=== PATIENT | male | born 1950 | race Caucasian/White ===

== ENCOUNTER 2016-05-04 10:03 | Outpatient (CLI) | payer MEDICARE | END 2016-05-04 10:04 | disposition home or self-care (01) | DX: Z51.81 Encounter for therapeutic drug level monitoring (principal) ==

== ENCOUNTER 2016-05-17 07:23 | Outpatient (CLI) | payer MEDICARE | END 2016-05-17 07:24 | disposition home or self-care (01) | DX: D64.9 Anemia, unspecified (principal) ==

== ENCOUNTER 2016-05-17 13:45 | Outpatient (CLI) | payer MEDICARE | END 2016-05-17 13:46 | disposition home or self-care (01) | DX: B19.20 Unspecified viral hepatitis C without hepatic coma (principal) ==

== ENCOUNTER 2016-06-04 10:11 | Outpatient (CLI) | payer MEDICARE | END 2016-06-04 10:12 | disposition home or self-care (01) | DX: B19.20 Unspecified viral hepatitis C without hepatic coma (principal); D64.9 Anemia, unspecified ==

== ENCOUNTER 2016-09-21 13:08 | Outpatient (CLI) | payer MEDICARE ==
--- NOTE | 2016-09-21 19:42 | Ultrasound Report ---
COMPLETE ABDOMINAL ULTRASOUND: 09/21/2016 CLINICAL INDICATION: Cirrhosis. COMPARISON: 06/21/2010 TECHNIQUE: Real-time scanning was performed with patient financial representative static images obtained. FINDINGS: The liver measures 15.7 cm. Hepatic echogenicity is heterogeneous, with nodular contour, compatible with cirrhosis. No focal lesion or intrahepatic biliary dilatation is appreciated. The c ommon bile duct is prominent, measuring 9 mm. Cholelithiasis is now present. No gallbladder wall th ickening or pericholecystic fluid is seen. The visualized pancreas is unremarkable, but segments are obscured by bowel gas. The kidneys are unremarkable, with the right measuring 10.5 cm and the left measuring 13.5 cm. The spleen measures 12 cm, and a splenule is noted adjacent. The abdominal aorta is normal in caliber. The inferior vena cava is unremarkable. No free fluid is present. IMPRESSION: CIRRHOTIC LIVER, WITHOUT FOCAL MASS. CHOLELITHIASIS. MILD PROMINENCE OF THE COMMON GONZALEZ E DUCT. JOB #: [id number] EXT JOB #:[id number]
== END 2016-09-21 13:09 | disposition home or self-care (01) ==
LOC: DI 13:08
PROVIDERS: ATTEND Nurse Practitioner
DX: K74.60 Unspecified cirrhosis of liver (principal); K80.20 Calculus of gallbladder without cholecystitis without obstruction
CPT/HCPCS: 76700

== ENCOUNTER 2016-11-02 09:43 | Outpatient (CLI) | payer MEDICARE ==
[2016-11-02 17:29] LABS: BASOPHILS % (AUTO) 0.5 %; EOSINOPHILS # (AUTO) 0.2 10^3/uL (0.0-0.7); EOSINOPHILS % (AUTO) 2.6 %; HCT - HEMATOCRIT 39.9 % (42.0-52.0); HGB - HEMOGLOBIN 13.4 g/dL (14.0-18.0); LYMPHOCYTES # (AUTO) 1.9 10^3/uL (1.5-3.5); LYMPHOCYTES % (AUTO) 31.5 %; MEAN CORPUSCULAR HEMOGLOBIN 32.2 pg (27.0-31.0); MEAN CORPUSCULAR HGB CONC 33.6 g/dL (32.0-36.0); MEAN CORPUSCULAR VOLUME 95.7 fL (80.0-94.0); MEAN PLATELET VOLUME 8.8 fL (7.4-11.4); MONOCYTES # (AUTO) 0.7 10^3/uL (0.0-1.0); MONOCYTES % (AUTO) 11.5 %; NEUTROPHILS # (AUTO) 3.2 10^3/uL (1.5-6.6); NEUTROPHILS % (AUTO) 53.9 %; NUCLEATED RED BLOOD CELLS AUTO 0.1 /100WBC; RED BLOOD COUNT 4.18 10^6/uL (4.70-6.10); RED CELL DISTRIBUTION WIDTH 13.5 % (12.0-15.0); UNCORRECTED WHITE BLOOD COUNT 5.9 x10^3/uL; WHITE BLOOD COUNT 5.9 x10^3/uL (4.8-10.8)
[2016-11-02 17:35] LABS: INR 1.1 (0.8-1.2); PT - PROTHROMBIN TIME 12.3 secs (9.9-12.6)
[2016-11-02 17:47] LABS: ALBUMIN/GLOBULIN RATIO 0.9 (1.0-2.2); BILIRUBIN,TOTAL 1.3 mg/dL (0.2-1.0); CALCIUM 9.1 mg/dL (8.5-10.3); CREATININE 0.9 mg/dL (0.6-1.2); POTASSIUM 4.4 mmol/L (3.5-5.0); TOTAL PROTEIN 6.9 g/dL (6.7-8.2)
== END 2016-11-02 09:44 | disposition home or self-care (01) ==
LOC: LAB.F 09:43
PROVIDERS: ATTEND Nurse Practitioner
DX: B18.2 Chronic viral hepatitis C (principal)
CPT/HCPCS: 36415; 80053; 85025; 85610

== ENCOUNTER 2017-03-01 14:49 | Outpatient (CLI) | payer MEDICARE ==
--- NOTE | 2017-03-01 19:44 | Ultrasound Report ---
EXAM: ABDOMEN ULTRASOUND EXAM DATE: 03/01/2017 04:46 PM. CLINICAL HISTORY: Cirrhosis of liver without ascites. COMPARISON: 09/21/2016. TECHNIQUE: Real-time scanning was performed with static images obtained. FINDINGS: Liver: Normal in size. Coarse heterogeneous echotexture with lobular contour. 16.4 cm. Main portal ve in flow: Hepatopetal. Gallbladder: Nonmobile gallstone. No wall thickening. Nontender. Biliary System: Common bile duct measures 5 mm. No intrahepatic or extrahepatic ductal dilatation. Pancreas: Visualized portion is unremarkable. Kidneys: Right: 10.3 cm longitudinally. Left: 11.6 cm longitudinally. Normal. No contour-deforming mass, stones, or hydronephrosis. Spleen: 11.3 x 6.2 x 4.4 cm. Normal in size and echotexture. 1.4 x 1.4 x 1.6 cm accessory spleen note d. Aorta and Inferior Vena Cava: Unremarkable. Other: No free fluid. IMPRESSION: 1. Cirrhotic liver. 2. Nonmobile gallstone. 3. No free fluid or splenomegaly. [facility] Referring Provider Line: [phone] SITE ID: [id number]
== END 2017-03-01 14:50 | disposition home or self-care (01) ==
LOC: DI 14:49
PROVIDERS: ATTEND Nurse Practitioner
DX: K74.60 Unspecified cirrhosis of liver (principal); K80.80 Other cholelithiasis without obstruction
CPT/HCPCS: 76700

== ENCOUNTER 2017-05-27 11:20 | Outpatient (CLI) | payer MEDICARE ==
--- NOTE | 2017-05-27 13:27 | XRAY Report ---
THREE VIEW RIGHT ELBOW: 05/27/2017 CLINICAL INDICATION: Pain. FINDINGS: AP, lateral, oblique views of the right elbow demonstrate no evidence of fracture or dislocation. No effusion is present. No foreign body is seen in the soft tissues. IMPRESSION: NORMAL RIGHT ELBOW. TD: 05/27/2017 13:25
== END 2017-05-27 11:21 | disposition home or self-care (01) ==
LOC: DI.S 11:20
PROVIDERS: ATTEND Physician Assistant Medical
DX: M25.521 Pain in right elbow (principal)

== ENCOUNTER 2017-08-29 16:05 | Emergency (ER) | payer MEDICARE ==
--- NOTE | 2017-08-29 16:30 | ED Physician Documentation ---
PD HPI GI BLEED - Stated complaint Stated Complaint: RECTAL BLEEDING - Chief complaint Chief Complaint: Abd Pain - History obtained from History obtained from: Patient - History of Present Illness Timing - onset: Today Timing - duration: Days (1) Timing - details: Abrupt onset Associated symptoms: Maroon stool. No: Vomiting, Coffee ground emesis, Abdominal pain, Fever, Near syncope / syncope Contributing factors: Other (history of cirrhosis. No report of varices.). No: Sick contact, Bad food, Travel, Recent antibiotics, Diabetes Similar symptoms before: Has not had sx before Recently seen: Not recently seen (has not had prior/recent EGD. Is scheduled for EGD September 10 in [place].) Review of Systems Constitutional: denies: Fever, Chills Nose: denies: Rhinorrhea / runny nose, Congestion Throat: denies: Sore throat Cardiac: denies: Chest pain / pressure, Palpitations Respiratory: denies: Dyspnea, Cough GI: reports: Diarrhea (has had loose stools regularly the past couple weeks as he is tapering his chronic pain med use. Today noted maroon colored stools and concerned about bleeding.). denies: Abdominal Pain, Nausea, Vomiting : denies: Dysuria, Frequency, Hematuria (but says his urine is dark yellow.) Skin: denies: Abrasion (s), Laceration (s) Musculoskeletal: reports: Back pain (chronic). denies: Neck pain PD PAST MEDICAL HISTORY - Past Medical History Cardiovascular: Hypertension Respiratory: None Endocrine/Autoimmune: Type 2 diabetes GI: Hepatitis, Cirrhosis (due to Hepatitis C and also ongoing chronic alcohol use.), Other - Past Surgical History Past Surgical History: Yes - Present Medications Home Medications: Ambulatory Orders Medication Instructions Recorded Confirmed Alprazolam [Xanax] 5 mg PO TID 08/30/12 01/05/14 Morphine Ir [Morphine] 60 mg PO TID 08/30/12 01/05/14 Diphenoxylate/Atropine [Lomotil] 1 each PO BID #15 tablet 08/29/17 Metoprolol Tartrate 25 mg PO 08/29/17 - Allergies Allergies/Adverse Reactions: Allergies Allergy/AdvReac Type Severity Reaction Status Date / Time No Known Drug Allergies Allergy Verified 08/29/17 16:23 - Living Situation Living Situation: reports: Alone Living Arrangement: reports: At home - Social History Does the pt smoke?: Yes Smoking Status: Current every day smoker Does the pt drink ETOH?: Yes Does the pt have substance abuse?: Yes - Family History Family history: reports: Non contributory - Immunizations Immunizations are current?: Yes PD ED PE NORMAL - Vitals Vital signs reviewed: Yes - General General: Alert and oriented X 3, No acute distress, Well developed/nourished - HEENT HEENT: PERRL (nonicteric), Pharynx benign - Neck Neck: Supple, no meningeal sign, No adenopathy - Cardiac Cardiac: RRR, No murmur - Respiratory Respiratory: Clear bilaterally - Abdomen Abdomen: Normal bowel sounds, Soft, Non tender, Non distended, No organomegaly - Male Male : Deferred - Rectal Rectal: Other (no hemorrhoids. Has brick colored soft stool in vault, which tests guiac negative. ) - Back Back: No CVA TTP - Derm Derm: Normal color, Warm and dry, No rash - Extremities Extremities: No deformity, No tenderness to palpate, Normal ROM s pain - Neuro Neuro: Alert and oriented X 3, No motor deficit, Normal speech Eye Opening: Spontaneous Motor: Obeys Commands Verbal: Oriented GCS Score: 15 Results - Vitals Vitals: Vital Signs - 24 hr 08/29/17 08/29/17 16:15 18:02 Temperature 36.8 C 36.7 C Heart Rate 68 63 Respiratory 18 18 Rate Blood Pressure 204/135 H 191/102 H O2 Saturation 98 98 Oxygen O2 Source Room air - Labs Labs: Laboratory Tests 08/29/17 08/29/17 08/29/17 16:26 17:07 17:07 WBC 6.3 RBC 4.32 L Hgb 14.5 Hct 42.4 MCV 98.0 H MCH 33.5 H MCHC 34.2 RDW 14.4 Plt Count 138 MPV 8.3 PT 12.4 INR 1.1 APTT 29.1 Sodium 136 Potassium 4.0 Chloride 99 L Carbon Dioxide 29 Anion Gap 8.0 BUN 7 Creatinine 0.8 Estimated GFR (MDRD) 96 Glucose 132 H Calcium 9.1 Total Bilirubin 1.1 H AST 37 ALT 22 Alkaline Phosphatase 85 Total Protein 7.8 Albumin 3.8 Globulin 4.0 Albumin/Globulin Ratio 1.0 Lipase 47 PD MEDICAL DECISION MAKING - ED course Complexity details: reviewed results (suddenly became much easier when rectal exam showed rust colored stool in vault, but did not look melena and tested guiac negative. He has been drinking black ayala Rodney Hard Lemonade a lot, per patient, when asked about food colorings. ), considered differential, d/w patient - Sepsis Event Vital Signs: Vital Signs - 24 hr 08/29/17 08/29/17 16:15 18:02 Temperature 36.8 C 36.7 C Heart Rate 68 63 Respiratory 18 18 Rate Blood Pressure 204/135 H 191/102 H O2 Saturation 98 98 Oxygen O2 Source Room air Departure - Departure Disposition: Home, Self Care Clinical Impression: Dark red stool Condition: Stable Record reviewed to determine appropriate education?: Yes Follow-Up: Jesusita Cuenca PA-C [Primary Care Provider] - Prescriptions: Diphenoxylate/Atropine [Lomotil] 1 each PO BID #15 tablet Comments: Ears dual did have a red color to it but it tested negative for blood. May be a coloring from the hard lemonade black ayala. Drink lots of fluids. You could use Imodium or Lomotil if needed for diarrhea. Continue usual medications. Discharge Date/Time: 08/29/17 18:14
[2017-08-29 16:39] LABS: HGB - HEMOGLOBIN 14.5 g/dL (14.0-18.0); MEAN CORPUSCULAR HEMOGLOBIN 33.5 pg (27.0-31.0); MEAN CORPUSCULAR HGB CONC 34.2 g/dL (32.0-36.0); MEAN PLATELET VOLUME 8.3 fL (7.4-11.4); RED BLOOD COUNT 4.32 10^6/uL (4.70-6.10); RED CELL DISTRIBUTION WIDTH 14.4 % (12.0-15.0); WHITE BLOOD COUNT 6.3 x10^3/uL (4.8-10.8)
[2017-08-29 17:19] LABS: INR 1.1 (0.8-1.2); PT - PROTHROMBIN TIME 12.4 secs (9.9-12.6)
[2017-08-29] MEDS ORDERED: DIPHENOX/ATROPINE 2.5/0.025 MG TABLET PO STA (17:24)
[2017-08-29] MEDS ORDERED: SODIUM CHLORIDE 0.9% 1,000 ML IV ONE (17:24)
[2017-08-29 17:25] LABS: ALBUMIN 3.8 g/dL (3.2-5.5); BILIRUBIN,TOTAL 1.1 mg/dL (0.2-1.0); CALCIUM 9.1 mg/dL (8.5-10.3); CREATININE 0.8 mg/dL (0.6-1.2); TOTAL PROTEIN 7.8 g/dL (6.7-8.2)
[2017-08-29 18:02] VITALS: BP 191/102
== END 2017-08-29 18:14 | disposition home or self-care (01) ==
LOC: ED 16:05
DX: R19.5 Other fecal abnormalities (principal); I10 Essential (primary) hypertension; E11.9 Type 2 diabetes mellitus without complications; K75.9 Inflammatory liver disease, unspecified; K70.30 Alcoholic cirrhosis of liver without ascites; F17.200 Nicotine dependence, unspecified, uncomplicated; Z79.891 Long term (current) use of opiate analgesic
CPT/HCPCS: 36415; 80053; 83690; 85027; 85610; 85730; 99283; A9270; 86850; 86900; 86901

== ENCOUNTER 2017-12-07 06:52 | Outpatient (CLI) | payer MEDICARE | END 2017-12-07 06:53 | disposition short-term general hospital (02) | LOC: EMS 06:52 | PROVIDERS: ATTEND Surgery | DX: R07.9 Chest pain, unspecified (principal) | CPT/HCPCS: A0170; A0425; A0427 ==

== ENCOUNTER 2018-03-02 10:09 | Emergency (ER) | payer MEDICARE ==
[2018-03-02 10:18] VITALS: BP 128/76
--- NOTE | 2018-03-02 11:00 | ED Physician Documentation ---
History of Present Illness - Stated complaint Stated Complaint: AB PX/FRANCISCO - Chief complaint Chief Complaint: General - History obtained from History obtained from: Patient - History of Present Illness Timing: Today - Additonal information Additional information: 67-year-old male who is on pain management has been prescribed morphine sulfate 60 mg tablets he was prescribed capsules instead of tablets and this was a $200 co-pay. He took his last pill this morning and his prescriber will be out of the office until the first week of March. Review of Systems Constitutional: denies: Fever Eyes: denies: Decreased vision Ears: denies: Ear pain Nose: denies: Congestion Throat: denies: Sore throat Respiratory: reports: Cough GI: denies: Vomiting Musculoskeletal: reports: Back pain PD PAST MEDICAL HISTORY - Past Medical History Cardiovascular: Hypertension Respiratory: None Endocrine/Autoimmune: Type 2 diabetes GI: Hepatitis, Cirrhosis (due to Hepatitis C and also ongoing chronic alcohol use.), Other - Past Surgical History Past Surgical History: Yes - Present Medications Home Medications: Ambulatory Orders Medication Instructions Recorded Confirmed Alprazolam [Xanax] 5 mg PO TID 08/30/12 01/05/14 Morphine Ir [Morphine] 60 mg PO TID 08/30/12 01/05/14 Diphenoxylate/Atropine [Lomotil] 1 each PO BID #15 tablet 08/29/17 RX: Metoprolol Tartrate 25 mg PO 08/29/17 Morphine Sulfate [Morphine Sulfate 60 mg PO DAILY #14 tablet.er 03/02/18 ER] - Allergies Allergies/Adverse Reactions: Allergies Allergy/AdvReac Type Severity Reaction Status Date / Time zolpidem [From Ambien] AdvReac Hallucinati Verified 03/02/18 10:18 ons - Social History Does the pt smoke?: Yes Smoking Status: Current every day smoker Does the pt drink ETOH?: Yes Does the pt have substance abuse?: Yes - Immunizations Immunizations are current?: Yes PD ED PE NORMAL - Vitals Vital signs reviewed: Yes (normal) - General General: Alert and oriented X 3, Well developed/nourished, Other (The patient does appear to be in pain ) - HEENT HEENT: Atraumatic, PERRL, EOMI - Abdomen Abdomen: Normal bowel sounds - Derm Derm: Normal color, Warm and dry, No rash - Extremities Extremities: No deformity, No edema - Neuro Neuro: No motor deficit, No sensory deficit Eye Opening: Spontaneous Motor: Obeys Commands Verbal: Oriented GCS Score: 15 - Psych Psych: Normal mood, Normal affect Results - Vitals Vitals: Vital Signs - 24 hr 03/02/18 10:14 Temperature 36.6 C Heart Rate 50 L Respiratory 18 Rate Blood Pressure 128/76 O2 Saturation 99 Oxygen O2 Source Room air PD MEDICAL DECISION MAKING - ED course Complexity details: considered differential, d/w patient ED course: 67-year-old male with chronic back pain his cut his use of morphine down to 160 mg extended release tablet per day. He has been prescribed capsules which have a 200 all co-pay and he will not be able to get back into his prescriber until after the new year. He is given a limited supply. He does have the unfilled script with him and this is not confiscated. Departure - Departure Disposition: 01 Home, Self Care Clinical Impression: Medication regimen deficit Condition: Stable Instructions: ED Chronic Pain Management Follow-Up: Jesusita Cuenca PA-C [Primary Care Provider] - Prescriptions: Morphine Sulfate [Morphine Sulfate ER] 60 mg PO DAILY #14 tablet.er Discharge Date/Time: 03/02/18 11:06
== END 2018-03-02 11:06 | disposition home or self-care (01) ==
LOC: ED 10:09
DX: Z76.0 Encounter for issue of repeat prescription (principal); G89.29 Other chronic pain; I10 Essential (primary) hypertension; E11.9 Type 2 diabetes mellitus without complications; B19.20 Unspecified viral hepatitis C without hepatic coma; F17.200 Nicotine dependence, unspecified, uncomplicated
CPT/HCPCS: 99283

== ENCOUNTER 2018-05-23 08:00 | Outpatient (CLI) | payer MEDICARE ==
[2018-05-23 18:09] LABS: MUDS CUTOFF CONCENTRATIONS CUTOFF CONC BELOW:
[2018-05-23 19:02] LABS: AMPHETAMINE SCREEN,URINE NEGATIVE (NEGATIVE); BENZODIAZEPINES SCREEN, URINE NEGATIVE (NEGATIVE); COCAINE SCREEN URINE NEGATIVE (NEGATIVE); METHADONE SCREEN, URINE NEGATIVE (NEGATIVE); METHAMPHETAMINES SCREEN, URINE NEGATIVE (NEGATIVE); OPIATE SCREEN, URINE POSITIVE (NEGATIVE); OXYCODONE SCREEN, URINE NEGATIVE (NEGATIVE); PROPOXYPHENE SCREEN, URINE NEGATIVE (NEGATIVE); TRICYCLIC ANTIDEPRESSANT,URINE NEGATIVE (NEGATIVE)
== END 2018-05-23 23:59 | disposition home or self-care (01) ==
LOC: LAB.R 08:00
PROVIDERS: ATTEND Physician Assistant Medical
DX: G89.29 Other chronic pain (principal); N39.0 Urinary tract infection, site not specified
CPT/HCPCS: 80306; 87086; 87181

== ENCOUNTER 2018-07-25 09:56 | Outpatient (CLI) | payer MEDICARE | END 2018-07-25 09:57 | disposition critical access hospital (66) | LOC: EMS 09:56 | PROVIDERS: ATTEND Surgery | DX: R10.9 Unspecified abdominal pain (principal); R11.0 Nausea; R19.7 Diarrhea, unspecified ==

== ENCOUNTER 2018-07-25 10:20 | Emergency (ER) | payer MEDICARE ==
[2018-07-25] MEDS ORDERED: IOVERSOL 320 100 ML VIAL IVP ONE ×3 (10:21→14:18)
[2018-07-25 10:48] LABS: BASOPHILS % (AUTO) 0.4 %; EOSINOPHILS % (AUTO) 0.5 %; MEAN CORPUSCULAR HEMOGLOBIN 35.6 pg (27.0-31.0); MEAN CORPUSCULAR HGB CONC 34.4 g/dL (32.0-36.0); MEAN CORPUSCULAR VOLUME 103.5 fL (80.0-94.0); MEAN PLATELET VOLUME 7.1 fL (7.4-11.4); MONOCYTES # (AUTO) 0.4 10^3/uL (0.0-1.0); MONOCYTES % (AUTO) 7.5 %; NEUTROPHILS % (AUTO) 72.6 %; PLT - PLATELET COUNT 154 10^3/uL (130-450); RED BLOOD COUNT 3.64 10^6/uL (4.70-6.10); RED CELL DISTRIBUTION WIDTH 14.4 % (12.0-15.0); WHITE BLOOD COUNT 5.5 x10^3/uL (4.8-10.8)
[2018-07-25 11:00] LABS: ALBUMIN 3.4 g/dL (3.2-5.5); BILIRUBIN,TOTAL 2.2 mg/dL (0.2-1.0); CALCIUM 8.7 mg/dL (8.5-10.3); CREATININE 0.7 mg/dL (0.6-1.2); TOTAL PROTEIN 6.9 g/dL (6.7-8.2)
--- NOTE | 2018-07-25 11:01 | ED Physician Documentation ---
History of Present Illness - Stated complaint Stated Complaint: N/V/D, ABD PAIN, - Chief complaint Chief Complaint: Abd Pain - History obtained from History obtained from: Patient, EMS - History of Present Illness Timing: How many weeks ago (3) Pain level max: 6 Pain level now: 5 Improved by: nothing Worsened by: eating - Additonal information Additional information: 68-year-old male with a history of liver cirrhosis. He states that he has not felt well for the past 3 weeks. Being treated for an E. coli urinary tract infection. Was on Bactrim for 2 weeks and is now on tetracycline. He has had some nausea but no vomiting. Some slight diarrhea. Has general abdominal pain. No fevers. No chills. Review of Systems Constitutional: denies: Fever, Chills Nose: denies: Rhinorrhea / runny nose, Congestion Cardiac: denies: Chest pain / pressure Respiratory: denies: Dyspnea, Cough, Wheezing GI: denies: Hematemesis, Bloody / black stool : denies: Dysuria, Frequency, Hesitancy Skin: denies: Rash PD PAST MEDICAL HISTORY - Past Medical History Past Medical History: Yes Cardiovascular: Hypertension Respiratory: None Endocrine/Autoimmune: Type 2 diabetes GI: Hepatitis, Cirrhosis (due to Hepatitis C and also ongoing chronic alcohol use.), Other - Past Surgical History Past Surgical History: Yes - Present Medications Home Medications: Ambulatory Orders Medication Instructions Recorded Confirmed Morphine Ir [Morphine] 60 mg PO TID 08/30/12 07/25/18 Metoprolol Tartrate 25 mg PO DAILY 08/29/17 07/25/18 Morphine Sulfate [Morphine Sulfate 60 mg PO DAILY #14 tablet.er 03/02/18 07/25/18 ER] Esomeprazole Magnesium [Nexium] 20 mg PO DAILY #30 capsule. 07/25/18 Ondansetron Odt [Zofran] 4 mg TL Q6H PRN #10 tablet 07/25/18 Tetracycline HCl 500 mg PO BID 07/25/18 07/25/18 amLODIPine [Norvasc] 5 mg PO DAILY 07/25/18 07/25/18 - Allergies Allergies/Adverse Reactions: Allergies Allergy/AdvReac Type Severity Reaction Status Date / Time zolpidem [From Ambien] AdvReac Hallucinati Verified 03/02/18 10:18 ons - Social History Does the pt smoke?: Yes Smoking Status: Current every day smoker Does the pt drink ETOH?: Yes Does the pt have substance abuse?: Yes - Immunizations Immunizations are current?: Yes PD ED PE NORMAL - Vitals Vital signs reviewed: Yes - General General: Alert and oriented X 3, No acute distress - HEENT HEENT: PERRL, Other (dry lips) - Neck Neck: Supple, no meningeal sign - Cardiac Cardiac: RRR, Strong equal pulses - Respiratory Respiratory: No respiratory distress, Clear bilaterally - Abdomen Abdomen: Soft, Other (mild distention and mild TTP without peritoneal signs diffusely) - Back Back: No CVA TTP - Derm Derm: Warm and dry, No rash - Extremities Extremities: No calf tenderness / cord - Neuro Neuro: Alert and oriented X 3 - Psych Psych: Normal mood, Normal affect Results - Vitals Vitals: Vital Signs - 24 hr 07/25/18 07/25/18 10:37 15:30 Temperature 36.9 C Heart Rate 66 78 Respiratory 18 18 Rate Blood Pressure 134/94 H 146/100 H O2 Saturation 100 99 Oxygen O2 Source Room air - Labs Labs: Microbiology 07/25/18 14:33 Campylobacter Antigen Assay - Final Stool Laboratory Tests 07/25/18 07/25/18 07/25/18 10:45 10:46 10:46 WBC 5.5 RBC 3.64 L Hgb 13.0 L Hct 37.6 L MCV 103.5 H MCH 35.6 H MCHC 34.4 RDW 14.4 Plt Count 154 MPV 7.1 L Neut # (Auto) 4.0 Lymph # (Auto) 1.0 L [place] # (Auto) 0.4 Eos # (Auto) 0.0 Baso # (Auto) 0.0 Absolute Nucleated RBC 0.00 Nucleated RBC % 0.0 PT 14.8 H INR 1.3 H Sodium 136 Potassium 3.6 Chloride 101 Carbon Dioxide 24 Anion Gap 11.0 BUN 10 Creatinine 0.7 Estimated GFR (MDRD) 112 Glucose 126 H Calcium 8.7 Total Bilirubin 2.2 H AST 50 H ALT 29 Alkaline Phosphatase 69 Ammonia Total Protein 6.9 Albumin 3.4 Globulin 3.5 Albumin/Globulin Ratio 1.0 Lipase 27 Urine Color Urine Clarity Urine pH Ur Specific [place] Urine Protein Urine Glucose (UA) Urine Ketones Urine Occult Blood Urine Nitrite Urine Bilirubin Urine Urobilinogen Ur Leukocyte Esterase Ur Microscopic Review Urine Culture Comments 05/17/19 05/17/19 11:00 12:07 WBC RBC Hgb Hct MCV MCH MCHC RDW Plt Count MPV Neut # (Auto) Lymph # (Auto) [place] # (Auto) Eos # (Auto) Baso # (Auto) Absolute Nucleated RBC Nucleated RBC % PT INR Sodium Potassium Chloride Carbon Dioxide Anion Gap BUN Creatinine Estimated GFR (MDRD) Glucose Calcium Total Bilirubin AST ALT Alkaline Phosphatase Ammonia < 10.0 Total Protein Albumin Globulin Albumin/Globulin Ratio Lipase Urine Color YELLOW Urine Clarity CLEAR Urine pH 8.5 H Ur Specific [place] 1.010 Urine Protein NEGATIVE Urine Glucose (UA) NEGATIVE Urine Ketones 15 H Urine Occult Blood TRACE-INTA Urine Nitrite NEGATIVE Urine Bilirubin NEGATIVE Urine Urobilinogen 1 (NORMAL) Ur Leukocyte Esterase NEGATIVE Ur Microscopic Review NOT INDICATED Urine Culture Comments NOT INDICATED - Rads (name of study) CT abd/pelviis Radiology: Prelim report reviewed, EMP read contemporaneously, See rad report ( Subtle peripancreatic fat stranding with adjacent secondary dilatation of duodenal sweep suspicious for pancreatitis. Clinical and laboratory correlation is recommended. 2. Micro-lobulated and macro-lobulated contour of the liver suggests underlying cirrhosis with superimposed steatosis. 3. Recanalization of the umbilical vein with portosystemic collateral venous drainage anterior abdominal veins suggests underlying portal hypertension. No splenomegaly. 4. Possible mild focal thickening of the urothelium left distal ureter extending into adjacent bladder. Clinical history of UTI is acknowledged and this may be a manifestation of that diagnosis. 5. Cholelithiasis with mild nonspecific gallbladder wall thickening. Wall thickening is nonspecific in the setting of suspected portal hypertension. ) PD MEDICAL DECISION MAKING - ED course Complexity details: reviewed old records, reviewed results, re-evaluated patient, considered differential, d/w patient ED course: 68-year-old male with a history of cirrhosis of the liver and to being treated for UTI presents with generally feeling unwell. Also nausea this morning. Nausea resolved. Tolerating p.o. without difficulty. Feels better after IV fluids. A UTI here. We will have him finish his antibiotics at home. Abdomen is soft, nontender nondistended on serial exam. No bowel obstruction on CT. Multiple chronic findings. No evidence of cholecystitis. Patient counseled regarding signs and symptoms for which I believe and urgent re-evaluation would be necessary. Patient with good understanding of and agreement to plan and is comfortable going home at this time This document was made in part using voice recognition software. While efforts are made to proofread this document, sound alike and grammatical errors may occur. Departure - Departure Disposition: 01 Home, Self Care Clinical Impression: Abdominal pain Qualifiers: Abdominal location: unspecified location Qualified Code(s): R10.9 - Unspecified abdominal pain Pancreatitis Qualifiers: Chronicity: acute Pancreatitis type: unspecified pancreatitis type Acute pancreatitis complication: unspecified Qualified Code(s): K85.90 - Acute pancreatitis without necrosis or infection, unspecified Condition: Good Instructions: ED Pancreatitis Follow-Up: your,doctor in 1 week [Other] Prescriptions: Esomeprazole Magnesium [Nexium] 20 mg PO DAILY #30 capsule. Ondansetron Odt [Zofran] 4 mg TL Q6H PRN #10 tablet PRN Reason: Nausea / Vomiting Comments: Continue your other medications at home. Return if you worsen. Follow-up with your doctor for further care. Discharge Date/Time: 07/25/18 15:53
[2018-07-25 11:09] LABS: INR 1.3 (0.8-1.2); PT - PROTHROMBIN TIME 14.8 secs (9.9-12.6)
[2018-07-25] MEDS ORDERED: ONDANSETRON 4 MG/2 ML VIAL IVP STA (12:16)
[2018-07-25 12:23] LABS: BILIRUBIN,URINE NEGATIVE (NEGATIVE); GLUCOSE, URINE (UA) NEGATIVE (NEGATIVE); KETONES,URINE (UA) 15 mg/dL (NEGATIVE); LEUKOCYTE ESTERASE, URINE NEGATIVE (NEGATIVE); NITRITE,URINE NEGATIVE (NEGATIVE); OCCULT BLOOD,URINE TRACE-INTA (NEGATIVE); PH,URINE 8.5 PH (5.0-7.5); PROTEIN,URINE NEGATIVE (NEGATIVE); UROBILINOGEN,URINE 1 (NORMAL) E.U./dL (NORMAL)
[2018-07-25 12:24] LABS: CLARITY,URINE CLEAR (CLEAR)
[2018-07-25] MEDS ORDERED: FAMOTIDINE 20 MG TABLET PO STA (13:08)
[2018-07-25] MEDS ORDERED: MAG HYDROX/AL HYDROX/SIMETH 30 ML UDC PO STA (13:08)
[2018-07-25] MEDS ORDERED: PHENobarb/HYOSCY/ATROPINE/SCOP 5 ML UDC PO STA (13:08)
[2018-07-25] MEDS ORDERED: SUCRALFATE 1 GM/10 ML UDC PO STA (13:08)
[2018-07-25] MEDS ORDERED: SODIUM CHLORIDE 0.9% 1,000 ML IV ONE ×2 (13:09)
--- NOTE | 2018-07-25 14:59 | CT Report ---
Reason: abd pain, vomiting Procedure Date: 07/25/2018 Accession Number: [id number] / [id number] Procedure: CT - Abdomen/Pelvis W CPT Code: FULL RESULT: EXAM: CT ABDOMEN AND PELVIS EXAM DATE: 07/25/2018 02:20 PM. CLINICAL HISTORY: Abdominal pain, vomiting. COMPARISONS: ABDOMEN/PELVIS W/WO 03/09/2014 10:38 AM. TECHNIQUE: Routine helical CT imaging was performed through the abdomen and pelvis. IV contrast: OPTI 320 90 ML. Enteric contrast: No. Reconstructions: Coronal and sagittal. In accordance with CT protocol optimization, one or more of the following dose reduction techniques were utilized for this exam: automated exposure control, adjustment of mA and/or KV based on patient size, or use of iterative reconstructive technique. FINDINGS: Lung Bases: Unremarkable. Liver: Heterogeneous/decreased density throughout, consistent with steatosis. Both micro-lobulated and macro-lobulated contour. Patent hepatic and portal veins. Recanalization of the umbilical vein with flow into subcutaneous draining veins over the anterior abdomen. Gallbladder/Bile Ducts: Two dependent radiodense gallstones within the gallbladder lumen. Mild wall thickening, nonspecific in the presence of presumed portal hypertension. Spleen: Normal in size. Pancreas: Pancreatic duct is visible approximately 2-3 mm in size. There is subtle inflammatory stranding/indistinctness of the peripancreatic fat and there is adjacent dilatation of the duodenal sweep indicating possible pancreatitis. Scattered nonenlarged adjacent peripancreatic lymph nodes. Adrenal Glands: Normal. Kidneys: Normal. No masses or hydronephrosis. Peritoneal Cavity/Bowel: No free fluid, free air or adenopathy. No masses . The appendix is well visualized and normal. Other than mild dilatation of the duodenal sweep, small and large bowel are grossly unremarkable. Pelvic Organs: Stable diverticulum of the right UVJ. Possible mild thickening of the left urinary bladder extending into the urothelium of the distal left ureter. Vasculature: No aneurysms or other significant abnormality. Bones: No significant abnormality. Other: None. IMPRESSION: 1. Subtle peripancreatic fat stranding with adjacent secondary dilatation of duodenal sweep suspicious for pancreatitis. Clinical and laboratory correlation is recommended. 2. Micro-lobulated and macro-lobulated contour of the liver suggests underlying cirrhosis with superimposed steatosis. 3. Recanalization of the umbilical vein with portosystemic collateral venous drainage anterior abdominal veins suggests underlying portal hypertension. No splenomegaly. 4. Possible mild focal thickening of the urothelium left distal ureter extending into adjacent bladder. Clinical history of UTI is acknowledged and this may be a manifestation of that diagnosis. 5. Cholelithiasis with mild nonspecific gallbladder wall thickening. Wall thickening is nonspecific in the setting of suspected portal hypertension. [facility]
[2018-07-25 15:39] VITALS: BP 146/100
== END 2018-07-25 15:53 | disposition home or self-care (01) ==
LOC: EDUNIT# → ED 10:20
DX: K85.90 Acute pancreatitis without necrosis or infection, unspecified (principal); K74.69 Other cirrhosis of liver; B19.20 Unspecified viral hepatitis C without hepatic coma; N39.0 Urinary tract infection, site not specified; B96.20 Unspecified Escherichia coli [E. coli] as the cause of diseases classified elsewhere; K80.20 Calculus of gallbladder without cholecystitis without obstruction; I10 Essential (primary) hypertension; E11.9 Type 2 diabetes mellitus without complications; F17.200 Nicotine dependence, unspecified, uncomplicated
CPT/HCPCS: 36415; 74177; 80053; 81003; 82140; 83690; 85025; 85610; 87045; 87046; 87493; 96361; 96374; 99283; A9270; Q9967; 81001; 87086

== ENCOUNTER 2018-09-28 12:59 | Emergency (ER) | payer MEDICARE ==
--- NOTE | 2018-09-28 13:05 | ED Physician Documentation ---
History of Present Illness - Stated complaint Stated Complaint: ABD PX - History obtained from History obtained from: Patient - Additonal information Additional information: Patient is a 68-year-old male with history of liver cirrhosis and recurrent UTI presenting with concerns for persistent UTI particularly dysuria, hematuria, frequency. Patient has been battling UTI for several weeks and received Bactrim and then tetracycline. Patient also complains of diarrhea, nausea, dry heaving, but denies particular abdominal pain except with retching. Patient is unsure if he is experienced fever. Patient takes morphine and other cardiac medications at baseline. Patient continues to use tobacco and alcohol regularly. Patient has primary care follow-up scheduled within the next several days. No other improving or worsening factors noted. Review of Systems Constitutional: reports: Fever GI: reports: Abdominal Pain, Nausea, Diarrhea : reports: Dysuria, Frequency, Hematuria PD PAST MEDICAL HISTORY - Past Medical History Cardiovascular: Hypertension Respiratory: None Endocrine/Autoimmune: Type 2 diabetes GI: Hepatitis, Cirrhosis (due to Hepatitis C and also ongoing chronic alcohol use.), Other - Past Surgical History Past Surgical History: Yes - Present Medications Home Medications: Ambulatory Orders Medication Instructions Recorded Confirmed Morphine Ir [Morphine] 60 mg PO TID 08/30/12 07/25/18 Metoprolol Tartrate 25 mg PO DAILY 08/29/17 07/25/18 Morphine Sulfate [Morphine Sulfate 60 mg PO DAILY #14 tablet.er 03/02/18 07/25/18 ER] Esomeprazole Magnesium [Nexium] 20 mg PO DAILY #30 capsule. 07/25/18 Ondansetron Odt [Zofran] 4 mg TL Q6H PRN #10 tablet 07/25/18 Tetracycline HCl 500 mg PO BID 07/25/18 07/25/18 amLODIPine [Norvasc] 5 mg PO DAILY 07/25/18 07/25/18 Nitrofurantoin Monohyd/M-Cryst 100 mg PO BID 7 Days capsule 09/28/18 [Macrobid 100 mg Capsule] Ondansetron Odt [Zofran] 4 mg TL Q6H PRN #10 tablet 09/28/18 - Allergies Allergies/Adverse Reactions: Allergies Allergy/AdvReac Type Severity Reaction Status Date / Time zolpidem [From Ambien] AdvReac Hallucinati Verified 09/28/18 13:07 ons - Social History Does the pt smoke?: Yes Smoking Status: Current every day smoker Does the pt drink ETOH?: Yes Does the pt have substance abuse?: Yes - Immunizations Immunizations are current?: Yes PD ED PE NORMAL - Vitals Vital signs reviewed: Yes - General General: Alert and oriented X 3, No acute distress, Well developed/nourished, Other (Poor hygiene) - HEENT HEENT: Atraumatic, Moist mucous membranes, Other (Poor dentition) - Neck Neck: Supple, no meningeal sign - Cardiac Cardiac: RRR, No murmur - Respiratory Respiratory: No respiratory distress, Clear bilaterally - Abdomen Abdomen: Normal bowel sounds, Soft, Non tender, Non distended - Derm Derm: Normal color (No jaundice), Warm and dry, No rash, Other - Extremities Extremities: No deformity, No tenderness to palpate - Neuro Neuro: Alert and oriented X 3, No motor deficit, No sensory deficit - Psych Psych: Normal mood, Normal affect Results - Vitals Vitals: Vital Signs - 24 hr 09/28/18 09/28/18 13:02 15:05 Temperature 36.8 C 37.1 C Heart Rate 74 87 Respiratory 11 L 16 Rate Blood Pressure 124/74 144/76 H O2 Saturation 99 99 Oxygen O2 Source Room air - Labs Labs: Laboratory Tests 09/28/18 09/28/18 09/28/18 13:20 13:20 13:20 WBC 5.7 RBC 2.92 L Hgb 10.6 L Hct 30.2 L MCV 103.4 H MCH 36.3 H MCHC 35.1 RDW 14.6 Plt Count 71 L MPV 10.3 Neut # (Auto) 4.4 Lymph # (Auto) 0.9 L [place] # (Auto) 0.4 Eos # (Auto) 0.0 Baso # (Auto) 0.0 Absolute Nucleated RBC 0.00 Nucleated RBC % 0.0 Sodium 138 Potassium 4.2 Chloride 100 L Carbon Dioxide 26 Anion Gap 12.0 BUN 8 Creatinine 0.8 Estimated GFR (MDRD) 96 Glucose 115 H Lactic Acid 1.2 Calcium 8.7 Total Bilirubin 2.1 H AST 41 ALT 21 Alkaline Phosphatase 71 Total Protein 6.8 Albumin 3.3 Globulin 3.5 Albumin/Globulin Ratio 0.9 L Lipase 29 Urine Color Urine Clarity Urine pH Ur Specific [place] Urine Protein Urine Glucose (UA) Urine Ketones Urine Occult Blood Urine Nitrite Urine Bilirubin Urine Urobilinogen Ur Leukocyte Esterase Urine RBC Urine WBC Ur Squamous Epith Cells Urine Bacteria Ur Microscopic Review Urine Culture Comments Urine Opiates Screen Ur Oxycodone Screen Urine Methadone Screen Ur Propoxyphene Screen Ur Barbiturates Screen Ur Tricyclics Screen Ur Phencyclidine Scrn Ur Amphetamine Screen U Methamphetamines Scrn U Benzodiazepines Scrn Urine Cocaine Screen U Cannabinoids Screen Ethyl Alcohol < 5.0 09/28/18 13:38 WBC RBC Hgb Hct MCV MCH MCHC RDW Plt Count MPV Neut # (Auto) Lymph # (Auto) [place] # (Auto) Eos # (Auto) Baso # (Auto) Absolute Nucleated RBC Nucleated RBC % Sodium Potassium Chloride Carbon Dioxide Anion Gap BUN Creatinine Estimated GFR (MDRD) Glucose Lactic Acid Calcium Total Bilirubin AST ALT Alkaline Phosphatase Total Protein Albumin Globulin Albumin/Globulin Ratio Lipase Urine Color DARK YELLOW Urine Clarity CLOUDY Urine pH 7.0 Ur Specific [place] 1.015 Urine Protein TRACE Urine Glucose (UA) NEGATIVE Urine Ketones TRACE Urine Occult Blood TRACE-INTA Urine Nitrite NEGATIVE Urine Bilirubin NEGATIVE Urine Urobilinogen 4 H Ur Leukocyte Esterase MODERATE H Urine RBC 0-5 Urine WBC >25 H Ur Squamous Epith Cells FEW Squamous Urine Bacteria Many H Ur Microscopic Review INDICATED Urine Culture Comments INDICATED Urine Opiates Screen POSITIVE H Ur Oxycodone Screen NEGATIVE Urine Methadone Screen NEGATIVE Ur Propoxyphene Screen NEGATIVE Ur Barbiturates Screen NEGATIVE Ur Tricyclics Screen NEGATIVE Ur Phencyclidine Scrn NEGATIVE Ur Amphetamine Screen NEGATIVE U Methamphetamines Scrn NEGATIVE U Benzodiazepines Scrn NEGATIVE Urine Cocaine Screen NEGATIVE U Cannabinoids Screen NEGATIVE Ethyl Alcohol PD MEDICAL DECISION MAKING - ED course Complexity details: reviewed old records, reviewed results, re-evaluated patient, considered differential, d/w patient ED course: Patient presenting with concern for recurrence of UTI. Patient has been treated with multiple antibiotics recently. Based on his complaints, certainly do have concern for UTI. Have lower suspicion for other renal disease including pyelonephritis or nephrolithiasis. Patient does have known underlying liver cirrhosis but do not find evidence of significant ascites, asterixis, jaundice or other acute findings. Patient does continue to use alcohol and tobacco. Based on lack of significant abdominal pain have low suspicion for other intra- abdominal pathology including appendicitis, gallbladder disease, pancreatitis, diverticulitis, bowel obstruction, AAA, but considered. Patient started on IV medications and fluids. Screening lab work returned relatively unremarkable except for changes indicative of underlying disease processes and comorbidities. Urinalysis concerning for infection. CT a/p did not find evidence of acute processes, but noted chronic changes. Reviewed last urine micro results which indicated E. coli and plan sensitivity. Discussed these results with patient inc luding recommendations of oral antibiotics, offered to prescribe Zofran for home, supportive cares, cessation of alcohol and tobacco, return precautions and appropriate follow-up. Departure - Departure Disposition: Home, Self Care Clinical Impression: Urinary tract infection Qualifiers: Urinary tract infection type: site unspecified Hematuria presence: without hematuria Qualified Code(s): N39.0 - Urinary tract infection, site not specified Condition: Good Instructions: ED UTI Cystitis Male Follow-Up: Jesusita Cuenca PA-C [Primary Care Provider] - Within 3 Days Prescriptions: Nitrofurantoin Monohyd/M-Cryst [Macrobid 100 mg Capsule] 100 mg PO BID 7 Days capsule Ondansetron Odt [Zofran] 4 mg TL Q6H PRN #10 tablet PRN Reason: Nausea / Vomiting Comments: Please continue home medications as previously instructed may use Zofran as prescribed for nausea and vomiting control. Please take antibiotics for urinary tract infection. Recommend taking antibiotics with small amount of food to avoid upset stomach.Follow-up with primary care physician in next 2 to 3 days and return to ED sooner if experience worsening symptoms or have other concerns.
[2018-09-28] MEDS ORDERED: ONDANSETRON 4 MG/2 ML VIAL IVP STA ×2 (13:10→14:29)
[2018-09-28] MEDS ORDERED: SODIUM CHLORIDE 0.9% 1,000 ML IV ONE (13:10)
[2018-09-28 13:31] LABS: BASOPHILS % (AUTO) 0.2 %; EOSINOPHILS % (AUTO) 0.5 %; HGB - HEMOGLOBIN 10.6 g/dL (14.0-18.0); LYMPHOCYTES # (AUTO) 0.9 10^3/uL (1.5-3.5); LYMPHOCYTES % (AUTO) 15.7 %; MEAN CORPUSCULAR HEMOGLOBIN 36.3 pg (27.0-31.0); MEAN CORPUSCULAR HGB CONC 35.1 g/dL (32.0-36.0); MEAN CORPUSCULAR VOLUME 103.4 fL (80.0-94.0); MEAN PLATELET VOLUME 10.3 fL (7.4-11.4); MONOCYTES # (AUTO) 0.4 10^3/uL (0.0-1.0); MONOCYTES % (AUTO) 6.8 %; NEUTROPHILS # (AUTO) 4.4 10^3/uL (1.5-6.6); NEUTROPHILS % (AUTO) 76.1 %; PLT - PLATELET COUNT 71 10^3/uL (130-450); RED BLOOD COUNT 2.92 10^6/uL (4.70-6.10); RED CELL DISTRIBUTION WIDTH 14.6 % (12.0-15.0); WHITE BLOOD COUNT 5.7 x10^3/uL (4.8-10.8)
[2018-09-28 13:48] LABS: MUDS CUTOFF CONCENTRATIONS CUTOFF CONC BELOW:
[2018-09-28 13:48] LABS: ALKALINE PHOSPHATASE 71 IU/L (42-121); ALT ALANINE AMINOTRANSFERASE 21 IU/L (10-60); AST ASPARTATE AMINOTRANSFERASE 41 IU/L (10-42); BILIRUBIN,TOTAL 2.1 mg/dL (0.2-1.0); BUN - BLOOD UREA NITROGEN 8 mg/dL (6-20); CALCIUM 8.7 mg/dL (8.5-10.3); CARBON DIOXIDE - CO2 26 mmol/L (21-32); CHLORIDE 100 mmol/L (101-111); CREATININE 0.8 mg/dL (0.6-1.2); GFR - MDRD 96 (>89); GLUCOSE 115 mg/dL (70-100); SODIUM 138 mmol/L (135-145)
[2018-09-28 13:49] LABS: ALBUMIN 3.3 g/dL (3.2-5.5); ALBUMIN/GLOBULIN RATIO 0.9 (1.0-2.2); LIPASE 29 U/L (22-51); TOTAL PROTEIN 6.8 g/dL (6.7-8.2)
[2018-09-28 13:58] LABS: GLUCOSE, URINE (UA) NEGATIVE (NEGATIVE); KETONES,URINE (UA) TRACE mg/dL (NEGATIVE); LEUKOCYTE ESTERASE, URINE MODERATE (NEGATIVE); NITRITE,URINE NEGATIVE (NEGATIVE); OCCULT BLOOD,URINE TRACE-INTA (NEGATIVE); PROTEIN,URINE TRACE mg/dL (NEGATIVE); UROBILINOGEN,URINE 4 E.U./dL (NORMAL)
[2018-09-28 14:01] LABS: AMPHETAMINE SCREEN,URINE NEGATIVE (NEGATIVE); BENZODIAZEPINES SCREEN, URINE NEGATIVE (NEGATIVE); COCAINE SCREEN URINE NEGATIVE (NEGATIVE); METHADONE SCREEN, URINE NEGATIVE (NEGATIVE); METHAMPHETAMINES SCREEN, URINE NEGATIVE (NEGATIVE); OPIATE SCREEN, URINE POSITIVE (NEGATIVE); OXYCODONE SCREEN, URINE NEGATIVE (NEGATIVE); PROPOXYPHENE SCREEN, URINE NEGATIVE (NEGATIVE); TRICYCLIC ANTIDEPRESSANT,URINE NEGATIVE (NEGATIVE)
[2018-09-28 14:03] LABS: CLARITY,URINE CLOUDY (CLEAR)
[2018-09-28 14:05] LABS: BILIRUBIN,URINE NEGATIVE (NEGATIVE); ICTOTEST,URINE NEGATIVE
[2018-09-28 14:09] LABS: RBC,URINE 0-5 /HPF (0-5); SQUAMOUS EPITHELIAL CELL,UR FEW Squamous (<= Few)
[2018-09-28 14:10] LABS: BACTERIA,URINE Many /HPF (None Seen)
[2018-09-28] MEDS ORDERED: IOVERSOL 320 100 ML VIAL IVP ONE ×2 (14:28→14:59)
--- NOTE | 2018-09-28 15:28 | CT Report ---
Reason: vomiting, urinary changes, diarrhea, Procedure Date: 09/28/2018 Accession Number: [id number] / [id number] Procedure: CT - Abdomen/Pelvis W CPT Code: FULL RESULT: EXAM: CT ABDOMEN AND PELVIS EXAM DATE: 09/28/2018 02:58 PM. CLINICAL HISTORY: Vomiting, urinary changes, diarrhea. COMPARISONS: ABDOMEN/PELVIS W/ 07/25/2018 2:15 PM. TECHNIQUE: Routine helical CT imaging was performed through the abdomen and pelvis. IV contrast: OPTI 320 90ML. Enteric contrast: No. Reconstructions: Coronal and sagittal. In accordance with CT protocol optimization, one or more of the following dose reduction techniques were utilized for this exam: automated exposure control, adjustment of mA and/or KV based on patient size, or use of iterative reconstructive technique. FINDINGS: Lung Bases: Unremarkable. Liver: The liver parenchyma is low in density. The capsule of the liver has a moderate to markedly lobulated contour. No discrete liver mass. There are anterior abdominal varices with recanalized paraumbilical vein. Gallbladder/Bile Ducts: The gallbladder is contracted. There is a small gallstone. Spleen: Normal. Pancreas: Normal. Adrenal Glands: Normal. Kidneys: Normal. No masses or hydronephrosis. Peritoneal Cavity/Bowel: Normal. No free fluid, free air or adenopathy. No masses or acute inflammatory process. No ascites. Pelvic Organs: Urinary bladder is empty. There is a bladder diverticulum near the right ureterovesicular junction. Vasculature: There is moderate calcification of the abdominal aorta without aneurysm. Bones: No significant abnormality. Other: None. IMPRESSION: 1. Chronic liver disease and liver fibrosis with anterior abdominal varices. 2. No urolithiasis or hydronephrosis. 3. Gallstone in a contracted gallbladder. 4. No localizing acute inflammatory process of bowel or omentum. 5. No ascites. RADIA
[2018-09-28 16:02] VITALS: BP 155/88
== END 2018-09-28 16:22 | disposition home or self-care (01) ==
LOC: EDUNIT# → ED 12:59
DX: N39.0 Urinary tract infection, site not specified (principal); K74.60 Unspecified cirrhosis of liver; B19.20 Unspecified viral hepatitis C without hepatic coma; K74.0 Hepatic fibrosis; I86.8 Varicose veins of other specified sites; K80.20 Calculus of gallbladder without cholecystitis without obstruction; I10 Essential (primary) hypertension; E11.9 Type 2 diabetes mellitus without complications; F17.200 Nicotine dependence, unspecified, uncomplicated
CPT/HCPCS: 36415; 74177; 80053; 81001; 83605; 83690; 85025; 87040; 87086; 87181; 96361; 96374; 96376; 99284; Q9967; 80306; 80320; 81003

== ENCOUNTER 2018-11-03 09:50 | Outpatient (CLI) | payer MEDICARE | END 2018-11-03 23:59 | disposition home or self-care (01) | LOC: LAB.R 09:50 | PROVIDERS: ATTEND Physician Assistant Medical | DX: N39.0 Urinary tract infection, site not specified (principal) | CPT/HCPCS: 87086; 87181 ==

== ENCOUNTER 2018-12-03 11:31 | Outpatient (CLI) | payer MEDICARE ==
[2018-12-03 17:27] LABS: GLUCOSE, URINE (UA) NEGATIVE (NEGATIVE); KETONES,URINE (UA) TRACE mg/dL (NEGATIVE); LEUKOCYTE ESTERASE, URINE NEGATIVE (NEGATIVE); NITRITE,URINE NEGATIVE (NEGATIVE); OCCULT BLOOD,URINE TRACE-INTA (NEGATIVE); PH,URINE 7.5 PH (5.0-7.5); PROTEIN,URINE NEGATIVE (NEGATIVE); UROBILINOGEN,URINE 1 (NORMAL) E.U./dL (NORMAL)
[2018-12-03 17:32] LABS: BILIRUBIN,URINE NEGATIVE (NEGATIVE); CLARITY,URINE CLEAR (CLEAR); ICTOTEST,URINE NEGATIVE
[2018-12-03 17:43] LABS: ALBUMIN 3.8 g/dL (3.2-5.5); BILIRUBIN,TOTAL 2.2 mg/dL (0.2-1.0); CALCIUM 9.3 mg/dL (8.5-10.3); CREATININE 0.9 mg/dL (0.6-1.2); TOTAL PROTEIN 7.5 g/dL (6.7-8.2)
== END 2018-12-03 11:32 | disposition home or self-care (01) ==
LOC: LAB.S 11:31
PROVIDERS: ATTEND Physician Assistant Medical
DX: R11.2 Nausea with vomiting, unspecified (principal); N39.0 Urinary tract infection, site not specified
CPT/HCPCS: 36415; 80053; 81001; 81003; 82150; 83690; 87086

== ENCOUNTER 2018-12-24 10:24 | Outpatient (CLI) | payer MEDICARE ==
[2018-12-24] MEDS ORDERED: GADOBUTROL 15 MMOL/15 ML VIAL ONE (12:28)
[2018-12-24] MEDS ORDERED: GADOBUTROL 15 MMOL/15 ML VIAL IVP ONE (13:30)
--- NOTE | 2018-12-25 05:08 | Ultrasound Report ---
Reason: MEMBRANOUS URETHRAL STICTURE, HISTORY UTI Procedure Date: 12/24/2018 Accession Number: [id number] / [id number] Procedure: US - Retroperitoneal CPT Code: FULL RESULT: EXAM: RENAL ULTRASOUND EXAM DATE: 12/24/2018 11:15 AM. CLINICAL HISTORY: MEMBRANOUS URETHRAL STICTURE, HISTORY UTI. COMPARISON: PELVIS W/WO 12/24/2018 12:22 PM. TECHNIQUE: Real-time scanning was performed with static images obtained. FINDINGS: Right Kidney: 11.4 x 5.8 x 5.6 cm. Normal echotexture with no stones, contour-deforming masses, or hydronephrosis. Left Kidney: 11.9 x 5.4 x 5.1 cm. Normal echotexture with no stones, contour-deforming masses, or hydronephrosis. Bladder: Bilateral jets seen. The prevoid bladder volume was 100 cc. The postvoid bladder volume was 35 cc. Bladder wall thickening with some trabeculation. Large right posterior bladder wall diverticulum, measures 2.9 cm. Other: None. IMPRESSION: 1. No solid renal mass or hydronephrosis. 2. Thick-walled bladder with trabeculation and bladder diverticulum. Findings may be related to chronic outlet obstruction. RADIA
--- NOTE | 2018-12-25 14:16 | MRI Report ---
Reason: MEMBRANOUS URETHRAL STICTURE, HISTORY UTI Procedure Date: 12/24/2018 Accession Number: [id number] / [id number] Procedure: MRI - Pelvis W/WO CPT Code: FULL RESULT: EXAM: MR PELVIS WITH AND WITHOUT CONTRAST EXAM DATE: 12/24/2018 12:22 PM. CLINICAL HISTORY: MEMBRANOUS URETHRAL STRICTURE, HISTORY UTI. COMPARISON: RETROPERITONEAL 12/24/2018 10:39 AM ABDOMEN/PELVIS W/ 09/28/2018 2:51 PM. TECHNIQUE: Multiplanar breath-hold T1, T2, and DWI sequences obtained through the pelvis on an MR scanner. Images obtained before and after administration of 9 cc Gadavist intravenous contrast. FINDINGS: Bowel: The visualized portions of the small bowel, colon, and rectum appear normal. Bladder: Normal in size. There is a 2.4 x 3.1 x 3.3 cm diverticulum arising from the posterior lateral bladder on the right, not intimately associated with the ureterovesical junction, as before. Mild diffuse bladder wall thickening and trabeculation. No mass or filling defect is identified. No perivesical edema. Prostate gland: Unremarkable. Seminal vesicles: Unremarkable. Urethra: Unremarkable. No dilation of the prostatic urethra. Peritoneal cavity: No free fluid. Retroperitoneum: No lymphadenopathy. Body wall: Unremarkable. Bony Structures: No suspicious bony lesions. IMPRESSION: 1. Normal-sized bladder with a 2.4 x 3.1 x 3.3 cm right posterior lateral diverticulum, as before. Mild diffuse bladder wall thickening/trabeculation. 2. The urethra is nondilated and unremarkable. Prostate gland is normal in size. RADIA
== END 2018-12-24 10:25 | disposition home or self-care (01) ==
LOC: DI 10:24
PROVIDERS: ATTEND Urology
DX: N32.3 Diverticulum of bladder (principal); N32.89 Other specified disorders of bladder; Z87.440 Personal history of urinary (tract) infections; Z86.14 Personal history of Methicillin resistant Staphylococcus aureus infection; Z87.898 Personal history of other specified conditions
CPT/HCPCS: 72197; 76770; A9585

== ENCOUNTER 2019-06-01 10:59 | Outpatient (CLI) | payer MEDICARE ==
[2019-06-01 16:59] LABS: BASOPHILS % (AUTO) 0.2 %; EOSINOPHILS % (AUTO) 0.4 %; HGB - HEMOGLOBIN 13.3 g/dL (14.0-18.0); LYMPHOCYTES # (AUTO) 1.4 10^3/uL (1.5-3.5); LYMPHOCYTES % (AUTO) 13.6 %; MEAN CORPUSCULAR HEMOGLOBIN 34.2 pg (27.0-31.0); MEAN CORPUSCULAR HGB CONC 33.4 g/dL (32.0-36.0); MEAN CORPUSCULAR VOLUME 102.3 fL (80.0-94.0); MEAN PLATELET VOLUME 10.1 fL (7.4-11.4); MONOCYTES # (AUTO) 0.8 10^3/uL (0.0-1.0); MONOCYTES % (AUTO) 8.3 %; NEUTROPHILS # (AUTO) 7.7 10^3/uL (1.5-6.6); NEUTROPHILS % (AUTO) 76.8 %; PLT - PLATELET COUNT 187 10^3/uL (130-450); RED BLOOD COUNT 3.89 10^6/uL (4.70-6.10); RED CELL DISTRIBUTION WIDTH 13.1 % (12.0-15.0)
[2019-06-01 18:27] LABS: ALBUMIN 3.9 g/dL (3.2-5.5); ALBUMIN/GLOBULIN RATIO 1.1 (1.0-2.2); BILIRUBIN,TOTAL 2.1 mg/dL (0.2-1.0); CALCIUM 8.6 mg/dL (8.5-10.3); CREATININE 0.7 mg/dL (0.6-1.2); TOTAL PROTEIN 7.3 g/dL (6.7-8.2)
== END 2019-06-01 11:00 | disposition home or self-care (01) ==
LOC: LAB.S 10:59
PROVIDERS: ATTEND Registered Nurse
DX: R11.2 Nausea with vomiting, unspecified (principal)
CPT/HCPCS: 36415; 80053; 85025

== ENCOUNTER 2019-06-27 16:42 | Outpatient (CLI) | payer MEDICARE | END 2019-06-27 16:43 | disposition short-term general hospital (02) | LOC: EMS 16:42 | PROVIDERS: ATTEND Surgery | DX: R60.0 Localized edema (principal); R07.89 Other chest pain; F41.9 Anxiety disorder, unspecified | CPT/HCPCS: A0425; A0429 ==

== ENCOUNTER 2019-07-04 18:18 | Outpatient (CLI) | payer MEDICARE | END 2019-07-04 18:19 | disposition critical access hospital (66) | LOC: EMS 18:18 | PROVIDERS: ATTEND Surgery | DX: R68.83 Chills (without fever) (principal); R11.0 Nausea; R19.7 Diarrhea, unspecified | CPT/HCPCS: A0425; A0429 ==

== ENCOUNTER 2019-07-04 18:48 | Emergency (ER) | payer MEDICARE ==
--- NOTE | 2019-07-04 18:59 | ED Physician Documentation ---
History of Present Illness - Stated complaint Stated Complaint: CHILLS, N/D - Chief complaint Chief Complaint: General - History obtained from History obtained from: Patient (69-year-old gentleman with history of cirrhosis presents with chills that started today. He was treated for an ear infection with an unknown antibiotic about 3 weeks ago. He has had persistent sinus drainage and pressure. He feels like he has postnasal drip which is causing a cough although the cough is not severe. He has some abdominal pain. Mild pedal edema. Chills and diarrhea starting today. No measured fevers.) Review of Systems Constitutional: reports: Chills. denies: Fever Nose: reports: Rhinorrhea / runny nose Throat: reports: Sore throat Cardiac: denies: Chest pain / pressure, Palpitations Respiratory: denies: Dyspnea, Cough GI: reports: Abdominal Pain. denies: Nausea, Vomiting PD PAST MEDICAL HISTORY - Past Medical History Cardiovascular: Hypertension Respiratory: None Endocrine/Autoimmune: Type 2 diabetes GI: Hepatitis, Cirrhosis (due to Hepatitis C and also ongoing chronic alcohol use.), Other : Chronic bladder infection - Past Surgical History Past Surgical History: Yes - Present Medications Home Medications: Ambulatory Orders Medication Instructions Recorded Confirmed Morphine Ir [Morphine] 60 mg PO TID 08/30/12 07/25/18 Metoprolol Tartrate 25 mg PO DAILY 08/29/17 07/25/18 Morphine Sulfate [Morphine Sulfate 60 mg PO DAILY #14 tablet.er 03/02/18 07/25/18 ER] Esomeprazole Magnesium [Nexium] 20 mg PO DAILY #30 capsule. 07/25/18 Ondansetron Odt [Zofran] 4 mg TL Q6H PRN #10 tablet 07/25/18 Tetracycline HCl 500 mg PO BID 07/25/18 07/25/18 amLODIPine [Norvasc] 5 mg PO DAILY 07/25/18 07/25/18 Nitrofurantoin Monohyd/M-Cryst 100 mg PO BID 7 Days capsule 09/28/18 [Macrobid 100 mg Capsule] Ondansetron Odt [Zofran] 4 mg TL Q6H PRN #10 tablet 09/28/18 Levofloxacin [Levaquin] 500 mg PO DAILY #10 tablet 07/04/19 - Allergies Allergies/Adverse Reactions: Allergies Allergy/AdvReac Type Severity Reaction Status Date / Time zolpidem [From Ambien] AdvReac Hallucinati Verified 09/28/18 13:07 ons - Social History Does the pt smoke?: Yes Smoking Status: Current every day smoker Does the pt drink ETOH?: Yes Does the pt have substance abuse?: Yes - Immunizations Immunizations are current?: Yes PD ED PE NORMAL - Vitals Vital signs reviewed: Yes - General General: Alert and oriented X 3, Other (Somewhat disheveled 69-year-old gentleman laying in bed in no distress, smells heavily of tobacco smoke) - HEENT HEENT: Pharynx benign, Other (TMs are normal) - Neck Neck: Supple, no meningeal sign, No bony TTP - Cardiac Cardiac: RRR, No murmur - Respiratory Respiratory: No respiratory distress, Other (Rhonchorous and wheezy throughout) - Abdomen Abdomen: Other (Mildly distended with mild right-sided abdominal tenderness but no surgical signs) - Derm Derm: Normal color, Warm and dry - Extremities Extremities: No calf tenderness / cord, Other (Trace pitting pedal edema) - Neuro Neuro: Alert and oriented X 3, Normal speech Results - Vitals Vitals: Vital Signs - 24 hr 07/04/19 07/04/19 07/04/19 18:56 18:58 20:58 Temperature 36.9 C 36.9 C Heart Rate 61 61 73 Respiratory 22 22 12 Rate Blood Pressure 145/92 H 145/92 H 121/77 O2 Saturation 100 100 97 07/04/19 21:49 Temperature Heart Rate 66 Respiratory 16 Rate Blood Pressure 124/77 O2 Saturation 96 Oxygen O2 Source Room air - Labs Labs: Laboratory Tests 07/04/19 07/04/19 07/04/19 19:00 19:00 19:00 WBC 5.9 RBC 3.46 L Hgb 11.9 L Hct 35.2 L MCV 101.7 H MCH 34.4 H MCHC 33.8 RDW 13.2 Plt Count 149 MPV 9.6 Neut # (Auto) 4.1 Lymph # (Auto) 1.2 L [place] # (Auto) 0.5 Eos # (Auto) 0.1 Baso # (Auto) 0.0 Absolute Nucleated RBC 0.00 Nucleated RBC % 0.0 Sodium 133 L Potassium 3.9 Chloride 99 L Carbon Dioxide 25 Anion Gap 9.0 BUN 9 Creatinine 0.8 Estimated GFR (MDRD) 96 Glucose 115 H Lactic Acid 1.8 Calcium 8.5 Total Bilirubin 1.1 H AST 37 ALT 22 Alkaline Phosphatase 72 Total Protein 7.1 Albumin 3.7 Globulin 3.4 Albumin/Globulin Ratio 1.1 Lipase 40 Urine Color Urine Clarity Urine pH Ur Specific [place] Urine Protein Urine Glucose (UA) Urine Ketones Urine Occult Blood Urine Nitrite Urine Bilirubin Urine Urobilinogen Ur Leukocyte Esterase Urine RBC Urine WBC Urine WBC Clumps Ur Squamous Epith Cells Urine Bacteria Ur Microscopic Review Urine Culture Comments Ethyl Alcohol 40.3 07/04/19 20:25 WBC RBC Hgb Hct MCV MCH MCHC RDW Plt Count MPV Neut # (Auto) Lymph # (Auto) [place] # (Auto) Eos # (Auto) Baso # (Auto) Absolute Nucleated RBC Nucleated RBC % Sodium Potassium Chloride Carbon Dioxide Anion Gap BUN Creatinine Estimated GFR (MDRD) Glucose Lactic Acid Calcium Total Bilirubin AST ALT Alkaline Phosphatase Total Protein Albumin Globulin Albumin/Globulin Ratio Lipase Urine Color YELLOW Urine Clarity CLEAR Urine pH 7.5 Ur Specific [place] <=1.005 Urine Protein NEGATIVE Urine Glucose (UA) NEGATIVE Urine Ketones NEGATIVE Urine Occult Blood SMALL H Urine Nitrite POSITIVE H Urine Bilirubin NEGATIVE Urine Urobilinogen 1 (NORMAL) Ur Leukocyte Esterase TRACE H Urine RBC 11-25 H Urine WBC >25 H Urine WBC Clumps PRESENT Ur Squamous Epith Cells FEW Squamous Urine Bacteria Many H Ur Microscopic Review INDICATED Urine Culture Comments INDICATED Ethyl Alcohol - Rads (name of study) CT A/P Radiology: EMP read contemporaneously (Cystitis by CT, cirrhotic liver, cholelithiasis, atherosclerosis) PD MEDICAL DECISION MAKING - ED course ED course: 69 yo M with chills, w/u shows UTI. Chronic recurrent issue per him. Saw urology, [place], nl cysto per him, no BPH. Departure - Departure Disposition: Home, Self Care Clinical Impression: UTI (urinary tract infection) Qualifiers: Urinary tract infection type: site unspecified Hematuria presence: without hematuria Qualified Code(s): N39.0 - Urinary tract infection, site not specified Cirrhosis Qualifiers: Hepatic cirrhosis type: alcoholic cirrhosis Ascites presence: without ascites Qualified Code(s): K70.30 - Alcoholic cirrhosis of liver without ascites Condition: Good Record reviewed to determine appropriate education?: Yes Instructions: ED UTI Cystitis Male Prescriptions: Levofloxacin [Levaquin] 500 mg PO DAILY #10 tablet Comments: It was found that your chills and illness today are due to urinary tract infection. We are giving you antibiotics. We will culture your urine, sometimes this necessitates a change in antibiotic coverage in which case we will call you in approximately 48 hours. Return for new or worsening symptoms. Follow-up with your doctor within the week. Discharge Date/Time: 07/04/19 22:12
[2019-07-04] MEDS ORDERED: MORPHINE ER 15 MG TABLET PO STA (19:00)
[2019-07-04] MEDS ORDERED: IOVERSOL 320 100 ML VIAL IVP ONE ×2 (19:14→20:10)
[2019-07-04 19:17] LABS: BASOPHILS % (AUTO) 0.3 %; EOSINOPHILS # (AUTO) 0.1 10^3/uL (0.0-0.7); EOSINOPHILS % (AUTO) 1.4 %; HGB - HEMOGLOBIN 11.9 g/dL (14.0-18.0); LYMPHOCYTES # (AUTO) 1.2 10^3/uL (1.5-3.5); LYMPHOCYTES % (AUTO) 19.8 %; MEAN CORPUSCULAR HEMOGLOBIN 34.4 pg (27.0-31.0); MEAN CORPUSCULAR HGB CONC 33.8 g/dL (32.0-36.0); MEAN CORPUSCULAR VOLUME 101.7 fL (80.0-94.0); MEAN PLATELET VOLUME 9.6 fL (7.4-11.4); MONOCYTES # (AUTO) 0.5 10^3/uL (0.0-1.0); MONOCYTES % (AUTO) 8.6 %; NEUTROPHILS # (AUTO) 4.1 10^3/uL (1.5-6.6); NEUTROPHILS % (AUTO) 69.4 %; PLT - PLATELET COUNT 149 10^3/uL (130-450); RED BLOOD COUNT 3.46 10^6/uL (4.70-6.10); RED CELL DISTRIBUTION WIDTH 13.2 % (12.0-15.0); WHITE BLOOD COUNT 5.9 x10^3/uL (4.8-10.8)
[2019-07-04 19:34] LABS: ALBUMIN 3.7 g/dL (3.2-5.5); ALBUMIN/GLOBULIN RATIO 1.1 (1.0-2.2); BILIRUBIN,TOTAL 1.1 mg/dL (0.2-1.0); CALCIUM 8.5 mg/dL (8.5-10.3); CREATININE 0.8 mg/dL (0.6-1.2); TOTAL PROTEIN 7.1 g/dL (6.7-8.2)
--- NOTE | 2019-07-04 20:04 | XRAY Report ---
Reason: cough chills Procedure Date: 07/04/2019 Accession Number: [id number] / [id number] Procedure: XR - Chest 2 View X-Ray CPT Code: 87921 Final Report FULL RESULT: EXAM: CHEST RADIOGRAPHY EXAM DATE: 07/04/2019 07:31 PM. CLINICAL HISTORY: Cough, chills. COMPARISON: RIBS 3 VIEW BILAT 05/09/2015 12:28 PM. TECHNIQUE: 2 views. FINDINGS: Lungs/Pleura: No focal opacities evident. No pleural effusion. No pneumothorax. Normal volumes. Mediastinum: Heart and mediastinal contours are unremarkable. Other: None. IMPRESSION: Normal 2-view chest radiography. RADIA
--- NOTE | 2019-07-04 20:14 | CT Report ---
Reason: IV only, abd pain, RLQ Procedure Date: 07/04/2019 Accession Number: [id number] / [id number] Procedure: CT - Abdomen/Pelvis W CPT Code: Final Report FULL RESULT: EXAM: CT ABDOMEN AND PELVIS EXAM DATE: 07/04/2019 07:57 PM. CLINICAL HISTORY: Right lower quadrant abdominal pain COMPARISONS: ABDOMEN/PELVIS W/ 09/28/2018 2:51 PM. TECHNIQUE: Routine helical CT imaging was performed through the abdomen and pelvis. IV contrast: Yes . Enteric contrast: No . Reconstructions: Coronal and sagittal. In accordance with CT protocol optimization, one or more of the following dose reduction techniques were utilized for this exam: automated exposure control, adjustment of mA and/or KV based on patient size, or use of iterative reconstructive technique. FINDINGS: Lung Bases: Unremarkable. Liver: Fatty and cirrhotic. No suspicious masses on this single phase study. Gallbladder/Bile Ducts: Small calcified gallstones, otherwise unremarkable. Spleen: Unremarkable. Pancreas: Unremarkable. Adrenal Glands: Unremarkable. Kidneys: Unremarkable. No suspicious masses or hydronephrosis. Peritoneal Cavity/Bowel: No bowel obstruction or inflammatory process seen. No free air or significant free fluid. No masses or adenopathy. The appendix is normal. No excessive stool burden. Pelvic Organs: Urinary bladder may be inflamed. Chronic small posterior lateral right bladder diverticulum again noted. Prostate unremarkable. Vasculature: Moderate atherosclerotic disease of the aorta and branches. No aneurysm seen. Bones: No significant abnormality. Other: None. IMPRESSION: 1. Questionable cystitis and correlation with urinalysis suggested. 2. Fatty cirrhotic liver. 3. Cholelithiasis. 4. Moderate atherosclerotic disease of the aorta and branches. RADIA
[2019-07-04 20:32] LABS: BILIRUBIN,URINE NEGATIVE (NEGATIVE); GLUCOSE, URINE (UA) NEGATIVE (NEGATIVE); KETONES,URINE (UA) NEGATIVE (NEGATIVE); LEUKOCYTE ESTERASE, URINE TRACE (NEGATIVE); NITRITE,URINE POSITIVE (NEGATIVE); OCCULT BLOOD,URINE SMALL (NEGATIVE); PH,URINE 7.5 PH (5.0-7.5); PROTEIN,URINE NEGATIVE (NEGATIVE); UROBILINOGEN,URINE 1 (NORMAL) E.U./dL (NORMAL)
[2019-07-04 20:43] LABS: CLARITY,URINE CLEAR (CLEAR)
[2019-07-04 20:44] LABS: WBC CLUMPS,URINE PRESENT
[2019-07-04 20:45] LABS: BACTERIA,URINE Many /HPF (None Seen); SQUAMOUS EPITHELIAL CELL,UR FEW Squamous (<= Few)
[2019-07-04] MEDS ORDERED: levoFLOXacin 500 MG/100 ML 500 MG/100 ML BAG IV STA (20:51)
[2019-07-04 21:50] VITALS: BP 124/77
== END 2019-07-04 22:12 | disposition home or self-care (01) ==
LOC: EDUNIT# → ED 18:48
DX: N39.0 Urinary tract infection, site not specified (principal); K70.30 Alcoholic cirrhosis of liver without ascites; I10 Essential (primary) hypertension; E11.9 Type 2 diabetes mellitus without complications; F17.200 Nicotine dependence, unspecified, uncomplicated
CPT/HCPCS: 36415; 71046; 74177; 80053; 81001; 83605; 83690; 85025; 87086; 87181; 96365; 99284; A9270; Q9967; 80320; 81003

== ENCOUNTER 2019-08-16 12:55 | Outpatient (CLI) | payer MEDICARE ==
--- NOTE | 2019-08-16 14:36 | Ultrasound Report ---
Reason: CLAUDICATION BILATERAL Procedure Date: 08/16/2019 Accession Number: [id number] / [id number] Procedure: US - Ankle Brachial Index CPT Code: Final Report FULL RESULT: PROCEDURE: Ankle Brachial Index INDICATIONS: CLAUDICATION BILATERAL TECHNIQUE: Ankle-brachial indices were obtained bilaterally and recorded. COMPARISONS: None. FINDINGS: Right ankle brachial index (BENJI): 1.1 Left ankle brachial index (BENJI): 1.1 IMPRESSION: Right BENJI: 1.1. Left BENJI: 1.1. Further evaluation with CTA lower extremities could be considered for claudication. Reviewed by: Teddy Guallpa MD on 08/16/2019 2:35 PM PDT Approved by: Teddy Guallpa MD on 08/16/2019 2:35 PM PDT Station ID: [id number]
== END 2019-08-16 12:56 | disposition home or self-care (01) ==
LOC: DI 12:55
PROVIDERS: ATTEND Family Medicine
DX: I73.9 Peripheral vascular disease, unspecified (principal)
CPT/HCPCS: 93922

== ENCOUNTER 2019-09-16 13:05 | Outpatient (CLI) | payer MEDICARE ==
[2019-09-16 14:00] LABS: CHOL/HDL RATIO 2.6 (<5.0); CHOLESTEROL 90 mg/dL; HDL CHOLESTEROL 35 mg/dL; LDL CHOLESTEROL,CALCULATED 46 mg/dL; LDL/HDL RATIO 1.3 (<3.6); VLDL CHOLESTEROL 9 mg/dL
== END 2019-09-16 13:06 | disposition home or self-care (01) ==
LOC: DI 13:05
PROVIDERS: ATTEND Physician Assistant
DX: I49.3 Ventricular premature depolarization (principal); R60.0 Localized edema; I11.9 Hypertensive heart disease without heart failure; Z86.79 Personal history of other diseases of the circulatory system
CPT/HCPCS: 36415; 80061; 83721; 83880; 93306

== ENCOUNTER 2019-10-14 12:30 | Outpatient (CLI) | payer MEDICARE | END 2019-10-14 23:59 | disposition home or self-care (01) | LOC: LAB.R 12:30 | PROVIDERS: ATTEND Family Medicine | DX: N39.0 Urinary tract infection, site not specified (principal) | CPT/HCPCS: 87077; 87086; 87181 ==

== ENCOUNTER 2019-11-12 07:00 | Outpatient (CLI) | payer MEDICARE | END 2019-11-12 23:59 | disposition home or self-care (01) | LOC: LAB.R 07:00 | PROVIDERS: ATTEND Physician Assistant | DX: N39.0 Urinary tract infection, site not specified (principal) | CPT/HCPCS: 87086 ==

== ENCOUNTER 2019-11-16 14:10 | Emergency (ER) | payer MEDICARE ==
[2019-11-16 15:11] LABS: BASOPHILS % (AUTO) 0.4 %; EOSINOPHILS # (AUTO) 0.1 10^3/uL (0.0-0.7); EOSINOPHILS % (AUTO) 1.3 %; HGB - HEMOGLOBIN 10.4 g/dL (14.0-18.0); LYMPHOCYTES # (AUTO) 1.4 10^3/uL (1.5-3.5); LYMPHOCYTES % (AUTO) 15.1 %; MEAN CORPUSCULAR HEMOGLOBIN 37.7 pg (27.0-31.0); MEAN CORPUSCULAR HGB CONC 34.9 g/dL (32.0-36.0); MEAN PLATELET VOLUME 8.9 fL (7.4-11.4); MONOCYTES # (AUTO) 0.7 10^3/uL (0.0-1.0); MONOCYTES % (AUTO) 7.7 %; NEUTROPHILS # (AUTO) 7.1 10^3/uL (1.5-6.6); PLT - PLATELET COUNT 125 10^3/uL (130-450); RED BLOOD COUNT 2.76 10^6/uL (4.70-6.10); RED CELL DISTRIBUTION WIDTH 13.5 % (12.0-15.0); WHITE BLOOD COUNT 9.4 x10^3/uL (4.8-10.8)
[2019-11-16 15:17] LABS: INR 1.3 (0.8-1.2); PT - PROTHROMBIN TIME 14.8 secs (9.9-12.6)
[2019-11-16 15:22] LABS: ALBUMIN 3.3 g/dL (3.2-5.5); BILIRUBIN,TOTAL 1.6 mg/dL (0.2-1.0); CALCIUM 8.7 mg/dL (8.5-10.3); CREATININE 0.9 mg/dL (0.6-1.2); TOTAL PROTEIN 6.5 g/dL (6.7-8.2)
[2019-11-16 15:26] LABS: PARTIAL THROMBOPLASTIN TIME 29.3 secs (24.9-33.3)
[2019-11-16 16:08] LABS: GLUCOSE, URINE (UA) NEGATIVE (NEGATIVE); KETONES,URINE (UA) TRACE mg/dL (NEGATIVE); LEUKOCYTE ESTERASE, URINE TRACE (NEGATIVE); NITRITE,URINE POSITIVE (NEGATIVE); OCCULT BLOOD,URINE NEGATIVE (NEGATIVE); PH,URINE 5.5 PH (5.0-7.5); PROTEIN,URINE NEGATIVE (NEGATIVE); UROBILINOGEN,URINE 4 E.U./dL (NORMAL)
[2019-11-16] MEDS ORDERED: SODIUM CHLORIDE 0.9% 1,000 ML IV STA (16:11)
--- NOTE | 2019-11-16 16:13 | ED Physician Documentation ---
History of Present Illness - Stated complaint Stated Complaint: LOSS OF APPETITE - Chief complaint Chief Complaint: Abd Pain - History obtained from History obtained from: Patient - History of Present Illness Timing: How many days ago (5) Pain level max: 4 Pain level now: 3 - Additonal information Additional information: 69-year-old male was placed on ciprofloxacin for UTI 5 days ago. Since that time has had increasing diarrhea and nausea. Decreased appetite. Nothing makes it better or worse. No blood in the stool. No vomiting. Has a history of alcoholic cirrhosis. He drinks 4-5 beers daily. States he ate chicken yesterday. Complains of nausea. No vomiting. No blood in the stool. No history of varices. Does use marijuana and cigarettes. Review of Systems Constitutional: denies: Fever, Chills PD PAST MEDICAL HISTORY - Past Medical History Past Medical History: Yes Cardiovascular: Hypertension Respiratory: COPD Neuro: Headaches Endocrine/Autoimmune: Type 2 diabetes GI: Hepatitis, Cirrhosis, Other : Chronic bladder infection HEENT: None Psych: None Musculoskeletal: None - Past Surgical History Past Surgical History: Yes - Present Medications Home Medications: Ambulatory Orders Medication Instructions Recorded Confirmed Morphine Ir [Morphine] 60 mg PO TID 08/30/12 07/25/18 Metoprolol Tartrate 25 mg PO DAILY 08/29/17 07/25/18 Morphine Sulfate [Morphine Sulfate 60 mg PO DAILY #14 tablet.er 03/02/18 07/25/18 ER] Esomeprazole Magnesium [Nexium] 20 mg PO DAILY #30 capsule. 07/25/18 Ondansetron Odt [Zofran] 4 mg TL Q6H PRN #10 tablet 07/25/18 Tetracycline HCl 500 mg PO BID 07/25/18 07/25/18 amLODIPine [Norvasc] 5 mg PO DAILY 07/25/18 07/25/18 Nitrofurantoin Monohyd/M-Cryst 100 mg PO BID 7 Days capsule 09/28/18 [Macrobid 100 mg Capsule] Ondansetron Odt [Zofran] 4 mg TL Q6H PRN #10 tablet 09/28/18 Levofloxacin [Levaquin] 500 mg PO DAILY #10 tablet 07/04/19 Cefdinir 300 mg PO BID #14 capsule 11/16/19 Ondansetron Odt [Zofran] 4 mg TL Q6H PRN #10 tablet 11/16/19 - Allergies Allergies/Adverse Reactions: Allergies Allergy/AdvReac Type Severity Reaction Status Date / Time zolpidem [From Ambien] AdvReac Hallucinati Verified 09/28/18 13:07 ons - Social History Does the pt smoke?: Yes Smoking Status: Current every day smoker Does the pt drink ETOH?: Yes ETOH Use: Beer Does the pt have substance abuse?: Yes Substance Use and Type: Marijuana - Immunizations Immunizations are current?: Yes PD ED PE NORMAL - Vitals Vital signs reviewed: Yes - General General: Alert and oriented X 3, No acute distress, Well developed/nourished - HEENT HEENT: PERRL, Other (Dry lips) - Neck Neck: Supple, no meningeal sign - Cardiac Cardiac: RRR, Strong equal pulses - Respiratory Respiratory: No respiratory distress, Clear bilaterally - Abdomen Abdomen: Soft, Non tender, Non distended - Back Back: No CVA TTP - Derm Derm: Warm and dry - Extremities Extremities: No calf tenderness / cord - Neuro Neuro: Alert and oriented X 3 - Psych Psych: Normal mood, Normal affect Results - Vitals Vitals: Vital Signs - 24 hr 11/16/19 11/16/19 11/16/19 14:19 16:12 17:38 Temperature 36.9 C 37.1 C Heart Rate 84 77 96 Respiratory 20 18 16 Rate Blood Pressure 151/85 H 157/71 H 169/83 H O2 Saturation 96 98 99 11/16/19 18:15 Temperature 36.9 C Heart Rate 78 Respiratory 18 Rate Blood Pressure 166/109 H O2 Saturation 99 Oxygen O2 Source Room air - Labs Labs: Laboratory Tests 11/16/19 11/16/19 11/16/19 15:00 15:00 15:00 WBC 9.4 RBC 2.76 L Hgb 10.4 L Hct 29.8 L MCV 108.0 H MCH 37.7 H MCHC 34.9 RDW 13.5 Plt Count 125 L MPV 8.9 Neut # (Auto) 7.1 H Lymph # (Auto) 1.4 L [place] # (Auto) 0.7 Eos # (Auto) 0.1 Baso # (Auto) 0.0 Absolute Nucleated RBC 0.00 Nucleated RBC % 0.0 PT 14.8 H INR 1.3 H APTT 29.3 Sodium 133 L Potassium 3.9 Chloride 96 L Carbon Dioxide 32 Anion Gap 5.0 L BUN 7 Creatinine 0.9 Estimated GFR (MDRD) 84 L Glucose 111 H Calcium 8.7 Total Bilirubin 1.6 H AST 52 H ALT 27 Alkaline Phosphatase 99 Total Protein 6.5 L Albumin 3.3 Globulin 3.2 Albumin/Globulin Ratio 1.0 Lipase 30 Urine Color Urine Clarity Urine pH Ur Specific [place] Urine Protein Urine Glucose (UA) Urine Ketones Urine Occult Blood Urine Nitrite Urine Bilirubin Urine Urobilinogen Ur Leukocyte Esterase Urine RBC Urine WBC Urine WBC Clumps Ur Squamous Epith Cells Amorphous Sediment Urine Bacteria Urine Mucus Ur Microscopic Review Urine Culture Comments 11/16/19 15:55 WBC RBC Hgb Hct MCV MCH MCHC RDW Plt Count MPV Neut # (Auto) Lymph # (Auto) [place] # (Auto) Eos # (Auto) Baso # (Auto) Absolute Nucleated RBC Nucleated RBC % PT INR APTT Sodium Potassium Chloride Carbon Dioxide Anion Gap BUN Creatinine Estimated GFR (MDRD) Glucose Calcium Total Bilirubin AST ALT Alkaline Phosphatase Total Protein Albumin Globulin Albumin/Globulin Ratio Lipase Urine Color DARK YELLOW Urine Clarity HAZY Urine pH 5.5 Ur Specific [place] 1.025 Urine Protein NEGATIVE Urine Glucose (UA) NEGATIVE Urine Ketones TRACE Urine Occult Blood NEGATIVE Urine Nitrite POSITIVE H Urine Bilirubin SMALL H Urine Urobilinogen 4 H Ur Leukocyte Esterase TRACE H Urine RBC 6-10 H Urine WBC 11-25 H Urine WBC Clumps PRESENT Ur Squamous Epith Cells RARE Squamous Amorphous Sediment Few Urine Bacteria Rare Urine Mucus Few Strands Ur Microscopic Review INDICATED Urine Culture Comments INDICATED PD MEDICAL DECISION MAKING - ED course Complexity details: reviewed results, re-evaluated patient, considered differential, d/w patient ED course: Patient is well-appearing, nontoxic. No diarrhea in the emergency department. Feels better after IV fluids and Zofran. Tolerating p.o. without difficulty. Possible reaction to the ciprofloxacin? We will change his antibiotic and see how he progresses. Patient is afebrile. No indication for CT scan at this point. Attempted to collect a stool sample for other etiologies such as C. difficile, but no diarrhea for several hours. Patient is eating and drinking here. We will prescribe nausea medication for home as well. Patient counseled regarding signs and symptoms for which I believe and urgent re-evaluation would be necessary. Patient with good understanding of and agreement to plan and is comfortable going home at this time This document was made in part using voice recognition software. While efforts are made to proofread this document, sound alike and grammatical errors may occur. Departure - Departure Disposition: 01 Home, Self Care Clinical Impression: Dehydration Condition: Good Instructions: ED Dehydration Follow-Up: JOSE GALLEGOS PA-C [Primary Care Provider] - Within 1 week Prescriptions: Cefdinir 300 mg PO BID #14 capsule Ondansetron Odt [Zofran] 4 mg TL Q6H PRN #10 tablet PRN Reason: Nausea / Vomiting Comments: We will try changing you from ciprofloxacin to cefdinir. A new urine culture will be performed. Drink plenty of fluids. Return if you worsen. Discharge Date/Time: 11/16/19 18:30
[2019-11-16 16:22] LABS: CLARITY,URINE HAZY (CLEAR)
[2019-11-16 16:24] LABS: AMORPHOUS SEDIMENT,UR Few /LPF; BACTERIA,URINE Rare /HPF (None Seen); MUCUS,URINE Few Strands; SQUAMOUS EPITHELIAL CELL,UR RARE Squamous (<= Few); WBC CLUMPS,URINE PRESENT
[2019-11-16 17:15] LABS: BILIRUBIN,URINE SMALL (NEGATIVE); ICTOTEST,URINE POSITIVE
[2019-11-16] MEDS ORDERED: cefTRIAXone 1 GM VIAL IVP STA (17:41)
[2019-11-16 18:15] VITALS: BP 166/109
== END 2019-11-16 18:30 | disposition home or self-care (01) ==
LOC: ED 14:10
DX: E86.0 Dehydration (principal); N39.0 Urinary tract infection, site not specified; T36.8X5A Adverse effect of other systemic antibiotics, initial encounter; I10 Essential (primary) hypertension; J44.9 Chronic obstructive pulmonary disease, unspecified; E11.9 Type 2 diabetes mellitus without complications; F17.200 Nicotine dependence, unspecified, uncomplicated
CPT/HCPCS: 36415; 80053; 81001; 81003; 83690; 85025; 85610; 85730; 87077; 87086; 96361; 96374; 99283

== ENCOUNTER 2019-11-19 08:00 | Outpatient (CLI) | payer MEDICARE ==
--- NOTE | 2019-11-19 16:15 | XRAY Report ---
PROCEDURE: Thoracic Spine 2 View INDICATIONS: THORACIC BACK PAIN TECHNIQUE: 3 views of the thoracic spine were acquired. COMPARISON: CT of abdomen and pelvis dated 07/04/2019. FINDINGS: Bones: Age-indeterminate anterior wedge compression deformity at T11 level is seen new since 0 study. No suspicious bony lesions. Mild degenerative endplate changes are noted in mid to lower tho racic spine. 12 pairs of ribs are noted, and appear intact where visualized. Soft tissues: No paravertebral stripe thickening. IMPRESSION: 1. Age-indeterminate anterior wedge compression deformity at T11 level views since 07/04/2019 study wi thout 240% loss of T11 vertebral body height anteriorly. Reviewed by: Sam Mathias MD on 11/19/2019 4:14 PM PDT Approved by: Sam Mathias MD on 11/19/2019 4:14 PM PDT Station ID: [id number]
--- NOTE | 2019-11-19 16:16 | XRAY Report ---
PROCEDURE: Lumbar Spine 2 View INDICATIONS: LOW BACK PAIN TECHNIQUE: 2 views of the lumbar spine were acquired. COMPARISON: None. FINDINGS: Bones: 5 [id number] vertebrae are present. There is normal bony alignment. No lumbar spine ve rtebral body compression fractures. Mild degenerative endplate changes in lower lumbar spine at L4-5 and L5-S1 levels are seen. No suspicious bony lesions. Soft tissues: Overlying bowel gas pattern is normal. No suspicious soft tissue calcifications. IMPRESSION: No compression fracture or spondylolisthesis is seen in lumbar spine. Anterior wedge com pression deformity at T11 level is seen better evaluated on dedicated thoracic spine study. Reviewed by: Sam Mathias MD on 11/19/2019 4:15 PM PDT Approved by: Sam Mathias MD on 11/19/2019 4:15 PM PDT Station ID: [id number]
== END 2019-11-19 23:59 | disposition home or self-care (01) ==
LOC: DI.S 08:00
PROVIDERS: ATTEND Family Medicine
DX: M48.54XA Collapsed vertebra, not elsewhere classified, thoracic region, initial encounter for fracture (principal); M54.5 Low back pain
CPT/HCPCS: 72070; 72100

== ENCOUNTER 2019-12-04 15:50 | Outpatient (CLI) | payer MEDICARE ==
--- NOTE | 2019-12-04 16:59 | XRAY Report ---
PROCEDURE: Thoracic Spine 3 View INDICATIONS: WEDGE COMPRESSION FRACTURE OF T11-T12 VERTEBRA TECHNIQUE: 3 views of the thoracic spine were acquired. COMPARISON: None. FINDINGS: Bones: Loss of height involving the T11 vertebral body compression fracture is stable compared to 11/09. No suspicious bony lesions. 12 pairs of ribs are noted, and appear intact where visualized. Mild multilevel degenerative disc disease. Soft tissues: No paravertebral stripe thickening. IMPRESSION: T11 compression fracture stable compared to 11/19/2019. Reviewed by: Linda Ramirez MD, PhD on 12/04/2019 4:58 PM PDT Approved by: Linda Ramirez MD, PhD on 12/04/2019 4:58 PM PDT Station ID: [id number]
== END 2019-12-04 15:51 | disposition home or self-care (01) ==
LOC: DI.S 15:50
PROVIDERS: ATTEND Physician Assistant
DX: M48.54XD Collapsed vertebra, not elsewhere classified, thoracic region, subsequent encounter for fracture with routine healing (principal)
CPT/HCPCS: 72072

== ENCOUNTER 2019-12-27 08:42 | Outpatient (CLI) | payer MEDICARE | END 2019-12-27 08:43 | disposition critical access hospital (66) | LOC: EMS 08:42 | PROVIDERS: ATTEND Surgery | DX: R42 Dizziness and giddiness (principal); R68.2 Dry mouth, unspecified | CPT/HCPCS: A0425; A0429 ==

== ENCOUNTER 2019-12-27 09:25 | Inpatient (IN) | payer MEDICARE ==
--- NOTE | 2019-12-27 10:28 | ED Physician Documentation ---
PD HPI HEENT - Stated complaint Stated Complaint: DIZZINESS - Chief complaint Chief Complaint: General - History obtained from History obtained from: Patient - History of Present Illness Timing - onset: How many weeks ago (1 week) Timing - duration: Weeks (1) Timing - details: Gradual onset (He states he was having some abdominal pain as well as increase in his back pain (Abdominal pain new) over the past week. He took extra of his morphine and so had run out a few days ago. He had been drinking regularly as well up until a few days ago due to vomiting.), Other (He was having feeling of general lightheadedness and weakness with poor p.o. intake over the last several days to week. He felt near syncopal this morning. He is also feeling shaky) Worsens: Position (lightheaded with standing) Associated symptoms: No: Fever, Congestion, Headache Similar symptoms before: Diagnosis (No prior pancreatitis. He states he does have liver disease. He has had chronic back pain and pain medication. States PMD has been tapering his narcotic dose over the last 4 to 5 months.) Recently seen: Clinic (Sees his primary care regularly for chronic pain medication. He states it has been tapering dose and is down to 10 mg extended release morphine daily.) Review of Systems Constitutional: reports: Myalgias, Fatigue. denies: Fever Nose: denies: Rhinorrhea / runny nose, Congestion Throat: denies: Sore throat Cardiac: denies: Chest pain / pressure Respiratory: denies: Dyspnea, Cough GI: reports: Abdominal Pain (upper abd for a week), Nausea, Vomiting, Diarrhea (for several days) Neurologic: reports: Generalized weakness, Near syncope, Altered mental status (feeling somewhat confused). denies: Syncope, Headache Psychiatric: denies: Depressed, Suicidal PD PAST MEDICAL HISTORY - Past Medical History Cardiovascular: Hypertension Respiratory: COPD Neuro: Headaches Endocrine/Autoimmune: Type 2 diabetes GI: Hepatitis, Cirrhosis, Other : Chronic bladder infection HEENT: None Psych: None Musculoskeletal: None - Past Surgical History Past Surgical History: Yes - Present Medications Home Medications: Ambulatory Orders Medication Instructions Recorded Confirmed Metoprolol Tartrate 25 mg PO DAILY 08/29/17 07/25/18 Esomeprazole Magnesium [Nexium] 20 mg PO DAILY #30 capsule. 07/25/18 amLODIPine [Norvasc] 5 mg PO DAILY 07/25/18 07/25/18 Hydrocodone/Acetaminophen 1 each PO BID 12/27/19 [Hydrocodon-Acetaminophn 10-325] Morphine Sulfate [Morphine Sulfate 10 mg PO DAILY 12/27/19 ER] - Allergies Allergies/Adverse Reactions: Allergies Allergy/AdvReac Type Severity Reaction Status Date / Time zolpidem [From Ambien] AdvReac Hallucinati Verified 12/27/19 09:41 ons - Living Situation Living Situation: reports: Alone Living Arrangement: reports: At home - Social History Does the pt smoke?: Yes Smoking Status: Current every day smoker Does the pt drink ETOH?: Yes ETOH Use: Other (regular alcohol use jail) Does the pt have substance abuse?: No - Family History Family history: reports: Non contributory - Immunizations Immunizations are current?: Yes PD ED PE NORMAL - Vitals Vital signs reviewed: Yes - General General: Well developed/nourished, Other. No: Alert and oriented X 3 (to person and place, but not sure of month/date. Slow to respond to some questions. Appears very shaky. Pale. Tenting of skin. ) - HEENT HEENT: Atraumatic, Ears normal, Pharynx benign. No: Moist mucous membranes - Neck Neck: Supple, no meningeal sign, No adenopathy - Cardiac Cardiac: No murmur. No: RRR (regular but tachycardic) - Respiratory Respiratory: Clear bilaterally - Abdomen Abdomen: Non distended, Other (Enlarged liver to palpation. Tender in the mid upper abdomen to palpation and percussion. There is local guarding. Lower abdomen is nontender. Bowel sounds are diminished. No distention.). No: Normal bowel sounds (decreased) - Male Male : Deferred - Rectal Rectal: Deferred - Derm Derm: Warm and dry. No: Normal color (pale) - Extremities Extremities: No tenderness to palpate, Normal ROM s pain, No edema, No calf tenderness / cord - Neuro Neuro: No motor deficit (Symmetric movement but generally shaky and slightly incoordinate with movements on both arms.), Normal speech Results - Vitals Vitals: Vital Signs - 24 hr 12/27/19 12/27/19 12/27/19 09:23 09:36 11:38 Temperature 36.9 C Heart Rate 116 H 110 H 110 H Respiratory 17 20 18 Rate Blood Pressure 131/93 H 131/93 H 130/92 H O2 Saturation 94 99 98 Oxygen O2 Source Room air - Labs Labs: Laboratory Tests 12/27/19 12/27/19 11:20 11:20 WBC 23.6 H RBC 3.14 L Hgb 11.9 L Hct 34.5 L MCV 109.9 H MCH 37.9 H MCHC 34.5 RDW 13.2 Plt Count 198 MPV 9.7 Neut # (Auto) 19.8 H Lymph # (Auto) 0.8 L [place] # (Auto) 2.4 H Eos # (Auto) 0.1 Baso # (Auto) 0.1 Absolute Nucleated RBC 0.00 Nucleated RBC % 0.0 Manual Slide Review Indicated RBC Morph Micro Appear 1+ ANISOCYTOSIS Sodium 137 Potassium 3.9 Chloride 101 Carbon Dioxide 19 L Anion Gap 17.0 H BUN 15 Creatinine 2.6 H Estimated GFR (MDRD) 25 L Glucose 107 H Calcium 9.1 Magnesium 2.1 Total Bilirubin 2.9 H AST 116 H ALT 46 Alkaline Phosphatase 79 Total Protein 7.3 Albumin 3.7 Globulin 3.6 Albumin/Globulin Ratio 1.0 Lipase 850 H Ethyl Alcohol < 5.0 PD MEDICAL DECISION MAKING - ED course Complexity details: reviewed results, re-evaluated patient (The patient is improved with less shakiness after some IV fluids and medications. He is feeling less nauseous as well. However he does have acute pancreatitis and also withdrawal and will need further ongoing care in the hospital. The patient is agreeable to this. Will discuss with hospitalist. ), considered differential (He does appear to be in alcohol withdrawal and presumed narcotic withdrawal given his history. Does have an upper abdominal pain vomiting and diarrhea likely fro m withdrawal but also consider gastritis or pancreatitis.), d/w patient Departure - Departure Disposition: [facility] DC/Xfer Clinical Impression: Nausea vomiting and diarrhea, Upper abdominal pain, Narcotic withdrawal Pancreatitis, acute Qualifiers: Pancreatitis type: alcohol induced Acute pancreatitis complication: unspecified Qualified Code(s): K85.20 - Alcohol induced acute pancreatitis without necrosis or infection Alcohol withdrawal Qualifiers: Complication of substance-induced condition: with unspecified complication Qualified Code(s): F10.239 - Alcohol dependence with withdrawal, unspecified Condition: Stable Record reviewed to determine appropriate education?: Yes Discharge Date/Time: 12/27/19 13:27
[2019-12-27] MEDS ORDERED: ONDANSETRON 4 MG/2 ML VIAL IVP STA (10:50)
[2019-12-27] MEDS ORDERED: KETOROLAC 15 MG/ML VIAL IVP STA (10:50)
[2019-12-27] MEDS ORDERED: HYDROmorphone 1 MG/ML CARPUJECT IVP STA (10:50)
[2019-12-27] MEDS ORDERED: SODIUM CHLORIDE 0.9% 1,000 ML IV STA (10:50)
[2019-12-27] MEDS ORDERED: LACTATED RINGERS 1,000 ML IV STA (10:51)
[2019-12-27] MEDS ORDERED: LORazepam 2 MG/ML VIAL IVP STA (10:51)
[2019-12-27 11:39] VITALS: BP 130/92
[2019-12-27 11:39] LABS: BASOPHILS # (AUTO) 0.1 10^3/uL (0.0-0.1); BASOPHILS % (AUTO) 0.3 %; EOSINOPHILS # (AUTO) 0.1 10^3/uL (0.0-0.7); EOSINOPHILS % (AUTO) 0.3 %; HGB - HEMOGLOBIN 11.9 g/dL (14.0-18.0); LYMPHOCYTES # (AUTO) 0.8 10^3/uL (1.5-3.5); LYMPHOCYTES % (AUTO) 3.3 %; MEAN CORPUSCULAR HEMOGLOBIN 37.9 pg (27.0-31.0); MEAN CORPUSCULAR HGB CONC 34.5 g/dL (32.0-36.0); MEAN CORPUSCULAR VOLUME 109.9 fL (80.0-94.0); MEAN PLATELET VOLUME 9.7 fL (7.4-11.4); MONOCYTES # (AUTO) 2.4 10^3/uL (0.0-1.0); MONOCYTES % (AUTO) 10.1 %; NEUTROPHILS # (AUTO) 19.8 10^3/uL (1.5-6.6); NEUTROPHILS % (AUTO) 83.9 %; PLT - PLATELET COUNT 198 10^3/uL (130-450); RED BLOOD COUNT 3.14 10^6/uL (4.70-6.10); RED CELL DISTRIBUTION WIDTH 13.2 % (12.0-15.0); WHITE BLOOD COUNT 23.6 x10^3/uL (4.8-10.8)
[2019-12-27 11:55] LABS: RBC MORPHOLOGY (MULTIPLE) 1+ ANISOCYTOSIS (NORMAL)
[2019-12-27 12:11] LABS: ALBUMIN 3.7 g/dL (3.2-5.5); ALKALINE PHOSPHATASE 79 IU/L (42-121); ALT ALANINE AMINOTRANSFERASE 46 IU/L (10-60); AST ASPARTATE AMINOTRANSFERASE 116 IU/L (10-42); BUN - BLOOD UREA NITROGEN 15 mg/dL (6-20); CALCIUM 9.1 mg/dL (8.5-10.3); CARBON DIOXIDE - CO2 19 mmol/L (21-32); CHLORIDE 101 mmol/L (101-111); CREATININE 2.6 mg/dL (0.6-1.2); GLUCOSE 107 mg/dL (70-100); MAGNESIUM 2.1 mg/dL (1.7-2.8); SODIUM 137 mmol/L (135-145); TOTAL PROTEIN 7.3 g/dL (6.7-8.2)
[2019-12-27 12:12] LABS: LIPASE 850 U/L (22-51)
[2019-12-27 12:16] LABS: BILIRUBIN,TOTAL 2.9 mg/dL (0.2-1.0)
[2019-12-27] MEDS ORDERED: ONDANSETRON 4 MG/2 ML VIAL IVP PRN ×2 (12:55→14:09)
[2019-12-27] MEDS ORDERED: SODIUM CHLORIDE FLUSH 0.9% 10 ML SYRINGE IVP PRN ×2 (12:55→14:09)
[2019-12-27] MEDS ORDERED: HYDROmorphone 0.5 MG/0.5 ML SYRINGE IVP PRN ×3 (12:55→14:09)
[2019-12-27] MEDS ORDERED: LACTATED RINGERS 1,000 ML IV SCH (13:00)
--- NOTE | 2019-12-27 13:12 | HISTORY & PHYSICAL EXAMINATION ---
Chief Complaint - Chief Complaint Chief Complaint: dizzines, N/V, abd pain, diarrhea History of Present Illness - Admitted From Admitted From:: Home/ER - History Obtained From Records Reviewed: [facility] History obtained from: Dr. Theodore - History of Present Illness HPI Comment/Other: Unfortunate 69-year-old white male who has chronic back and neck pain is on chronic opiate therapy. He is on a pain management contract with his primary care provider. He has been gradually tapering himself off medication for several months now. He had been as high as up was 80 mg of short acting opiate several times a day. He is on a pain contract. He is also an alcohol abuser. And is probably been increasing his alcohol use, he states, because of pain. In his transitioning phase, he has been put on long-acting opiates. He ran out of his morphine for his neck and back pain about a week ago. He has been going through opiate withdrawal with nausea, vomiting, unsteadiness, tremors. He has generalized abdominal pain. He is incontinent of diarrhea. He has no fever, chills. No blood in his urine. He denies chest pain, shortness of breath. And he came to the emergency room. He is temperature is 36.9. He is tachycardic at 110-116. Blood pressure is in the 130s over 90s. Respirations are 17. 94% on room air. Because he was felt to be going through withdrawal, he was given Ativan, Zofran, Toradol, and a liter of lactated Ringer's. Evaluation with labs show him to have a creatinine of 2.6. His baseline creatinine is 0.7-0.9. BUN is actually normal at 15. Total bili is 2.9, AST 116, ALT 46. Lipase 850. White cell count is 23.6 thousand with hemoglobin 11.9. At the time of this presentation to me for admission, the patient still has not had a CT of the abdomen or chest x-ray. I am asking Dr. Theodore to please do CT the abdomen and chest x-ray to make sure were not missing an infectious association with his pancreatitis in view of the fact that he is white cell count is 23.6 thousand. He may have demargination but nevertheless want to make sure. Dr. Theodore is asking that the patient be admitted to the inpatient status for management of pancreatitis and opiate withdrawal. After admission, the patient was being examined by the intake nurse. He is indignant. Cannot figure out why he was transferred from the emergency room to a [facility] bed. Said that he had not been notified that he was being admitted. All he wanted to do was stand up and walk around and no one was letting him do that. He is refusing admission. He has signed AMA paperwork to that effect. However, this patient is standing up in the room, swaying. While he is alert, speaking in clear sentences, no respiratory distress he is unable to stand straight. He is swaying back and forth. Having difficulty trying to get dressed on his own. Nursing staff are standing nearby in case he falls. I have explained to him that he is being admitted for pancreatitis and opiate withdrawal. He said he is not sick enough to stay here and refuses to stay. I have warned him that sometimes opiate withdrawal and pancreatitis can lead to worsening electrolyte disorders, dehydration, pneumonia, even . He states he is still leaving. History - Past Medical History Cardiovascular: reports: Hypertension Respiratory: reports: COPD Neuro: reports: Headaches Endocrine/Autoimmune: reports: Type 2 diabetes GI: reports: Hepatitis, Cirrhosis, Other : reports: Chronic bladder infection HEENT: reports: None Psych: reports: None Musculoskeletal: reports: None MRSA Hx?: Yes Meds/Allgy - Home Medications Home Medications: Ambulatory Orders Medication Instructions Recorded Confirmed Metoprolol Tartrate 25 mg PO DAILY 08/29/17 07/25/18 Esomeprazole Magnesium [Nexium] 20 mg PO DAILY #30 capsule. 07/25/18 amLODIPine [Norvasc] 5 mg PO DAILY 07/25/18 07/25/18 Hydrocodone/Acetaminophen 1 each PO BID 12/27/19 [Hydrocodon-Acetaminophn 10-325] Morphine Sulfate [Morphine Sulfate 10 mg PO DAILY 12/27/19 ER] - Allergies Allergies/Adverse Reactions: Allergies Allergy/AdvReac Type Severity Reaction Status Date / Time zolpidem [From Ambien] AdvReac Hallucinati Verified 12/27/19 09:41 ons Exam - Vital Signs Reviewed Vital Signs: Yes Vital Signs: Vital Signs x48h Temp Pulse Resp BP Pulse Ox 12/27/19 11:38 110 H 18 130/92 H 98 12/27/19 09:36 36.9 C 110 H 20 131/93 H 99 12/27/19 09:23 116 H 17 131/93 H 94 Conclusion/Plan - Problem List (1) Pancreatitis Qualifiers: Pancreatitis type: alcohol induced - Lab Results Lab results reviewed: Yes Fish Bones: 12/27/19 11:20 12/27/19 11:20 - Diagnostic Imaging Results Diagnostic Imaging Results: positive: Final report reviewed - EKG Results EKG Interpreted Independently: No Core Measures - Anticipated LOS I expect patient to be DC'd or transferred within 96 hours.: Yes - DVT/VTE - Prophylaxis VTE/DVT Device ordered at admit?: Yes
[2019-12-27] MEDS ORDERED: MAGNESIUM SULFATE 2 GRAM 2 GM/50 ML BAG IV ONE ×2 (13:13→14:00)
--- NOTE | 2019-12-27 13:36 | XRAY Report ---
PROCEDURE: Chest 1 View X-Ray INDICATIONS: chest pain TECHNIQUE: One view of the chest was acquired. COMPARISON: 07/04/2019 FINDINGS: Surgical changes and devices: None. Lungs and pleura: No pleural effusions or pneumothorax. Lungs are clear. Mediastinum: Mediastinal contours appear normal. Heart size is normal. Bones and chest wall: No suspicious bony lesions. Overlying soft tissues appear unremarkable. IMPRESSION: No evidence acute pulmonary process. Reviewed by: Sukhjinder West MD on 12/27/2019 1:35 PM PDT Approved by: Sukhjinder West MD on 12/27/2019 1:35 PM PDT Station ID: [id number]
--- NOTE | 2019-12-27 13:43 | CT Report ---
PROCEDURE: Abdomen/Pelvis WO INDICATIONS: upper abd pain; elevated lipase TECHNIQUE: Noncontrast 5 mm thick sections acquired from the diaphragms to the symphysis. 5 mm coronal and sagi ttal reformats were then performed. For radiation dose reduction, the following was used: automated exposure control, adjustment of mA and/or kV according to patient size. COMPARISON: CT abdomen and pelvis with contrast dated 07/04/2019. FINDINGS: Image quality: Excellent. ABDOMEN: Lung bases: Lung bases are clear. Heart size is normal. Advanced coronary artery calcifications. Solid organs: Marked hepatic steatosis, diffuse cirrhotic change. Gallbladder contains tiny stones, a nd/or gravel. No gallbladder wall thickening. There is mild indistinctness at the level of the pancre atic head and uncinate process, which may potentially represent mild changes of acute pancreatitis. T here is no free air. There is no evidence of pancreatic necrosis. No peripancreatic fluid. No adrenal nodules. Kidneys are normal in size, without hydronephrosis or nephrolithiasis. Peritoneum and bowel: Unenhanced bowel loops demonstrate normal wall thickness and caliber. No free fluid or air. Nodes and vessels: No retroperitoneal or mesenteric adenopathy by size criteria. Aorta and inferior vena cava are normal in caliber. Prominent aortic atherosclerotic calcifications. Miscellaneous: No ventral hernias. PELVIS: Genitourinary: Bladder wall thickness is normal. Incidental note is made of presence of a right yo dder [place] diverticulum. Miscellaneous: No inguinal hernias or adenopathy. Bones: No suspicious bony lesions. There is a moderate acute or subacute superior endplate T11 compr ession fracture. This was not present on the previous study. There is no significant bony retropulsio n or canal stenosis. IMPRESSION: 1. Question subtle changes of acute pancreatitis in the region of the pancreatic head and uncinate pr ocess. 2. Marked hepatic steatosis, diffuse cirrhotic change. 3. Advanced coronary artery atherosclerotic calcifications. 4. Acute or subacute moderate T11 compression fracture. Reviewed by: Sukhjinder West MD on 12/27/2019 1:42 PM PDT Approved by: Sukhjinder West MD on 12/27/2019 1:42 PM PDT Station ID: [id number]
[2019-12-27] MEDS ORDERED: POTASSIUM CHLOR 10 MEQ/100 ML 10 MEQ/100 ML BAG IV SCH ×2 (14:00→15:00)
[2019-12-27] MEDS ORDERED: SODIUM CHLORIDE FLUSH 0.9% 10 ML SYRINGE IVP SCH ×2 (17:00)
[2019-12-28] MEDS ORDERED: MULTIVITAMIN 10 ML, THIAMINE INJ 100 MG, FOLIC ACID INJ 1 MG in D5.45NS W/20 MEQ KCL 1,... IV SCH ×8 (09:00)
== END 2019-12-27 14:15 | disposition home or self-care (01) | DRG 439 ==
LOC: EDUNIT# → ED 09:25 → MS2 12:55 → ED 13:27
PROVIDERS: ADMIT Specialist; ATTEND Specialist
DX: K85.20 Alcohol induced acute pancreatitis without necrosis or infection (principal); F10.239 Alcohol dependence with withdrawal, unspecified; F11.23 Opioid dependence with withdrawal; F10.10 Alcohol abuse, uncomplicated; R15.9 Full incontinence of feces; E11.9 Type 2 diabetes mellitus without complications; K74.60 Unspecified cirrhosis of liver; F17.200 Nicotine dependence, unspecified, uncomplicated; R00.0 Tachycardia, unspecified; Z53.29 Procedure and treatment not carried out because of patient's decision for other reasons; R26.89 Other abnormalities of gait and mobility; I10 Essential (primary) hypertension; J44.9 Chronic obstructive pulmonary disease, unspecified
CPT/HCPCS: 36415; 71045; 74176; 80053; 83690; 83735; 85025; 96361; 96374; 96375; 99284; 99285; J1170; J2060; J7120; 80320

== ENCOUNTER 2019-12-27 14:23 | Inpatient (IN) | payer MEDICARE ==
[2019-12-27] MEDS ORDERED: PHENobarbital 65 MG/ML VIAL IM STA (14:40)
[2019-12-27] MEDS ORDERED: HALOPERIDOL 5 MG/ML VIAL IVP ONE (14:40)
--- NOTE | 2019-12-27 14:41 | ED Physician Documentation ---
PD HPI ALTERED MENTAL STATUS - Stated complaint Stated Complaint: MHE - History obtained from History obtained from: Patient - History of Present Illness Timing - onset: Other (The patient was just seen in the ER and had reportedly gotten to the floor for admission and did not want to stay. Discussion with the hospitalist and the patient signed out AMA. However he made it just outside the hospital and stumbled into the bushes and is acting confused similar to when I saw) Timing - details: Gradual onset Recently seen: Emergency Dept, Admitted PD PAST MEDICAL HISTORY - Past Medical History Cardiovascular: Hypertension Respiratory: COPD Neuro: Headaches Endocrine/Autoimmune: Type 2 diabetes GI: Hepatitis, Cirrhosis, Other : Chronic bladder infection HEENT: None Psych: None Musculoskeletal: None - Past Surgical History Past Surgical History: Yes - Present Medications Home Medications: Ambulatory Orders Medication Instructions Recorded Confirmed Metoprolol Tartrate 25 mg PO DAILY 08/29/17 07/25/18 Esomeprazole Magnesium [Nexium] 20 mg PO DAILY #30 capsule. 07/25/18 amLODIPine [Norvasc] 5 mg PO DAILY 07/25/18 07/25/18 Hydrocodone/Acetaminophen 1 each PO BID 12/27/19 [Hydrocodon-Acetaminophn 10-325] Morphine Sulfate [Morphine Sulfate 10 mg PO DAILY 12/27/19 ER] - Allergies Allergies/Adverse Reactions: Allergies Allergy/AdvReac Type Severity Reaction Status Date / Time zolpidem [From Ambien] AdvReac Hallucinati Verified 12/27/19 09:41 ons - Social History Does the pt smoke?: Yes Smoking Status: Current every day smoker Does the pt drink ETOH?: Yes Does the pt have substance abuse?: Yes - Immunizations Immunizations are current?: Yes PD ED PE NORMAL - General General: No: Alert and oriented X 3 (oriented to person but not clear on time/ place. Shaky and unable to stand on his own. Appears the withdrawal symptoms have increased again. ) - HEENT HEENT: Atraumatic - Neck Neck: Supple, no meningeal sign, No adenopathy - Cardiac Cardiac: No murmur. No: RRR (mild tachycardia) - Respiratory Respiratory: Clear bilaterally - Abdomen Abdomen: Soft, Other (tender in upper abd with some local guarding. ) - Derm Derm: Normal color, Warm and dry - Extremities Extremities: Normal ROM s pain Results - Vitals Vitals: Oxygen O2 Source Room air PD MEDICAL DECISION MAKING - ED course Complexity details: considered differential (I am talking with the patient about him being sick from withdrawal and pancreatitis and still having weakness and confusion. We discussed that he should be in the hospital for further treatment and he is agreeable at this point with me. We will resume the IV and give him some medication.), d/w patient (The patient states he does not really remember why he wanted to leave the hospital other than "they were not letting me be me". I told him I felt he was best treated in the hospital and he is agreeable at t his point. I do not feel he is actually quite capable of refusing at this time.) ED course: I think the patient had been doing some better with medication for withdrawal that likely wore off now after being signing out from the hospital and is acting more wobbly shaky with some delirium. We will re-dose medication for withdrawal. Departure - Departure Disposition: 66 [facility] DC/Xfer Clinical Impression: Alcohol withdrawal, Opiate withdrawal, Confusion, Dehydration Pancreatitis Qualifiers: Pancreatitis type: alcohol induced Condition: Stable Record reviewed to determine appropriate education?: Yes
[2019-12-27] MEDS ORDERED: PROCHLORPERAZINE 10 MG/2 ML VIAL IVP PRN (14:43)
[2019-12-27] MEDS ORDERED: ONDANSETRON 4 MG/2 ML VIAL IVP PRN (14:43)
--- NOTE | 2019-12-27 14:50 | HISTORY & PHYSICAL EXAMINATION ---
Chief Complaint - Chief Complaint Chief Complaint: N/V, abd pain, diarrhea, dizzy History of Present Illness - Admitted From Admitted From:: ER - History Obtained From Records Reviewed: [facility] History obtained from: Dr. Theodore Exam Limitations: patient is delirious - History of Present Illness HPI Comment/Other: Unfortunate 69-year-old white male who has chronic back and neck pain is on chronic opiate therapy. He is on a pain management contract with his primary care provider. He has been gradually tapering himself off medication for several months now. He had been as high as up was 80 mg of short acting opiate several times a day. He is on a pain contract. He is also an alcohol abuser. And is probably been increasing his alcohol use, he states, because of pain. In his transitioning phase, he has been put on long-acting opiates. He ran out of his morphine for his neck and back pain about a week ago. He has been going through opiate withdrawal with nausea, vomiting, unsteadiness, tremors. He has generalized abdominal pain. He is incontinent of diarrhea. He has no fever, chills. No blood in his urine. He denies chest pain, shortness of breath. And he came to the emergency room. He is temperature is 36.9. He is tachycardic at 110-116. Blood pressure is in the 130s over 90s. Respirations are 17. 94% on room air. Because he was felt to be going through withdrawal, he was given Ativan, Zofran, Toradol, and a liter of lactated Ringer's. Evaluation with labs show him to have a creatinine of 2.6. His baseline creatinine is 0.7-0.9. BUN is actually normal at 15. Total bili is 2.9, AST 116, ALT 46. Lipase 850. White cell count is 23.6 thousand with hemoglobin 11.9. At the time of this presentation to me for admission, the patient still has not had a CT of the abdomen or chest x-ray. I am asking Dr. Theodore to please do CT the abdomen and chest x-ray to make sure were not missing an infectious association with his pancreatitis in view of the fact that he is white cell count is 23.6 thousand. He may have demargination but nevertheless want to make sure. Dr. Theodore is asking that the patient be admitted to the inpatient status for management of pancreatitis and opiate withdrawal. After admission, the patient was being examined by the intake nurse. He is indignant. Cannot figure out why he was transferred from the emergency room to a [facility] bed. Said that he had not been notified that he was being admitted. All he wanted to do was stand up and walk around and no one was letting him do that. He is refusing admission. He has signed AMA paperwork to that effect. However, this patient is standing up in the room, swaying. While he is alert, speaking in clear sentences, no respiratory distress he is unable to stand straight. He is swaying back and forth. Having difficulty trying to get dressed on his own. Nursing staff are standing nearby in case he falls. I have explained to him that he is being admitted for pancreatitis and opiate withdrawal. He said he is not sick enough to stay here and refuses to stay. I have warned him that sometimes opiate withdrawal and pancreatitis can lead to worsening electrolyte disorders, dehydration, pneumonia, even . He states he is still leaving. He left. Got as far as the parking lot bushes when he collapsed on the bushes. Was brought back into the emergency room. This time he is sleepy. Not nearly as lively and agitated as he was in the room. He is willing to be admitted for his pancreatitis and opiate withdrawal now. History - Past Medical History Cardiovascular: reports: Hypertension Respiratory: reports: COPD Neuro: reports: Headaches Endocrine/Autoimmune: reports: Type 2 diabetes GI: reports: Hepatitis, Cirrhosis, Other : reports: Chronic bladder infection HEENT: reports: None Psych: reports: None Musculoskeletal: reports: None MRSA Hx?: Yes - Family & Social History Family History Comment/Other: Unable to obtain any family history. I did call his emergency contact number, his sister, but no call back yet Living arrangement: Unknown Living Situation: Unknown Social History Notes: Unknown social history. I do not know if he is homeless, has his own apartment, and I have called his emergency contact number which is a sister to give us a call Meds/Allgy - Home Medications Home Medications: Ambulatory Orders Medication Instructions Recorded Confirmed Metoprolol Tartrate 25 mg PO DAILY 08/29/17 07/25/18 Esomeprazole Magnesium [Nexium] 20 mg PO DAILY #30 capsule. 07/25/18 amLODIPine [Norvasc] 5 mg PO DAILY 07/25/18 07/25/18 Hydrocodone/Acetaminophen 1 each PO BID 12/27/19 [Hydrocodon-Acetaminophn 10-325] Morphine Sulfate [Morphine Sulfate 10 mg PO DAILY 12/27/19 ER] - Allergies Allergies/Adverse Reactions: Allergies Allergy/AdvReac Type Severity Reaction Status Date / Time zolpidem [From Ambien] AdvReac Hallucinati Verified 12/27/19 09:41 ons Review of Systems - Other Findings Other Findings: Review of systems unable to be obtained. Prior Level of Functionality: Unknown at this time. Exam - Vital Signs Reviewed Vital Signs: Yes - Physical Exam General Appearance: positive: Other (When I first met him, before he signed out AMA, standing, agitated, swinging on his feet angry to be here. With the second go around he is obtunded, struggling against the nurses, mumbling, with a sharp deterioration in mental status.He is a disheveled, 5 foot 9 inch, 98 kg male that is stocky in a) Eyes Bilateral: positive: PERRL, EOMI ENT: positive: Dry mucous membranes, Other (Poor teeth.) Neck: positive: No JVD. negative: Lymphadenopathy (R), Lymphadenopathy (L) (Shotty adenopathy along the neck), Stiff neck Respiratory: positive: No respiratory distress, Other (Barrel chest). negative: Wheezes, Rales, Rhonchi Cardiovascular: positive: Regular rate & rhythm, Systolic murmur. negative: Gallop/S4, Friction rub Abdomen: positive: No organomegaly, Nml bowel sounds, Other (Large obese abdominal pannus, his abdominal wall is covered in varicosities, hypoactive bowel sounds.). negative: Guarding, Rebound Skin: positive: Other (He has raised almost blistering rash in the upper anterior thighs before you get to the intertriginous folds. He also has this rash on the left lateral hip. Irregular. Not weeping yet. He keeps on scratching on the left 1.) Extremities: positive: Full ROM, No pedal edema Neurologic/Psychiatric: positive: CN's nml (2-12) (Voice is low and growth, but he has no cranial nerve deficits. 1 not tested.), Disoriented to person, Disoriented to place, Disoriented to time. negative: Motor nml (While he is moving all extremities, pulling against restraints that I had to order, he is ataxic. Occasionally tremulous.) Conclusion/Plan - Problem List (1) Pancreatitis, acute Conclusion/Plan: Differential diagnosis for the cause of pancreatitis would be alcohol abuse, gallstone, or idiopathic. At this time the patient gives history of alcohol abuse but he is last beer was a day ago and it was only 1 beer. He does have gallstones on CT but no impacted gallstones. Bilirubin is 2.9. AST 116. Lipase 850. With Elmore's criteria in mind he is greater than 55 years of age, white cell count is greater than 16,000. So his score is only 2 points. He has minimal mortality predicted. Blood glucose is not greater than 200 nor is his LDH greater than 350 and AST is not above 250. In the next 48 hours we will recalculate. CT does not show any necrotizing pancreatitis or organizing phlegmon. Plan: Inpatient admission Fluid resuscitation Pain management. Recheck labs daily. No antibiotics at this time. Qualifiers: Pancreatitis type: alcohol induced Acute pancreatitis complication: unspecified Qualified Code(s): K85.20 - Alcohol induced acute pancreatitis without necrosis or infection (2) Toxic metabolic encephalopathy Conclusion/Plan: This gentleman has had such a sharp change from my first encounter with him when he was agitated, angry, and left AMA. To now where he is obtunded, hypoxic and with severe metabolic acidosis. This is a gentleman who is a substance abuser. So when he left here to go out into the parking lot and was found down, I do not know if he did something else. Right now the differential diagnosis includes: Sepsis versus [place] versus substance intoxication Plan: Urinalysis for infection Urinalysis for tox screen Check troponin (3) Opiate withdrawal Conclusion/Plan: He is on long-acting MS Contin twice a day with intermittent Vicodin when we review the pharmacy claim records. He ran out a few days ago withdrawal symptoms would be mydriasis, yawning, diaphoresis, increased bowel sounds, piloerection. Mental status normal. Other signs include dysphoria, restlessness, rhinorrhea, nausea, vomiting, abdominal cramping, diarrhea. His mental status is certainly not normal. He is very restless. Almost delirious. Possibility of other substance on board may be occurring as well. In reviewing the literature, specifically up today, methadone 20 mg orally or 10 mg IM is sufficient enough to relieve withdrawal symptoms without producing opi oid intoxication. They recommend against routine administration of full daily methadone maintenance dose if someone is missed a single dose. This patient seems to have missed several doses. Our pharmacy does not have a IM methadone order they have buprenorphine. (4) Alcohol abuse Conclusion/Plan: The patient states that he only had 1 beer yesterday. But he does have a history of alcohol abuse. Cirrhosis seen on CT of the abdomen. Ethyl alcohol level in the emergency room encounter that was the first encounter shows his ethyl alcohol level to be less than 5. Plan: I hesitate to implement alcohol withdrawal protocol. This is a gentleman who came in initially agitated, now waxing and waning alertness. Plan: Banana bag in the morning (5) Hypokalemia Conclusion/Plan: Supplement IV. Recheck in the morning. (6) VIDHYA (acute kidney injury) Conclusion/Plan: Baseline creatinine is usually less than 1.0. Right now he is 2.6. CT of the abdomen does not show obstruction. Plan: Hydration. Recheck BMP in the morning. Avoid nephrotoxins (7) Metabolic acidosis Conclusion/Plan: Same as for toxic metabolic encephalopathy. Earlier today he had a high anion gap. Carbon dioxide was 19. So indirectly he already had acidosis on his 11:20 AM labs. I then did a blood gas at 1520 5 PM and his pH is 7.15, PCO2 48, PO2 41, bicarb 16, O2 saturation 66%, and base excess -12.3. Plan: Oxygen 3 L of lactated Ringer's Look for cause of metabolic acidosis such as infection Look for substance abuse Look for [place] (8) Hypoxia Conclusion/Plan: When he was first seen in the emergency room he was 94% on room air. Then he required an oxygen mask later this afternoon. I looked at his visits in the emergency room in the past, he has been 99 to 100% on room air. So this acute hypoxic event is new for him. Chest x-ray is without acute cardiopulmonary process. CT of the abdomen done for the pancreatitis has no free air. Changes of pancreatitis. He is Homans negative on leg exam so I do not think that he has had a PE. D-dimer will be high in view of his inflammatory status with metabolic acidosis. Plan: Lovenox subcu VQ scan in the morning since his GFR is so high today. - Lab Results Lab results reviewed: Yes Other Lab Results: He was admitted earlier today. Left AMA and returned. I am reviewing the labs from the previous account for today. - Diagnostic Imaging Results Diagnostic Imaging Results: positive: Final report reviewed Diagnostic Imaging Results Comments: Chest x-ray raise previous account shows no evidence of acute pulmonary process. Abdomen pelvis CT with previous count today shows marked hepatic steatosis. Diffuse cirrhotic changes. Gallbladder with tiny stones. Mild indistinctness at the level of the pancreatic head and uncinate process which may potentially represent mild changes of acute pancreatitis. No free air. No necrosis. No peripancreatic fluid. Bowel, nodes, vessels are unremarkable. He has a right bladder Hutch diverticulum . Advanced coronary artery atherosclerotic calcifications. Acute or subacute moderate T11 compression fracture. Core Measures - Anticipated LOS I expect patient to be DC'd or transferred within 96 hours.: Yes - DVT/VTE - Prophylaxis VTE/DVT Device ordered at admit?: Yes
[2019-12-27 15:37] LABS: ABG BASE EXCESS -12.3 mmol/L (-2.0-3.0); ABG HCO3 16.2 mmol/L (22.0-26.0); ABG PCO2 48 mmHg (34-45); ABG TCO2 17.7 MMOL/L (21.0-29.0)
[2019-12-27 15:38] LABS: ALLEN TEST POSITIVE
[2019-12-27 15:46] LABS: ABG OXYGEN SATURATION 66 % (94-98); ABG PH 7.15 (7.35-7.45); ABG PO2 41 mmHg (80-100)
[2019-12-27] MEDS ORDERED: LACTATED RINGERS IV STA (15:51)
[2019-12-27] MEDS ORDERED: LACTATED RINGERS 1,000 ML IV ONE ×2 (15:55→17:24)
[2019-12-27] MEDS: SODIUM CHLORIDE FLUSH 0.9% 10 ML SYRINGE IVP SCH (16:14)
[2019-12-27 16:34] LABS: BILIRUBIN,URINE NEGATIVE (NEGATIVE); GLUCOSE, URINE (UA) NEGATIVE (NEGATIVE); KETONES,URINE (UA) NEGATIVE (NEGATIVE); LEUKOCYTE ESTERASE, URINE TRACE (NEGATIVE); NITRITE,URINE POSITIVE (NEGATIVE); OCCULT BLOOD,URINE MODERATE (NEGATIVE); PROTEIN,URINE TRACE mg/dL (NEGATIVE); UROBILINOGEN,URINE 0.2 (NORMAL) E.U./dL (NORMAL)
[2019-12-27 16:37] LABS: CLARITY,URINE HAZY (CLEAR)
[2019-12-27 16:46] LABS: AMORPHOUS SEDIMENT,UR Moderate /LPF; BACTERIA,URINE Moderate /HPF (None Seen); SQUAMOUS EPITHELIAL CELL,UR MANY Squamous (<= Few)
[2019-12-27 17:35] LABS: MUDS CUTOFF CONCENTRATIONS CUTOFF CONC BELOW:
[2019-12-27 17:48] LABS: AMPHETAMINE SCREEN,URINE POSITIVE (NEGATIVE); BENZODIAZEPINES SCREEN, URINE NEGATIVE (NEGATIVE); COCAINE SCREEN URINE NEGATIVE (NEGATIVE); METHADONE SCREEN, URINE NEGATIVE (NEGATIVE); METHAMPHETAMINES SCREEN, URINE POSITIVE (NEGATIVE); OPIATE SCREEN, URINE POSITIVE (NEGATIVE); OXYCODONE SCREEN, URINE NEGATIVE (NEGATIVE); PROPOXYPHENE SCREEN, URINE NEGATIVE (NEGATIVE); TRICYCLIC ANTIDEPRESSANT,URINE NEGATIVE (NEGATIVE)
[2019-12-27] MEDS: HYDROCORTISONE 1% CREAM 28 GM TUBE TOP SCH (18:08)
[2019-12-27] MEDS ORDERED: MIN OIL/DIMETHICON/COCONUT OIL 92 GM TUBE TOP PRN (18:18)
[2019-12-27] MEDS: cefTRIAXone 1 GM in SODIUM CHLORIDE 0.9% MINIBAG 100 ML IV SCH (18:43)
[2019-12-27] MEDS ORDERED: ATORVASTATIN 40 MG TABLET PO STA (19:01)
[2019-12-27] MEDS ORDERED: ASPIRIN 325 MG TABLET PO STA (19:01)
[2019-12-27] MEDS: SODIUM CHLORIDE FLUSH 0.9% 10 ML SYRINGE IVP PRN ×2 (19:17→23:01)
[2019-12-27 19:58] LABS: MAGNESIUM 2.1 mg/dL (1.7-2.8); PHOSPHORUS 7.5 mg/dL (2.5-4.6)
[2019-12-27] MEDS: LACTATED RINGERS 1,000 ML IV SCH (20:12)
[2019-12-27] MEDS ORDERED: ENOXAPARIN 100 MG/ML SYRINGE SUBQ SCH (21:00)
[2019-12-27 21:03] LABS: CREATININE 2.8 mg/dL (0.6-1.2)
[2019-12-27] MEDS ORDERED: LORazepam 2 MG/ML VIAL IVP PRN (22:57)
[2019-12-28] MEDS ORDERED: THIAMINE 100 MG/1 ML 2 ML MDV ONE (01:24)
[2019-12-28] MEDS ORDERED: MAGNESIUM SULFATE 1 GM/2 ML VIAL ONE (01:24)
[2019-12-28] MEDS: MULTIVITAMIN 10 ML, FOLIC ACID INJ 1 MG, THIAMINE INJ 100 MG, MAGNESIUM SULFATE 2 GM in... IV SCH ×10 (01:38→11:54)
[2019-12-28] MEDS: SODIUM CHLORIDE FLUSH 0.9% 10 ML SYRINGE IVP SCH ×3 (01:40→21:17)
[2019-12-28] MEDS: LORazepam 2 MG/ML VIAL IVP PRN ×5 (04:05→21:55)
[2019-12-28 05:09] LABS: BASOPHILS % (AUTO) 0.3 %; EOSINOPHILS % (AUTO) 0.7 %; HGB - HEMOGLOBIN 9.2 g/dL (14.0-18.0); LYMPHOCYTES % (AUTO) 4.6 %; MEAN CORPUSCULAR HEMOGLOBIN 36.2 pg (27.0-31.0); MEAN CORPUSCULAR HGB CONC 32.5 g/dL (32.0-36.0); MEAN CORPUSCULAR VOLUME 111.4 fL (80.0-94.0); MEAN PLATELET VOLUME 9.8 fL (7.4-11.4); NEUTROPHILS % (AUTO) 86.2 %; PLT - PLATELET COUNT 133 10^3/uL (130-450); RED BLOOD COUNT 2.54 10^6/uL (4.70-6.10); RED CELL DISTRIBUTION WIDTH 13.1 % (12.0-15.0); WHITE BLOOD COUNT 20.7 x10^3/uL (4.8-10.8)
[2019-12-28 05:18] LABS: ABNORMAL LYMPHS % (MANUAL) 0 %; BAND NEUTROPHILS % (MANUAL) 0 %
[2019-12-28 05:24] LABS: ALBUMIN 2.9 g/dL (3.2-5.5); ALBUMIN/GLOBULIN RATIO 1.2 (1.0-2.2); BILIRUBIN,TOTAL 1.6 mg/dL (0.2-1.0); CALCIUM 7.9 mg/dL (8.5-10.3); CREATININE 3.4 mg/dL (0.6-1.2); MAGNESIUM 2.2 mg/dL (1.7-2.8); PHOSPHORUS 6.5 mg/dL (2.5-4.6); TOTAL PROTEIN 5.4 g/dL (6.7-8.2)
[2019-12-28 05:32] LABS: LYMPHOCYTES # (MANUAL) 1.4 10^3/uL (1.5-3.5); LYMPHOCYTES % (MANUAL) 7 %; MONOCYTES # (MANUAL) 1.2 10^3/uL (0.0-1.0)
[2019-12-28 05:33] LABS: DIFFERENTIAL COMMENT MANUAL DIFFERENTIAL; PLATELET ESTIMATE, MANUAL NORMAL (130-450,000) (NORMAL); PLATELET MORPHOLOGY NORMAL APPEARANCE (NORMAL); RBC MORPHOLOGY (MULTIPLE) 1+ MACROCYTOSIS (NORMAL)
[2019-12-28] MEDS: HYDROCORTISONE 1% CREAM 28 GM TUBE TOP SCH ×2 (08:24→21:18)
[2019-12-28] MEDS: cefTRIAXone 1 GM in SODIUM CHLORIDE 0.9% MINIBAG 100 ML IV SCH (08:25)
[2019-12-28] MEDS ORDERED: ENOXAPARIN 100 MG/ML SYRINGE SUBQ SCH ×2 (09:00→21:00)
[2019-12-28] MEDS ORDERED: cefTRIAXone 1 GM in SODIUM CHLORIDE 0.9% MINIBAG 100 ML IV SCH (09:00)
--- NOTE | 2019-12-28 11:12 | PROVIDER PROGRESS NOTE ---
Subjective - Prog Note Date Prog Note Date: 12/28/19 Prog Note Time: 11:09 - Subjective Subjective: When he was readmitted after leaving AMA yesterday, toxic metabolic encephalopathy was his main presentation this time. As his work-up ensued on readmission, his encephalopathy waxes and wanes. He has needed four-point restraints. Haldol. We have found to be urine tox screen positive for meth amphetamines. He may be having an NSTEMI. He may have an element of rhabdomyolysis with elevated CPK. He is also in renal failure. Metabolic acidosis appears stable.Blood pressure has been normal, or hypotensive to 66 systolic. Urine output has been minimal. He put out 220 cc yesterday. Since midnight last night he is put out 35 cc. I have called his sister, Rach Lyman, and left a message for her to call us. She is the person to notify in the next of kin. I did call her last night and this morning at [phone]. Current Medications - Current Medications Current Medications: Active Medications Enoxaparin Sodium (Lovenox) 100 mg SUBQ QPM [facility] Hydrocortisone (Hydrocortisone) 1 applic TOP BID [facility] Last Admin: 12/28/19 08:24 Dose: 1 applic Documented by: Hydromorphone HCl (Dilaudid Inj Carp) 1 mg IVP Q2H PRN PRN Reason: Pain 8 to 10 Ceftriaxone Sodium 1 gm/ (Sodium Chloride) 100 mls @ 200 mls/hr IV DAILY [facility] Last Infusion: 12/28/19 10:31 Dose: Infused Documented by: Lactated Ringer's (Lr) 1,000 mls @ 150 mls/hr IV .Q6H40M [facility] Last Infusion: 12/28/19 01:40 Dose: Infused Documented by: Multivitamins 10 ml/ Folic Acid 1 mg/ Thiamine HCl 100 mg / Magnesium Sulfate 2 gm/Sodium Chloride 1,015.2 mls @ 100 mls/hr IV DAILY [facility] Last Admin: 12/28/19 01:38 Dose: 100 mls/hr Documented by: Lorazepam (Ativan Inj (Vial)) 1 mg IVP Q4H PRN PRN Reason: Agitation Last Admin: 12/28/19 08:25 Dose: 1 mg Documented by: Mineral Oil (Cavilon) 1 applic TOP PRN PRN PRN Reason: Skin Care Ondansetron HCl (Zofran Inj) 4 mg IVP Q6HR PRN PRN Reason: Nausea / Vomiting Last Admin: 12/28/19 08:25 Dose: 4 mg Documented by: Polyethylene Glycol (Miralax) 17 gm PO DAILY [facility] Prochlorperazine Edisylate (Compazine Inj) 10 mg IVP Q6HR PRN PRN Reason: Nausea / Vomiting Sodium Chloride (Normal Saline Flush 0.9%) 10 ml IVP PRN PRN PRN Reason: NEEDED PER PROVIDER ORDERS Last Admin: 12/27/19 23:01 Dose: 10 ml Documented by: Sodium Chloride (Normal Saline Flush 0.9%) 10 ml IVP 0100,0900,1700 [facility] Last Admin: 12/28/19 08:33 Dose: 10 ml Documented by: Metoprolol Tartrate 25 mg PO DAILY 08/29/17 amLODIPine [Norvasc] 5 mg PO DAILY 07/25/18 Hydrocodone/Acetaminophen [Hydrocodon-Acetaminophn 10-325] 1 each PO BID 12/27/19 Morphine Sulfate [Morphine Sulfate ER] 10 mg PO DAILY 12/27/19 Objective - Vital Signs/Intake & Output Reviewed Vital Signs: Yes Vital Signs: Vital Signs x48h Temp Pulse Resp BP BP Pulse Ox 12/28/19 09:00 36.7 C 116 H 20 100/56 L 99 12/28/19 03:53 37.6 C H 109 H 17 116/66 95 Intake & Output: Intake & Output 12/25/19 12/26/19 12/27/19 12/28/19 23:59 23:59 23:59 23:59 Intake Total 2892.5 967.5 Output Total 220 35 Balance 2672.5 932.5 - Objective General Appearance: positive: Moderate distress (Disheveled short statured rotund gentleman who looks older than stated age with encephalopathy and confusion), Other (While he is verbal at times, he then deteriorates to gibberish. When he is lucid he forms full sentences and asked to be let go from his restraints. We do let him go from restraints to give him a break. But when he starts getting confused and pulling at lines, we then put him back in restraints.) Eyes Bilateral: positive: PERRL ENT: positive: Dry mucous membranes, Other (Poor dentition) Neck: positive: No JVD, Lymphadenopathy (R), Lymphadenopathy (L) (Shotty nodes both sides of neck). negative: Stiff neck Respiratory: positive: Wheezes, Other (Occasional wheezes. He struggles against the restraints and will make himself short of breath. Then fall back in the bed and exhaustion. When he is sleeping, not agitated, he does occasionally have to use his belly muscles to breathe.). negative: Rales, Rhonchi Cardiovascular: positive: Regular rate & rhythm, Systolic murmur. negative: Gallop/S4, Friction rub Abdomen: positive: Nml bowel sounds, Other (Large abdominal pannus. The wall of the pannus has large varicose veins. Scrotal edema.). negative: Guarding, Rebound Skin: positive: Warm, Dry Extremities: positive: Full ROM, No pedal edema Neurologic/Psychiatric: positive: CN's nml (2-12), Motor nml (Yesterday he was swinging on his feet and appeared ataxic and off balance. Since being readmitted, he has been in bed and difficult to assess for gait ataxia.), Disoriented to person, Disoriented to place, Disoriented to time, Slurred/abnml speech (Speech alternates between gibberish, and full sentences where he asked for being released from his restraints and wants to go home) - Lab Results Fish Bones: 12/28/19 04:50 12/28/19 04:50 Other Labs: Lab Results x24hrs 12/28/19 12/28/19 12/28/19 Range/Units 04:50 04:50 04:50 WBC (4.8-10.8) x10^3/uL RBC (4.70-6.10) 10^6/uL Hgb (14.0-18.0) g/dL Hct (42.0-52.0) % MCV (80.0-94.0) fL MCH (27.0-31.0) pg MCHC (32.0-36.0) g/dL RDW (12.0-15.0) % Plt Count (130-450) 10^3/uL MPV (7.4-11.4) fL Neut # (Auto) Lymph # (Auto) [place] # (Auto) Eos # (Auto) Baso # (Auto) Absolute Nucleated RBC Total Counted Band Neuts % (Manual) (0 - 10) % Abnorm Lymph % (Manual) % Nucleated RBC % Neutrophils # (Manual) (1.5-6.6) 10^3/uL Lymphocytes # (Manual) (1.5-3.5) 10^3/uL Monocytes # (Manual) (0.0-1.0) 10^3/uL Eosinophils # (Manual) (0-0.7) 10^3/uL Basophils # (Manual) (0-0.1) 10^3/uL Differential Comment WBC Morphology (NORMAL) Platelet Estimate (NORMAL) Platelet Morphology (NORMAL) RBC Morph Micro Appear (NORMAL) Bld Gas Analysis Time Sample Site ABG pH (7.35-7.45) ABG pCO2 (34-45) mmHg ABG pO2 (80-100) mmHg ABG HCO3 (22.0-26.0) mmol/L ABG Total CO2 (21.0-29.0) MMOL/L ABG O2 Saturation (94-98) % ABG Base Excess (-2.0-3.0) mmol/L Andrew Test Room Air Sodium (135-145) mmol/L Potassium (3.5-5.0) mmol/L Chloride (101-111) mmol/L Carbon Dioxide (21-32) mmol/L Anion Gap (6-13) BUN (6-20) mg/dL Creatinine (0.6-1.2) mg/dL Estimated GFR (MDRD) (>89) Glucose (70-100) mg/dL Calcium (8.5-10.3) mg/dL Phosphorus (2.5-4.6) mg/dL Magnesium (1.7-2.8) mg/dL Total Bilirubin (0.2-1.0) mg/dL AST (10-42) IU/L ALT (10-60) IU/L Alkaline Phosphatase (42-121) IU/L Total Creatine Kinase 6150 H* (22-269) IU/L Troponin I High Sens 426.1 H* (2.3-19.7) ng/L Total Protein (6.7-8.2) g/dL Albumin (3.2-5.5) g/dL Globulin (2.1-4.2) g/dL Albumin/Globulin Ratio (1.0-2.2) Folate 5.28 L (5.90 - >24.8) ng/mL Urine Color Urine Clarity (CLEAR) Urine pH (5.0-7.5) PH Ur Specific [place] (1.002-1.030) Urine Protein (NEGATIVE) mg/dL Urine Glucose (UA) (NEGATIVE) mg/dL Urine Ketones (NEGATIVE) mg/dL Urine Occult Blood (NEGATIVE) Urine Nitrite (NEGATIVE) Urine Bilirubin (NEGATIVE) Urine Urobilinogen (NORMAL) E.U./dL Ur Leukocyte Esterase (NEGATIVE) Urine RBC (0-5) /HPF Urine WBC (0-3) /HPF Ur Squamous Epith Cells (<= Few) Amorphous Sediment /LPF Urine Bacteria (None Seen) /HPF Urine Culture Comments Urine Opiates Screen (NEGATIVE) Ur Oxycodone Screen (NEGATIVE) Urine Methadone Screen (NEGATIVE) Ur Propoxyphene Screen (NEGATIVE) Ur Barbiturates Screen (NEGATIVE) Ur Tricyclics Screen (NEGATIVE) Ur Phencyclidine Scrn (NEGATIVE) Ur Amphetamine Screen (NEGATIVE) U Methamphetamines Scrn (NEGATIVE) U Benzodiazepines Scrn (NEGATIVE) Urine Cocaine Screen (NEGATIVE) U Cannabinoids Screen (NEGATIVE) 12/28/19 12/28/19 12/28/19 Range/Units 04:50 04:50 02:00 WBC 20.7 H (4.8-10.8) x10^3/uL RBC 2.54 L (4.70-6.10) 10^6/uL Hgb 9.2 L (14.0-18.0) g/dL Hct 28.3 L (42.0-52.0) % MCV 111.4 H (80.0-94.0) fL MCH 36.2 H (27.0-31.0) pg MCHC 32.5 (32.0-36.0) g/dL RDW 13.1 (12.0-15.0) % Plt Count 133 (130-450) 10^3/uL MPV 9.8 (7.4-11.4) fL Neut # (Auto) Not Reportable Lymph # (Auto) Not Reportable [place] # (Auto) Not Reportable Eos # (Auto) Not Reportable Baso # (Auto) Not Reportable Absolute Nucleated RBC Not Reportable Total Counted 100 Band Neuts % (Manual) 0 (0 - 10) % Abnorm Lymph % (Manual) 0 % Nucleated RBC % Not Reportable Neutrophils # (Manual) 18.0 H (1.5-6.6) 10^3/uL Lymphocytes # (Manual) 1.4 L (1.5-3.5) 10^3/uL Monocytes # (Manual) 1.2 H (0.0-1.0) 10^3/uL Eosinophils # (Manual) 0.0 (0-0.7) 10^3/uL Basophils # (Manual) 0.0 (0-0.1) 10^3/uL Differential Comment MANUAL DIFFERENTIAL WBC Morphology NORMAL APPEARANCE (NORMAL) Platelet Estimate NORMAL (130-450,000) (NORMAL) Platelet Morphology NORMAL APPEARANCE (NORMAL) RBC Morph Micro Appear 1+ MACROCYTOSIS (NORMAL) Bld Gas Analysis Time Sample Site ABG pH (7.35-7.45) ABG pCO2 (34-45) mmHg ABG pO2 (80-100) mmHg ABG HCO3 (22.0-26.0) mmol/L ABG Total CO2 (21.0-29.0) MMOL/L ABG O2 Saturation (94-98) % ABG Base Excess (-2.0-3.0) mmol/L Andrew Test Room Air Sodium 139 (135-145) mmol/L Potassium 4.0 (3.5-5.0) mmol/L Chloride 107 (101-111) mmol/L Carbon Dioxide 20 L (21-32) mmol/L Anion Gap 12.0 (6-13) BUN 22 H (6-20) mg/dL Creatinine 3.4 H (0.6-1.2) mg/dL Estimated GFR (MDRD) 18 L (>89) Glucose 76 (70-100) mg/dL Calcium 7.9 L (8.5-10.3) mg/dL Phosphorus 6.5 H (2.5-4.6) mg/dL Magnesium 2.2 (1.7-2.8) mg/dL Total Bilirubin 1.6 H (0.2-1.0) mg/dL AST 314 H (10-42) IU/L ALT 92 H (10-60) IU/L Alkaline Phosphatase 62 (42-121) IU/L Total Creatine Kinase (22-269) IU/L Troponin I High Sens 466.1 H* (2.3-19.7) ng/L Total Protein 5.4 L (6.7-8.2) g/dL Albumin 2.9 L (3.2-5.5) g/dL Globulin 2.5 (2.1-4.2) g/dL Albumin/Globulin Ratio 1.2 (1.0-2.2) Folate (5.90 - >24.8) ng/mL Urine Color Urine Clarity (CLEAR) Urine pH (5.0-7.5) PH Ur Specific [place] (1.002-1.030) Urine Protein (NEGATIVE) mg/dL Urine Glucose (UA) (NEGATIVE) mg/dL Urine Ketones (NEGATIVE) mg/dL Urine Occult Blood (NEGATIVE) Urine Nitrite (NEGATIVE) Urine Bilirubin (NEGATIVE) Urine Urobilinogen (NORMAL) E.U./dL Ur Leukocyte Esterase (NEGATIVE) Urine RBC (0-5) /HPF Urine WBC (0-3) /HPF Ur Squamous Epith Cells (<= Few) Amorphous Sediment /LPF Urine Bacteria (None Seen) /HPF Urine Culture Comments Urine Opiates Screen (NEGATIVE) Ur Oxycodone Screen (NEGATIVE) Urine Methadone Screen (NEGATIVE) Ur Propoxyphene Screen (NEGATIVE) Ur Barbiturates Screen (NEGATIVE) Ur Tricyclics Screen (NEGATIVE) Ur Phencyclidine Scrn (NEGATIVE) Ur Amphetamine Screen (NEGATIVE) U Methamphetamines Scrn (NEGATIVE) U Benzodiazepines Scrn (NEGATIVE) Urine Cocaine Screen (NEGATIVE) U Cannabinoids Screen (NEGATIVE) 12/27/19 12/27/19 12/27/19 Range/Units 19:40 19:38 19:38 WBC (4.8-10.8) x10^3/uL RBC (4.70-6.10) 10^6/uL Hgb (14.0-18.0) g/dL Hct (42.0-52.0) % MCV (80.0-94.0) fL MCH (27.0-31.0) pg MCHC (32.0-36.0) g/dL RDW (12.0-15.0) % Plt Count (130-450) 10^3/uL MPV (7.4-11.4) fL Neut # (Auto) Lymph # (Auto) [place] # (Auto) Eos # (Auto) Baso # (Auto) Absolute Nucleated RBC Total Counted Band Neuts % (Manual) (0 - 10) % Abnorm Lymph % (Manual) % Nucleated RBC % Neutrophils # (Manual) (1.5-6.6) 10^3/uL Lymphocytes # (Manual) (1.5-3.5) 10^3/uL Monocytes # (Manual) (0.0-1.0) 10^3/uL Eosinophils # (Manual) (0-0.7) 10^3/uL Basophils # (Manual) (0-0.1) 10^3/uL Differential Comment WBC Morphology (NORMAL) Platelet Estimate (NORMAL) Platelet Morphology (NORMAL) RBC Morph Micro Appear (NORMAL) Bld Gas Analysis Time Sample Site ABG pH (7.35-7.45) ABG pCO2 (34-45) mmHg ABG pO2 (80-100) mmHg ABG HCO3 (22.0-26.0) mmol/L ABG Total CO2 (21.0-29.0) MMOL/L ABG O2 Saturation (94-98) % ABG Base Excess (-2.0-3.0) mmol/L Andrew Test Room Air Sodium 135 (135-145) mmol/L Potassium 3.9 (3.5-5.0) mmol/L Chloride 104 (101-111) mmol/L Carbon Dioxide 19 L (21-32) mmol/L Anion Gap 12.0 (6-13) BUN 17 (6-20) mg/dL Creatinine 2.8 H (0.6-1.2) mg/dL Estimated GFR (MDRD) 23 L (>89) Glucose 76 (70-100) mg/dL Calcium 8.0 L (8.5-10.3) mg/dL Phosphorus 7.5 H (2.5-4.6) mg/dL Magnesium 2.1 (1.7-2.8) mg/dL Total Bilirubin (0.2-1.0) mg/dL AST (10-42) IU/L ALT (10-60) IU/L Alkaline Phosphatase (42-121) IU/L Total Creatine Kinase (22-269) IU/L Troponin I High Sens 316.9 H* (2.3-19.7) ng/L Total Protein (6.7-8.2) g/dL Albumin (3.2-5.5) g/dL Globulin (2.1-4.2) g/dL Albumin/Globulin Ratio (1.0-2.2) Folate (5.90 - >24.8) ng/mL Urine Color Urine Clarity (CLEAR) Urine pH (5.0-7.5) PH Ur Specific [place] (1.002-1.030) Urine Protein (NEGATIVE) mg/dL Urine Glucose (UA) (NEGATIVE) mg/dL Urine Ketones (NEGATIVE) mg/dL Urine Occult Blood (NEGATIVE) Urine Nitrite (NEGATIVE) Urine Bilirubin (NEGATIVE) Urine Urobilinogen (NORMAL) E.U./dL Ur Leukocyte Esterase (NEGATIVE) Urine RBC (0-5) /HPF Urine WBC (0-3) /HPF Ur Squamous Epith Cells (<= Few) Amorphous Sediment /LPF Urine Bacteria (None Seen) /HPF Urine Culture Comments Urine Opiates Screen (NEGATIVE) Ur Oxycodone Screen (NEGATIVE) Urine Methadone Screen (NEGATIVE) Ur Propoxyphene Screen (NEGATIVE) Ur Barbiturates Screen (NEGATIVE) Ur Tricyclics Screen (NEGATIVE) Ur Phencyclidine Scrn (NEGATIVE) Ur Amphetamine Screen (NEGATIVE) U Methamphetamines Scrn (NEGATIVE) U Benzodiazepines Scrn (NEGATIVE) Urine Cocaine Screen (NEGATIVE) U Cannabinoids Screen (NEGATIVE) 12/27/19 12/27/19 12/27/19 Range/Units 17:33 16:30 16:15 WBC (4.8-10.8) x10^3/uL RBC (4.70-6.10) 10^6/uL Hgb (14.0-18.0) g/dL Hct (42.0-52.0) % MCV (80.0-94.0) fL MCH (27.0-31.0) pg MCHC (32.0-36.0) g/dL RDW (12.0-15.0) % Plt Count (130-450) 10^3/uL MPV (7.4-11.4) fL Neut # (Auto) Lymph # (Auto) [place] # (Auto) Eos # (Auto) Baso # (Auto) Absolute Nucleated RBC Total Counted Band Neuts % (Manual) (0 - 10) % Abnorm Lymph % (Manual) % Nucleated RBC % Neutrophils # (Manual) (1.5-6.6) 10^3/uL Lymphocytes # (Manual) (1.5-3.5) 10^3/uL Monocytes # (Manual) (0.0-1.0) 10^3/uL Eosinophils # (Manual) (0-0.7) 10^3/uL Basophils # (Manual) (0-0.1) 10^3/uL Differential Comment WBC Morphology (NORMAL) Platelet Estimate (NORMAL) Platelet Morphology (NORMAL) RBC Morph Micro Appear (NORMAL) Bld Gas Analysis Time Sample Site ABG pH (7.35-7.45) ABG pCO2 (34-45) mmHg ABG pO2 (80-100) mmHg ABG HCO3 (22.0-26.0) mmol/L ABG Total CO2 (21.0-29.0) MMOL/L ABG O2 Saturation (94-98) % ABG Base Excess (-2.0-3.0) mmol/L Andrew Test Room Air Sodium (135-145) mmol/L Potassium (3.5-5.0) mmol/L Chloride (101-111) mmol/L Carbon Dioxide (21-32) mmol/L Anion Gap (6-13) BUN (6-20) mg/dL Creatinine (0.6-1.2) mg/dL Estimated GFR (MDRD) (>89) Glucose (70-100) mg/dL Calcium (8.5-10.3) mg/dL Phosphorus (2.5-4.6) mg/dL Magnesium (1.7-2.8) mg/dL Total Bilirubin (0.2-1.0) mg/dL AST (10-42) IU/L ALT (10-60) IU/L Alkaline Phosphatase (42-121) IU/L Total Creatine Kinase (22-269) IU/L Troponin I High Sens 214.1 H* (2.3-19.7) ng/L Total Protein (6.7-8.2) g/dL Albumin (3.2-5.5) g/dL Globulin (2.1-4.2) g/dL Albumin/Globulin Ratio (1.0-2.2) Folate (5.90 - >24.8) ng/mL Urine Color YELLOW Urine Clarity HAZY (CLEAR) Urine pH 6.0 (5.0-7.5) PH Ur Specific [place] 1.025 (1.002-1.030) Urine Protein TRACE (NEGATIVE) mg/dL Urine Glucose (UA) NEGATIVE (NEGATIVE) mg/dL Urine Ketones NEGATIVE (NEGATIVE) mg/dL Urine Occult Blood MODERATE H (NEGATIVE) Urine Nitrite POSITIVE H (NEGATIVE) Urine Bilirubin NEGATIVE (NEGATIVE) Urine Urobilinogen 0.2 (NORMAL) (NORMAL) E.U./dL Ur Leukocyte Esterase TRACE H (NEGATIVE) Urine RBC 11-25 H (0-5) /HPF Urine WBC 6-10 H (0-3) /HPF Ur Squamous Epith Cells MANY Squamous H (<= Few) Amorphous Sediment Moderate /LPF Urine Bacteria Moderate H (None Seen) /HPF Urine Culture Comments NOT INDICATED Urine Opiates Screen POSITIVE H (NEGATIVE) Ur Oxycodone Screen NEGATIVE (NEGATIVE) Urine Methadone Screen NEGATIVE (NEGATIVE) Ur Propoxyphene Screen NEGATIVE (NEGATIVE) Ur Barbiturates Screen NEGATIVE (NEGATIVE) Ur Tricyclics Screen NEGATIVE (NEGATIVE) Ur Phencyclidine Scrn NEGATIVE (NEGATIVE) Ur Amphetamine Screen POSITIVE H (NEGATIVE) U Methamphetamines Scrn POSITIVE H (NEGATIVE) U Benzodiazepines Scrn NEGATIVE (NEGATIVE) Urine Cocaine Screen NEGATIVE (NEGATIVE) U Cannabinoids Screen NEGATIVE (NEGATIVE) 1018/20 Range/Units 15:25 WBC (4.8-10.8) x10^3/uL RBC (4.70-6.10) 10^6/uL Hgb (14.0-18.0) g/dL Hct (42.0-52.0) % MCV (80.0-94.0) fL MCH (27.0-31.0) pg MCHC (32.0-36.0) g/dL RDW (12.0-15.0) % Plt Count (130-450) 10^3/uL MPV (7.4-11.4) fL Neut # (Auto) Lymph # (Auto) [place] # (Auto) Eos # (Auto) Baso # (Auto) Absolute Nucleated RBC Total Counted Band Neuts % (Manual) (0 - 10) % Abnorm Lymph % (Manual) % Nucleated RBC % Neutrophils # (Manual) (1.5-6.6) 10^3/uL Lymphocytes # (Manual) (1.5-3.5) 10^3/uL Monocytes # (Manual) (0.0-1.0) 10^3/uL Eosinophils # (Manual) (0-0.7) 10^3/uL Basophils # (Manual) (0-0.1) 10^3/uL Differential Comment WBC Morphology (NORMAL) Platelet Estimate (NORMAL) Platelet Morphology (NORMAL) RBC Morph Micro Appear (NORMAL) Bld Gas Analysis Time 1525 Sample Site RIGHT RADIAL ABG pH 7.15 L* (7.35-7.45) ABG pCO2 48 H (34-45) mmHg ABG pO2 41 L* (80-100) mmHg ABG HCO3 16.2 L (22.0-26.0) mmol/L ABG Total CO2 17.7 L (21.0-29.0) MMOL/L ABG O2 Saturation 66 L* (94-98) % ABG Base Excess -12.3 L (-2.0-3.0) mmol/L Andrew Test POSITIVE Room Air YES Sodium (135-145) mmol/L Potassium (3.5-5.0) mmol/L Chloride (101-111) mmol/L Carbon Dioxide (21-32) mmol/L Anion Gap (6-13) BUN (6-20) mg/dL Creatinine (0.6-1.2) mg/dL Estimated GFR (MDRD) (>89) Glucose (70-100) mg/dL Calcium (8.5-10.3) mg/dL Phosphorus (2.5-4.6) mg/dL Magnesium (1.7-2.8) mg/dL Total Bilirubin (0.2-1.0) mg/dL AST (10-42) IU/L ALT (10-60) IU/L Alkaline Phosphatase (42-121) IU/L Total Creatine Kinase (22-269) IU/L Troponin I High Sens (2.3-19.7) ng/L Total Protein (6.7-8.2) g/dL Albumin (3.2-5.5) g/dL Globulin (2.1-4.2) g/dL Albumin/Globulin Ratio (1.0-2.2) Folate (5.90 - >24.8) ng/mL Urine Color Urine Clarity (CLEAR) Urine pH (5.0-7.5) PH Ur Specific [place] (1.002-1.030) Urine Protein (NEGATIVE) mg/dL Urine Glucose (UA) (NEGATIVE) mg/dL Urine Ketones (NEGATIVE) mg/dL Urine Occult Blood (NEGATIVE) Urine Nitrite (NEGATIVE) Urine Bilirubin (NEGATIVE) Urine Urobilinogen (NORMAL) E.U./dL Ur Leukocyte Esterase (NEGATIVE) Urine RBC (0-5) /HPF Urine WBC (0-3) /HPF Ur Squamous Epith Cells (<= Few) Amorphous Sediment /LPF Urine Bacteria (None Seen) /HPF Urine Culture Comments Urine Opiates Screen (NEGATIVE) Ur Oxycodone Screen (NEGATIVE) Urine Methadone Screen (NEGATIVE) Ur Propoxyphene Screen (NEGATIVE) Ur Barbiturates Screen (NEGATIVE) Ur Tricyclics Screen (NEGATIVE) Ur Phencyclidine Scrn (NEGATIVE) Ur Amphetamine Screen (NEGATIVE) U Methamphetamines Scrn (NEGATIVE) U Benzodiazepines Scrn (NEGATIVE) Urine Cocaine Screen (NEGATIVE) U Cannabinoids Screen (NEGATIVE) ABX Reporting Has patient been on IV antibiotics over the past 48 hours?: Yes Assessment/Plan - Problem List (1) Toxic metabolic encephalopathy Impression: Yesterday he is complained in the emergency room was opiate withdrawal and running out of opiates. He was admitted because he was found to have pancreatitis as a cause of abdominal pain. He then left AMA. This was 15 minut es after arriving to [facility]. Since that time, upon his return, toxic metabolic encephalopathy is his main presentation. Multiple causes. Pancreatitis Opiate withdrawal Met amphetamine toxicity Possible NSTEMI Acidosis from pancreatitis/med amphetamines/cirrhosis/renal failure Plan: Treat each of these individual causes to see if we can return to baseline (2) VIDHYA (acute kidney injury) Impression: On admission his creatinine was 2.6. This is a gentleman his creatinine is usually 0.7-0.9. On his return the second time creatinine went to 2.8. This morning it is 2.4. No hyperkalemia. Carbon dioxide is 19-20. Anion gap is normal. Phosphorus is high at 6.5. Magnesium 2.2. Oliguric. Initial blood gas December 26 showed a pH of 7.15 with a base excess of -12.3. At this time the cause of his acidosis is multifactorial. He is not retaining CO2 but his CPK is elevated most likely due to the methamphetamine. Plan: Check retroperitoneal ultrasound to see if there is an element of obstruction. Morejon has been placed. I have spoken to Dr. Herrera who is on-call for [facility] nephrology. At this point in time, renal failure would be about the only thing I would transfer him for. That is if he needed dialysis. We went over his numbers, his BUN, his acidosis, his potassium. Patient is not in congestive heart failure. I am going to need to check the echo as well to make sure his ejection fraction is not contributing to the renal failure. This will then allow me to continue to hydrate him as aggressively as possible. Nephrolo gy is in agreement that he does not need to be transferred yet. However, once I have started hydrating him again, if his BUN and creatinine do not respond, we can give him a call at [phone] (3) Metabolic acidosis Impression: Due to a combination of renal failure, cirrhosis, methamphetamine abuse, hypoperfusion. Much like his toxic metabolic encephalopathy, we are treating all the different etiologies. (4) Pancreatitis, acute Impression: At this time we are assuming the patient has alcoholic pancreatitis. While he does have gallstones on CT of the abdomen, they are not obstructive. He does not have right upper quadrant pain on exam. I have attempted to be some of the history together but there is no one in his life that is coming forward to speak for him. I have called his sister again and hopefully she will be able to give us some information on him. Plan: Wait for echo and then resume aggressive IV fluid resuscitation if the echo his ejection fraction lets us do so (in the face of someone who is in renal failure) Evan's criteria to be recalculated tomorrow. On admission he was only 2 points[address] Continue pain management. CT of the abdomen does not show infection. Qualifiers: Pancreatitis type: alcohol induced Acute pancreatitis complication: unspecified Qualified Code(s): K85.20 - Alcohol induced acute pancreatitis without necrosis or infection (5) Opiate withdrawal Impression: This was the reason the patient presented to our emergency room yesterday. Then he was subsequently diagnosed with everything else. He is on long-acting oral morphine, as well as short acting medicines for breakthrough pain. It is prescribed to one of her local primary care providers, MICHAEL Mathews. Unclear why the patient used it all up and ran out. The story he gave in the emergency room was that of increasing nausea, vomiting, abdominal pain. But then that was worsened when he went through opiate withdrawal. I did try and use IM methadone because he is not taking p.o. But that is not available through our pharmacy. I then ordered oral methadone, but again he is not taking much by mouth. He is not currently getting Dilaudid 1 mg every 2 hours as needed. (6) Alcohol abuse Impression: Suspected but not confirmed. I have called and left a message for his primary care provider, MICHAEL Mathews at [phone] to give me a call. He is in with patients right now and he will call me when he is done. (7) Hypokalemia Impression: Resolved with supplementation from admission. Currently stable. We will continue to check daily especially in view of fluid shifts, renal failure, and his pancreatitis. (8) NSTEMI (non-ST elevated myocardial infarction) Impression: We think he is either having rhabdomyolysis with elevated CK, or an NSTEMI. Or may be both. He is using methamphetamines. The stress on his heart may been too much. We started him on Lovenox yesterday, beta-nader, aspirin. We will give him rectally if we need to. EKG does not show any acute ST elevation. We are trending his troponins. Continue Lovenox for 48 to 72 hours. Again, I have wanted to notify his sister the severity of his condition. But no response yet. We will also discuss with his primary care provider. He will need work-up in the outpatient setting with a stress test and possible angiogram if the stress test is positive. As for the elevated CPK that is over 6000, I would like to hydrate her more. B ut again will await echo. We will see if his ventricular ejection fraction can tolerate aggressive IV fluid resuscitation in the view of the rhabdo, and pancreatitis. (9) Elevated white blood cell count Impression: Yesterday we were looking for pancreatitis induced infection of the pancreas. Urinary tract infection. Pneumonia. Acute colitis from diverticulitis or bowel ischemia. Nothing was found. The only thing we saw was an abnormal urinary constituents but he had substantial amount of squamous cells. There is no squamous cells and amorphous sediment that the culture was not done. We empirically treated with Rocephin yesterday and today. There is been no improvement on his encephalopathy. Plan: Stop Rocephin. Suspect this may be demargination. Qualifiers: Leukocytosis type: bandemia Qualified Code(s): D72.825 - Bandemia (10) Hypoxia Impression: He has had multiple, multiple visits to the emergency room. All of those visits were reviewed with regards to oxygen need and he was 98 to 100% on room air. When he presented with the first visit to the emergency room yesterday he was still on room air and saturating nicely. It was only on his second return that he had severe hypoxia needing a nonrebreather and a facemask. He has been fighting that facemask ever since. Chest x-ray is negative for infiltrate. He is having an NSTEMI so is there a possibility of acute systolic congestive heart failure? We also thought of a pulmonary embolus. Because of the GFR/creatinine, we ordered a VQ scan this morning. However nuclear medicine says that the patient has to be cooperative for the ventilation part. This patient is not able to be prompted. He is already on Lovenox, renally adjusted, for NSTEMI. Plan: Cancel ventilation/perfusion scan Continue Lovenox Check echocardiogram for congestive heart failure and LV function (11) Macrocytic anemia Impression: Nutrition services has seen this patient in the past. They say that he is supposed to be on folate supplementation for suspicion of alcohol abuse. Plan: Monitor to assess need for transfusion. In the face of an [place], we will transfuse if he drops below 8. Start folate supplementation.
--- NOTE | 2019-12-28 11:34 | PHARMACY PROGRESS NOTE ---
- Best Possible Medication History Admit Date and Time: 12/27/19 1443 Processed by: Pharmacy Medication History completed: Yes Patient Interview: Pt unable to participate Secondary Source(s): Physician records, Pharmacy records, Insurance records As the person ultimately responsible for medication therapy, providers are able to order a medication from an existing home medication list in [facility] via the "Reconcile Routine" prior to Confirmation of that medication by user support analyst supervisor. Such practice is discouraged except when the physician, in their clinical judgment, deems that a medical need exists for a medication without regard to previous use.
[2019-12-28] MEDS: polyethylene glycoL 3350 17 GM PACKET PO SCH (11:49)
[2019-12-28] MEDS: LACTATED RINGERS 1,000 ML IV SCH (11:50)
--- NOTE | 2019-12-28 12:11 | Ultrasound Report ---
PROCEDURE: Retroperitoneal INDICATIONS: new renal failure TECHNIQUE: Real-time scanning was performed of the retroperitoneal organs, with image documentation. COMPARISON: None. FINDINGS: Kidneys: Kidneys are normal in size. Right kidney measures 12 cm long; left kidney measures 13 cm l raimundo. Right renal cortical thickness is 1.0 cm; left renal cortical thickness is 1.0 cm. No solid ma sses, hydronephrosis, or nephrolithiasis. Bladder: Bladder is collapsed with a Morejon catheter. Ureteral jets are not visualized. IMPRESSION: 1. No obstruction. 2. Limited evaluation of the bladder secondary to collapsed with Morejon catheter. Reviewed by: Tania Felder MD on 12/28/2019 12:09 PM PDT Approved by: Tania Felder MD on 12/28/2019 12:09 PM PDT Station ID: [id number]
[2019-12-28] MEDS: FOLIC ACID 1 MG TABLET PO SCH (13:00)
[2019-12-28 13:57] LABS: ALBUMIN/GLOBULIN RATIO 1.1 (1.0-2.2)
[2019-12-28 13:58] LABS: ALBUMIN 2.8 g/dL (3.2-5.5); BILIRUBIN,TOTAL 1.2 mg/dL (0.2-1.0); CALCIUM 7.5 mg/dL (8.5-10.3); CREATININE 3.5 mg/dL (0.6-1.2); TOTAL PROTEIN 5.3 g/dL (6.7-8.2)
[2019-12-28] MEDS ORDERED: ACETAMINOPHEN 325 MG TABLET PO PRN (17:04)
[2019-12-28] MEDS: levoFLOXacin 750 MG/150 ML 750 MG/150 ML BAG IV SCH (18:24)
[2019-12-28 18:50] LABS: GLUCOSE, URINE (UA) NEGATIVE (NEGATIVE); KETONES,URINE (UA) TRACE mg/dL (NEGATIVE); LEUKOCYTE ESTERASE, URINE SMALL (NEGATIVE); NITRITE,URINE NEGATIVE (NEGATIVE); OCCULT BLOOD,URINE LARGE (NEGATIVE); PROTEIN,URINE 30 mg/dL (NEGATIVE); UROBILINOGEN,URINE 0.2 (NORMAL) E.U./dL (NORMAL)
[2019-12-28 18:53] LABS: BILIRUBIN,URINE NEGATIVE (NEGATIVE); CLARITY,URINE HAZY (CLEAR); ICTOTEST,URINE NEGATIVE
[2019-12-28 19:04] LABS: AMORPHOUS SEDIMENT,UR Marked /LPF; BACTERIA,URINE Moderate /HPF (None Seen); CASTS, URINE 11-25 Fine Granular /LPF; SQUAMOUS EPITHELIAL CELL,UR FEW Squamous (<= Few)
[2019-12-28] MEDS ORDERED: ACETAMINOPHEN 650 MG SUPP PR PRN (21:15)
[2019-12-29] MEDS: LACTATED RINGERS 1,000 ML IV SCH ×5 (00:21→11:17)
[2019-12-29] MEDS: SODIUM CHLORIDE FLUSH 0.9% 10 ML SYRINGE IVP SCH ×3 (00:33→16:09)
[2019-12-29] MEDS: SODIUM CHLORIDE FLUSH 0.9% 10 ML SYRINGE IVP PRN ×2 (02:36→08:21)
[2019-12-29] MEDS: LORazepam 2 MG/ML VIAL IVP PRN ×2 (02:36→06:32)
[2019-12-29 05:20] LABS: BASOPHILS % (AUTO) 0.3 %; HGB - HEMOGLOBIN 9.2 g/dL (14.0-18.0); LYMPHOCYTES % (AUTO) 5.1 %; MEAN CORPUSCULAR HEMOGLOBIN 37.1 pg (27.0-31.0); MEAN CORPUSCULAR HGB CONC 32.6 g/dL (32.0-36.0); MEAN CORPUSCULAR VOLUME 113.7 fL (80.0-94.0); MEAN PLATELET VOLUME 9.8 fL (7.4-11.4); MONOCYTES % (AUTO) 8.9 %; NEUTROPHILS % (AUTO) 83.7 %; PLT - PLATELET COUNT 130 10^3/uL (130-450); RED BLOOD COUNT 2.48 10^6/uL (4.70-6.10); RED CELL DISTRIBUTION WIDTH 13.2 % (12.0-15.0); WHITE BLOOD COUNT 18.1 x10^3/uL (4.8-10.8)
[2019-12-29 05:24] LABS: ABNORMAL LYMPHS % (MANUAL) 0 %; BAND NEUTROPHILS % (MANUAL) 0 %
[2019-12-29 05:39] LABS: ALBUMIN 2.8 g/dL (3.2-5.5); BILIRUBIN,TOTAL 1.8 mg/dL (0.2-1.0); CALCIUM 7.5 mg/dL (8.5-10.3); CREATININE 3.4 mg/dL (0.6-1.2); MAGNESIUM 2.9 mg/dL (1.7-2.8); PHOSPHORUS 5.8 mg/dL (2.5-4.6); TOTAL PROTEIN 5.6 g/dL (6.7-8.2)
[2019-12-29 05:43] LABS: EOSINOPHILS # (MANUAL) 0.2 10^3/uL (0-0.7); LYMPHOCYTES # (MANUAL) 0.9 10^3/uL (1.5-3.5); LYMPHOCYTES % (MANUAL) 5 %; MONOCYTES # (MANUAL) 0.5 10^3/uL (0.0-1.0); PLATELET ESTIMATE, MANUAL NORMAL (130-450,000) (NORMAL); PLATELET MORPHOLOGY NORMAL APPEARANCE (NORMAL); RBC MORPHOLOGY (MULTIPLE) 2+ MACROCYTOSIS (NORMAL)
[2019-12-29 05:44] LABS: DIFFERENTIAL COMMENT MANUAL DIFFERENTIAL
[2019-12-29] MEDS: cefTRIAXone 1 GM in SODIUM CHLORIDE 0.9% MINIBAG 100 ML IV SCH (08:11)
[2019-12-29] MEDS: FOLIC ACID 1 MG TABLET PO SCH (08:12)
[2019-12-29] MEDS: polyethylene glycoL 3350 17 GM PACKET PO SCH (08:13)
[2019-12-29] MEDS: HYDROmorphone 1 MG/ML CARPUJECT IVP PRN (08:15)
[2019-12-29] MEDS ORDERED: MULTIVITAMIN IV SCH (09:00)
[2019-12-29] MEDS ORDERED: FOLIC ACID IV SCH (09:00)
[2019-12-29] MEDS ORDERED: THIAMINE IV SCH (09:00)
[2019-12-29] MEDS ORDERED: [UNRECOGNIZED DRUG - OTHER] IV SCH (09:00)
[2019-12-29] MEDS: HYDROCORTISONE 1% CREAM 28 GM TUBE TOP SCH ×2 (09:28→21:11)
[2019-12-29] MEDS ORDERED: SENNA 8.6 MG TABLET PO SCH (11:00)
[2019-12-29] MEDS ORDERED: DOCUSATE SODIUM 250 MG CAPSULE PO SCH (11:00)
[2019-12-29 12:56] LABS: HEPATITIS A IGM NON-REACTIVE (NON-REACTIVE); HEPATITIS B SURFACE ANTIGEN NON-REACTIVE (NON-REACTIVE); HEPATITIS C ANTIBODY REACTIVE (NON-REACTIVE)
--- NOTE | 2019-12-29 13:41 | PROVIDER PROGRESS NOTE ---
Assessment/Plan - Problem List (1) Cardiac arrest Assessment/Plan: Approximately 8 minutes after I examined him (as below), screening tech reported that he was bradycardic into the 30s. The nurse and I then walked into the room and we found him to have no respirations and no palpable pulse, and a CODE BLUE was called. His initial rhythm was asystole versus fine V. fib. A shock was recommended by the automatic defibrillator and was given. CPR was started and was effective. Epinephrine 1 amp was given and another shock was performed. He then had return of spontaneous rhythm to a tachycardic , wide-complex rhythm, with a blood pressure of 153/79. He was Ambu bag and then intubated by the anesthesiologist. During this time there was copious amounts of bright red blood in the oropharynx that was aspirated. An NG tube was then placed. He has been transferred to the ICU. Vent settings with ABG monitoring ordered. We will change all p.o. meds to IV meds. Will start gentle ICU IV sedation while on the vent. Repeat EKG was done that showed: MAT, RBBB, both new since admission EKG done 12/27/19. Labs were all redrawn (2) Hematemesis Assessment/Plan: The patient has had a history of alcohol abuse therefore may have variceal bleeding versus gastritis versus duodenal ulcer. We will monitor his H&H. Change all p.o. meds to IV meds. Will start empiric Protonix IV twice daily for ulcer treatment Hold Lovenox and aspirin. DVT prophylaxis will be SCDs therefore (3) Hypotension Assessment/Plan: This could be multifactorial: extension of the SC and cardiogenic shock, hemorrhagic shock given the GI bleed or septic shock. We obtain serial troponins, will order lactic acid level and follow H/H q8-12 h. Will reorder blood cultures x2. Will broaden antibiotics. Will give saline bolus and continue iv hydration. We will start Levophed to maintain MAP of 60 mmHg. His clinicalc status is now Critical. (4) NSTEMI (non-ST elevated myocardial infarction) Assessment/Plan: Troponins were in the 300s. Echo done earlier this admission showed normal LVEF of 70% with no regional wall motion abnormalities described. After today's cardiac arrest, tgroponin is starting to rise again into 400s. EKG after the cardiac arrest shows a new right bundle branch block and because of tachycardia, the baseline is too erratic to assess for any ischemic changes. He is getting a beta-ander. Because of the GI bleed we will not use any aspirin now. We will change all his p.o. meds to IV while intubated. Will order a repeat Echo, 2D only, to evaluate LV and RV function. (5) VIDHYA (acute kidney injury) Assessment/Plan: This is probably multifactorial: From increased back pressure related to the SC, from sepsis, from rhabdomyolysis.. Avoid nephrotoxins. Follow BMP daily (6) Alcohol abuse Assessment/Plan: There was no serum alcohol level done at admission but there is a history of alcohol abuse. His elevated bilirubin was noted. He was getting IV Ativan as needed "agitation" but not a true CIWA protocol. We will order benzodiazepines for his ICU sedation while on the ventilator therefore. (7) Rhabdomyolysis Assessment/Plan: Total CK was 6000 on admission, has decreased to 2900. Follow CK daily. (8) Fever Assessment/Plan: Yesterday he had a fever, and white blood count was elevated at 20.7 yesterday. He was started on empiric IV antibiotics using Ceftriaxone and Levaquin. White blood count has decreased to 18 today. (9) Toxic metabolic encephalopathy Assessment/Plan: His mental status was fair but confused this morning, then he became sedated after IV Ativan given this morning. Now in the ICU, he is still obtunded, is not requiring any IV sedatives in the ICU on the ventilator. He does not have doll's eyes maneuver, and has some withdrawal to pain however. If no awakening, will do head CT. Continue to monitor in the ICU. (10) Elevated LFTs Assessment/Plan: Cirrhosis Stage IV, diagnosed since 2005. Hepatitis C RNA has been detected but no quantitative value assigned to it in 2017. Alcohol abuse is also suspected in this gentleman. IV drug abuse has been suspected. There could also be shock liver, since the afternoon LFTs are higher than a 500 lab draw (11) Hypoxia Assessment/Plan: Covid swab was sent and result is negative Work-up for a PE was planned yesterday: he could not get iv dye due to VIDHYA, and he was too confused and agitated to follow directions for a VQ scan. The CXR done after the CODE BLUE, shows bilateral fluffy opacities. This may be aspiration pneumonia since he was witnessed to aspirate a bloody oropharyngeal contents, could be volume overload from CHF or could be atypical pneumonia. Will broaden antibiotics. Not start heparin IV drip due to hematemesis. - Current Meds Current Meds: Current Medications Generic Name Dose Route Start Last Admin Trade Name Freq PRN Reason Stop Dose Admin Acetaminophen 650 mg 12/28/19 21:15 12/28/19 21:33 Tylenol MN 650 mg Q6HR PRN Administration Pain or Fever > 38C (100.4F) Docusate Sodium 250 - 500 mg 12/29/19 11:00 12/29/19 13:00 Colace 250mg Capsule PO Not Given DAILY OWEN Enoxaparin Sodium 100 mg 12/28/19 21:00 12/28/19 21:18 Lovenox SUBQ 100 mg QPM OWEN Administration Folic Acid 1 mg 12/28/19 12:00 12/29/19 08:12 PO 1 mg DAILY OWEN Administration Hydrocortisone 1 applic 12/27/19 21:00 12/29/19 09:28 Hydrocortisone TOP 1 applic BID OWEN Administration Hydromorphone HCl 1 mg 12/27/19 14:59 12/29/19 08:15 Dilaudid Inj Carp IVP 1 mg Q2H PRN Administration Pain 8 to 10 Ceftriaxone Sodium 1 gm/ 100 mls @ 200 mls/hr 12/27/19 17:51 12/29/19 09:06 Sodium Chloride IV Infused DAILY OWEN Infusion Lactated Ringer's 1,000 mls @ 150 mls/hr 12/27/19 20:00 12/29/19 11:18 Lr IV Infused .Q6H40M OWEN Infusion Levofloxacin 750 mg in 150 mls @ 100 mls/hr 12/28/19 18:00 12/28/19 20:25 Levaquin 750 Mg/150 Ml IV Infused Q48H OWEN Infusion Multivitamins 10 ml/ Folic 1,011.2 mls @ 100 mls/hr 12/29/19 09:00 12/29/19 09:16 Acid 1 mg/ Thiamine HCl 100 mg IV 100 mls/hr / Sodium Chloride DAILY OWEN Administration Ondansetron HCl 4 mg 12/27/19 14:43 12/28/19 08:25 Zofran Inj IVP 4 mg Q6HR PRN Administration Nausea / Vomiting Polyethylene Glycol 17 gm 12/28/19 11:00 12/29/19 08:13 Miralax PO 17 gm DAILY OWEN Administration Senna 8.6 - 17.2 mg 12/29/19 11:00 12/29/19 13:00 Senokot PO Not Given DAILY OWEN Sodium Chloride 10 ml 12/27/19 14:43 12/29/19 08:21 Normal Saline Flush 0.9% IVP 10 ml PRN PRN Administration NEEDED PER PROVIDER ORDERS Sodium Chloride 10 ml 12/27/19 17:00 12/29/19 08:13 Normal Saline Flush 0.9% IVP 10 ml 0100,0900,1700 OWEN Administration - Lab Result Fish Bone Diagrams: 12/29/19 13:45 12/29/19 13:45 - EKG Results EKG Interpreted Independently: Yes EKG Comparison: Changed from prior EKG EKG Findings: Multifocal atrial tachycardia, RBBB, baseline wander. Since EKG from 12/27/2019, MAT and RBBB are new. - Additional Planning My Orders: My Active Orders 12/29/19 BNP - B-NATRIURETIC PEPTIDE [IAI] Stat CBC - COMP BLD CT W/AUTO DIFF [HEME] Stat CMP [COMPREHENSIVE METABOLIC PANEL] [CHEM] Stat PT WITH INR [COAG] Stat VENOUS BLOOD GAS [BG] Stat 12/29/19 11:00 Docusate Sodium 250Mg Capsule [Colace 250Mg Capsule] 250 - 500 mg PO DAILY Senna [Senokot] 8.6 - 17.2 mg PO DAILY 12/29/19 13:10 DIET [NPO] [DIET] 12/29/19 13:29 Transfer [Admit \\ Transfer \\ Status] [RC] .ONCE 12/29/19 13:32 LACTIC ACID, VENOUS [CHEM] Stat TROPONIN I HIGH SENSITIVITY [IAI] Stat 12/29/19 13:33 Ng [Insert NG Tube] [RC] ONCE Chest for Line Placement [XR] Stat 12/29/19 13:34 EKG - Electrocardiogram [RC] .ONCE Initial Ventilator Settings [RC] .ONCE Initiate Ventilator Protocol [RC] .PROTOCOL Ventilator Bundle Oral Care [RC] Q2H Ventilator Bundle [RC] Q8H Ventilator Care - ICU [RC] Q4HR 12/29/19 13:35 Ventilator Bundle Oral Care [RC] Q2H Ventilator Bundle [RC] Q8H Ventilator Care - ICU [RC] Q4HR Subjective - Subjective Nursing Reports: Confused, Cough (Morning RN reports that he coughs every time he tries to take liquid.) Objective Vital Signs: Vital Signs - 24 hr 12/28/19 12/28/19 12/28/19 15:58 18:38 20:55 Temperature 38.4 C H 38.6 C H 38.3 C H Heart Rate [ 110 H 119 H Brachial] Respiratory 16 16 Rate Blood Pressure 95/65 [Left Brachial artery] Blood Pressure [Right Ankle] Blood Pressure 118/70 [Right Brachial artery] O2 Saturation 96 95 12/28/19 12/28/19 12/29/19 21:33 23:00 00:19 Temperature 38.3 C H 38.4 C H 37.8 C H Heart Rate [ 110 H Brachial] Respiratory 18 Rate Blood Pressure 120/69 [Left Brachial artery] Blood Pressure [Right Ankle] Blood Pressure [Right Brachial artery] O2 Saturation 95 12/29/19 12/29/19 12/29/19 02:41 05:38 09:00 Temperature 37.0 C 37.4 C 37.3 C Heart Rate [ 100 107 H Brachial] Respiratory 14 20 Rate Blood Pressure [Left Brachial artery] Blood Pressure 145/63 H [Right Ankle] Blood Pressure [Right Brachial artery] O2 Saturation 93 98 12/29/19 12:05 Temperature 37.1 C Heart Rate [ 109 H Brachial] Respiratory 12 Rate Blood Pressure [Left Brachial artery] Blood Pressure [Right Ankle] Blood Pressure 134/76 H [Right Brachial artery] O2 Saturation 97 Oxygen O2 Source Oxymask I&O (Last 24 Hrs): Intake and Output Totals x24h 12/27/19 12/28/19 12/29/19 23:59 23:59 23:59 Intake Total 2892.5 3996.033 1901.867 Output Total 220 395 250 Balance 2672.5 3601.033 1651.867 General: Other (Somnolent, appears comfortable.) HEENT: Other (Icteric.) Neck: No JVD Neuro: Other (Somnolent.) Cardiovascular: Regular rate Respiratory: No respiratory distress, Wheezes (Diffuse expiratory wheezes in all lung parisi) Abdomen: Normal bowel sounds, Other (Distended, cannot rule out hepatomegaly or ascites) Genitourinary: Other (Has Morejon catheter.) Extremities: No clubbing, No edema, Other (He is in four-point restraints.) - Results Results: Laboratory Results WBC 18.1 x10^3/uL (4.8-10.8) H 12/29/19 05:10 RBC 2.48 10^6/uL (4.70-6.10) L 12/29/19 05:10 Hgb 9.2 g/dL (14.0-18.0) L 12/29/19 05:10 Hct 28.2 % (42.0-52.0) L 12/29/19 05:10 MCV 113.7 fL (80.0-94.0) H 12/29/19 05:10 MCH 37.1 pg (27.0-31.0) H 12/29/19 05:10 MCHC 32.6 g/dL (32.0-36.0) 12/29/19 05:10 RDW 13.2 % (12.0-15.0) 12/29/19 05:10 Plt Count 130 10^3/uL (130-450) 12/29/19 05:10 MPV 9.8 fL (7.4-11.4) 12/29/19 05:10 Neut # (Auto) Not Reportable 12/29/19 05:10 Lymph # (Auto) Not Reportable 12/29/19 05:10 Mills # (Auto) Not Reportable 12/29/19 05:10 Eos # (Auto) Not Reportable 12/29/19 05:10 Baso # (Auto) Not Reportable 12/29/19 05:10 Absolute Nucleated RBC Not Reportable 12/29/19 05:10 Total Counted 100 12/29/19 05:10 Band Neuts % (Manual) 0 % (0-10) 12/29/19 05:10 Abnorm Lymph % (Manual) 0 % 12/29/19 05:10 Nucleated RBC % Not Reportable 12/29/19 05:10 Neutrophils # (Manual) 16.5 10^3/uL (1.5-6.6) H 12/29/19 05:10 Lymphocytes # (Manual) 0.9 10^3/uL (1.5-3.5) L 12/29/19 05:10 Monocytes # (Manual) 0.5 10^3/uL (0.0-1.0) 12/29/19 05:10 Eosinophils # (Manual) 0.2 10^3/uL (0-0.7) 12/29/19 05:10 Basophils # (Manual) 0.0 10^3/uL (0-0.1) 12/29/19 05:10 Differential Comment MANUAL DIFFERENTIAL 12/29/19 05:10 WBC Morphology NORMAL APPEARANCE (NORMAL) 12/29/19 05:10 Platelet Estimate NORMAL (130-450,000) (NORMAL) 12/29/19 05:10 Platelet Morphology NORMAL APPEARANCE (NORMAL) 12/29/19 05:10 RBC Morph Micro Appear 2+ MACROCYTOSIS (NORMAL) 12/29/19 05:10 Bld Gas Analysis Time 1525 12/27/19 15:25 Sample Site RIGHT RADIAL 12/27/19 15:25 ABG pH 7.15 (7.35-7.45) L* 12/27/19 15:25 ABG pCO2 48 mmHg (34-45) H 12/27/19 15:25 ABG pO2 41 mmHg (80-100) L* 12/27/19 15:25 ABG HCO3 16.2 mmol/L (22.0-26.0) L 12/27/19 15:25 ABG Total CO2 17.7 MMOL/L (21.0-29.0) L 12/27/19 15:25 ABG O2 Saturation 66 % (94-98) L* 12/27/19 15:25 ABG Base Excess -12.3 mmol/L (-2.0-3.0) L 12/27/19 15:25 Andrew Test POSITIVE 12/27/19 15:25 Room Air YES 12/27/19 15:25 Sodium 139 mmol/L (135-145) 12/29/19 05:10 Potassium 4.3 mmol/L (3.5-5.0) 12/29/19 05:10 Chloride 108 mmol/L (101-111) 12/29/19 05:10 Carbon Dioxide 21 mmol/L (21-32) 12/29/19 05:10 Anion Gap 10.0 (6-13) 12/29/19 05:10 BUN 34 mg/dL (6-20) H 12/29/19 05:10 Creatinine 3.4 mg/dL (0.6-1.2) H 12/29/19 05:10 Estimated GFR (MDRD) 18 (>89) L 12/29/19 05:10 Glucose 97 mg/dL (70-100) 12/29/19 05:10 Calcium 7.5 mg/dL (8.5-10.3) L 12/29/19 05:10 Phosphorus 5.8 mg/dL (2.5-4.6) H 12/29/19 05:10 Magnesium 2.9 mg/dL (1.7-2.8) H 12/29/19 05:10 Total Bilirubin 1.8 mg/dL (0.2-1.0) H 12/29/19 05:10 AST 285 IU/L (10-42) H 12/29/19 05:10 ALT 120 IU/L (10-60) H 12/29/19 05:10 Alkaline Phosphatase 65 IU/L (42-121) 12/29/19 05:10 Total Creatine Kinase 2956 IU/L (22-269) H* 12/29/19 05:10 Troponin I High Sens 331.4 ng/L (2.3-19.7) H* 12/29/19 05:10 Total Protein 5.6 g/dL (6.7-8.2) L 12/29/19 05:10 Albumin 2.8 g/dL (3.2-5.5) L 12/29/19 05:10 Globulin 2.8 g/dL (2.1-4.2) 12/29/19 05:10 Albumin/Globulin Ratio 1.0 (1.0-2.2) 12/29/19 05:10 Folate 5.28 ng/mL (5.90 - >24.8) L 12/28/19 04:50 Urine Color STRAW 12/28/19 18:25 Urine Clarity HAZY (CLEAR) 12/28/19 18:25 Urine pH 5.0 PH (5.0-7.5) 12/28/19 18:25 Ur Specific [place] >=1.030 (1.002-1.030) H 12/28/19 18:25 Urine Protein 30 mg/dL (NEGATIVE) H 12/28/19 18:25 Urine Glucose (UA) NEGATIVE mg/dL (NEGATIVE) 12/28/19 18:25 Urine Ketones TRACE mg/dL (NEGATIVE) 12/28/19 18:25 Urine Occult Blood LARGE (NEGATIVE) H 12/28/19 18:25 Urine Nitrite NEGATIVE (NEGATIVE) 12/28/19 18:25 Urine Bilirubin NEGATIVE (NEGATIVE) 12/28/19 18:25 Urine Urobilinogen 0.2 (NORMAL) E.U./dL (NORMAL) 12/28/19 18:25 Ur Leukocyte Esterase SMALL (NEGATIVE) H 12/28/19 18:25 Urine RBC 11-25 /HPF (0-5) H 12/28/19 18:25 Urine WBC 11-25 /HPF (0-3) H 12/28/19 18:25 Ur Squamous Epith Cells FEW Squamous (<= Few) 12/28/19 18:25 Amorphous Sediment Marked /LPF 12/28/19 18:25 Urine Bacteria Moderate /HPF (None Seen) H 12/28/19 18:25 Urine Casts 11-25 Fine Granular /LPF 12/28/19 18:25 Ur Microscopic Review INDICATED 12/28/19 18:25 Urine Culture Comments INDICATED 12/28/19 18:25 Urine Opiates Screen POSITIVE (NEGATIVE) H 12/27/19 17:33 Ur Oxycodone Screen NEGATIVE (NEGATIVE) 12/27/19 17:33 Urine Methadone Screen NEGATIVE (NEGATIVE) 12/27/19 17:33 Ur Propoxyphene Screen NEGATIVE (NEGATIVE) 12/27/19 17:33 Ur Barbiturates Screen NEGATIVE (NEGATIVE) 12/27/19 17:33 Ur Tricyclics Screen NEGATIVE (NEGATIVE) 12/27/19 17:33 Ur Phencyclidine Scrn NEGATIVE (NEGATIVE) 12/27/19 17:33 Ur Amphetamine Screen POSITIVE (NEGATIVE) H 12/27/19 17:33 U Methamphetamines Scrn POSITIVE (NEGATIVE) H 12/27/19 17:33 U Benzodiazepines Scrn NEGATIVE (NEGATIVE) 12/27/19 17:33 Urine Cocaine Screen NEGATIVE (NEGATIVE) 12/27/19 17:33 U Cannabinoids Screen NEGATIVE (NEGATIVE) 12/27/19 17:33 Hepatitis A IgM Ab NON-REACTIVE (NON-REACTIVE) 12/28/19 12:55 Hep Bs Antigen NON-REACTIVE (NON-REACTIVE) 12/28/19 12:55 Hep B Core IgM Ab NON-REACTIVE (NON-REACTIVE) 12/28/19 12:55 Hepatitis C Antibody REACTIVE (NON-REACTIVE) A 12/28/19 12:55 Hep C Ab Signal/Cutoff 27.00 (<1.00) H 12/28/19 12:55
[2019-12-29] MEDS ORDERED: MIDAZOLAM 2 MG/2 ML VIAL IVP ONE (13:46)
[2019-12-29 13:52] LABS: BASOPHILS % (AUTO) 0.4 %; EOSINOPHILS % (AUTO) 1.3 %; HGB - HEMOGLOBIN 11.6 g/dL (14.0-18.0); LYMPHOCYTES % (AUTO) 9.2 %; MEAN CORPUSCULAR HEMOGLOBIN 37.3 pg (27.0-31.0); MEAN CORPUSCULAR HGB CONC 32.1 g/dL (32.0-36.0); MEAN CORPUSCULAR VOLUME 116.1 fL (80.0-94.0); MEAN PLATELET VOLUME 9.4 fL (7.4-11.4); MONOCYTES % (AUTO) 5.8 %; NEUTROPHILS % (AUTO) 78.6 %; PLT - PLATELET COUNT 151 10^3/uL (130-450); RED BLOOD COUNT 3.11 10^6/uL (4.70-6.10); RED CELL DISTRIBUTION WIDTH 13.4 % (12.0-15.0); WHITE BLOOD COUNT 21.6 x10^3/uL (4.8-10.8)
[2019-12-29 13:55] LABS: VBG BASE EXCESS -18.2 mmol/L (-2 - +2); VBG PCO2 65.6 mmHg (41-51); VBG PH 6.953 (7.31-7.41); VBG PO2 50.5 mmHg (25-47); VBG TOTAL CO2 16.2 mmol/L (24-29)
[2019-12-29 13:59] LABS: ABNORMAL LYMPHS % (MANUAL) 0 %
[2019-12-29] MEDS ORDERED: SODIUM CHLORIDE 0.9% 1,000 ML IV ONE ×2 (14:00→15:14)
[2019-12-29 14:03] LABS: INR 1.5 (0.8-1.2); PT - PROTHROMBIN TIME 16.6 secs (9.9-12.6)
[2019-12-29 14:22] LABS: ALBUMIN 2.9 g/dL (3.2-5.5); ALBUMIN/GLOBULIN RATIO 0.8 (1.0-2.2); BILIRUBIN,TOTAL 1.2 mg/dL (0.2-1.0); CALCIUM 7.4 mg/dL (8.5-10.3); CREATININE 3.5 mg/dL (0.6-1.2); TOTAL PROTEIN 6.4 g/dL (6.7-8.2)
[2019-12-29 14:33] LABS: BAND NEUTROPHILS % (MANUAL) 2 %; EOSINOPHILS # (MANUAL) 0.6 10^3/uL (0-0.7); LYMPHOCYTES # (MANUAL) 1.9 10^3/uL (1.5-3.5); LYMPHOCYTES % (MANUAL) 9 %; METAMYELOCYTES % (MANUAL) 1 %; MONOCYTES # (MANUAL) 1.1 10^3/uL (0.0-1.0)
--- NOTE | 2019-12-29 14:34 | XRAY Report ---
PROCEDURE: Chest for Line Placement INDICATIONS: Intubated and ng tube TECHNIQUE: One view of the chest was acquired. COMPARISON: 12/27/2019 FINDINGS: Surgical changes and devices: Interval placement of endotracheal tube with the tip projecting approxi mately 3.3 cm above the clifford. Nasogastric tube extends below the level of the diaphragm with distal tip extending off the [id number]. Defibrillator pads project over the right mid chest and left lo wer chest. Lungs and pleura: Interval development of diffuse patchy opacities of the bilateral hemithoraces slig htly more pronounced on the left. No pneumothorax. No definite pleural effusion. Mediastinum: Mediastinal contours appear stable. Heart size is normal. Bones and chest wall: No suspicious bony lesions. Overlying soft tissues appear unremarkable. IMPRESSION: Support equipment as described above. Interval development of diffuse, ill-defined opacities of the bilateral hemithoraces which may be rel ated to pulmonary edema, pulmonary hemorrhage, or acute infectious/inflammatory process. Reviewed by: Shmuel Kerns MD on 12/29/2019 2:33 PM PDT Approved by: Shmuel Kerns MD on 12/29/2019 2:33 PM PDT Station ID: [id number]
[2019-12-29 14:35] LABS: DIFFERENTIAL COMMENT MANUAL DIFFERENTIAL; PLATELET ESTIMATE, MANUAL NORMAL (130-450,000) (NORMAL); PLATELET MORPHOLOGY NORMAL APPEARANCE (NORMAL)
[2019-12-29 14:56] LABS: ABG PCO2 42 mmHg (34-45); ABG PO2 97 mmHg (80-100)
[2019-12-29 14:57] LABS: ABG BASE EXCESS -11.9 mmol/L (-2.0-3.0); ABG HCO3 15.7 mmol/L (22.0-26.0); ABG OXYGEN SATURATION 97 % (94-98); ALLEN TEST POSITIVE
[2019-12-29 15:02] LABS: ABG PH 7.19 (7.35-7.45)
--- NOTE | 2019-12-29 15:28 | ANESTHESIA PROCEDURE NOTE ---
Diagnosis: post cardiac arrest Procedure: emergent left radial arterial line placement Consent for Procedure(s) Verified and Reviewed: No Height and Weight: Height 5 ft 9 in Weight (kg) 98.1 kg Body Mass Index 31.9 Vital Signs: Temp Pulse Resp BP Pulse Ox 37.1 C 108 H 18 81/54 L 96 12/29/19 13:41 12/29/19 14:10 12/29/19 14:00 12/29/19 14:20 12/29/19 14:00 Allergies zolpidem [From Ambien] Adverse Reaction (Verified 12/27/19 09:41) Hallucinations Requesting Provider: hospitalist Location: ICU ASA classification: 5-Moribund Is this case an emergency?: Yes Anes. Monitoring and Equipment: Non-invasive BP, Pulse oximetery, Sterile prep and drape Anes. Procedure Start Time: 15:15 Anes. Procedure Stop Time: 15:25 Procedure Notes: Left arterial line placed via sterile technique. Attempt x1. Easy placement.
[2019-12-29] MEDS: metroNIDAZOLE 500 MG/100 ML 500 MG/100 ML BAG IV SCH ×2 (16:08→23:11)
[2019-12-29] MEDS ORDERED: EPINEPHrine ABBOJECT 1 MG/10 ML SYRINGE IVP ONE (16:10)
[2019-12-29 16:20] LABS: ABG BASE EXCESS -9.3 mmol/L (-2.0-3.0); ABG HCO3 16.2 mmol/L (22.0-26.0); ABG OXYGEN SATURATION 96 % (94-98); ABG PCO2 34 mmHg (34-45); ABG PO2 90 mmHg (80-100); ABG TCO2 17.2 MMOL/L (21.0-29.0)
[2019-12-29] MEDS: SODIUM BICARBONATE 150 MEQ in DEXTROSE 5% 1,000 ML IV SCH (16:48)
[2019-12-29] MEDS: METOPROLOL 5 MG/5 ML VIAL IVP SCH (18:06)
[2019-12-29] MEDS ORDERED: ethyl alcohoL 62% SWAB AMPULE NAS ONE (18:26)
[2019-12-29] MEDS: FOLIC ACID IV SCH (18:46)
[2019-12-29] MEDS: THIAMINE IV SCH (18:46)
[2019-12-29] MEDS: [UNRECOGNIZED DRUG - OTHER] IV SCH (18:46)
[2019-12-29] MEDS: MULTIVITAMIN IV SCH (18:46)
[2019-12-29] MEDS: MIDAZOLAM DRIP 50 MG/100 ML BAG IV SCH (20:34)
[2019-12-29 20:41] LABS: ABG PCO2 38 mmHg (34-45); ABG PO2 95 mmHg (80-100)
[2019-12-29 20:42] LABS: ABG BASE EXCESS -7.6 mmol/L (-2.0-3.0); ABG HCO3 18.1 mmol/L (22.0-26.0); ABG OXYGEN SATURATION 97 % (94-98); ABG TCO2 19.3 MMOL/L (21.0-29.0)
[2019-12-29] MEDS: ethyl alcohoL 62% SWAB AMPULE NAS SCH (21:11)
[2019-12-29 22:13] LABS: HGB - HEMOGLOBIN 8.8 g/dL (14.0-18.0)
[2019-12-29 23:25] LABS: ABG BASE EXCESS -6.4 mmol/L (-2.0-3.0); ABG HCO3 17.6 mmol/L (22.0-26.0); ABG OXYGEN SATURATION 95 % (94-98); ABG PCO2 30 mmHg (34-45); ABG PH 7.39 (7.35-7.45); ABG PO2 77 mmHg (80-100); ABG TCO2 18.5 MMOL/L (21.0-29.0)
[2019-12-30] MEDS: SODIUM CHLORIDE FLUSH 0.9% 10 ML SYRINGE IVP SCH ×4 (00:50→18:12)
[2019-12-30] MEDS: MIDAZOLAM DRIP 50 MG/100 ML BAG IV SCH ×2 (02:16→14:07)
[2019-12-30] MEDS: SODIUM BICARBONATE 150 MEQ in DEXTROSE 5% 1,000 ML IV SCH (04:25)
[2019-12-30] MEDS: SODIUM CHLORIDE FLUSH 0.9% 10 ML SYRINGE IVP PRN (04:26)
[2019-12-30] MEDS: SODIUM CHLORIDE 0.9% 500 ML IV PRN (04:39)
[2019-12-30 04:59] LABS: BASOPHILS % (AUTO) 0.1 %; EOSINOPHILS # (AUTO) 0.1 10^3/uL (0.0-0.7); EOSINOPHILS % (AUTO) 0.4 %; HGB - HEMOGLOBIN 7.9 g/dL (14.0-18.0); LYMPHOCYTES # (AUTO) 0.8 10^3/uL (1.5-3.5); LYMPHOCYTES % (AUTO) 7.2 %; MEAN CORPUSCULAR HEMOGLOBIN 35.6 pg (27.0-31.0); MEAN CORPUSCULAR HGB CONC 32.9 g/dL (32.0-36.0); MEAN CORPUSCULAR VOLUME 108.1 fL (80.0-94.0); MEAN PLATELET VOLUME 10.1 fL (7.4-11.4); MONOCYTES # (AUTO) 1.1 10^3/uL (0.0-1.0); MONOCYTES % (AUTO) 9.2 %; NEUTROPHILS # (AUTO) 9.5 10^3/uL (1.5-6.6); NEUTROPHILS % (AUTO) 81.9 %; PLT - PLATELET COUNT 105 10^3/uL (130-450); RED BLOOD COUNT 2.22 10^6/uL (4.70-6.10); WHITE BLOOD COUNT 11.6 x10^3/uL (4.8-10.8)
[2019-12-30 05:16] LABS: ALBUMIN 2.1 g/dL (3.2-5.5); ALBUMIN/GLOBULIN RATIO 0.9 (1.0-2.2); BILIRUBIN,TOTAL 1.2 mg/dL (0.2-1.0); CALCIUM 6.8 mg/dL (8.5-10.3); CREATININE 2.7 mg/dL (0.6-1.2); MAGNESIUM 2.5 mg/dL (1.7-2.8); PHOSPHORUS 2.7 mg/dL (2.5-4.6); TOTAL PROTEIN 4.5 g/dL (6.7-8.2)
[2019-12-30 05:42] LABS: ABG PCO2 30 mmHg (34-45); ABG PH 7.48 (7.35-7.45)
[2019-12-30 05:43] LABS: ABG OXYGEN SATURATION 100 % (94-98); ALLEN TEST NEGATIVE
[2019-12-30 05:44] LABS: ABG FRACTION OF INSPIRED O2 0.55
[2019-12-30 05:45] LABS: ABG PO2 155 mmHg (80-100)
[2019-12-30] MEDS: METOPROLOL 5 MG/5 ML VIAL IVP SCH ×2 (05:49→18:05)
[2019-12-30] MEDS: metroNIDAZOLE 500 MG/100 ML 500 MG/100 ML BAG IV SCH ×3 (06:18→22:40)
[2019-12-30] MEDS: SODIUM CHLORIDE 0.9% 1,000 ML IV SCH ×2 (08:21→22:46)
[2019-12-30] MEDS: THIAMINE IV SCH (08:53)
[2019-12-30] MEDS: [UNRECOGNIZED DRUG - OTHER] IV SCH (08:53)
[2019-12-30] MEDS: FOLIC ACID IV SCH (08:53)
[2019-12-30] MEDS: MULTIVITAMIN IV SCH (08:53)
[2019-12-30] MEDS: cefTRIAXone 1 GM in SODIUM CHLORIDE 0.9% MINIBAG 100 ML IV SCH (09:41)
[2019-12-30] MEDS: HYDROCORTISONE 1% CREAM 28 GM TUBE TOP SCH ×2 (09:42→20:43)
[2019-12-30] MEDS: ethyl alcohoL 62% SWAB AMPULE NAS SCH ×2 (09:42→20:43)
[2019-12-30] MEDS: PANTOPRAZOLE 40 MG VIAL IVP SCH ×2 (09:43→20:43)
[2019-12-30] MEDS ORDERED: MULTIVITAMIN 10 ML, THIAMINE INJ 100 MG, FOLIC ACID INJ 1 MG in SODIUM CHLORIDE 0.9% 1,... IV SCH (10:00)
[2019-12-30 11:42] LABS: ABG HCO3 20.3 mmol/L (22.0-26.0); ABG PCO2 33 mmHg (34-45); ABG PH 7.41 (7.35-7.45)
[2019-12-30 11:43] LABS: ABG BASE EXCESS -3.6 mmol/L (-2.0-3.0); ABG TCO2 21.3 MMOL/L (21.0-29.0)
[2019-12-30 12:46] LABS: ANA SCREEN NEGATIVE (NEGATIVE)
[2019-12-30] MEDS ORDERED: LEVALBUTEROL 1.25 MG/3 ML NEB INH PRN (13:41)
[2019-12-30] MEDS: IPRATROPIUM/ALBUTEROL 3 ML NEB INH SCH ×2 (14:00→22:35)
--- NOTE | 2019-12-30 15:30 | PROVIDER PROGRESS NOTE ---
Assessment/Plan - Problem List (1) Cardiac arrest Assessment/Plan: He suffered a nonwitnessed cardiac arrest yesterday, was successfully resuscitated and is still on the ventilator with minimal neurologic recovery. Continue with telemetry. His troponins increased slightly but are "flat" therefore not consistent with another acute NC. He did have visible hematemesis which made it aspirated hypoxia induced cardiac arrest. He also had findings of septic shock yesterday with very elevated lactic acid level and hypotension requiring Levophed, which may have caused the cardiac arrest (2) Coma Assessment/Plan: Patient has minimal but present withdrawal to sternal rub, present corneal reflex, minimally reactive pupils, positive Babinski, and negative deep tendon r eflexes. He is at 24 hours post cardiac arrest today. We will continue to observe neurologic status, at the 72-hour jaswant a prognosis could be made. I was able to speak to his sister today who was updated on everything. She wants everything done to give him the best chances of recovery and awakening post cardiac arrest. (3) Aspiration pneumonia of both lower lobes Assessment/Plan: Bilateral infiltrates were present when chest x-ray was done after cardiac a rrest. He is on broad-spectrum antibiotics: Vanco, Levaquin, metronidazole. Blood cultures and urine cultures have been sent, they are negative to date. Continue with ICU oral management and empiric antibiotics (4) Hematemesis Assessment/Plan: He still has NG tube been to low suction. The hemoglobin did drop considerably from 11 yesterday down to 7.9 this morning. Blood transfusion ordered, the sister has verbally consented to this. Follow CBC daily. He is on empiric Protonix 40 mg IV twice daily for ulcer management. General surgery for EGD would be consulted if he has improvement in neurologic status. (5) NSTEMI (non-ST elevated myocardial infarction) Assessment/Plan: Aspirin has been stopped because of the hematemesis. Will resume beta-nader treatment now that blood pressure has stabilized. LVEF was rechecked and is preserved, therefore no RICHARD inhibitor or ARB or spironolactone or Lasix are needed. (6) VIDHYA (acute kidney injury) Assessment/Plan: [place] to be from rhabdomyolysis and was improving, then creat worsened briefly after yesterday's cardiac arrest and hypoperfusion. The creatinine is improving overall since admission. Avoid nephrotoxins Follow BMP daily (7) Rhabdomyolysis Assessment/Plan: CK has improved from 6000 down to 3000, 2000 and today is 960. This is paralleling improvement in his VIDHYA. Continue with IV hydration. (8) Alcohol abuse Assessment/Plan: The sister confirmed this. There was no alcohol serum level checked at admission. He did appear to be going through some type of withdrawal earlier this hospitalization. (9) Opioid abuse Assessment/Plan: The sister gave a history of his having narcotic abuse. Apparently, PCPs were not prescribing opioids and he himself thought he was going through withdrawal. He may have been going through withdrawal earlier this admission. (10) Elevated LFTs Assessment/Plan: Sister was able to give me history of him having hepatitis C and that he continues to be an alcohol abuser. Follow CMP daily (11) Hypoxia Assessment/Plan: He is saturating adequately on the ventilator, FiO2 settings are able to be decreased. He now has bilateral infiltrates following the cardiac arrest when he was wit nessed to have aspiration of bloody gastric material. He is on broad-spectrum antibiotics for aspiration pneumonia, pneumonitis. Extubation off the ventilator will depend on his neurologic recovery. (12) Hypotension Qualifiers: Hypotension type: hemodialysis-associated hypotension Qualified Code(s): I95.3 - Hypotension of hemodialysis Assessment/Plan: Resolved. This was felt to be septic shock and from GI blood loss. A recurrent NC has been ruled out with "flat" troponins. An echo 2D only was repeated today that showed continued preserved LV function and RV function. Levophed was required yesterday and has been weaned off. Blood pressure has stabilized today with maintenance IV fluids continuing. (13) Metabolic acidosis Assessment/Plan: Resolved. He required 1 bag of3 amps of Sodium bicarb in D5W, started yesterday and adjusting his vent settings for ventilation, which produced improvement in his serum CO2 and resolve the metabolic acidosis. The metabolic acidosis paralleled his very elevated lactic acid level yesterday, which was felt to be from septic shock. - Current Meds Current Meds: Current Medications Generic Name Dose Route Start Last Admin Trade Name Freq PRN Reason Stop Dose Admin Albuterol/Ipratropium 3 ml 12/30/19 14:00 12/30/19 14:00 Duoneb INH 3 ml RTBID OWEN Administration Alcohol 1 amp 12/29/19 21:00 12/30/19 09:42 Nozin MERNA 1 amp BID OWEN Administration Hydrocortisone 1 applic 12/27/19 21:00 12/30/19 09:42 Hydrocortisone TOP 1 applic BID OWEN Administration Hydromorphone HCl 1 mg 12/27/19 14:59 12/29/19 08:15 Dilaudid Inj Carp IVP 1 mg Q2H PRN Administration Pain 8 to 10 Ceftriaxone Sodium 1 gm/ 100 mls @ 200 mls/hr 12/27/19 17:51 12/30/19 10:35 Sodium Chloride IV Infused DAILY OWEN Infusion Levofloxacin 750 mg in 150 mls @ 100 mls/hr 12/28/19 18:00 12/28/19 20:25 Levaquin 750 Mg/150 Ml IV Infused Q48H OWEN Infusion Midazolam HCl 50 mg in 100 mls @ 7.848 mls/hr 12/29/19 14:00 12/30/19 14:07 Versed Drip IV 0.03 mg/kg/hr .[id number] OWEN 5.886 mls/hr Administration Protocol 0.04 MG/KG/HR Norepinephrine Bitartrate 8 mg 250 mls @ 15 mls/hr 12/29/19 14:00 12/30/19 04:27 / Dextrose IV 0 mcg/min .[id number] OWEN 0 mls/hr Titration Protocol 8 MCG/MIN Metronidazole 500 mg in 100 mls @ 100 mls/hr 12/29/19 15:00 12/30/19 15:10 Flagyl 500 Mg/100 Ml IV Infused Q8H OWEN Infusion Multivitamins 10 ml/ Folic 1,011.2 mls @ 100 mls/hr 12/29/19 18:00 12/30/19 08:53 Acid 1 mg/ Thiamine HCl 100 mg IV 100 mls/hr / Sodium Chloride DAILY OWEN Administration Sodium Chloride 500 mls @ 0 mls/hr 12/30/19 04:25 12/30/19 04:39 Normal Saline 0.9% IV 30 mls/hr Q24H PRN Administration TKO RATE TKO Sodium Chloride 1,000 mls @ 75 mls/hr 12/30/19 08:00 12/30/19 08:21 Normal Saline 0.9% IV 75 mls/hr .[id number] OWEN Administration Metoprolol Tartrate 2.5 mg 12/29/19 18:00 12/30/19 05:49 Lopressor Inj IVP Not Given Q12H OWEN Ondansetron HCl 4 mg 12/27/19 14:43 12/28/19 08:25 Zofran Inj IVP 4 mg Q6HR PRN Administration Nausea / Vomiting Pantoprazole Sodium 40 mg 12/30/19 10:00 12/30/19 09:43 Protonix IVP 40 mg BID OWEN Administration Sodium Chloride 10 ml 12/27/19 14:43 12/30/19 04:26 Normal Saline Flush 0.9% IVP 10 ml PRN PRN Administration NEEDED PER PROVIDER ORDERS Sodium Chloride 10 ml 12/27/19 17:00 12/30/19 09:44 Normal Saline Flush 0.9% IVP 10 ml 0100,0900,1700 OWEN Administration - Lab Result Fish Bone Diagrams: 12/30/19 04:30 12/30/19 04:30 - Additional Planning My Orders: My Active Orders 12/29/19 15:00 metroNIDAZOLE 500 MG/100 ML [Flagyl 500 mg/100 ml] 500 mg in 100 ml IV Q8H 12/29/19 15:35 Arterial Line Care - ICU [RC] Q2HR 12/29/19 16:00 CULTURE, BLOOD #1 [RM] Stat CULTURE, BLOOD #2 [RM] Stat 12/29/19 18:00 Metoprolol Inj [Lopressor Inj] 2.5 mg IVP Q12H 12/29/19 21:00 ethyl alcohoL 62% swab [NoZin] 1 amp MERNA BID 12/30/19 02:53 Carboxymethylcellulose 1% Opht [Refresh 1% Ophth Drops] 1 drops EACHEYE PRN PRN 12/30/19 04:25 Sodium Chloride 0.9% [Normal Saline 0.9%] 500 ml IV Q24H 12/30/19 09:15 Initiate ICU Electrolyte Prot. [RC] QSHIFT 12/30/19 09:16 Echo Limited [ECHO] Routine 12/30/19 10:00 Pantoprazole [Protonix] 40 mg IVP BID 12/30/19 11:07 RT - Obtain Arterial Specimen [RC] .ONCE 12/30/19 13:40 Nebulizer/MDI Tx. [RC] QID 12/30/19 13:41 Levalbuterol [Xopenex] 1.25 mg INH Q4H PRN 12/30/19 13:42 Nebulizer/MDI Tx. [RC] QID 12/30/19 14:00 Ipratropium/Albuterol [Duoneb] 3 ml INH RTBID 12/31/19 05:00 CBC - COMP BLD CT W/AUTO DIFF [HEME] DAILYLAB CMP [COMPREHENSIVE METABOLIC PANEL] [CHEM] DAILYLAB 01/01/20 05:00 CBC - COMP BLD CT W/AUTO DIFF [HEME] DAILYLAB CMP [COMPREHENSIVE METABOLIC PANEL] [CHEM] DAILYLAB 01/02/20 05:00 CBC - COMP BLD CT W/AUTO DIFF [HEME] DAILYLAB CMP [COMPREHENSIVE METABOLIC PANEL] [CHEM] DAILYLAB 01/03/20 05:00 CBC - COMP BLD CT W/AUTO DIFF [HEME] DAILYLAB CMP [COMPREHENSIVE METABOLIC PANEL] [CHEM] DAILYLAB Subjective - Subjective Nursing Reports: Other (Comatose) Objective Vital Signs: Vital Signs - 24 hr 12/29/19 12/29/19 12/29/19 16:00 17:00 17:50 Temperature Heart Rate 91 Heart Rate [ 94 91 Monitoring electrodes] Respiratory 20 20 Rate Blood Pressure Blood Pressure 107/71 113/81 H [Left Brachial artery] Blood Pressure 91/56 L 104/60 [Left Radial artery] Blood Pressure [Right Brachial artery] O2 Saturation 99 100 12/29/19 12/29/19 12/29/19 18:00 18:06 18:45 Temperature Heart Rate 91 Heart Rate [ 91 Monitoring electrodes] Respiratory 20 20 Rate Blood Pressure 128/89 H Blood Pressure 128/89 H [Left Brachial artery] Blood Pressure 110/62 [Left Radial artery] Blood Pressure [Right Brachial artery] O2 Saturation 100 12/29/19 12/29/19 12/29/19 18:50 18:55 18:59 Temperature Heart Rate 92 90 Heart Rate [ 92 Monitoring electrodes] Respiratory 20 20 20 Rate Blood Pressure Blood Pressure 128/89 H [Left Brachial artery] Blood Pressure 136/72 H [Left Radial artery] Blood Pressure [Right Brachial artery] O2 Saturation 100 12/29/19 12/29/19 12/29/19 19:00 19:01 19:05 Temperature Heart Rate 91 91 89 Heart Rate [ Monitoring electrodes] Respiratory 20 20 20 Rate Blood Pressure 141/93 H Blood Pressure [Left Brachial artery] Blood Pressure [Left Radial artery] Blood Pressure [Right Brachial artery] O2 Saturation 10/20/20 10/20/20 10/20/20 19:10 19:15 19:20 Temperature Heart Rate 89 91 88 Heart Rate [ Monitoring electrodes] Respiratory 20 20 20 Rate Blood Pressure Blood Pressure [Left Brachial artery] Blood Pressure [Left Radial artery] Blood Pressure [Right Brachial artery] O2 Saturation 10/20/20 10/20/20 10/20/20 19:25 19:30 19:35 Temperature Heart Rate 88 88 88 Heart Rate [ Monitoring electrodes] Respiratory 20 20 20 Rate Blood Pressure Blood Pressure [Left Brachial artery] Blood Pressure [Left Radial artery] Blood Pressure [Right Brachial artery] O2 Saturation 10/20/20 10/20/20 10/20/20 19:40 19:45 19:50 Temperature Heart Rate 87 89 87 Heart Rate [ Monitoring electrodes] Respiratory 20 20 20 Rate Blood Pressure Blood Pressure [Left Brachial artery] Blood Pressure [Left Radial artery] Blood Pressure [Right Brachial artery] O2 Saturation 10/20/20 10/20/20 10/20/20 19:55 20:00 20:01 Temperature Heart Rate 90 86 88 Heart Rate [ 89 Monitoring electrodes] Respiratory 20 20 20 Rate Blood Pressure 157/93 H Blood Pressure 157/93 H [Left Brachial artery] Blood Pressure 134/71 H [Left Radial artery] Blood Pressure [Right Brachial artery] O2 Saturation 100 10/20/20 10/20/20 10/20/20 20:04 20:05 20:10 Temperature Heart Rate 87 87 87 Heart Rate [ Monitoring electrodes] Respiratory 20 20 Rate Blood Pressure Blood Pressure [Left Brachial artery] Blood Pressure [Left Radial artery] Blood Pressure [Right Brachial artery] O2 Saturation 10/20/20 10/20/20 10/20/20 20:15 20:20 20:25 Temperature Heart Rate 89 88 101 H Heart Rate [ Monitoring electrodes] Respiratory 20 20 18 Rate Blood Pressure Blood Pressure [Left Brachial artery] Blood Pressure [Left Radial artery] Blood Pressure [Right Brachial artery] O2 Saturation 10/20/20 10/20/20 10/20/20 20:30 20:35 20:40 Temperature Heart Rate 97 100 93 Heart Rate [ Monitoring electrodes] Respiratory 20 20 20 Rate Blood Pressure Blood Pressure [Left Brachial artery] Blood Pressure [Left Radial artery] Blood Pressure [Right Brachial artery] O2 Saturation 10/20/20 10/20/20 10/20/20 20:45 20:50 20:55 Temperature Heart Rate 91 90 90 Heart Rate [ Monitoring electrodes] Respiratory 20 20 20 Rate Blood Pressure Blood Pressure [Left Brachial artery] Blood Pressure [Left Radial artery] Blood Pressure [Right Brachial artery] O2 Saturation 10/20/20 10/20/20 10/20/20 21:00 21:01 21:05 Temperature Heart Rate 91 88 87 Heart Rate [ 89 Monitoring electrodes] Respiratory 20 20 20 Rate Blood Pressure 143/85 H Blood Pressure 143/85 H [Left Brachial artery] Blood Pressure 126/65 [Left Radial artery] Blood Pressure [Right Brachial artery] O2 Saturation 96 10/20/20 10/20/20 10/20/20 21:10 21:15 21:20 Temperature Heart Rate 92 100 96 Heart Rate [ Monitoring electrodes] Respiratory 20 16 20 Rate Blood Pressure Blood Pressure [Left Brachial artery] Blood Pressure [Left Radial artery] Blood Pressure [Right Brachial artery] O2 Saturation 20/20 10/20/20 10/20/20 21:25 21:30 21:34 Temperature Heart Rate 101 H 96 96 Heart Rate [ Monitoring electrodes] Respiratory 20 20 20 Rate Blood Pressure Blood Pressure [Left Brachial artery] Blood Pressure [Left Radial artery] Blood Pressure [Right Brachial artery] O2 Saturation 20/20 10/20/20 10/20/20 21:35 21:36 21:37 Temperature Heart Rate 97 95 95 Heart Rate [ Monitoring electrodes] Respiratory 20 20 20 Rate Blood Pressure 144/130 H 123/73 Blood Pressure [Left Brachial artery] Blood Pressure [Left Radial artery] Blood Pressure [Right Brachial artery] O2 Saturation 20/20 10/20/20 10/20/20 21:40 21:41 21:45 Temperature Heart Rate 93 92 90 Heart Rate [ Monitoring electrodes] Respiratory 20 20 20 Rate Blood Pressure 122/66 Blood Pressure [Left Brachial artery] Blood Pressure [Left Radial artery] Blood Pressure [Right Brachial artery] O2 Saturation 20/20 10/20/20 10/20/20 21:46 21:50 21:55 Temperature Heart Rate 90 93 88 Heart Rate [ Monitoring electrodes] Respiratory 20 20 20 Rate Blood Pressure 125/67 Blood Pressure [Left Brachial artery] Blood Pressure [Left Radial artery] Blood Pressure [Right Brachial artery] O2 Saturation 20/20 10/20/20 10/20/20 22:00 22:01 22:05 Temperature Heart Rate 85 85 85 Heart Rate [ 86 Monitoring electrodes] Respiratory 20 20 20 Rate Blood Pressure 143/90 H Blood Pressure [Left Brachial artery] Blood Pressure 120/64 [Left Radial artery] Blood Pressure [Right Brachial artery] O2 Saturation 95 10/20/20 10/20/20 10/20/20 22:07 22:10 22:15 Temperature Heart Rate 84 84 83 Heart Rate [ Monitoring electrodes] Respiratory 20 20 20 Rate Blood Pressure Blood Pressure [Left Brachial artery] Blood Pressure [Left Radial artery] Blood Pressure [Right Brachial artery] O2 Saturation 10/20/20 10/20/20 10/20/20 22:20 22:25 22:30 Temperature Heart Rate 82 84 84 Heart Rate [ Monitoring electrodes] Respiratory 20 20 20 Rate Blood Pressure Blood Pressure [Left Brachial artery] Blood Pressure [Left Radial artery] Blood Pressure [Right Brachial artery] O2 Saturation 10/20/20 10/20/20 10/20/20 22:35 22:40 22:45 Temperature Heart Rate 82 81 82 Heart Rate [ Monitoring electrodes] Respiratory 20 20 20 Rate Blood Pressure Blood Pressure [Left Brachial artery] Blood Pressure [Left Radial artery] Blood Pressure [Right Brachial artery] O2 Saturation 10/20/20 10/20/20 10/20/20 22:50 22:55 22:58 Temperature Heart Rate 83 88 90 Heart Rate [ Monitoring electrodes] Respiratory 20 20 Rate Blood Pressure Blood Pressure [Left Brachial artery] Blood Pressure [Left Radial artery] Blood Pressure [Right Brachial artery] O2 Saturation 10/20/20 10/20/20 10/20/20 23:00 23:01 23:05 Temperature Heart Rate 90 84 84 Heart Rate [ 82 Monitoring electrodes] Respiratory 20 20 20 Rate Blood Pressure 159/82 H Blood Pressure [Left Brachial artery] Blood Pressure 135/67 H [Left Radial artery] Blood Pressure 159/82 H [Right Brachial artery] O2 Saturation 96 10/20/20 10/20/20 10/20/20 23:08 23:09 23:10 Temperature Heart Rate 83 85 83 Heart Rate [ Monitoring electrodes] Respiratory 20 20 20 Rate Blood Pressure 166/92 H Blood Pressure [Left Brachial artery] Blood Pressure [Left Radial artery] Blood Pressure [Right Brachial artery] O2 Saturation 10/20/20 10/20/20 10/20/20 23:11 23:15 23:16 Temperature Heart Rate 82 82 81 Heart Rate [ Monitoring electrodes] Respiratory 20 20 20 Rate Blood Pressure 151/84 H 138/89 H Blood Pressure [Left Brachial artery] Blood Pressure [Left Radial artery] Blood Pressure [Right Brachial artery] O2 Saturation 10/20/20 10/20/20 10/20/20 23:20 23:21 23:25 Temperature Heart Rate 81 85 70 Heart Rate [ Monitoring electrodes] Respiratory 20 20 20 Rate Blood Pressure 129/84 H Blood Pressure [Left Brachial artery] Blood Pressure [Left Radial artery] Blood Pressure [Right Brachial artery] O2 Saturation 10/20/20 10/20/20 10/20/20 23:30 23:31 23:35 Temperature Heart Rate 85 85 83 Heart Rate [ Monitoring electrodes] Respiratory 20 20 20 Rate Blood Pressure 171/95 H Blood Pressure [Left Brachial artery] Blood Pressure [Left Radial artery] Blood Pressure [Right Brachial artery] O2 Saturation 1020/20 10/20/20 10/20/20 23:40 23:45 23:46 Temperature Heart Rate 81 79 80 Heart Rate [ Monitoring electrodes] Respiratory 20 20 20 Rate Blood Pressure 115/71 Blood Pressure [Left Brachial artery] Blood Pressure [Left Radial artery] Blood Pressure [Right Brachial artery] O2 Saturation 1020/20 10/20/20 10/20/20 23:48 23:49 23:50 Temperature Heart Rate 79 80 79 Heart Rate [ Monitoring electrodes] Respiratory 20 20 20 Rate Blood Pressure 114/71 Blood Pressure [Left Brachial artery] Blood Pressure [Left Radial artery] Blood Pressure [Right Brachial artery] O2 Saturation 10/20/20 10/20/20 10/20/20 23:51 23:55 23:56 Temperature Heart Rate 79 88 93 Heart Rate [ Monitoring electrodes] Respiratory 20 18 19 Rate Blood Pressure 116/72 131/118 H Blood Pressure [Left Brachial artery] Blood Pressure [Left Radial artery] Blood Pressure [Right Brachial artery] O2 Saturation 12/29/20 1021/20 10/20 00:00 00:01 00:05 Temperature Heart Rate 87 83 86 Heart Rate [ 85 Monitoring electrodes] Respiratory 20 20 18 Rate Blood Pressure 144/90 H Blood Pressure [Left Brachial artery] Blood Pressure 126/81 H [Left Radial artery] Blood Pressure [Right Brachial artery] O2 Saturation 97 12/29/20 10/20 1020 00:10 00:15 00:16 Temperature Heart Rate 84 82 82 Heart Rate [ Monitoring electrodes] Respiratory 20 20 20 Rate Blood Pressure 126/81 H Blood Pressure [Left Brachial artery] Blood Pressure [Left Radial artery] Blood Pressure [Right Brachial artery] O2 Saturation 12/30/19 12/30/19 12/30/19 00:20 00:25 00:30 Temperature Heart Rate 80 80 78 Heart Rate [ Monitoring electrodes] Respiratory 20 20 20 Rate Blood Pressure Blood Pressure [Left Brachial artery] Blood Pressure [Left Radial artery] Blood Pressure [Right Brachial artery] O2 Saturation 12/30/19 12/30/19 12/30/19 00:31 00:35 00:40 Temperature Heart Rate 80 78 78 Heart Rate [ Monitoring electrodes] Respiratory 20 20 20 Rate Blood Pressure 124/82 H Blood Pressure [Left Brachial artery] Blood Pressure [Left Radial artery] Blood Pressure [Right Brachial artery] O2 Saturation 12/30/19 12/30/19 12/30/19 00:45 00:50 00:55 Temperature Heart Rate 79 78 76 Heart Rate [ Monitoring electrodes] Respiratory 20 20 20 Rate Blood Pressure Blood Pressure [Left Brachial artery] Blood Pressure [Left Radial artery] Blood Pressure [Right Brachial artery] O2 Saturation 12/30/19 12/30/19 12/30/19 01:00 01:01 01:05 Temperature 37.3 C Heart Rate 79 76 78 Heart Rate [ 78 Monitoring electrodes] Respiratory 20 20 20 Rate Blood Pressure 134/86 H Blood Pressure [Left Brachial artery] Blood Pressure 112/56 L [Left Radial artery] Blood Pressure 134/86 H [Right Brachial artery] O2 Saturation 99 12/30/19 12/30/19 12/30/19 01:10 01:15 01:20 Temperature Heart Rate 77 77 77 Heart Rate [ Monitoring electrodes] Respiratory 20 20 20 Rate Blood Pressure Blood Pressure [Left Brachial artery] Blood Pressure [Left Radial artery] Blood Pressure [Right Brachial artery] O2 Saturation 12/30/19 12/30/19 12/30/19 01:30 01:45 01:50 Temperature Heart Rate 81 76 79 Heart Rate [ Monitoring electrodes] Respiratory 20 20 Rate Blood Pressure Blood Pressure [Left Brachial artery] Blood Pressure [Left Radial artery] Blood Pressure [Right Brachial artery] O2 Saturation 12/30/19 12/30/19 12/30/19 01:55 02:00 02:01 Temperature Heart Rate 77 75 78 Heart Rate [ 77 Monitoring electrodes] Respiratory 20 20 20 Rate Blood Pressure 141/89 H Blood Pressure [Left Brachial artery] Blood Pressure 141/89 H [Left Radial artery] Blood Pressure [Right Brachial artery] O2 Saturation 99 12/30/19 12/30/19 12/30/19 02:05 02:10 02:15 Temperature Heart Rate 90 91 83 Heart Rate [ Monitoring electrodes] Respiratory 18 20 20 Rate Blood Pressure Blood Pressure [Left Brachial artery] Blood Pressure [Left Radial artery] Blood Pressure [Right Brachial artery] O2 Saturation 12/30/19 12/30/19 12/30/19 02:20 02:25 02:30 Temperature Heart Rate 84 83 82 Heart Rate [ Monitoring electrodes] Respiratory 20 20 20 Rate Blood Pressure Blood Pressure [Left Brachial artery] Blood Pressure [Left Radial artery] Blood Pressure [Right Brachial artery] O2 Saturation 12/30/19 12/30/19 12/30/19 02:35 02:40 02:45 Temperature Heart Rate 81 82 80 Heart Rate [ Monitoring electrodes] Respiratory 20 20 20 Rate Blood Pressure Blood Pressure [Left Brachial artery] Blood Pressure [Left Radial artery] Blood Pressure [Right Brachial artery] O2 Saturation 12/30/19 12/30/19 12/30/19 02:50 02:55 03:00 Temperature Heart Rate 82 78 77 Heart Rate [ 77 Monitoring electrodes] Respiratory 20 20 20 Rate Blood Pressure Blood Pressure [Left Brachial artery] Blood Pressure [Left Radial artery] Blood Pressure 126/76 [Right Brachial artery] O2 Saturation 98 12/30/19 12/30/19 12/30/19 03:01 03:05 03:10 Temperature Heart Rate 78 78 77 Heart Rate [ Monitoring electrodes] Respiratory 20 20 20 Rate Blood Pressure 126/76 Blood Pressure [Left Brachial artery] Blood Pressure [Left Radial artery] Blood Pressure [Right Brachial artery] O2 Saturation 12/30/19 12/30/19 12/30/19 03:15 03:20 03:25 Temperature Heart Rate 78 78 80 Heart Rate [ Monitoring electrodes] Respiratory 20 20 20 Rate Blood Pressure Blood Pressure [Left Brachial artery] Blood Pressure [Left Radial artery] Blood Pressure [Right Brachial artery] O2 Saturation 12/30/19 12/30/19 12/30/19 03:30 03:35 03:40 Temperature Heart Rate 78 77 79 Heart Rate [ Monitoring electrodes] Respiratory 20 20 20 Rate Blood Pressure Blood Pressure [Left Brachial artery] Blood Pressure [Left Radial artery] Blood Pressure [Right Brachial artery] O2 Saturation 12/30/19 12/30/19 12/30/19 03:45 03:50 03:55 Temperature Heart Rate 81 76 76 Heart Rate [ Monitoring electrodes] Respiratory 20 20 20 Rate Blood Pressure Blood Pressure [Left Brachial artery] Blood Pressure [Left Radial artery] Blood Pressure [Right Brachial artery] O2 Saturation 12/30/19 12/30/19 12/30/19 04:00 04:01 04:05 Temperature Heart Rate 75 79 76 Heart Rate [ 77 Monitoring electrodes] Respiratory 20 20 20 Rate Blood Pressure 140/97 H Blood Pressure [Left Brachial artery] Blood Pressure [Left Radial artery] Blood Pressure 140/97 H [Right Brachial artery] O2 Saturation 96 12/30/19 12/30/19 12/30/19 04:10 04:15 04:20 Temperature Heart Rate 81 79 79 Heart Rate [ Monitoring electrodes] Respiratory 18 20 20 Rate Blood Pressure Blood Pressure [Left Brachial artery] Blood Pressure [Left Radial artery] Blood Pressure [Right Brachial artery] O2 Saturation 12/30/19 12/30/19 12/30/19 04:24 04:25 04:26 Temperature Heart Rate 79 77 80 Heart Rate [ Monitoring electrodes] Respiratory 20 20 20 Rate Blood Pressure 139/89 H 140/85 H Blood Pressure [Left Brachial artery] Blood Pressure [Left Radial artery] Blood Pressure [Right Brachial artery] O2 Saturation 12/30/19 12/30/19 12/30/19 04:27 04:30 04:31 Temperature Heart Rate 75 79 77 Heart Rate [ Monitoring electrodes] Respiratory 20 20 20 Rate Blood Pressure 131/87 H Blood Pressure [Left Brachial artery] Blood Pressure [Left Radial artery] Blood Pressure [Right Brachial artery] O2 Saturation 12/30/19 12/30/19 12/30/19 04:35 04:40 04:45 Temperature Heart Rate 77 78 73 Heart Rate [ Monitoring electrodes] Respiratory 20 20 20 Rate Blood Pressure Blood Pressure [Left Brachial artery] Blood Pressure [Left Radial artery] Blood Pressure [Right Brachial artery] O2 Saturation 12/30/19 12/30/19 12/30/19 04:46 04:50 04:55 Temperature Heart Rate 75 75 77 Heart Rate [ Monitoring electrodes] Respiratory 20 20 20 Rate Blood Pressure 145/95 H Blood Pressure [Left Brachial artery] Blood Pressure [Left Radial artery] Blood Pressure [Right Brachial artery] O2 Saturation 12/30/19 12/30/19 12/30/19 05:00 05:01 05:05 Temperature Heart Rate 76 75 75 Heart Rate [ 75 Monitoring electrodes] Respiratory 20 20 20 Rate Blood Pressure 130/83 H Blood Pressure [Left Brachial artery] Blood Pressure 101/52 L [Left Radial artery] Blood Pressure 130/83 H [Right Brachial artery] O2 Saturation 98 12/30/19 12/30/19 12/30/19 05:12 06:00 07:00 Temperature Heart Rate 76 Heart Rate [ 76 79 Monitoring electrodes] Respiratory 20 20 Rate Blood Pressure Blood Pressure [Left Brachial artery] Blood Pressure 111/56 L 113/56 L [Left Radial artery] Blood Pressure 127/80 122/79 [Right Brachial artery] O2 Saturation 97 99 12/30/19 12/30/19 12/30/19 07:37 08:00 09:00 Temperature Heart Rate 83 Heart Rate [ 96 83 Monitoring electrodes] Respiratory 24 18 Rate Blood Pressure Blood Pressure [Left Brachial artery] Blood Pressure 184/71 H 115/51 L [Left Radial artery] Blood Pressure 139/80 H 114/63 [Right Brachial artery] O2 Saturation 93 95 12/30/19 12/30/19 12/30/19 10:00 10:20 11:00 Temperature 37.4 C Heart Rate 84 Heart Rate [ 82 87 Monitoring electrodes] Respiratory 18 18 Rate Blood Pressure Blood Pressure [Left Brachial artery] Blood Pressure 111/63 117/52 L [Left Radial artery] Blood Pressure 114/52 L 128/70 [Right Brachial artery] O2 Saturation 95 95 12/30/19 12/30/19 12/30/19 12:00 13:00 14:00 Temperature 99.2 C H Heart Rate 102 H Heart Rate [ 87 88 101 H Monitoring electrodes] Respiratory 18 18 19 Rate Blood Pressure Blood Pressure [Left Brachial artery] Blood Pressure 136/58 H 109/53 L 151/62 H [Left Radial artery] Blood Pressure 126/76 128/63 156/70 H [Right Brachial artery] O2 Saturation 99 95 94 12/30/19 15:00 Temperature Heart Rate Heart Rate [ 92 Monitoring electrodes] Respiratory 18 Rate Blood Pressure Blood Pressure [Left Brachial artery] Blood Pressure 122/55 L [Left Radial artery] Blood Pressure 128/67 [Right Brachial artery] O2 Saturation 96 Oxygen O2 Source Mechanical ventilator I&O (Last 24 Hrs): Intake and Output Totals x24h 12/28/19 12/29/1920 23:59 23:59 23:59 Intake Total 3996.033 3058.213 3681.025 Output Total 395 536 641 Balance 3601.033 2522.213 3040.025 General: Other (Comatose) HEENT: Mucous membr. moist/pink, Other (He has mild icterus and has exophthalmos) Neck: No JVD Neuro: Other (Positive corneal reflex, sluggish and small (normal size) pupils, Minimal wincing in withdrawal to pain of his upper extremities. Positive Babinski. Flaccid extremities and no response of DTRs) Cardiovascular: Regular rate, No murmurs Respiratory: No respiratory distress, Breath sounds nml Abdomen: Soft, Other (Distended, negative bowel sounds, possible fluid wave of ascites) Extremities: No edema - Results Results: Laboratory Results WBC 11.6 x10^3/uL (4.8-10.8) H 12/30/19 04:30 RBC 2.22 10^6/uL (4.70-6.10) L 12/30/19 04:30 Hgb 7.9 g/dL (14.0-18.0) L 12/30/19 04:30 Hct 24.0 % (42.0-52.0) L 12/30/19 04:30 MCV 108.1 fL (80.0-94.0) H 12/30/19 04:30 MCH 35.6 pg (27.0-31.0) H 12/30/19 04:30 MCHC 32.9 g/dL (32.0-36.0) 12/30/19 04:30 RDW 13.0 % (12.0-15.0) 12/30/19 04:30 Plt Count 105 10^3/uL (130-450) L 12/30/19 04:30 MPV 10.1 fL (7.4-11.4) 12/30/19 04:30 Neut # (Auto) 9.5 10^3/uL (1.5-6.6) H 12/30/19 04:30 Lymph # (Auto) 0.8 10^3/uL (1.5-3.5) L 12/30/19 04:30 [place] # (Auto) 1.1 10^3/uL (0.0-1.0) H 12/30/19 04:30 Eos # (Auto) 0.1 10^3/uL (0.0-0.7) 12/30/19 04:30 Baso # (Auto) 0.0 10^3/uL (0.0-0.1) 12/30/19 04:30 Absolute Nucleated RBC 0.00 x10^3/uL 12/30/19 04:30 Total Counted 100 12/29/19 13:45 Band Neuts % (Manual) 2 % (0-10) 12/29/19 13:45 Abnorm Lymph % (Manual) 0 % 12/29/19 13:45 Metamyelocytes % 1 % (-0) H 12/29/19 13:45 Nucleated RBC % 0.0 /100WBC 12/30/19 04:30 Neutrophils # (Manual) 17.7 10^3/uL (1.5-6.6) H 12/29/19 13:45 Lymphocytes # (Manual) 1.9 10^3/uL (1.5-3.5) 12/29/19 13:45 Monocytes # (Manual) 1.1 10^3/uL (0.0-1.0) H 12/29/19 13:45 Eosinophils # (Manual) 0.6 10^3/uL (0-0.7) 12/29/19 13:45 Basophils # (Manual) 0.0 10^3/uL (0-0.1) 12/29/19 13:45 Differential Comment MANUAL DIFFERENTIAL 12/29/19 13:45 WBC Morphology NORMAL APPEARANCE (NORMAL) 12/29/19 13:45 Platelet Estimate NORMAL (130-450,000) (NORMAL) 12/29/19 13:45 Platelet Morphology NORMAL APPEARANCE (NORMAL) 12/29/19 13:45 RBC Morph Micro Appear 2+ MACROCYTOSIS (NORMAL) 1+ ANISOCYTOSIS (NORMAL) 12/29/19 13:45 RBC Morph Micro Appear 2+ MACROCYTOSIS (NORMAL) 1+ ANISOCYTOSIS (NORMAL) 12/29/19 13:45 PT 16.6 secs (9.9-12.6) H 12/29/19 13:45 INR 1.5 (0.8-1.2) H 12/29/19 13:45 Bld Gas Analysis Time 11:15 12/30/19 10:55 Sample Site A-LINE 12/30/19 10:55 ABG pH 7.41 (7.35-7.45) 12/30/19 10:55 ABG pCO2 33 mmHg (34-45) L 12/30/19 10:55 ABG pO2 155 mmHg (80-100) H* 12/30/19 05:20 ABG HCO3 20.3 mmol/L (22.0-26.0) L 12/30/19 10:55 ABG Total CO2 21.3 MMOL/L (21.0-29.0) 12/30/19 10:55 ABG O2 Saturation 100 % (94-98) H 12/30/19 05:20 ABG Base Excess -3.6 mmol/L (-2.0-3.0) L 12/30/19 10:55 Andrew Test NOT APPLICABLE 12/30/19 10:55 VBG pH 6.953 (7.31-7.41) L 12/29/19 13:45 VBG pCO2 65.6 mmHg (41-51) H 12/29/19 13:45 VBG pO2 50.5 mmHg (25-47) H 12/29/19 13:45 VBG HCO3 14.2 mmol/L (23-28) L 12/29/19 13:45 VBG Total CO2 16.2 mmol/L (24-29) L 12/29/19 13:45 VBG O2 Saturation 75.7 % (60-80) 12/29/19 13:45 VBG Base Excess -18.2 mmol/L (-2 - +2) L 12/29/19 13:45 Respiration Rate 18 b/min 12/30/19 10:55 Room Air YES 12/27/19 15:25 O2 Delivery Device VENTILATOR 12/30/19 10:55 Vent Mode SIMV 12/30/19 10:55 FiO2 12/30/19 10:55 Tidal Volume 500 mL 12/30/19 10:55 PEEP 5 cmH2O 12/30/19 10:55 Pressure Support Vent 10 cmH2O 12/30/19 10:55 Sodium 137 mmol/L (135-145) 12/30/19 04:30 Potassium 3.2 mmol/L (3.5-5.0) L 12/30/19 04:30 Chloride 106 mmol/L (101-111) 12/30/19 04:30 Carbon Dioxide 21 mmol/L (21-32) 12/30/19 04:30 Anion Gap 10.0 (6-13) 12/30/19 04:30 BUN 39 mg/dL (6-20) H 12/30/19 04:30 Creatinine 2.7 mg/dL (0.6-1.2) H 12/30/19 04:30 Estimated GFR (MDRD) 24 (>89) L 12/30/19 04:30 Glucose 177 mg/dL (70-100) H 12/30/19 04:30 POC Whole Bld Glucose 116 mg/dL (70 - 100) H 12/30/19 11:53 Lactic Acid 1.4 mmol/L (0.5-2.2) 12/29/19 22:06 Calcium 6.8 mg/dL (8.5-10.3) L 12/30/19 04:30 Phosphorus 2.7 mg/dL (2.5-4.6) 12/30/19 04:30 Magnesium 2.5 mg/dL (1.7-2.8) 12/30/19 04:30 Total Bilirubin 1.2 mg/dL (0.2-1.0) H 12/30/19 04:30 AST 167 IU/L (10-42) H 12/30/19 04:30 ALT 94 IU/L (10-60) H 12/30/19 04:30 Alkaline Phosphatase 64 IU/L (42-121) 12/30/19 04:30 Total Creatine Kinase 972 IU/L (22-269) H 12/30/19 04:30 Troponin I High Sens 458.4 ng/L (2.3-19.7) H* 12/30/19 04:30 B-Natriuretic Peptide 413 pg/mL (5-100) H 12/29/19 13:45 Total Protein 4.5 g/dL (6.7-8.2) L 12/30/19 04:30 Albumin 2.1 g/dL (3.2-5.5) L 12/30/19 04:30 Globulin 2.4 g/dL (2.1-4.2) 12/30/19 04:30 Albumin/Globulin Ratio 0.9 (1.0-2.2) L 12/30/19 04:30 Folate 5.28 ng/mL (5.90 - >24.8) L 12/28/19 04:50 Urine Color STRAW 12/28/19 18:25 Urine Clarity HAZY (CLEAR) 12/28/19 18:25 Urine pH 5.0 PH (5.0-7.5) 12/28/19 18:25 Ur Specific [place] >=1.030 (1.002-1.030) H 12/28/19 18:25 Urine Protein 30 mg/dL (NEGATIVE) H 12/28/19 18:25 Urine Glucose (UA) NEGATIVE mg/dL (NEGATIVE) 12/28/19 18:25 Urine Ketones TRACE mg/dL (NEGATIVE) 12/28/19 18:25 Urine Occult Blood LARGE (NEGATIVE) H 12/28/19 18:25 Urine Nitrite NEGATIVE (NEGATIVE) 12/28/19 18:25 Urine Bilirubin NEGATIVE (NEGATIVE) 12/28/19 18:25 Urine Urobilinogen 0.2 (NORMAL) E.U./dL (NORMAL) 12/28/19 18:25 Ur Leukocyte Esterase SMALL (NEGATIVE) H 12/28/19 18:25 Urine RBC 11-25 /HPF (0-5) H 12/28/19 18:25 Urine WBC 11-25 /HPF (0-3) H 12/28/19 18:25 Ur Squamous Epith Cells FEW Squamous (<= Few) 12/28/19 18:25 Amorphous Sediment Marked /LPF 12/28/19 18:25 Urine Bacteria Moderate /HPF (None Seen) H 12/28/19 18:25 Urine Casts 11-25 Fine Granular /LPF 12/28/19 18:25 Ur Microscopic Review INDICATED 12/28/19 18:25 Urine Culture Comments INDICATED 12/28/19 18:25 Nasal Screen MRSA (PCR) POSITIVE (NEGATIVE) A* 12/29/19 14:05 Urine Opiates Screen POSITIVE (NEGATIVE) H 12/27/19 17:33 Ur Oxycodone Screen NEGATIVE (NEGATIVE) 12/27/19 17:33 Urine Methadone Screen NEGATIVE (NEGATIVE) 12/27/19 17:33 Ur Propoxyphene Screen NEGATIVE (NEGATIVE) 12/27/19 17:33 Ur Barbiturates Screen NEGATIVE (NEGATIVE) 12/27/19 17:33 Ur Tricyclics Screen NEGATIVE (NEGATIVE) 12/27/19 17:33 Ur Phencyclidine Scrn NEGATIVE (NEGATIVE) 12/27/19 17:33 Ur Amphetamine Screen POSITIVE (NEGATIVE) H 12/27/19 17:33 U Methamphetamines Scrn POSITIVE (NEGATIVE) H 12/27/19 17:33 U Benzodiazepines Scrn NEGATIVE (NEGATIVE) 12/27/19 17:33 Urine Cocaine Screen NEGATIVE (NEGATIVE) 12/27/19 17:33 U Cannabinoids Screen NEGATIVE (NEGATIVE) 12/27/19 17:33 GUS Screen NEGATIVE (NEGATIVE) 12/28/19 12:55 Hepatitis A IgM Ab NON-REACTIVE (NON-REACTIVE) 12/28/19 12:55 Hep Bs Antigen NON-REACTIVE (NON-REACTIVE) 12/28/19 12:55 Hep B Core IgM Ab NON-REACTIVE (NON-REACTIVE) 12/28/19 12:55 Hepatitis C Antibody REACTIVE (NON-REACTIVE) A 12/28/19 12:55 Hep C Ab Signal/Cutoff 27.00 (<1.00) H 12/28/19 12:55 Blood Type O POSITIVE 12/30/19 07:27 Blood Type Recheck O POSITIVE 12/30/19 04:30 Antibody Screen NEGATIVE 12/30/19 07:27 Crossmatch IS Only See Detail 12/30/19 07:27
--- NOTE | 2019-12-30 15:38 | ADVANCE CARE PLANNING NOTE ---
Advance Care Planning - Planning Encounter Date: 12/30/19 Time: 15:00 Purpose: To update the immediate next of kin regarding his critical condition and to obtain any updates in family wishes regarding his CODE STATUS. Parties in Attendance: I spoke to the sister Rach by phone, outside the patient's room, and his 2 nurses Miguelina and Evonne, were near me, witnessing the phone call. Decisional Capacity of the Patient: The patient is comatose, status post cardiac arrest yesterday and has no decisional capacity. - Diagnosis for Encounter (1) Coma Summary: Patient has possible hypoxic-brain damage following sucessful resuscitation from yesterday's cardiac arrest. - Encounter Subjective/Patient's Story: Rach describes that Prince is 1 of 3 children and he "always took the worst decisions in life". Their brother Eliu has always been the peacemaker and stabilizing force for all 3 children. Eliu is currently traveling from [place] to come to the patient's bedside. This patient had hepatitis C that was successfully treated. The patient has a history of smoking, alcohol abuse and opiate abuse which she has "tried to shake, unsucessfully". He recently had injury to his lumbar spine that needs medical or surgical management. Rach is aware that the patient is homeless. He has no contact with 3 children: 2 daughters from his previous and a son from some other individual. Rach is the sibling that Prince calls for decision making. Prince was in contact with Eliu about 2 weeks ago but has not seen dentist in 2 years. Aye gave permission for his providers and nurses to speak to Eliu and any children that are contacted. I reviewed with Rach how the patient presented to the hospital and signed out AMA but fell and was brought back and admitted, which was several days ago. He was found to have kidney failure from elevated muscle enzymes, confusion from possible alcohol withdrawal and opiate withdrawal, infection which was likely pulmonary, being treated with antibiotics. His COVID test was negative at admission. He suffered a cardiac arrest yesterday, and is in a coma today. The Echo shows continued preserved LVEF. He has witnessed GI blood loss anemia. He will need a transfusion today. Rach gave me verbal consent to give him blood transfusion. This was then reiterated with discussion with his nurse Evonne by phone. Objective/Medical Story: Patient is comatose, telemetry has stable rhythms, he is off Levophed and blood pressure is stable today. He has worsening bilateral infiltrates on chest x-ray but had witnessed aspiration of bloody stomach contents during the CODE BLUE. He still has abnormal liver function tests, elevated creatinine, elevated CK consistent with rhabdomyolysis. He remains in critical condition in the Intensive Care Unit. Goals of Care: Rach stated she wants everything done to give him best chances for recovery and for awakening after cardiac arrest. I told her that at 72 hours we can make a prognosis regarding neurologic damage and that currently he is at 24 hours. If the patient should have another cardiac arrest, she does want us to try to bring him back with resuscitation, depending on that days level of neurologic recovery. We will be in contact with her frequently regarding his neurologic status, therefore. Plan: Continue with full medical management and ICU care. Continue with full CODE STATUS. Continue to assess his neurologic recovery post cardiac arrest and update the family frequently. The brother Eliu and the patient's 3 children are allowed to hear about the patient's medical conditions and his status. The brother Eliu will be arriving in can be the patient's on retail salesperson allowed into the room. Code Status: Attempt Resuscitation Time spent on advance care plannin min
[2019-12-30] MEDS: levoFLOXacin 750 MG/150 ML 750 MG/150 ML BAG IV SCH (17:26)
[2019-12-30] MEDS: HYDROmorphone 1 MG/ML CARPUJECT IVP PRN (22:30)
[2019-12-30] MEDS ORDERED: ACETAMINOPHEN 1,000 MG/100 ML 100 ML IV ONE (23:48)
[2019-12-31] MEDS: GLYCOPYRROLATE 1 MG/5 ML VIAL SUBQ PRN (00:13)
[2019-12-31] MEDS: SODIUM CHLORIDE FLUSH 0.9% 10 ML SYRINGE IVP SCH ×4 (00:13→20:23)
[2019-12-31] MEDS: MIDAZOLAM DRIP 50 MG/100 ML BAG IV SCH ×3 (01:35→16:00)
[2019-12-31] MEDS: SODIUM CHLORIDE 0.9% 500 ML IV PRN (01:36)
[2019-12-31 01:44] LABS: BASOPHILS % (AUTO) 0.2 %; EOSINOPHILS # (AUTO) 0.3 10^3/uL (0.0-0.7); EOSINOPHILS % (AUTO) 1.9 %; HGB - HEMOGLOBIN 9.2 g/dL (14.0-18.0); LYMPHOCYTES # (AUTO) 0.8 10^3/uL (1.5-3.5); LYMPHOCYTES % (AUTO) 6.2 %; MEAN CORPUSCULAR HEMOGLOBIN 35.5 pg (27.0-31.0); MEAN CORPUSCULAR HGB CONC 33.1 g/dL (32.0-36.0); MEAN CORPUSCULAR VOLUME 107.3 fL (80.0-94.0); MONOCYTES # (AUTO) 1.6 10^3/uL (0.0-1.0); MONOCYTES % (AUTO) 12.1 %; NEUTROPHILS # (AUTO) 10.1 10^3/uL (1.5-6.6); NEUTROPHILS % (AUTO) 78.1 %; PLT - PLATELET COUNT 101 10^3/uL (130-450); RED BLOOD COUNT 2.59 10^6/uL (4.70-6.10); RED CELL DISTRIBUTION WIDTH 15.1 % (12.0-15.0); WHITE BLOOD COUNT 12.9 x10^3/uL (4.8-10.8)
[2019-12-31 02:30] LABS: DIFFERENTIAL COMMENT MANUAL=AUTO DIFF; PLATELET ESTIMATE, MANUAL DECREASED (<130,000) (NORMAL)
[2019-12-31 02:44] LABS: ALBUMIN 2.1 g/dL (3.2-5.5); ALBUMIN/GLOBULIN RATIO 0.8 (1.0-2.2); BILIRUBIN,TOTAL 1.5 mg/dL (0.2-1.0); CALCIUM 7.1 mg/dL (8.5-10.3); CREATININE 2.2 mg/dL (0.6-1.2); MAGNESIUM 2.2 mg/dL (1.7-2.8); TOTAL PROTEIN 4.8 g/dL (6.7-8.2)
[2019-12-31] MEDS ORDERED: VANCOMYCIN INJ 1.5 GM in SODIUM CHLORIDE 0.9% 250 ML IV SCH (03:00)
[2019-12-31] MEDS: METOPROLOL 5 MG/5 ML VIAL IVP SCH ×2 (05:48→18:00)
[2019-12-31] MEDS: metroNIDAZOLE 500 MG/100 ML 500 MG/100 ML BAG IV SCH ×3 (06:03→22:44)
[2019-12-31] MEDS: IPRATROPIUM/ALBUTEROL 3 ML NEB INH SCH (07:27)
[2019-12-31 07:55] LABS: ABG HCO3 18.5 mmol/L (22.0-26.0); ABG PCO2 31 mmHg (34-45); ABG PH 7.39 (7.35-7.45); ABG PO2 112 mmHg (80-100); ABG TCO2 19.4 MMOL/L (21.0-29.0)
[2019-12-31 07:56] LABS: ABG BASE EXCESS -5.8 mmol/L (-2.0-3.0); ABG OXYGEN SATURATION 98 % (94-98)
[2019-12-31] MEDS: ethyl alcohoL 62% SWAB AMPULE NAS SCH ×2 (09:52→20:24)
[2019-12-31] MEDS: [UNRECOGNIZED DRUG - OTHER] IV SCH (10:00)
[2019-12-31] MEDS: FOLIC ACID IV SCH (10:00)
[2019-12-31] MEDS: HYDROmorphone 1 MG/ML CARPUJECT IVP PRN ×5 (10:00→20:59)
[2019-12-31] MEDS: MULTIVITAMIN IV SCH (10:00)
[2019-12-31] MEDS: THIAMINE IV SCH (10:00)
[2019-12-31] MEDS: PANTOPRAZOLE 40 MG VIAL IVP SCH ×2 (10:01→20:23)
[2019-12-31] MEDS: CARBOXYMETHYLCELLULOSE OPHTH DROPS EACHEYE PRN (10:17)
[2019-12-31] MEDS: cefTRIAXone 1 GM in SODIUM CHLORIDE 0.9% MINIBAG 100 ML IV SCH (11:32)
[2019-12-31] MEDS: HYDROCORTISONE 1% CREAM 28 GM TUBE TOP SCH ×2 (12:13→20:23)
[2019-12-31] MEDS ORDERED: SODIUM CHLORIDE INHALATION 3 ML NEB ONE (12:37)
[2019-12-31] MEDS: SODIUM CHLORIDE 0.9% 1,000 ML IV SCH (13:00)
--- NOTE | 2019-12-31 13:47 | PROVIDER PROGRESS NOTE ---
Assessment/Plan - Problem List (1) Cardiac arrest Assessment/Plan: He is 48 hours post cardiac arrest. The troponins went up minimally consistent with demand ischemia but not a new acute NSTEMI. The echo repeated post cardiac arrest, did not show any new wall motion abnormalities, LVEF is still preserved. (2) Coma Assessment/Plan: He has minimal improvement since yesterday: Positive corneal reflex, positive Babinski, minimal grimacing or withdrawal to pain only. I updated the brother, Eliu, regarding waiting 72 hours to watch for neurologic recovery, we would then go on to do a head CT to look for anoxic brain damage. Following that, per [place] law, the 3 children are his closest next of kin and they would have to agree on the next steps. 1 option is to extubate him if there is brain damage. If that would be their choice, the whole family would be allowed to visit since he would be expected to not survive after extubation. (This needs to be okayed by the pastry supervisor since there is currently a restriction on how many people can visit because of Covid restrictions, only one in the same person can visit per hospitalization currently) (3) Aspiration pneumonia of both lower lobes Assessment/Plan: Bilateral fluffy infiltrates were noted on chest x-ray following resuscitation and a new Covid test was sent off, results are still pending. He was witnessed to have aspiration of bloody stomach contents during the CODE BLUE. He had a fever last night, therefore antibiotics were adjusted again to cover both aspiration pneumonia and possible SBP, using Cefepime and Flagyl. Blood cultures have been sent off, no sputum samples. These are neg to date. Await culture results. (4) Hematemesis Assessment/Plan: He still has NG tube with minimal drainage to suction. Hemoglobin did drop from 11 to 8.8 after that witnessed hematemesis and he got 1 unit blood transfused yesterday. The hemoglobin is 9.2 today. He is on Protonix IV twice daily, empiric treatment for PUD treatment. Follow CBC daily. Transfuse if hemoglobin drops under 7. (5) NSTEMI (non-ST elevated myocardial infarction) Assessment/Plan: This was documented before his cardiac arrest with troponins peaking in the 300s. Echo did not show a drop in EF therefore it was subendocardial CO. He is on beta-blockers since blood pressure stable off Levophed x 24 hours. Cannot use aspirin, Lovenox because of the hematemesis (6) Anemia due to GI blood loss Assessment/Plan: Hemoglobin dropped to 7.9 yesterday, he got transfused 1 unit of blood. Hemoglobin is 9.2 today. Follow CBC daily. Will not start oral iron (per NG) if the family will not want aggressive management after 72 hours post-cardiac arrest. (7) VIDHYA (acute kidney injury) Assessment/Plan: He has continued elevated creatinine, it has been improving progressively after resuscitation. Follow BMP daily (8) Rhabdomyolysis Assessment/Plan: Total CK has improved daily since admission, he has been on IV fluids since admission. Improvement of the CK has also helped improve his creatinine. Follow CK daily. (9) Alcohol abuse Assessment/Plan: as per hx. (10) Opioid abuse Assessment/Plan: As per Hx. (11) Elevated LFTs Assessment/Plan: Improved since admission, probably with abstinence off alcohol since then. There is also a past history of hepatitis C. (12) Hypoxia Assessment/Plan: He was hypoxic at admission needed supplemental oxygen. He is on a ventilator now after cardiac arrest, the supplemental oxygen need is decreasing daily. (13) Hypokalemia Assessment/Plan: Related to insufficient parenteral intake. Replace K carefully because of VIDHYA. Follow BMP daily (14) Hypotension Qualifiers: Hypotension type: hemodialysis-associated hypotension Qualified Code(s): I95.3 - Hypotension of hemodialysis Assessment/Plan: Solved. It was multifactorial. (15) Metabolic acidosis Assessment/Plan: Resolved. It was felt to be from sepsis. - Current Meds Current Meds: Current Medications Generic Name Dose Route Start Last Admin Trade Name Freq PRN Reason Stop Dose Admin Albuterol/Ipratropium 3 ml 12/30/19 14:00 12/31/19 07:27 Duoneb INH 3 ml RTBID OWEN Administration Alcohol 1 amp 12/29/19 21:00 12/31/19 09:52 Nozin MERNA 1 amp BID OWEN Administration Carboxymethylcellulose 1 drops 12/30/19 02:53 12/31/19 10:17 Refresh 1% Ophth Drops EACHEYE 1 drops PRN PRN Administration Dry Eye Glycopyrrolate 0.2 mg 12/30/19 23:49 12/31/19 00:13 Robinul SUBQ 0.2 mg Q6H PRN Administration PER PHYSICIAN ORDER Hydrocortisone 1 applic 12/27/19 21:00 12/31/19 12:13 Hydrocortisone TOP Not Given BID OWEN Hydromorphone HCl 1 mg 12/27/19 14:59 12/31/19 12:30 Dilaudid Inj Carp IVP 1 mg Q2H PRN Administration Pain 8 to 10 Midazolam HCl 50 mg in 100 mls @ 7.848 mls/hr 12/29/19 14:00 12/31/19 13:00 Versed Drip IV 0.08 mg/kg/hr .[id number] OWEN 15.696 mls/hr Titration Protocol 0.04 MG/KG/HR Metronidazole 500 mg in 100 mls @ 100 mls/hr 12/29/19 15:00 12/31/19 07:08 Flagyl 500 Mg/100 Ml IV Infused Q8H OWEN Infusion Multivitamins 10 ml/ Folic 1,011.2 mls @ 100 mls/hr 12/29/19 18:00 12/31/19 13:00 Acid 1 mg/ Thiamine HCl 100 mg IV 100 mls/hr / Sodium Chloride DAILY OWEN Infusion Sodium Chloride 500 mls @ 0 mls/hr 12/30/19 04:25 12/31/19 12:00 Normal Saline 0.9% IV 20 mls/hr Q24H PRN Infusion TKO RATE TKO Sodium Chloride 1,000 mls @ 75 mls/hr 12/30/19 08:00 12/31/19 13:00 Normal Saline 0.9% IV Infused .[id number] OWEN Infusion Ceftriaxone Sodium 1 gm/ 100 mls @ 200 mls/hr 12/31/19 11:00 12/31/19 12:05 Sodium Chloride IV Infused DAILY OWEN Infusion Levalbuterol HCl 1.25 mg 12/30/19 13:41 12/31/19 12:39 Xopenex INH 1.25 mg Q4H PRN Administration Shortness of Air/Wheezing Metoprolol Tartrate 2.5 mg 12/29/19 18:00 12/31/19 05:48 Lopressor Inj IVP 2.5 mg Q12H OWEN Administration Ondansetron HCl 4 mg 12/27/19 14:43 12/28/19 08:25 Zofran Inj IVP 4 mg Q6HR PRN Administration Nausea / Vomiting Pantoprazole Sodium 40 mg 12/30/19 10:00 12/31/19 10:01 Protonix IVP 40 mg BID OWEN Administration Sodium Chloride 10 ml 12/27/19 14:43 12/30/19 04:26 Normal Saline Flush 0.9% IVP 10 ml PRN PRN Administration NEEDED PER PROVIDER ORDERS Sodium Chloride 10 ml 12/27/19 17:00 12/31/19 09:52 Normal Saline Flush 0.9% IVP 10 ml 0100,0900,1700 OWEN Administration - Lab Result Fish Bone Diagrams: 12/31/19 01:15 12/31/19 02:10 - Additional Planning My Orders: My Active Orders 12/30/19 13:41 Levalbuterol [Xopenex] 1.25 mg INH Q4H PRN 12/30/19 13:42 Nebulizer/MDI Tx. [RC] .BID 12/30/19 14:00 Ipratropium/Albuterol [Duoneb] 3 ml INH RTBID 12/31/19 11:00 cefTRIAXone [Rocephin] 1 gm Sodium Chloride 0.9% Minibag [Normal Saline 0.9% Minibag] 100 ml IV DAILY 12/31/19 12:44 Airway Suctioning [Suction] [RC] PRN 01/01/20 05:00 CBC - COMP BLD CT W/AUTO DIFF [HEME] DAILYLAB CMP [COMPREHENSIVE METABOLIC PANEL] [CHEM] DAILYLAB 01/02/20 05:00 CBC - COMP BLD CT W/AUTO DIFF [HEME] DAILYLAB CMP [COMPREHENSIVE METABOLIC PANEL] [CHEM] DAILYLAB 01/03/20 05:00 CBC - COMP BLD CT W/AUTO DIFF [HEME] DAILYLAB CMP [COMPREHENSIVE METABOLIC PANEL] [CHEM] DAILYLAB Subjective - Subjective Nursing Reports: Other (sedated or comatose, on vent) Objective Vital Signs: Vital Signs - 24 hr 12/30/19 12/30/19 12/30/19 14:00 15:00 15:58 Temperature 37.3 C Heart Rate 102 H 90 Heart Rate [ 101 H 92 Monitoring electrodes] Respiratory 19 18 18 Rate Blood Pressure 128/66 Blood Pressure 151/62 H 122/55 L [Left Radial artery] Blood Pressure 156/70 H 128/67 [Right Brachial artery] O2 Saturation 94 96 1012/30/19 12/30/19 16:00 16:15 17:00 Temperature 37.6 C H Heart Rate 89 Heart Rate [ 92 87 Monitoring electrodes] Respiratory 18 18 18 Rate Blood Pressure 124/56 L Blood Pressure 125/56 L 145/64 H [Left Radial artery] Blood Pressure 126/70 134/71 H [Right Brachial artery] O2 Saturation 96 97 12/30/19 12/30/19 12/30/19 17:30 18:05 18:13 Temperature 37.7 C H Heart Rate 88 82 Heart Rate [ Monitoring electrodes] Respiratory 18 Rate Blood Pressure 142/74 H 132/68 H Blood Pressure [Left Radial artery] Blood Pressure [Right Brachial artery] O2 Saturation 12/30/19 12/30/19 12/30/19 18:15 18:16 18:20 Temperature 37.7 C H Heart Rate Heart Rate [ 77 80 77 Monitoring electrodes] Respiratory 18 Rate Blood Pressure Blood Pressure 128/70 127/60 [Left Radial artery] Blood Pressure 132/68 H 125/69 [Right Brachial artery] O2 Saturation 97 12/30/19 12/30/19 12/30/19 18:25 18:30 18:40 Temperature Heart Rate Heart Rate [ 77 78 81 Monitoring electrodes] Respiratory Rate Blood Pressure Blood Pressure [Left Radial artery] Blood Pressure 126/68 123/70 123/70 [Right Brachial artery] O2 Saturation 12/30/19 12/30/19 12/30/19 19:00 20:00 20:03 Temperature Heart Rate 93 Heart Rate [ 88 90 Monitoring electrodes] Respiratory 23 21 Rate Blood Pressure Blood Pressure [Left Radial artery] Blood Pressure 149/68 H 164/83 H [Right Brachial artery] O2 Saturation 95 95 12/30/19 12/30/19 12/30/19 20:10 21:16 21:44 Temperature 38.7 C H 38.3 C H Heart Rate Heart Rate [ 96 Monitoring electrodes] Respiratory 21 Rate Blood Pressure Blood Pressure [Left Radial artery] Blood Pressure 159/91 H [Right Brachial artery] O2 Saturation 95 12/30/19 12/30/19 12/30/19 22:00 23:00 23:07 Temperature 38.3 C H Heart Rate 95 Heart Rate [ 96 97 Monitoring electrodes] Respiratory 20 20 Rate Blood Pressure Blood Pressure 164/80 H [Left Radial artery] Blood Pressure 133/77 H [Right Brachial artery] O2 Saturation 95 95 12/31/19 12/31/19 12/31/19 00:00 01:00 01:36 Temperature 38.3 C H Heart Rate 94 Heart Rate [ 99 94 Monitoring electrodes] Respiratory 19 18 Rate Blood Pressure Blood Pressure [Left Radial artery] Blood Pressure 156/86 H 135/76 H [Right Brachial artery] O2 Saturation 96 96 12/31/19 12/31/19 12/31/19 02:00 03:00 04:00 Temperature 39.1 C H 37.3 C Heart Rate Heart Rate [ 94 89 Monitoring electrodes] Respiratory 18 18 Rate Blood Pressure Blood Pressure [Left Radial artery] Blood Pressure 134/76 H 142/66 H [Right Brachial artery] O2 Saturation 96 96 12/31/19 12/31/19 12/31/19 04:23 05:00 05:48 Temperature Heart Rate 86 Heart Rate [ 83 Monitoring electrodes] Respiratory 18 Rate Blood Pressure 143/81 H Blood Pressure [Left Radial artery] Blood Pressure 143/81 H [Right Brachial artery] O2 Saturation 96 12/31/19 12/31/19 12/31/19 06:00 07:00 07:16 Temperature Heart Rate 76 Heart Rate [ 77 78 Monitoring electrodes] Respiratory 18 18 Rate Blood Pressure Blood Pressure [Left Radial artery] Blood Pressure 131/81 H 128/80 [Right Brachial artery] O2 Saturation 96 95 12/31/19 12/31/19 12/31/19 07:31 08:00 09:00 Temperature 36.8 C Heart Rate 80 Heart Rate [ 78 81 Monitoring electrodes] Respiratory 18 18 18 Rate Blood Pressure Blood Pressure 134/65 H 163/71 H [Left Radial artery] Blood Pressure 130/79 150/77 H [Right Brachial artery] O2 Saturation 96 96 12/31/19 12/31/19 12/31/19 09:14 10:00 11:00 Temperature 37.1 C Heart Rate 80 Heart Rate [ 83 72 Monitoring electrodes] Respiratory 22 18 Rate Blood Pressure Blood Pressure 171/76 H 144/66 H [Left Radial artery] Blood Pressure 160/98 H 131/75 H [Right Brachial artery] O2 Saturation 96 96 12/31/19 12/31/19 12/31/19 12:00 12:22 12:42 Temperature Heart Rate 85 73 Heart Rate [ 75 Monitoring electrodes] Respiratory 18 18 Rate Blood Pressure Blood Pressure 166/73 H [Left Radial artery] Blood Pressure 145/87 H [Right Brachial artery] O2 Saturation 98 12/31/19 13:00 Temperature Heart Rate Heart Rate [ 73 Monitoring electrodes] Respiratory 18 Rate Blood Pressure Blood Pressure 139/69 H [Left Radial artery] Blood Pressure 123/73 [Right Brachial artery] O2 Saturation 97 Oxygen O2 Source Mechanical ventilator I&O (Last 24 Hrs): Intake and Output Totals x24h 12/29/19 12/30/19 12/31/19 23:59 23:59 23:59 Intake Total 3058.213 6837.457 2248.121 Output Total 536 1241 1095 Balance 2522.213 5596.457 1153.121 General: Other (Comatose) HEENT: Mucous membr. moist/pink, Other (Intubated, ng tube in place) Neck: No JVD Neuro: Other (Comatose) Cardiovascular: Regular rate, No murmurs Respiratory: No respiratory distress (On vent) Abdomen: Other (Distended, probable fluid wave.) Genitourinary: Other ([place] in place) Extremities: No edema - Results Results: Laboratory Results WBC 12.9 x10^3/uL (4.8-10.8) H 12/31/19 01:15 RBC 2.59 10^6/uL (4.70-6.10) L 12/31/19 01:15 Hgb 9.2 g/dL (14.0-18.0) L 12/31/19 01:15 Hct 27.8 % (42.0-52.0) L 12/31/19 01:15 MCV 107.3 fL (80.0-94.0) H 12/31/19 01:15 MCH 35.5 pg (27.0-31.0) H 12/31/19 01:15 MCHC 33.1 g/dL (32.0-36.0) 12/31/19 01:15 RDW 15.1 % (12.0-15.0) H 12/31/19 01:15 Plt Count 101 10^3/uL (130-450) L 12/31/19 01:15 MPV 10.0 fL (7.4-11.4) 12/31/19 01:15 Neut # (Auto) 10.1 10^3/uL (1.5-6.6) H 12/31/19 01:15 Lymph # (Auto) 0.8 10^3/uL (1.5-3.5) L 12/31/19 01:15 [place] # (Auto) 1.6 10^3/uL (0.0-1.0) H 12/31/19 01:15 Eos # (Auto) 0.3 10^3/uL (0.0-0.7) 12/31/19 01:15 Baso # (Auto) 0.0 10^3/uL (0.0-0.1) 12/31/19 01:15 Absolute Nucleated RBC 0.02 x10^3/uL 12/31/19 01:15 Total Counted 100 12/29/19 13:45 Band Neuts % (Manual) Not Reportable 12/31/19 01:15 Abnorm Lymph % (Manual) Not Reportable 12/31/19 01:15 Metamyelocytes % 1 % (-0) H 12/29/19 13:45 Nucleated RBC % 0.2 /100WBC 12/31/19 01:15 Neutrophils # (Manual) Not Reportable 12/31/19 01:15 Lymphocytes # (Manual) Not Reportable 12/31/19 01:15 Monocytes # (Manual) Not Reportable 12/31/19 01:15 Eosinophils # (Manual) Not Reportable 12/31/19 01:15 Basophils # (Manual) Not Reportable 12/31/19 01:15 Differential Comment MANUAL=AUTO DIFF 12/31/19 01:15 WBC Morphology NORMAL APPEARANCE (NORMAL) 12/29/19 13:45 Platelet Estimate DECREASED (<130,000) (NORMAL) 12/31/19 01:15 Platelet Morphology NORMAL APPEARANCE (NORMAL) 12/29/19 13:45 RBC Morph Micro Appear 1+ MACROCYTOSIS (NORMAL) 1+ HYPOCHROMASIA (NORMAL) 12/31/19 01:15 RBC Morph Micro Appear 1+ MACROCYTOSIS (NORMAL) 1+ HYPOCHROMASIA (NORMAL) 12/31/19 01:15 PT 16.6 secs (9.9-12.6) H 12/29/19 13:45 INR 1.5 (0.8-1.2) H 12/29/19 13:45 Bld Gas Analysis Time 0609 12/31/19 06:09 Sample Site A-LINE 12/31/19 06:09 ABG pH 7.39 (7.35-7.45) 12/31/19 06:09 ABG pCO2 31 mmHg (34-45) L 12/31/19 06:09 ABG pO2 112 mmHg (80-100) H 12/31/19 06:09 ABG HCO3 18.5 mmol/L (22.0-26.0) L 12/31/19 06:09 ABG Total CO2 19.4 MMOL/L (21.0-29.0) L 12/31/19 06:09 ABG O2 Saturation 98 % (94-98) 12/31/19 06:09 ABG Base Excess -5.8 mmol/L (-2.0-3.0) L 12/31/19 06:09 Andrew Test NOT APPLICABLE 12/31/19 06:09 VBG pH 6.953 (7.31-7.41) L 12/29/19 13:45 VBG pCO2 65.6 mmHg (41-51) H 12/29/19 13:45 VBG pO2 50.5 mmHg (25-47) H 12/29/19 13:45 VBG HCO3 14.2 mmol/L (23-28) L 12/29/19 13:45 VBG Total CO2 16.2 mmol/L (24-29) L 12/29/19 13:45 VBG O2 Saturation 75.7 % (60-80) 12/29/19 13:45 VBG Base Excess -18.2 mmol/L (-2 - +2) L 12/29/19 13:45 Respiration Rate 18 b/min 12/31/19 06:09 Room Air YES 12/27/19 15:25 O2 Delivery Device VENTILATOR 12/30/19 10:55 Vent Mode SIMV 12/31/19 06:09 FiO2 45.00 12/31/19 06:09 Tidal Volume 500 mL 12/31/19 06:09 PEEP 5 cmH2O 12/31/19 06:09 Pressure Support Vent 10 cmH2O 12/31/19 06:09 Sodium 139 mmol/L (135-145) 12/31/19 02:10 Potassium 3.3 mmol/L (3.5-5.0) L 12/31/19 02:10 Chloride 109 mmol/L (101-111) 12/31/19 02:10 Carbon Dioxide 20 mmol/L (21-32) L 12/31/19 02:10 Anion Gap 10.0 (6-13) 12/31/19 02:10 BUN 41 mg/dL (6-20) H 12/31/19 02:10 Creatinine 2.2 mg/dL (0.6-1.2) H 12/31/19 02:10 Estimated GFR (MDRD) 30 (>89) L 12/31/19 02:10 Glucose 103 mg/dL (70-100) H 12/31/19 02:10 POC Whole Bld Glucose 116 mg/dL (70 - 100) H 12/30/19 11:53 Lactic Acid 1.4 mmol/L (0.5-2.2) 12/29/19 22:06 Calcium 7.1 mg/dL (8.5-10.3) L 12/31/19 02:10 Phosphorus 3.0 mg/dL (2.5-4.6) 12/31/19 02:10 Magnesium 2.2 mg/dL (1.7-2.8) 12/31/19 02:10 Total Bilirubin 1.5 mg/dL (0.2-1.0) H 12/31/19 02:10 AST 117 IU/L (10-42) H 12/31/19 02:10 ALT 79 IU/L (10-60) H 12/31/19 02:10 Alkaline Phosphatase 75 IU/L (42-121) 12/31/19 02:10 Total Creatine Kinase 556 IU/L (22-269) H 12/31/19 02:10 Troponin I High Sens 458.4 ng/L (2.3-19.7) H* 12/30/19 04:30 B-Natriuretic Peptide 413 pg/mL (5-100) H 12/29/19 13:45 Total Protein 4.8 g/dL (6.7-8.2) L 12/31/19 02:10 Albumin 2.1 g/dL (3.2-5.5) L 12/31/19 02:10 Globulin 2.7 g/dL (2.1-4.2) 12/31/19 02:10 Albumin/Globulin Ratio 0.8 (1.0-2.2) L 12/31/19 02:10 Folate 5.28 ng/mL (5.90 - >24.8) L 12/28/19 04:50 Urine Color STRAW 12/28/19 18:25 Urine Clarity HAZY (CLEAR) 12/28/19 18:25 Urine pH 5.0 PH (5.0-7.5) 12/28/19 18:25 Ur Specific Diamond >=1.030 (1.002-1.030) H 12/28/19 18:25 Urine Protein 30 mg/dL (NEGATIVE) H 12/28/19 18:25 Urine Glucose (UA) NEGATIVE mg/dL (NEGATIVE) 12/28/19 18:25 Urine Ketones TRACE mg/dL (NEGATIVE) 12/28/19 18:25 Urine Occult Blood LARGE (NEGATIVE) H 12/28/19 18:25 Urine Nitrite NEGATIVE (NEGATIVE) 12/28/19 18:25 Urine Bilirubin NEGATIVE (NEGATIVE) 12/28/19 18:25 Urine Urobilinogen 0.2 (NORMAL) E.U./dL (NORMAL) 12/28/19 18:25 Ur Leukocyte Esterase SMALL (NEGATIVE) H 12/28/19 18:25 Urine RBC 11-25 /HPF (0-5) H 12/28/19 18:25 Urine WBC 11-25 /HPF (0-3) H 12/28/19 18:25 Ur Squamous Epith Cells FEW Squamous (<= Few) 12/28/19 18:25 Amorphous Sediment Marked /LPF 12/28/19 18:25 Urine Bacteria Moderate /HPF (None Seen) H 12/28/19 18:25 Urine Casts 11-25 Fine Granular /LPF 12/28/19 18:25 Ur Microscopic Review INDICATED 12/28/19 18:25 Urine Culture Comments INDICATED 12/28/19 18:25 Nasal Screen MRSA (PCR) POSITIVE (NEGATIVE) A* 12/29/19 14:05 Urine Opiates Screen POSITIVE (NEGATIVE) H 12/27/19 17:33 Ur Oxycodone Screen NEGATIVE (NEGATIVE) 12/27/19 17:33 Urine Methadone Screen NEGATIVE (NEGATIVE) 12/27/19 17:33 Ur Propoxyphene Screen NEGATIVE (NEGATIVE) 12/27/19 17:33 Ur Barbiturates Screen NEGATIVE (NEGATIVE) 12/27/19 17:33 Ur Tricyclics Screen NEGATIVE (NEGATIVE) 12/27/19 17:33 Ur Phencyclidine Scrn NEGATIVE (NEGATIVE) 12/27/19 17:33 Ur Amphetamine Screen POSITIVE (NEGATIVE) H 12/27/19 17:33 U Methamphetamines Scrn POSITIVE (NEGATIVE) H 12/27/19 17:33 U Benzodiazepines Scrn NEGATIVE (NEGATIVE) 12/27/19 17:33 Urine Cocaine Screen NEGATIVE (NEGATIVE) 12/27/19 17:33 U Cannabinoids Screen NEGATIVE (NEGATIVE) 12/27/19 17:33 GUS Screen NEGATIVE (NEGATIVE) 12/28/19 12:55 Hepatitis A IgM Ab NON-REACTIVE (NON-REACTIVE) 12/28/19 12:55 Hep Bs Antigen NON-REACTIVE (NON-REACTIVE) 12/28/19 12:55 Hep B Core IgM Ab NON-REACTIVE (NON-REACTIVE) 12/28/19 12:55 Hepatitis C Antibody REACTIVE (NON-REACTIVE) A 12/28/19 12:55 Hep C Ab Signal/Cutoff 27.00 (<1.00) H 12/28/19 12:55 Blood Type O POSITIVE 12/30/19 07:27 Blood Type Recheck O POSITIVE 12/30/19 04:30 Antibody Screen NEGATIVE 12/30/19 07:27 Crossmatch IS Only See Detail 12/30/19 07:27
--- NOTE | 2019-12-31 17:47 | ADVANCE CARE PLANNING NOTE ---
Advance Care Planning - Planning Encounter Date: 12/31/19 Time: 14:30 Purpose: To establish the patient's CODE STATUS. Parties in Attendance: I spoke to the patient's oldest brother, Eliu, who has traveled here from [place] and is at bedside, outside of the patient's room. Decisional Capacity of the Patient: The patient is still comatose and has no decision making ability. - Diagnosis for Encounter (1) Coma Summary: Patient has not had change in neurologic status since yesterday. He is now 48 hours post cardiac arrest and successful resuscitation with ROSC. - Encounter Subjective/Patient's Story: As per yesterday's note. Today the brother, Eliu, reported that the patient mostly relied on Eliu to make any major decisions. He spoke with his Sister Brittaney however more frequently but not about major decisions. Eliu says that the patient has spoken about not being on life support if he is in a vegetative state. Objective/Medical Story: Patient had a cardiac arrest while here, he probably has anoxic brain damage. We are awaiting 72 hours to determine if there is return of neurologic function. squadron worker met with the brother Eliu earlier today, informed him that per [place] state law, the 3 children are the immediate next of kin. All 3 of them need to agree on management for their father. The plan will be to get CT of the head tomorrow, if there is anoxic brain damage, a decision to extubate him would have to come from all 3 children. Eliu will speak to all 3 children. We will be in contact with Eliu and the 3 children regarding their decision which needs to be in agreement between all 3 children. Additional Discussion: Eliu, would like the patient to be a DNR in case of any future cardiac arrest however we need to obtain agreement for this from all 3 children. Thus far we have had contact with the son, not the 2 daughters yet. The son agrees with his uncle, Eliu. Code Status: Attempt Resuscitation Time spent on advance care plannin min.
[2019-12-31] MEDS: SODIUM CHLORIDE FLUSH 0.9% 10 ML SYRINGE IVP PRN (20:59)
[2019-12-31] MEDS: CHLORHEXIDINE GLUCONATE 15 ML UDC PO SCH (22:44)
[2020-01-01] MEDS: SODIUM CHLORIDE FLUSH 0.9% 10 ML SYRINGE IVP PRN ×8 (00:41→20:45)
[2020-01-01] MEDS: MIDAZOLAM DRIP 50 MG/100 ML BAG IV SCH ×4 (00:41→17:16)
[2020-01-01] MEDS: SODIUM CHLORIDE 0.9% 1,000 ML IV SCH ×2 (00:44→06:33)
[2020-01-01] MEDS: GLYCOPYRROLATE 1 MG/5 ML VIAL SUBQ PRN ×2 (00:58→05:53)
[2020-01-01] MEDS: SODIUM CHLORIDE 0.9% 500 ML IV PRN (02:17)
[2020-01-01 05:11] LABS: ABG BASE EXCESS -6.3 mmol/L (-2.0-3.0); ABG HCO3 17.6 mmol/L (22.0-26.0); ABG OXYGEN SATURATION 94 % (94-98); ABG PCO2 29 mmHg (34-45); ABG PO2 75 mmHg (80-100); ABG TCO2 18.5 MMOL/L (21.0-29.0)
[2020-01-01 05:35] LABS: BASOPHILS # (AUTO) 0.1 10^3/uL (0.0-0.1); BASOPHILS % (AUTO) 0.4 %; EOSINOPHILS # (AUTO) 0.3 10^3/uL (0.0-0.7); EOSINOPHILS % (AUTO) 1.8 %; LYMPHOCYTES % (AUTO) 6.8 %; MEAN CORPUSCULAR HEMOGLOBIN 35.2 pg (27.0-31.0); MEAN CORPUSCULAR HGB CONC 32.4 g/dL (32.0-36.0); MEAN CORPUSCULAR VOLUME 108.6 fL (80.0-94.0); MEAN PLATELET VOLUME 10.2 fL (7.4-11.4); MONOCYTES # (AUTO) 1.6 10^3/uL (0.0-1.0); MONOCYTES % (AUTO) 11.5 %; NEUTROPHILS # (AUTO) 11.1 10^3/uL (1.5-6.6); NEUTROPHILS % (AUTO) 78.7 %; PLT - PLATELET COUNT 89 10^3/uL (130-450); RED BLOOD COUNT 2.56 10^6/uL (4.70-6.10); RED CELL DISTRIBUTION WIDTH 15.1 % (12.0-15.0); WHITE BLOOD COUNT 14.1 x10^3/uL (4.8-10.8)
[2020-01-01 05:43] LABS: ALBUMIN/GLOBULIN RATIO 0.7 (1.0-2.2); BILIRUBIN,TOTAL 1.1 mg/dL (0.2-1.0); CALCIUM 7.4 mg/dL (8.5-10.3); CREATININE 1.4 mg/dL (0.6-1.2); TOTAL PROTEIN 4.9 g/dL (6.7-8.2)
[2020-01-01] MEDS: METOPROLOL 5 MG/5 ML VIAL IVP SCH ×2 (05:53→20:36)
[2020-01-01 05:57] LABS: PLATELET ESTIMATE, MANUAL DECREASED (<130,000) (NORMAL); PLATELET MORPHOLOGY NORMAL APPEARANCE (NORMAL)
[2020-01-01 06:28] LABS: MAGNESIUM 2.1 mg/dL (1.7-2.8); PHOSPHORUS 2.6 mg/dL (2.5-4.6)
[2020-01-01] MEDS: metroNIDAZOLE 500 MG/100 ML 500 MG/100 ML BAG IV SCH ×3 (06:33→22:59)
[2020-01-01] MEDS: IPRATROPIUM/ALBUTEROL 3 ML NEB INH SCH ×3 (07:59→19:20)
[2020-01-01] MEDS: cefTRIAXone 1 GM in SODIUM CHLORIDE 0.9% MINIBAG 100 ML IV SCH (09:06)
[2020-01-01] MEDS: ethyl alcohoL 62% SWAB AMPULE NAS SCH ×2 (09:06→20:40)
[2020-01-01] MEDS: PANTOPRAZOLE 40 MG VIAL IVP SCH ×2 (09:06→20:39)
[2020-01-01] MEDS: CHLORHEXIDINE GLUCONATE 15 ML UDC PO SCH ×2 (09:06→20:40)
[2020-01-01] MEDS: [UNRECOGNIZED DRUG - OTHER] IV SCH (09:07)
[2020-01-01] MEDS: FOLIC ACID IV SCH (09:07)
[2020-01-01] MEDS: THIAMINE IV SCH (09:07)
[2020-01-01] MEDS: MULTIVITAMIN IV SCH (09:07)
[2020-01-01] MEDS: HYDROCORTISONE 1% CREAM 28 GM TUBE TOP SCH ×2 (09:07→20:41)
[2020-01-01] MEDS: SODIUM CHLORIDE FLUSH 0.9% 10 ML SYRINGE IVP SCH ×3 (09:07→20:39)
[2020-01-01] MEDS ORDERED: METOPROLOL 5 MG/5 ML VIAL IVP SCH ×2 (11:00→21:00)
[2020-01-01] MEDS: LORazepam 2 MG/ML VIAL IVP PRN (12:45)
[2020-01-01] MEDS ORDERED: MORPHINE 2 MG/ML CARPUJECT IVP ONE (13:22)
--- NOTE | 2020-01-01 14:24 | XRAY Report ---
PROCEDURE: Chest 1 View X-Ray INDICATIONS: Tachypnea TECHNIQUE: One view of the chest was acquired. COMPARISON: Chest x-ray 12/27/2019 FINDINGS: Surgical changes and devices: Endotracheal tube is present approximately 3 cm superior to the clifford. Nasogastric tube is present with distal tip projecting below the left hemidiaphragm. Lungs and pleura: Diffuse appearance of increased pulmonary vascularity and patchy opacities. Mediastinum: Mediastinal contours appear normal. Heart size is mildly prominent. Bones and chest wall: No suspicious bony lesions. Overlying soft tissues appear unremarkable. IMPRESSION: Diffuse increased vascularity with patchy opacities as above. This overall is most suggestive of rita a. Areas of superimposed developing pneumonia and/or atelectasis cannot be excluded. Reviewed by: Tania Felder MD on 01/01/2020 2:22 PM PDT Approved by: Tania Felder MD on 01/01/2020 2:22 PM PDT Station ID: [id number]
--- NOTE | 2020-01-01 14:40 | CT Report ---
PROCEDURE: HEAD WO INDICATIONS: Evaluation for anoxic brain injury TECHNIQUE: Noncontrast 4.5 mm thick angled axial sections acquired from the foramen magnum to the vertex. For r adiation dose reduction, the following was used: automated exposure control, adjustment of mA and/or kV according to patient size. COMPARISON: None. FINDINGS: Image quality: Excellent. CSF spaces: Basal cisterns are patent. No extra-axial fluid collections. Ventricles are normal in size and shape. Brain: No acute intracranial hemorrhage. Trammell-white matter differentiation is maintained, without CT evidence of acute infarct or diffuse vasogenic edema. Sinuses: Visualized sinuses and mastoids are clear. IMPRESSION: No CT evidence of anoxic brain injury. Please note that MRI is more sensitive and is recommended if t here is continued clinical concern for this entity. Reviewed by: David Yeboah MD on 01/01/2020 2:38 PM PDT Approved by: David Yeboah MD on 01/01/2020 2:38 PM PDT Station ID: [id number]
[2020-01-01] MEDS ORDERED: FUROSEMIDE 20 MG/2 ML VIAL IVP STA (16:01)
[2020-01-01] MEDS ORDERED: VANCOMYCIN INJ 2 GM, VANCOMYCIN INJ 500 MG in SODIUM CHLORIDE 0.9% 500 ML IV SCH (18:00)
--- NOTE | 2020-01-01 18:10 | PROVIDER PROGRESS NOTE ---
Assessment/Plan - Problem List (1) FUO (fever of unknown origin) Assessment/Plan: He continues to have an oscillating elevated white blood count and recurrent fevers. After cardiac arrest the assumption was the fever was from either SBP or aspiration pneumonia. Blood cultures repeated to check for bacteremia. Echo has been done twice, there are no signs of endocarditis. TODAY THE BROTHER REPORTED THAT THE PT HAS BEEN GETTING TREATMENT FOR RECURRENT INFECTIONS. This was not known at the time of admission but we had no contact with the sister, who was the only one listed in his contacts, for the first 3 days. We will try to reach his PCP to determine the history of this and what they were treating however it is over 1700 on a Saturday right now. Will broaden his antibiotics using Cefepime, Vanco and Metronidazole. (2) Pulmonary edema Assessment/Plan: His respiratory rate is increased and FiO2 demands have increased over the past 24 hours. Chest x-ray today shows new pulmonary edema. We will give 1 dose of IV Lasix. Decrease sodium in parenteral IV fluids. (3) Coma Assessment/Plan: Etiology of persistent coma not clear. This morning, the low dose of iv Versed drip was turned off and neuro exam was repeated sand showed no changes, however his resp rate and HR and BP increased. Today he had a head CT to evaluate for Anoxic brain damage and there were no changes to suggest this. Metabolic derangements may be adding to this persistent coma. Fever and an infection may be adding to this persistent coma. The 3 children have given consent to have the brother, who was at bedside, [place] from [place], make medical decisions on the spot. I told the brother about the above findings of the CT head. The brother wants to continue with vent support and aggressive medical care in the ICU. Yesterday however, the patient was made DNR going forward, if he should have another cardiac arrest. Also, his 2 daughters, who have been estranged from him since their teen years, have desired to visit him. They both live in [place]. Their visitation will be allowed, despite the standard hospital restrictions for visitors during this COVID era. (4) Cardiac arrest Assessment/Plan: No lethal arrhythmias on telemetry. He is on IV beta-nader treatment with good heart rate control between 60 and 90. (5) Aspiration pneumonia of both lower lobes Assessment/Plan: Was witnessed at the time of the CODE BLUE. He was put on antibiotics to cover aspiration pneumonia and HCAP. To biotics were adjusted today, is (6) Hematemesis Assessment/Plan: This was witnessed at the time of the CODE BLUE. He has been on Protonix 40 mg IV twice daily for presumptive PUD. He has been too unstable to undergo EGD. Will begin NG tube feeds today. (7) Anemia due to GI blood loss Assessment/Plan: Hemoglobin has been stable after 1 unit PRBCs transfused, when he was witnessed to have hematemesis and hemoglobin drop. Follow CBC daily (8) VIDHYA (acute kidney injury) Assessment/Plan: This was multifactorial and improving daily with IV fluids. Positive BMP daily (9) Rhabdomyolysis Assessment/Plan: This added to the VIDHYA. CK is decreased in a serial manner ever since admission and IV fluids begun (10) Alcohol abuse Assessment/Plan: As per Hx Is getting IV banana bag. (11) Opioid abuse Assessment/Plan: As per Hx (12) Elevated LFTs Assessment/Plan: Presumed to be due to alcohol use then had a slight increase after the code from probable shock liver. LFTs are improving daily since then (13) MRSA carrier Assessment/Plan: He is getting standard alcohol treatment - Current Meds Current Meds: Current Medications Generic Name Dose Route Start Last Admin Trade Name Freq PRN Reason Stop Dose Admin Albuterol/Ipratropium 3 ml 12/30/19 14:00 01/01/20 07:59 Duoneb INH 3 ml RTBID OWEN Administration Alcohol 1 amp 12/29/19 21:00 01/01/20 09:06 Nozin MERNA 1 amp BID OWEN Administration Carboxymethylcellulose 1 drops 12/30/19 02:53 12/31/19 10:17 Refresh 1% Ophth Drops EACHEYE 1 drops PRN PRN Administration Dry Eye Chlorhexidine Gluconate 15 ml 12/31/19 22:00 01/01/20 09:06 Peridex PO 15 ml BID OWEN Administration Glycopyrrolate 0.2 mg 12/30/19 23:49 01/01/20 05:53 Robinul SUBQ 0.2 mg Q6H PRN Administration PER PHYSICIAN ORDER Hydrocortisone 1 applic 12/27/19 21:00 01/01/20 09:07 Hydrocortisone TOP Not Given BID OWEN Metronidazole 500 mg in 100 mls @ 100 mls/hr 12/29/19 15:00 01/01/20 17:27 Flagyl 500 Mg/100 Ml IV Infused Q8H OWEN Infusion Multivitamins 10 ml/ Folic 1,011.2 mls @ 100 mls/hr 12/29/19 18:00 01/01/20 09:07 Acid 1 mg/ Thiamine HCl 100 mg IV 100 mls/hr / Sodium Chloride DAILY OWEN Administration Sodium Chloride 500 mls @ 0 mls/hr 12/30/19 04:25 01/01/20 06:51 Normal Saline 0.9% IV 20 mls/hr Q24H PRN Infusion TKO RATE TKO Midazolam HCl 50 mg in 100 mls @ 8.32 mls/hr 01/01/20 14:00 01/01/20 17:16 Versed Drip IV 0.08 mg/kg/hr .Q12H2M OWEN 16.64 mls/hr Administration Protocol 0.04 MG/KG/HR Vancomycin HCl 2 gm/ 500 mls @ 250 mls/hr 01/01/20 18:00 01/01/20 18:04 Vancomycin HCl 500 mg/ Sodium IV 01/01/20 20:00 250 mls/hr Chloride ONCE OWEN Administration Levalbuterol HCl 1.25 mg 12/30/19 13:41 12/31/19 12:39 Xopenex INH 1.25 mg Q4H PRN Administration Shortness of Air/Wheezing Lorazepam 2 mg 12/29/19 06:34 01/01/20 12:45 Ativan Inj (Vial) IVP 2 mg Q6H PRN Administration Agitation Ondansetron HCl 4 mg 12/27/19 14:43 12/28/19 08:25 Zofran Inj IVP 4 mg Q6HR PRN Administration Nausea / Vomiting Pantoprazole Sodium 40 mg 12/30/19 10:00 01/01/20 09:06 Protonix IVP 40 mg BID OWEN Administration Sodium Chloride 10 ml 12/27/19 14:43 01/01/20 10:53 Normal Saline Flush 0.9% IVP 10 ml PRN PRN Administration NEEDED PER PROVIDER ORDERS Sodium Chloride 10 ml 12/27/19 17:00 01/01/20 16:28 Normal Saline Flush 0.9% IVP 10 ml 0100,0900,1700 OWEN Administration - Lab Result Fish Bone Diagrams: 01/02/20 04:25 01/02/20 15:58 - Additional Planning My Orders: My Active Orders 01/01/20 14:00 Midazolam Drip [Versed Drip] 50 mg in 100 ml IV 0.04 mg/kg/hr 01/01/20 16:00 Morphine Inj (Carpuject) [Morphine (Carpuject)] 2 mg IVP Q3HR PRN 01/01/20 17:32 Tube Feeding [RC] QSHIFT 01/01/20 17:35 Vancomycin: Pharmacy To Dose [Vancomycin-Pharmacy To Dose] 1 each IV ONCE PRN 01/01/20 17:50 BNP - B-NATRIURETIC PEPTIDE [IAI] Stat LACTIC ACID, VENOUS [CHEM] Stat 01/01/20 18:00 Vancomycin Inj [Vancomycin] 2 gm Vancomycin Inj 500 mg Sodium Chloride 0.9% [Normal Saline 0.9%] 500 ml IV ONCE 01/01/20 21:00 Metoprolol Inj [Lopressor Inj] 2.5 mg IVP Q8H 01/01/20 22:00 Cefepime 1 gm Sodium Chloride 0.9% Minibag [Normal Saline 0.9% Minibag] 100 ml IV Q8H 01/02/20 05:00 BNP - B-NATRIURETIC PEPTIDE [IAI] DAILYLAB CBC - COMP BLD CT W/AUTO DIFF [HEME] DAILYLAB CMP [COMPREHENSIVE METABOLIC PANEL] [CHEM] DAILYLAB 01/03/20 05:00 CBC - COMP BLD CT W/AUTO DIFF [HEME] DAILYLAB CMP [COMPREHENSIVE METABOLIC PANEL] [CHEM] DAILYLAB Subjective - Subjective Patient Reports: Other (Comatose) Objective Vital Signs: Vital Signs - 24 hr 12/31/19 12/31/19 12/31/19 19:00 19:59 20:00 Temperature 37.2 C 37.2 C Heart Rate 65 Heart Rate [ 69 66 Monitoring electrodes] Respiratory 18 18 Rate Blood Pressure Blood Pressure 164/70 H 176/75 H [Left Radial artery] Blood Pressure 145/75 H 145/75 H [Right Brachial artery] O2 Saturation 69 L 96 12/31/19 12/31/19 12/31/19 21:00 22:00 23:00 Temperature 36.9 C Heart Rate Heart Rate [ 77 69 65 Monitoring electrodes] Respiratory 23 18 18 Rate Blood Pressure Blood Pressure 150/87 H 169/85 H 174/90 H [Left Radial artery] Blood Pressure 109/66 126/67 136/76 H [Right Brachial artery] O2 Saturation 92 97 98 12/31/19 01/01/20 01/01/20 23:15 00:00 00:58 Temperature 36.9 C Heart Rate 65 79 Heart Rate [ 67 Monitoring electrodes] Respiratory 18 Rate Blood Pressure Blood Pressure 189/99 H [Left Radial artery] Blood Pressure 136/80 H [Right Brachial artery] O2 Saturation 97 01/01/20 01/01/20 01/01/20 01:00 02:00 03:00 Temperature 37 C Heart Rate Heart Rate [ 78 84 79 Monitoring electrodes] Respiratory 18 18 18 Rate Blood Pressure Blood Pressure 160/67 H 157/64 H 140/60 H [Left Radial artery] Blood Pressure 145/71 H 135/69 H 126/68 [Right Brachial artery] O2 Saturation 94 94 95 01/01/20 01/01/20 01/01/20 03:09 04:00 05:00 Temperature 37 C Heart Rate 80 Heart Rate [ 85 84 Monitoring electrodes] Respiratory 24 18 Rate Blood Pressure Blood Pressure 132/60 H 142/63 H [Left Radial artery] Blood Pressure 135/73 H 147/71 H [Right Brachial artery] O2 Saturation 95 96 01/01/20 01/01/20 01/01/20 05:16 05:53 06:00 Temperature Heart Rate 88 Heart Rate [ 84 Monitoring electrodes] Respiratory 18 Rate Blood Pressure 153/67 H Blood Pressure 126/55 L [Left Radial artery] Blood Pressure 133/70 H [Right Brachial artery] O2 Saturation 95 01/01/20 01/01/20 01/01/20 07:00 07:46 08:00 Temperature 37 C Heart Rate 84 85 Heart Rate [ 84 Monitoring electrodes] Respiratory 21 34 H Rate Blood Pressure Blood Pressure 138/64 H [Left Radial artery] Blood Pressure 150/75 H [Right Brachial artery] O2 Saturation 96 01/01/20 01/01/20 01/01/20 09:00 09:55 10:00 Temperature 37.8 C H Heart Rate 91 Heart Rate [ 83 82 Monitoring electrodes] Respiratory 21 19 Rate Blood Pressure Blood Pressure 148/65 H 135/59 H [Left Radial artery] Blood Pressure [Right Brachial artery] O2 Saturation 96 96 01/01/20 01/01/20 01/01/20 10:52 11:00 11:05 Temperature Heart Rate Heart Rate [ 80 79 Monitoring electrodes] Respiratory 18 18 Rate Blood Pressure 159/72 H Blood Pressure 148/64 H 152/66 H [Left Radial artery] Blood Pressure [Right Brachial artery] O2 Saturation 97 97 01/01/20 01/01/20 01/01/20 11:10 11:20 11:35 Temperature Heart Rate Heart Rate [ 85 79 83 Monitoring electrodes] Respiratory 18 18 22 Rate Blood Pressure Blood Pressure 155/67 H 147/62 H 160/69 H [Left Radial artery] Blood Pressure [Right Brachial artery] O2 Saturation 97 97 97 01/01/20 01/01/20 01/01/20 11:51 11:56 12:00 Temperature 38.2 C H Heart Rate 87 Heart Rate [ 86 91 Monitoring electrodes] Respiratory 32 H 38 H Rate Blood Pressure Blood Pressure 160/69 H 159/83 H [Left Radial artery] Blood Pressure [Right Brachial artery] O2 Saturation 96 01/01/20 01/01/20 01/01/20 13:00 14:00 14:36 Temperature 38.1 C H Heart Rate 98 Heart Rate [ 89 99 Monitoring electrodes] Respiratory 38 H 36 H Rate Blood Pressure Blood Pressure 170/80 H 158/71 H [Left Radial artery] Blood Pressure [Right Brachial artery] O2 Saturation 96 96 01/01/20 01/01/20 01/01/20 15:00 16:00 17:00 Temperature 37.6 C H Heart Rate Heart Rate [ 80 82 86 Monitoring electrodes] Respiratory 21 18 19 Rate Blood Pressure Blood Pressure 121/60 159/76 H 157/76 H [Left Radial artery] Blood Pressure [Right Brachial artery] O2 Saturation 97 97 97 01/01/20 01/01/20 17:19 18:00 Temperature Heart Rate 87 Heart Rate [ 86 Monitoring electrodes] Respiratory 19 Rate Blood Pressure Blood Pressure 160/78 H [Left Radial artery] Blood Pressure [Right Brachial artery] O2 Saturation 98 Oxygen O2 Source Mechanical ventilator I&O (Last 24 Hrs): Intake and Output Totals x24h 12/30/19 12/31/19 01/01/20 23:59 23:59 23:59 Intake Total 6837.457 4062.876 1114.431 Output Total 8801 5679 1313 Balance 9700.457 2006.525 -340.492 General: Other (Comatose, on vent) HEENT: Mucous membr. moist/pink Neuro: Other (Minimal withdrawal to pain, no posturing, no doll's eyes, Babinski not reactive) Cardiovascular: Regular rate Respiratory: No respiratory distress, Other (On vent) Abdomen: Soft, Other (Mildly distended, diminished bowel sound) Extremities: No edema - Results Results: Laboratory Results WBC 14.1 x10^3/uL (4.8-10.8) H 01/01/20 04:30 RBC 2.56 10^6/uL (4.70-6.10) L 01/01/20 04:30 Hgb 9.0 g/dL (14.0-18.0) L 01/01/20 04:30 Hct 27.8 % (42.0-52.0) L 01/01/20 04:30 MCV 108.6 fL (80.0-94.0) H 01/01/20 04:30 MCH 35.2 pg (27.0-31.0) H 01/01/20 04:30 MCHC 32.4 g/dL (32.0-36.0) 01/01/20 04:30 RDW 15.1 % (12.0-15.0) H 01/01/20 04:30 Plt Count 89 10^3/uL (130-450) L 01/01/20 04:30 MPV 10.2 fL (7.4-11.4) 01/01/20 04:30 Neut # (Auto) 11.1 10^3/uL (1.5-6.6) H 01/01/20 04:30 Lymph # (Auto) 1.0 10^3/uL (1.5-3.5) L 01/01/20 04:30 [place] # (Auto) 1.6 10^3/uL (0.0-1.0) H 01/01/20 04:30 Eos # (Auto) 0.3 10^3/uL (0.0-0.7) 01/01/20 04:30 Baso # (Auto) 0.1 10^3/uL (0.0-0.1) 01/01/20 04:30 Absolute Nucleated RBC 0.00 x10^3/uL 01/01/20 04:30 Total Counted 100 12/29/19 13:45 Band Neuts % (Manual) Not Reportable 12/31/19 01:15 Abnorm Lymph % (Manual) Not Reportable 12/31/19 01:15 Metamyelocytes % 1 % (-0) H 12/29/19 13:45 Nucleated RBC % 0.0 /100WBC 01/01/20 04:30 Neutrophils # (Manual) Not Reportable 12/31/19 01:15 Lymphocytes # (Manual) Not Reportable 12/31/19 01:15 Monocytes # (Manual) Not Reportable 12/31/19 01:15 Eosinophils # (Manual) Not Reportable 12/31/19 01:15 Basophils # (Manual) Not Reportable 12/31/19 01:15 Differential Comment MANUAL=AUTO DIFF 12/31/19 01:15 Manual Slide Review Indicated 01/01/20 04:30 WBC Morphology NORMAL APPEARANCE (NORMAL) 12/29/19 13:45 Platelet Estimate DECREASED (<130,000) (NORMAL) 01/01/20 04:30 Platelet Morphology NORMAL APPEARANCE (NORMAL) 01/01/20 04:30 RBC Morph Micro Appear 1+ ANISOCYTOSIS (NORMAL) 1+ HYPOCHROMASIA (NORMAL) 1+ MACROCYTOSIS (NORMAL) 01/01/20 04:30 RBC Morph Micro Appear 1+ ANISOCYTOSIS (NORMAL) 1+ HYPOCHROMASIA (NORMAL) 1+ MACROCYTOSIS (NORMAL) 01/01/20 04:30 RBC Morph Micro Appear 1+ ANISOCYTOSIS (NORMAL) 1+ HYPOCHROMASIA (NORMAL) 1+ MACROCYTOSIS (NORMAL) 01/01/20 04:30 PT 16.6 secs (9.9-12.6) H 12/29/19 13:45 INR 1.5 (0.8-1.2) H 12/29/19 13:45 Bld Gas Analysis Time 0512 01/01/20 05:00 Sample Site A-LINE 12/31/19 06:09 ABG pH 7.40 (7.35-7.45) 01/01/20 05:00 ABG pCO2 29 mmHg (34-45) L 01/01/20 05:00 ABG pO2 75 mmHg (80-100) L 01/01/20 05:00 ABG HCO3 17.6 mmol/L (22.0-26.0) L 01/01/20 05:00 ABG Total CO2 18.5 MMOL/L (21.0-29.0) L 01/01/20 05:00 ABG O2 Saturation 94 % (94-98) 01/01/20 05:00 ABG Base Excess -6.3 mmol/L (-2.0-3.0) L 01/01/20 05:00 Andrew Test NOT APPLICABLE 01/01/20 05:00 VBG pH 6.953 (7.31-7.41) L 12/29/19 13:45 VBG pCO2 65.6 mmHg (41-51) H 12/29/19 13:45 VBG pO2 50.5 mmHg (25-47) H 12/29/19 13:45 VBG HCO3 14.2 mmol/L (23-28) L 12/29/19 13:45 VBG Total CO2 16.2 mmol/L (24-29) L 12/29/19 13:45 VBG O2 Saturation 75.7 % (60-80) 12/29/19 13:45 VBG Base Excess -18.2 mmol/L (-2 - +2) L 12/29/19 13:45 Respiration Rate 18 b/min 01/01/20 05:00 Room Air YES 12/27/19 15:25 O2 Delivery Device VENTILATOR 01/01/20 05:00 Vent Mode SIMV 01/01/20 05:00 FiO2 40.00 01/01/20 05:00 Tidal Volume 500 mL 01/01/20 05:00 PEEP 5 cmH2O 01/01/20 05:00 Pressure Support Vent 10 cmH2O 01/01/20 05:00 Sodium 144 mmol/L (135-145) 01/01/20 04:30 Potassium 3.5 mmol/L (3.5-5.0) 01/01/20 04:30 Chloride 115 mmol/L (101-111) H 01/01/20 04:30 Carbon Dioxide 18 mmol/L (21-32) L 01/01/20 04:30 Anion Gap 11.0 (6-13) 01/01/20 04:30 BUN 37 mg/dL (6-20) H 01/01/20 04:30 Creatinine 1.4 mg/dL (0.6-1.2) H 01/01/20 04:30 Estimated GFR (MDRD) 50 (>89) L 01/01/20 04:30 Glucose 96 mg/dL (70-100) 01/01/20 04:30 POC Whole Bld Glucose 82 mg/dL (70 - 100) 01/01/20 06:00 Lactic Acid 1.4 mmol/L (0.5-2.2) 12/29/19 22:06 Calcium 7.4 mg/dL (8.5-10.3) L 01/01/20 04:30 Phosphorus 2.6 mg/dL (2.5-4.6) 01/01/20 04:50 Magnesium 2.1 mg/dL (1.7-2.8) 01/01/20 04:50 Total Bilirubin 1.1 mg/dL (0.2-1.0) H 01/01/20 04:30 AST 63 IU/L (10-42) H 01/01/20 04:30 ALT 55 IU/L (10-60) 01/01/20 04:30 Alkaline Phosphatase 72 IU/L (42-121) 01/01/20 04:30 Total Creatine Kinase 556 IU/L (22-269) H 12/31/19 02:10 Troponin I High Sens 458.4 ng/L (2.3-19.7) H* 12/30/19 04:30 B-Natriuretic Peptide 413 pg/mL (5-100) H 12/29/19 13:45 Total Protein 4.9 g/dL (6.7-8.2) L 01/01/20 04:30 Albumin 2.0 g/dL (3.2-5.5) L 01/01/20 04:30 Globulin 2.9 g/dL (2.1-4.2) 01/01/20 04:30 Albumin/Globulin Ratio 0.7 (1.0-2.2) L 01/01/20 04:30 Folate 5.28 ng/mL (5.90 - >24.8) L 12/28/19 04:50 Urine Color STRAW 12/28/19 18:25 Urine Clarity HAZY (CLEAR) 12/28/19 18:25 Urine pH 5.0 PH (5.0-7.5) 12/28/19 18:25 Ur Specific [place] >=1.030 (1.002-1.030) H 12/28/19 18:25 Urine Protein 30 mg/dL (NEGATIVE) H 12/28/19 18:25 Urine Glucose (UA) NEGATIVE mg/dL (NEGATIVE) 12/28/19 18:25 Urine Ketones TRACE mg/dL (NEGATIVE) 12/28/19 18:25 Urine Occult Blood LARGE (NEGATIVE) H 12/28/19 18:25 Urine Nitrite NEGATIVE (NEGATIVE) 12/28/19 18:25 Urine Bilirubin NEGATIVE (NEGATIVE) 12/28/19 18:25 Urine Urobilinogen 0.2 (NORMAL) E.U./dL (NORMAL) 12/28/19 18:25 Ur Leukocyte Esterase SMALL (NEGATIVE) H 12/28/19 18:25 Urine RBC 11-25 /HPF (0-5) H 12/28/19 18:25 Urine WBC 11-25 /HPF (0-3) H 12/28/19 18:25 Ur Squamous Epith Cells FEW Squamous (<= Few) 12/28/19 18:25 Amorphous Sediment Marked /LPF 12/28/19 18:25 Urine Bacteria Moderate /HPF (None Seen) H 12/28/19 18:25 Urine Casts 11-25 Fine Granular /LPF 12/28/19 18:25 Ur Microscopic Review INDICATED 12/28/19 18:25 Urine Culture Comments INDICATED 12/28/19 18:25 Nasal Screen MRSA (PCR) POSITIVE (NEGATIVE) A* 12/29/19 14:05 Urine Opiates Screen POSITIVE (NEGATIVE) H 12/27/19 17:33 Ur Oxycodone Screen NEGATIVE (NEGATIVE) 12/27/19 17:33 Urine Methadone Screen NEGATIVE (NEGATIVE) 12/27/19 17:33 Ur Propoxyphene Screen NEGATIVE (NEGATIVE) 12/27/19 17:33 Ur Barbiturates Screen NEGATIVE (NEGATIVE) 12/27/19 17:33 Ur Tricyclics Screen NEGATIVE (NEGATIVE) 12/27/19 17:33 Ur Phencyclidine Scrn NEGATIVE (NEGATIVE) 12/27/19 17:33 Ur Amphetamine Screen POSITIVE (NEGATIVE) H 12/27/19 17:33 U Methamphetamines Scrn POSITIVE (NEGATIVE) H 12/27/19 17:33 U Benzodiazepines Scrn NEGATIVE (NEGATIVE) 12/27/19 17:33 Urine Cocaine Screen NEGATIVE (NEGATIVE) 12/27/19 17:33 U Cannabinoids Screen NEGATIVE (NEGATIVE) 12/27/19 17:33 GUS Screen NEGATIVE (NEGATIVE) 12/28/19 12:55 Coronavirus (PCR) NEGATIVE 12/29/19 21:10 Hepatitis A IgM Ab NON-REACTIVE (NON-REACTIVE) 12/28/19 12:55 Hep Bs Antigen NON-REACTIVE (NON-REACTIVE) 12/28/19 12:55 Hep B Core IgM Ab NON-REACTIVE (NON-REACTIVE) 12/28/19 12:55 Hepatitis C Antibody REACTIVE (NON-REACTIVE) A 12/28/19 12:55 Hep C Ab Signal/Cutoff 27.00 (<1.00) H 12/28/19 12:55 Blood Type O POSITIVE 12/30/19 07:27 Blood Type Recheck O POSITIVE 12/30/19 04:30 Antibody Screen NEGATIVE 12/30/19 07:27 Crossmatch IS Only See Detail 12/30/19 07:27
--- NOTE | 2020-01-01 18:16 | PHARMACY PROGRESS NOTE ---
- Therapy Status Vancomycin regimen day #: 1 Therapy status: Awaiting steady state Basis for treatment: Empirical Trough goal: 15-20 Concurrent antibiotics: CEFEPIME 1G Q8H - VIDHYA Risk Risk level for Acute Kidney Injury: Moderate Acute Kidney Injury risk factors: Wt >100kg or BMI >40 - Monitoring and Recommendation Clinical response to treatment: I&O Previous 24 hours 12/30/19 12/31/19 01/01/20 23:59 23:59 23:59 Intake Total 6837.457 4062.876 1114.431 Output Total 8837 0292 7317 Balance 5596.457 2006.876 -340.569 Lab Results 01/01/20 12/31/19 12/30/19 04:30 02:10 04:30 BUN 37 H 41 H 39 H Creatinine 1.4 H 2.2 H 2.7 H Estimated GFR (MDRD) 50 L 30 L 24 L 12/29/19 12/29/19 12/28/19 13:45 05:10 12:55 BUN 36 H 34 H 28 H Creatinine 3.5 H 3.4 H 3.5 H Estimated GFR (MDRD) 17 L 18 L 17 L 12/28/19 12/27/19 04:50 19:40 BUN 22 H 17 Creatinine 3.4 H 2.8 H Estimated GFR (MDRD) 18 L 23 L Cultures 12/31/19 02:20 Blood Blood Culture - Preliminary NO GROWTH AFTER 1 DAY 12/31/19 02:10 Blood Blood Culture - Preliminary NO GROWTH AFTER 1 DAY 12/29/19 16:00 Blood Blood Culture - Preliminary NO GROWTH AFTER 2 DAYS 12/29/19 16:00 Blood Blood Culture - Preliminary NO GROWTH AFTER 2 DAYS 12/28/19 18:25 Urine,Clean Catch Urine Culture - Final Staphylococcus Epidermidis 12/28/19 18:10 Blood - Right Hand Blood Culture - Preliminary NO GROWTH AFTER 2 DAYS 12/28/19 17:35 Blood - Left Arm Blood Culture - Preliminary NO GROWTH AFTER 2 DAYS Monitoring plan: Daily serum creatinine (12/31 VANCOMYCIN INITIATED PER MD - UNKNOWN SOURCE - NO GROWTH 2.5GM LOADING DOSE X1 MAINTENACE DOSE = 2G Q24H T1/2 = ~15H SCR: 1.4 MG/Dl, CRCL: ~59.1 ML/MIN TROUGH SCHEDULED FOR 01/02 @ 1100)
[2020-01-01] MEDS: CARBOXYMETHYLCELLULOSE OPHTH DROPS EACHEYE PRN (20:40)
[2020-01-01] MEDS: CEFEPIME 1 GM in SODIUM CHLORIDE 0.9% MINIBAG 100 ML IV SCH (21:48)
[2020-01-02] MEDS: MIDAZOLAM DRIP 50 MG/100 ML BAG IV SCH ×4 (00:41→21:00)
[2020-01-02] MEDS: LORazepam 2 MG/ML VIAL IVP PRN (01:37)
[2020-01-02] MEDS: SODIUM CHLORIDE 0.9% 500 ML IV PRN ×2 (02:59→20:14)
[2020-01-02] MEDS: METOPROLOL 5 MG/5 ML VIAL IVP SCH ×3 (05:10→20:26)
[2020-01-02] MEDS: SODIUM CHLORIDE FLUSH 0.9% 10 ML SYRINGE IVP PRN ×5 (05:11→20:26)
[2020-01-02 05:40] LABS: BASOPHILS % (AUTO) 0.4 %; MEAN CORPUSCULAR HEMOGLOBIN 35.9 pg (27.0-31.0); MEAN CORPUSCULAR HGB CONC 32.7 g/dL (32.0-36.0); MEAN CORPUSCULAR VOLUME 109.6 fL (80.0-94.0); MEAN PLATELET VOLUME 10.2 fL (7.4-11.4); MONOCYTES % (AUTO) 12.9 %; NEUTROPHILS % (AUTO) 76.6 %; PLT - PLATELET COUNT 104 10^3/uL (130-450); RED BLOOD COUNT 2.51 10^6/uL (4.70-6.10); RED CELL DISTRIBUTION WIDTH 15.3 % (12.0-15.0); WHITE BLOOD COUNT 13.8 x10^3/uL (4.8-10.8)
[2020-01-02 05:46] LABS: ABNORMAL LYMPHS % (MANUAL) 0 %; BAND NEUTROPHILS % (MANUAL) 0 %
[2020-01-02] MEDS: CEFEPIME 1 GM in SODIUM CHLORIDE 0.9% MINIBAG 100 ML IV SCH ×3 (05:48→21:35)
[2020-01-02 05:53] LABS: ABG PCO2 30 mmHg (34-45); ABG PH 7.43 (7.35-7.45)
[2020-01-02 05:54] LABS: ABG BASE EXCESS -3.9 mmol/L (-2.0-3.0); ABG HCO3 19.6 mmol/L (22.0-26.0); ABG OXYGEN SATURATION 97 % (94-98); ABG PO2 96 mmHg (80-100); ABG TCO2 20.6 MMOL/L (21.0-29.0)
[2020-01-02 05:57] LABS: MAGNESIUM 1.8 mg/dL (1.7-2.8); PHOSPHORUS 2.4 mg/dL (2.5-4.6)
[2020-01-02 06:00] LABS: ALBUMIN 1.9 g/dL (3.2-5.5); ALBUMIN/GLOBULIN RATIO 0.6 (1.0-2.2); CALCIUM 7.7 mg/dL (8.5-10.3); CREATININE 1.2 mg/dL (0.6-1.2); TOTAL PROTEIN 4.9 g/dL (6.7-8.2)
[2020-01-02 06:15] LABS: LYMPHOCYTES # (MANUAL) 0.3 10^3/uL (1.5-3.5); LYMPHOCYTES % (MANUAL) 2 %; MONOCYTES # (MANUAL) 1.2 10^3/uL (0.0-1.0); MYELOCYTES % (MANUAL) 1 %; PLATELET ESTIMATE, MANUAL DECREASED (<130,000) (NORMAL); PLATELET MORPHOLOGY NORMAL APPEARANCE (NORMAL); RBC MORPHOLOGY (MULTIPLE) NORMAL APPEARANCE (NORMAL)
[2020-01-02 06:16] LABS: DIFFERENTIAL COMMENT MANUAL DIFFERENTIAL
[2020-01-02] MEDS: POTASSIUM CHLOR 10 MEQ/100 ML 10 MEQ/100 ML BAG IV SCH ×4 (06:36→14:05)
[2020-01-02] MEDS: metroNIDAZOLE 500 MG/100 ML 500 MG/100 ML BAG IV SCH ×3 (06:41→22:28)
[2020-01-02] MEDS: IPRATROPIUM/ALBUTEROL 3 ML NEB INH SCH ×2 (07:23→19:15)
[2020-01-02] MEDS: MORPHINE 2 MG/ML CARPUJECT IVP PRN ×2 (08:15→15:15)
[2020-01-02] MEDS: [UNRECOGNIZED DRUG - OTHER] IV SCH (09:30)
[2020-01-02] MEDS: MULTIVITAMIN IV SCH (09:30)
[2020-01-02] MEDS: FOLIC ACID IV SCH (09:30)
[2020-01-02] MEDS: THIAMINE IV SCH (09:30)
[2020-01-02] MEDS: PANTOPRAZOLE 40 MG VIAL IVP SCH ×2 (09:59→20:25)
[2020-01-02] MEDS: CHLORHEXIDINE GLUCONATE 15 ML UDC PO SCH ×2 (09:59→20:25)
[2020-01-02] MEDS: ethyl alcohoL 62% SWAB AMPULE NAS SCH ×2 (09:59→20:25)
[2020-01-02] MEDS ORDERED: NEUTRA-PHOS 250 MG TABLET PO SCH (10:00)
[2020-01-02] MEDS: SODIUM CHLORIDE FLUSH 0.9% 10 ML SYRINGE IVP SCH ×3 (10:00→20:25)
[2020-01-02] MEDS: HYDROCORTISONE 1% CREAM 28 GM TUBE TOP SCH ×2 (10:00→20:59)
[2020-01-02] MEDS ORDERED: POTASSIUM PHOSPHATE 15 MMOL in SODIUM CHLORIDE 0.9% 250 ML IV ONE (11:00)
--- NOTE | 2020-01-02 11:06 | PROVIDER PROGRESS NOTE ---
Assessment/Plan - Problem List (1) Hypernatremia Assessment/Plan: Sodium is 150 today along with a high serum chloride of 123. This is likely from his saline rehydration started since admission and continued in the ICU after the cardiac arrest. Will stop the IV banana bag which is in NS, since he is getting NG feeds now. Will increase the free water intake in the NG feeds from 10 mL an hour to 20 mL an hour. We will give a low dose rate of D5 (for free water treatment) via peripheral IV x 24 hours. We will recheck serum sodium in 8 to 12 hours. Because he needs imaging with contrast, will hold off on the imaging until the serum sodium is corrected, in order to avoid hyperosmolarity from high sodium plus IV contrast. (2) FUO (fever of unknown origin) Assessment/Plan: His antibiotics were broadened yesterday. He is still having an elevated and fluctuating white blood count. He is still having fevers daily. Will redo imaging of sinuses, chest, abdomen and pelvis to evaluate for source of infection. The CT imaging will have to await correction of his hypernatremia since imaging will be done with contrast, since a serum hyperosmolar load could affect [employer] osmolarity is well. (3) Pulmonary edema Assessment/Plan: He received IV Lasix x1 yesterday when chest x-ray showed pulmonary edema. We will be getting chest imaging with a CT scan today, as above. Yesterday his saline in the fluids were decreased. Today will stop the iv banana bag which is an NS, and give free water as described above, for hypernatremia. His respiratory status is still intermittently climbing to 40, will give Lasix IV x1 again today. (4) Coma Assessment/Plan: Etiology of persistent coma not clear. Yesterday the low dose of iv Versed drip was turned off and neuro exam was repeated and showed no changes, however his resp rate and HR and BP increased. He was then returned on Versed, got Morphine iv and had a head CT to evaluate for anoxic brain damage and there were no changes to suggest this. Metabolic derangements may be adding to this persistent coma. Fever and an infection may be adding to this persistent coma. The 3 children have given consent to have the brother, who was at bedside, [place] from [place], make medical decisions on the spot. I told the brother about the above findings of the CT head. The brother yesterday said he wanted to continue with vent support and aggressive medical care in the ICU. However, the patient has been made a DNR going forward, if he should have another cardiac arrest. Also, his 2 daughters, who have been estranged from him since their teen years, have desired to visit him. They both live in [place]. Their visitation will be allowed, despite the standard hospital restrictions for visitors during this COVID era. They are arriving today. (5) Cardiac arrest Assessment/Plan: No further lethal arrhythmias seen on telemetry since then. He may have had a respiratory arrest leading to hypoxic, bradycardia then asystole/V. fib. He did not re-rule in for an CT after that cardiac arrest. LVEF has been checked twice, once at admission and once after the cardiac arrest and it remains preserved with LVEF 60%. He is getting IV beta-nader for management. He is now DNR status, in case there is a future cardiac arrest, per the family's wishes. (6) Aspiration pneumonia of both lower lobes Assessment/Plan: He was witnessed to have aspiration during the time of the CODE BLUE. The contents were bloody. Antibiotics were started then for aspiration/HCAP. CT imaging of the chest is pending later today, when serum Na corrected. (7) Hematemesis Assessment/Plan: This was witnessed at the time of the CODE BLUE. He did have a drop in hemoglobin and received 1 unit PRBCs after the CODE BLUE. He has been on IV Protonix twice daily since that time. NG feeds have started yesterday. (8) Anemia due to GI blood loss Assessment/Plan: Hemoglobin stabilized after receiving 1 unit PRBCs. Follow CBC daily (9) VIDHYA (acute kidney injury) Assessment/Plan: He continues to have prerenal azotemia, this is now exacerbated by his hypernatremia. Will treat with free water administration today as above. Will order imaging with contrast, when the above is corrected. Follow BMP daily (10) Rhabdomyolysis Assessment/Plan: Admission CK was 6000 down to 500s yesterday. This may have added to VIDHYA. Following CK til it is in normal range. (11) Alcohol abuse Assessment/Plan: As per Hx. He was getting IV banana bag ever since admission. Will change his thiamine and MVI to be given per NG, Banana bag will stop. (12) Opioid abuse Assessment/Plan: As per Hx (13) Elevated LFTs Assessment/Plan: This was presumed to be due to his alcohol intake. The LFTs increased after the code, probably from shock liver. The LFTs have essentially all normalized now. CT of the abdomen is to be done later today. (14) MRSA carrier Assessment/Plan: Getting alcohol treatment per protocol (15) Hypokalemia Assessment/Plan: Replace. Follow BMP daily. (16) Hypophosphatemia Assessment/Plan: Related to inadequate intake. We will replace with oral meds per ng. - Current Meds Current Meds: Current Medications Generic Name Dose Route Start Last Admin Trade Name Freq PRN Reason Stop Dose Admin Albuterol/Ipratropium 3 ml 12/30/19 14:00 01/02/20 07:23 Duoneb INH 3 ml RTBID OWEN Administration Alcohol 1 amp 12/29/19 21:00 01/02/20 09:59 Nozin MERNA 1 amp BID OWEN Administration Carboxymethylcellulose 1 drops 12/30/19 02:53 01/01/20 20:40 Refresh 1% Ophth Drops EACHEYE 1 drops PRN PRN Administration Dry Eye Chlorhexidine Gluconate 15 ml 12/31/19 22:00 01/02/20 09:59 Peridex PO 15 ml BID OWEN Administration Glycopyrrolate 0.2 mg 12/30/19 23:49 01/01/20 05:53 Robinul SUBQ 0.2 mg Q6H PRN Administration PER PHYSICIAN ORDER Hydrocortisone 1 applic 12/27/19 21:00 01/02/20 10:00 Hydrocortisone TOP Not Given BID OWEN Metronidazole 500 mg in 100 mls @ 100 mls/hr 12/29/19 15:00 01/02/20 07:40 Flagyl 500 Mg/100 Ml IV Infused Q8H OWEN Infusion Sodium Chloride 500 mls @ 0 mls/hr 12/30/19 04:25 01/02/20 09:00 Normal Saline 0.9% IV 20 mls/hr Q24H PRN Infusion TKO RATE TKO Midazolam HCl 50 mg in 100 mls @ 8.32 mls/hr 01/01/20 14:00 01/02/20 10:00 Versed Drip IV 0.08 mg/kg/hr .Q12H2M OWEN 16.64 mls/hr Titration Protocol 0.04 MG/KG/HR Cefepime HCl 1 gm/ Sodium 100 mls @ 200 mls/hr 01/01/20 22:00 01/02/20 06:25 Chloride IV Infused Q8H OWEN Infusion Levalbuterol HCl 1.25 mg 12/30/19 13:41 12/31/19 12:39 Xopenex INH 1.25 mg Q4H PRN Administration Shortness of Air/Wheezing Lorazepam 2 mg 12/29/19 06:34 01/02/20 01:37 Ativan Inj (Vial) IVP 2 mg Q6H PRN Administration Agitation Metoprolol Tartrate 5 mg 01/01/20 21:00 01/02/20 05:10 Lopressor Inj IVP 5 mg Q8H OWEN Administration Morphine Sulfate 2 mg 01/01/20 16:00 01/02/20 08:15 Morphine (Carpuject) IVP 2 mg Q3HR PRN Administration Dyspnea Ondansetron HCl 4 mg 12/27/19 14:43 12/28/19 08:25 Zofran Inj IVP 4 mg Q6HR PRN Administration Nausea / Vomiting Pantoprazole Sodium 40 mg 12/30/19 10:00 01/02/20 09:59 Protonix IVP 40 mg BID OWEN Administration Sodium Chloride 10 ml 12/27/19 14:43 01/02/20 10:00 Normal Saline Flush 0.9% IVP 10 ml PRN PRN Administration NEEDED PER PROVIDER ORDERS Sodium Chloride 10 ml 12/27/19 17:00 01/02/20 10:00 Normal Saline Flush 0.9% IVP 10 ml 0100,0900,1700 OWEN Administration Sodium Phosphate 500 mg 01/02/20 10:00 01/02/20 10:00 K-Phos Neutral PO 01/02/20 12:00 500 mg ONCE OWEN Administration - Lab Result Fish Bone Diagrams: 01/02/20 04:25 01/02/20 15:58 - Additional Planning My Orders: My Active Orders 01/01/20 14:00 Midazolam Drip [Versed Drip] 50 mg in 100 ml IV 0.04 mg/kg/hr 01/01/20 16:00 Morphine Inj (Carpuject) [Morphine (Carpuject)] 2 mg IVP Q3HR PRN 01/01/20 17:32 Tube Feeding [RC] QSHIFT 01/01/20 22:00 Cefepime 1 gm Sodium Chloride 0.9% Minibag [Normal Saline 0.9% Minibag] 100 ml IV Q8H 01/02/20 09:00 POTASSIUM [CHEM] DAILY 01/02/20 10:00 Neutra-Phos [K-Phos Neutral] 500 mg PO ONCE 01/02/20 11:00 Dextrose 5% [D5w] 1,000 ml IV 40 mls/hr 01/02/20 12:00 Vancomycin Inj [Vancomycin] 2 gm Sodium Chloride 0.9% [Normal Saline 0.9%] 500 ml IV Q24H 01/03/20 05:00 CBC - COMP BLD CT W/AUTO DIFF [HEME] DAILYLAB CMP [COMPREHENSIVE METABOLIC PANEL] [CHEM] DAILYLAB Subjective - Subjective Patient Reports: Other (Comatose, intubated) Objective Vital Signs: Vital Signs - 24 hr 01/01/20 01/01/20 01/01/20 11:05 11:10 11:20 Temperature Heart Rate Heart Rate [ 79 85 79 Monitoring electrodes] Respiratory 18 18 18 Rate Blood Pressure Blood Pressure 152/66 H 155/67 H 147/62 H [Left Radial artery] Blood Pressure [Right Brachial artery] O2 Saturation 97 97 97 01/01/20 01/01/20 01/01/20 11:35 11:51 11:56 Temperature Heart Rate 87 Heart Rate [ 83 86 Monitoring electrodes] Respiratory 22 32 H Rate Blood Pressure Blood Pressure 160/69 H 160/69 H [Left Radial artery] Blood Pressure [Right Brachial artery] O2 Saturation 97 01/01/20 01/01/20 01/01/20 12:00 13:00 14:00 Temperature 38.2 C H 38.1 C H Heart Rate Heart Rate [ 91 89 99 Monitoring electrodes] Respiratory 38 H 38 H 36 H Rate Blood Pressure Blood Pressure 159/83 H 170/80 H 158/71 H [Left Radial artery] Blood Pressure [Right Brachial artery] O2 Saturation 96 96 96 01/01/20 01/01/20 01/01/20 14:36 15:00 16:00 Temperature 37.6 C H Heart Rate 98 Heart Rate [ 80 82 Monitoring electrodes] Respiratory 21 18 Rate Blood Pressure Blood Pressure 121/60 159/76 H [Left Radial artery] Blood Pressure [Right Brachial artery] O2 Saturation 97 97 01/01/20 01/01/20 01/01/20 17:00 17:19 18:00 Temperature Heart Rate 87 Heart Rate [ 86 86 Monitoring electrodes] Respiratory 19 19 Rate Blood Pressure Blood Pressure 157/76 H 160/78 H [Left Radial artery] Blood Pressure [Right Brachial artery] O2 Saturation 97 98 01/01/20 01/01/20 01/01/20 19:00 19:20 20:00 Temperature 37.2 C Heart Rate 79 Heart Rate [ 81 80 Monitoring electrodes] Respiratory 22 18 25 H Rate Blood Pressure Blood Pressure 142/131 H [Left Radial artery] Blood Pressure 173/92 H 166/80 H [Right Brachial artery] O2 Saturation 98 99 01/01/20 01/01/20 01/01/20 20:36 21:00 21:50 Temperature Heart Rate 70 Heart Rate [ 68 Monitoring electrodes] Respiratory 25 H Rate Blood Pressure 166/80 H Blood Pressure 162/74 H [Left Radial artery] Blood Pressure 144/86 H [Right Brachial artery] O2 Saturation 99 01/01/20 01/01/20 01/01/20 22:00 23:00 23:45 Temperature 37 C Heart Rate 70 Heart Rate [ 70 70 Monitoring electrodes] Respiratory 26 H 25 H Rate Blood Pressure Blood Pressure 120/95 H 136/101 H [Left Radial artery] Blood Pressure 159/85 H 160/92 H [Right Brachial artery] O2 Saturation 98 99 01/02/20 01/02/20 01/02/20 00:00 01:00 01:50 Temperature 37.1 C Heart Rate 81 Heart Rate [ 72 76 Monitoring electrodes] Respiratory 29 H 34 H Rate Blood Pressure Blood Pressure 165/74 H 169/76 H [Left Radial artery] Blood Pressure 165/84 H 168/89 H [Right Brachial artery] O2 Saturation 99 98 01/02/20 01/02/20 01/02/20 02:00 03:00 03:35 Temperature 37.1 C 37.3 C Heart Rate 73 Heart Rate [ 80 78 Monitoring electrodes] Respiratory 33 H 23 Rate Blood Pressure Blood Pressure 147/65 H 146/65 H [Left Radial artery] Blood Pressure 155/81 H 151/78 H [Right Brachial artery] O2 Saturation 97 98 01/02/20 01/02/20 01/02/20 04:00 05:00 05:10 Temperature Heart Rate Heart Rate [ 72 68 Monitoring electrodes] Respiratory 18 18 Rate Blood Pressure 146/77 H Blood Pressure 133/65 H 142/68 H [Left Radial artery] Blood Pressure 140/79 H 146/77 H [Right Brachial artery] O2 Saturation 97 96 01/02/20 01/02/20 01/02/20 05:30 06:00 07:00 Temperature 37.3 C Heart Rate 61 Heart Rate [ 69 77 Monitoring electrodes] Respiratory 18 34 H Rate Blood Pressure Blood Pressure 139/61 H 114/94 H [Left Radial artery] Blood Pressure 145/77 H 136/77 H [Right Brachial artery] O2 Saturation 97 96 01/02/20 01/02/20 01/02/20 07:24 08:00 09:00 Temperature Heart Rate 78 Heart Rate [ 78 71 Monitoring electrodes] Respiratory 36 H 32 H 18 Rate Blood Pressure Blood Pressure 159/73 H 136/66 H [Left Radial artery] Blood Pressure 141/76 H 141/76 H [Right Brachial artery] O2 Saturation 97 96 01/02/20 01/02/20 09:53 10:00 Temperature Heart Rate 72 Heart Rate [ 89 Monitoring electrodes] Respiratory 22 Rate Blood Pressure Blood Pressure 133/58 H [Left Radial artery] Blood Pressure 138/65 H [Right Brachial artery] O2 Saturation 97 Oxygen O2 Source Mechanical ventilator I&O (Last 24 Hrs): Intake and Output Totals x24h 12/31/19 01/01/20 01/02/20 23:59 23:59 23:59 Intake Total 4062.876 3750.631 1519.440 Output Total 2055 2305 575 Balance 2007.876 1445.631 944.440 General: Other (Comatose, intubated) HEENT: Mucous membr. moist/pink Neuro: Other (Grimaces minimally to pain, no posturing, Babinski non-reactive) Cardiovascular: Regular rate Respiratory: No respiratory distress, Other (On vent) Abdomen: Soft, Other (Distended, no bowel sounds) Extremities: No edema (Warm and dry) - Results Results: Laboratory Results WBC 13.8 x10^3/uL (4.8-10.8) H 01/02/20 04:25 RBC 2.51 10^6/uL (4.70-6.10) L 01/02/20 04:25 Hgb 9.0 g/dL (14.0-18.0) L 01/02/20 04:25 Hct 27.5 % (42.0-52.0) L 01/02/20 04:25 MCV 109.6 fL (80.0-94.0) H 01/02/20 04:25 MCH 35.9 pg (27.0-31.0) H 01/02/20 04:25 MCHC 32.7 g/dL (32.0-36.0) 01/02/20 04:25 RDW 15.3 % (12.0-15.0) H 01/02/20 04:25 Plt Count 104 10^3/uL (130-450) L 01/02/20 04:25 MPV 10.2 fL (7.4-11.4) 01/02/20 04:25 Neut # (Auto) Not Reportable 01/02/20 04:25 Lymph # (Auto) Not Reportable 01/02/20 04:25 Giles # (Auto) Not Reportable 01/02/20 04:25 Eos # (Auto) Not Reportable 01/02/20 04:25 Baso # (Auto) Not Reportable 01/02/20 04:25 Absolute Nucleated RBC Not Reportable 01/02/20 04:25 Total Counted 100 01/02/20 04:25 Band Neuts % (Manual) 0 % (0-10) 01/02/20 04:25 Abnorm Lymph % (Manual) 0 % 01/02/20 04:25 Metamyelocytes % 1 % (-0) H 12/29/19 13:45 Myelocytes % 1 % (-0) H 01/02/20 04:25 Nucleated RBC % Not Reportable 01/02/20 04:25 Neutrophils # (Manual) 12.1 10^3/uL (1.5-6.6) H 01/02/20 04:25 Lymphocytes # (Manual) 0.3 10^3/uL (1.5-3.5) L 01/02/20 04:25 Monocytes # (Manual) 1.2 10^3/uL (0.0-1.0) H 01/02/20 04:25 Eosinophils # (Manual) 0.0 10^3/uL (0-0.7) 01/02/20 04:25 Basophils # (Manual) 0.0 10^3/uL (0-0.1) 01/02/20 04:25 Differential Comment MANUAL DIFFERENTIAL 01/02/20 04:25 Manual Slide Review Indicated 01/01/20 04:30 WBC Morphology NORMAL APPEARANCE (NORMAL) 01/02/20 04:25 Platelet Estimate DECREASED (<130,000) (NORMAL) 01/02/20 04:25 Platelet Morphology NORMAL APPEARANCE (NORMAL) 01/02/20 04:25 RBC Morph Micro Appear NORMAL APPEARANCE (NORMAL) 01/02/20 04:25 PT 16.6 secs (9.9-12.6) H 12/29/19 13:45 INR 1.5 (0.8-1.2) H 12/29/19 13:45 Bld Gas Analysis Time 0556 01/02/20 05:38 Sample Site A-LINE 01/02/20 05:38 ABG pH 7.43 (7.35-7.45) 01/02/20 05:38 ABG pCO2 30 mmHg (34-45) L 01/02/20 05:38 ABG pO2 96 mmHg (80-100) 01/02/20 05:38 ABG HCO3 19.6 mmol/L (22.0-26.0) L 01/02/20 05:38 ABG Total CO2 20.6 MMOL/L (21.0-29.0) L 01/02/20 05:38 ABG O2 Saturation 97 % (94-98) 01/02/20 05:38 ABG Base Excess -3.9 mmol/L (-2.0-3.0) L 01/02/20 05:38 Andrew Test NOT APPLICABLE 01/02/20 05:38 VBG pH 6.953 (7.31-7.41) L 12/29/19 13:45 VBG pCO2 65.6 mmHg (41-51) H 12/29/19 13:45 VBG pO2 50.5 mmHg (25-47) H 12/29/19 13:45 VBG HCO3 14.2 mmol/L (23-28) L 12/29/19 13:45 VBG Total CO2 16.2 mmol/L (24-29) L 12/29/19 13:45 VBG O2 Saturation 75.7 % (60-80) 12/29/19 13:45 VBG Base Excess -18.2 mmol/L (-2 - +2) L 12/29/19 13:45 Respiration Rate 18 b/min 01/02/20 05:38 Room Air YES 12/27/19 15:25 O2 Delivery Device VENTILATOR 01/02/20 05:38 Vent Mode SIMV 01/02/20 05:38 FiO2 45.00 01/02/20 05:38 Tidal Volume 500 mL 01/02/20 05:38 PEEP 5 cmH2O 01/02/20 05:38 Pressure Support Vent 10 cmH2O 01/02/20 05:38 Sodium 150 mmol/L (135-145) H 01/02/20 04:25 Potassium 3.2 mmol/L (3.5-5.0) L 01/02/20 04:25 Chloride 123 mmol/L (101-111) H* 01/02/20 04:25 Carbon Dioxide 19 mmol/L (21-32) L 01/02/20 04:25 Anion Gap 8.0 (6-13) 01/02/20 04:25 BUN 38 mg/dL (6-20) H 01/02/20 04:25 Creatinine 1.2 mg/dL (0.6-1.2) 01/02/20 04:25 Estimated GFR (MDRD) 60 (>89) L 01/02/20 04:25 Glucose 147 mg/dL (70-100) H 01/02/20 04:25 POC Whole Bld Glucose 139 mg/dL (70 - 100) H 01/02/20 06:18 Lactic Acid 1.4 mmol/L (0.5-2.2) 01/01/20 17:50 Calcium 7.7 mg/dL (8.5-10.3) L 01/02/20 04:25 Phosphorus 2.4 mg/dL (2.5-4.6) L 01/02/20 04:25 Magnesium 1.8 mg/dL (1.7-2.8) 01/02/20 04:25 Total Bilirubin 1.0 mg/dL (0.2-1.0) 01/02/20 04:25 AST 65 IU/L (10-42) H 01/02/20 04:25 ALT 45 IU/L (10-60) 01/02/20 04:25 Alkaline Phosphatase 74 IU/L (42-121) 01/02/20 04:25 Total Creatine Kinase 556 IU/L (22-269) H 12/31/19 02:10 Troponin I High Sens 458.4 ng/L (2.3-19.7) H* 12/30/19 04:30 B-Natriuretic Peptide 123 pg/mL (5-100) H 01/02/20 04:25 Total Protein 4.9 g/dL (6.7-8.2) L 01/02/20 04:25 Albumin 1.9 g/dL (3.2-5.5) L 01/02/20 04:25 Globulin 3.0 g/dL (2.1-4.2) 01/02/20 04:25 Albumin/Globulin Ratio 0.6 (1.0-2.2) L 01/02/20 04:25 Folate 5.28 ng/mL (5.90 - >24.8) L 12/28/19 04:50 Urine Color STRAW 12/28/19 18:25 Urine Clarity HAZY (CLEAR) 12/28/19 18:25 Urine pH 5.0 PH (5.0-7.5) 12/28/19 18:25 Ur Specific [place] >=1.030 (1.002-1.030) H 12/28/19 18:25 Urine Protein 30 mg/dL (NEGATIVE) H 12/28/19 18:25 Urine Glucose (UA) NEGATIVE mg/dL (NEGATIVE) 12/28/19 18:25 Urine Ketones TRACE mg/dL (NEGATIVE) 12/28/19 18:25 Urine Occult Blood LARGE (NEGATIVE) H 12/28/19 18:25 Urine Nitrite NEGATIVE (NEGATIVE) 12/28/19 18:25 Urine Bilirubin NEGATIVE (NEGATIVE) 12/28/19 18:25 Urine Urobilinogen 0.2 (NORMAL) E.U./dL (NORMAL) 12/28/19 18:25 Ur Leukocyte Esterase SMALL (NEGATIVE) H 12/28/19 18:25 Urine RBC 11-25 /HPF (0-5) H 12/28/19 18:25 Urine WBC 11-25 /HPF (0-3) H 12/28/19 18:25 Ur Squamous Epith Cells FEW Squamous (<= Few) 12/28/19 18:25 Amorphous Sediment Marked /LPF 12/28/19 18:25 Urine Bacteria Moderate /HPF (None Seen) H 12/28/19 18:25 Urine Casts 11-25 Fine Granular /LPF 12/28/19 18:25 Ur Microscopic Review INDICATED 12/28/19 18:25 Urine Culture Comments INDICATED 12/28/19 18:25 Nasal Screen MRSA (PCR) POSITIVE (NEGATIVE) A* 12/29/19 14:05 Urine Opiates Screen POSITIVE (NEGATIVE) H 12/27/19 17:33 Ur Oxycodone Screen NEGATIVE (NEGATIVE) 12/27/19 17:33 Urine Methadone Screen NEGATIVE (NEGATIVE) 12/27/19 17:33 Ur Propoxyphene Screen NEGATIVE (NEGATIVE) 12/27/19 17:33 Ur Barbiturates Screen NEGATIVE (NEGATIVE) 12/27/19 17:33 Ur Tricyclics Screen NEGATIVE (NEGATIVE) 12/27/19 17:33 Ur Phencyclidine Scrn NEGATIVE (NEGATIVE) 12/27/19 17:33 Ur Amphetamine Screen POSITIVE (NEGATIVE) H 12/27/19 17:33 U Methamphetamines Scrn POSITIVE (NEGATIVE) H 12/27/19 17:33 U Benzodiazepines Scrn NEGATIVE (NEGATIVE) 12/27/19 17:33 Urine Cocaine Screen NEGATIVE (NEGATIVE) 12/27/19 17:33 U Cannabinoids Screen NEGATIVE (NEGATIVE) 12/27/19 17:33 GUS Screen NEGATIVE (NEGATIVE) 12/28/19 12:55 Coronavirus (PCR) NEGATIVE 12/29/19 21:10 Hepatitis A IgM Ab NON-REACTIVE (NON-REACTIVE) 12/28/19 12:55 Hep Bs Antigen NON-REACTIVE (NON-REACTIVE) 12/28/19 12:55 Hep B Core IgM Ab NON-REACTIVE (NON-REACTIVE) 12/28/19 12:55 Hepatitis C Antibody REACTIVE (NON-REACTIVE) A 12/28/19 12:55 Hep C Ab Signal/Cutoff 27.00 (<1.00) H 12/28/19 12:55 Blood Type O POSITIVE 12/30/19 07:27 Blood Type Recheck O POSITIVE 12/30/19 04:30 Antibody Screen NEGATIVE 12/30/19 07:27 Crossmatch IS Only See Detail 12/30/19 07:27
[2020-01-02] MEDS: DEXTROSE 5% 1,000 ML IV SCH (12:00)
[2020-01-02] MEDS ORDERED: VANCOMYCIN INJ 2 GM in SODIUM CHLORIDE 0.9% 500 ML IV SCH (12:00)
[2020-01-02] MEDS ORDERED: FUROSEMIDE 20 MG/2 ML VIAL IVP STA (12:58)
[2020-01-02] MEDS ORDERED: SODIUM CHLORIDE INHALATION 3 ML NEB ONE (13:17)
[2020-01-02 16:17] LABS: CALCIUM 7.6 mg/dL (8.5-10.3); CREATININE 1.2 mg/dL (0.6-1.2)
[2020-01-02] MEDS ORDERED: POTASSIUM CHLORIDE 20 MEQ/15 ML UDC PO SCH (16:21)
[2020-01-03] MEDS: METOPROLOL 5 MG/5 ML VIAL IVP SCH ×3 (04:14→21:12)
[2020-01-03] MEDS: MIDAZOLAM DRIP 50 MG/100 ML BAG IV SCH ×4 (04:19→18:00)
[2020-01-03 05:22] LABS: BASOPHILS % (AUTO) 0.4 %; EOSINOPHILS # (AUTO) 0.6 10^3/uL (0.0-0.7); EOSINOPHILS % (AUTO) 5.6 %; HGB - HEMOGLOBIN 9.3 g/dL (14.0-18.0); LYMPHOCYTES # (AUTO) 1.1 10^3/uL (1.5-3.5); LYMPHOCYTES % (AUTO) 9.4 %; MEAN CORPUSCULAR VOLUME 109.4 fL (80.0-94.0); MEAN PLATELET VOLUME 10.3 fL (7.4-11.4); MONOCYTES # (AUTO) 1.2 10^3/uL (0.0-1.0); NEUTROPHILS # (AUTO) 8.1 10^3/uL (1.5-6.6); PLT - PLATELET COUNT 121 10^3/uL (130-450); RED BLOOD COUNT 2.66 10^6/uL (4.70-6.10); RED CELL DISTRIBUTION WIDTH 15.2 % (12.0-15.0); WHITE BLOOD COUNT 11.2 x10^3/uL (4.8-10.8)
[2020-01-03] MEDS: CEFEPIME 1 GM in SODIUM CHLORIDE 0.9% MINIBAG 100 ML IV SCH (05:32)
[2020-01-03 05:42] LABS: ALBUMIN 1.8 g/dL (3.2-5.5); ALBUMIN/GLOBULIN RATIO 0.6 (1.0-2.2); BILIRUBIN,TOTAL 0.8 mg/dL (0.2-1.0); CALCIUM 7.6 mg/dL (8.5-10.3)
[2020-01-03 06:18] LABS: MAGNESIUM 1.6 mg/dL (1.7-2.8); PHOSPHORUS 2.2 mg/dL (2.5-4.6)
[2020-01-03] MEDS: metroNIDAZOLE 500 MG/100 ML 500 MG/100 ML BAG IV SCH ×3 (06:32→22:54)
[2020-01-03] MEDS: NEUTRA-PHOS 250 MG TABLET PO SCH ×2 (06:53→09:28)
[2020-01-03] MEDS ORDERED: POTASSIUM CHLORIDE 20 MEQ/15 ML UDC PO ONE (07:00)
[2020-01-03] MEDS: IPRATROPIUM/ALBUTEROL 3 ML NEB INH SCH ×2 (07:27→19:20)
[2020-01-03] MEDS: CARBOXYMETHYLCELLULOSE OPHTH DROPS EACHEYE PRN (08:23)
[2020-01-03] MEDS ORDERED: MAGNESIUM SULFATE 2 GRAM 2 GM/50 ML BAG IV ONE (09:00)
[2020-01-03] MEDS: CHLORHEXIDINE GLUCONATE 15 ML UDC PO SCH ×2 (09:27→21:11)
[2020-01-03] MEDS: ethyl alcohoL 62% SWAB AMPULE NAS SCH ×2 (09:27→21:11)
[2020-01-03] MEDS: SODIUM CHLORIDE FLUSH 0.9% 10 ML SYRINGE IVP PRN (09:28)
[2020-01-03] MEDS: SODIUM CHLORIDE FLUSH 0.9% 10 ML SYRINGE IVP SCH ×3 (09:28→22:56)
[2020-01-03] MEDS: HYDROCORTISONE 1% CREAM 28 GM TUBE TOP SCH ×2 (09:28→21:17)
[2020-01-03] MEDS: PANTOPRAZOLE 40 MG VIAL IVP SCH ×2 (09:28→21:12)
[2020-01-03 11:25] LABS: VANCOMYCIN,TROUGH 17.8 ug/mL (10.0-20.0)
[2020-01-03] MEDS ORDERED: VANCOMYCIN IV SCH (12:08)
[2020-01-03] MEDS ORDERED: DEXTROSE 5% IV SCH (12:08)
[2020-01-03] MEDS: MORPHINE 2 MG/ML CARPUJECT IVP PRN (12:32)
[2020-01-03] MEDS: DEXTROSE 5% 1,000 ML IV SCH (13:00)
[2020-01-03] MEDS: CEFEPIME 2 GM in DEXTROSE 5% 100 ML IV SCH ×2 (14:40→21:17)
--- NOTE | 2020-01-03 17:00 | PROVIDER PROGRESS NOTE ---
Assessment/Plan - Problem List (1) Coma Assessment/Plan: I will reach out to [facility] to begin arrangements for transfer to higher level of care, neurology regarding his prolonged comatose state after cardiac arrest 5 days ago. I updated the brother by phone who is in agreement and agrees to a transfer. (2) Hypernatremia Assessment/Plan: Worsening sodium to 151 today, since yesterday 147 and normal before that. Yesterday IV saline was stopped. Today will put all his antibiotics into D5, discussed with pharmacy. We will stop his NG feeds and only give free water per the NG at an increased rate of 20 cc/h. We will stop banana bag which is an NS and only give D5W. Follow the serum sodium every 12 hours. (3) FUO (fever of unknown origin) Assessment/Plan: He has continued intermittent fevers, low-grade, white blood count is consistently over 10, fluctuates between 12 and 14. Besides the new pulmonary infiltrates after his cardiac arrest and intubation, no other obvious source of fever has been found. He remains on broad-spectrum coverage of IV cefepime, IV Vanco, IV metronidazole. Plan to image with CT his sinuses, chest, abdomen and pelvis. Assistance with infectious disease consult is also needed as a reason for transfer to higher level of care (4) Cardiac arrest Assessment/Plan: This may have been a primary pulmonary arrest leading to cardiac arrest versus arrhythmic arrest from electrolyte abnormality. LVEF was checked after the arrest and remains normal at 60%. (5) Aspiration pneumonia of both lower lobes Assessment/Plan: Pulmonary infiltrates noted after the cardiac arrest bilaterally. He has been on various IV antibiotics since that time. He does not produce sputum to send for culture. Blood cultures have been negative to date. Dear continue empiric antibiotics (6) Hematemesis Assessment/Plan: There has been no further hematemesis. NG tube is in to suction. Yesterday he was started on NG feeds and intermittent water as well. He has been on IV twice daily Protonix since the hematemesis was noted. He has not been stable to undergo EGD here. Request for transfer is also needed for management of this diagnosis. (7) Anemia due to GI blood loss Assessment/Plan: After the witnessed hematemesis, his hemoglobin fell to 7.7. He got 1 unit PRBCs transfused. Hemoglobin has been stable at 9-9.5 ever since that transfusion (8) Alcohol abuse Assessment/Plan: As per Hx. Banana bag and MVI for management. He was confused on his first 2 days here and then on day 3 until now has been intubated and in a coma, has had no ability to communicate to have a social work consult. (9) Opioid abuse Assessment/Plan: As per Hx (11) MRSA carrier Assessment/Plan: He is getting alcohol swab twice daily treatment while here (12) Pulmonary edema Assessment/Plan: Resolved after 2 days of IV Lasix (13) VIDHYA (acute kidney injury) Assessment/Plan: Resolved. This was presumed to be from metabolic acidosis and volume depletion, it was getting better then got worse after the cardiac arrest, probably from ATN. He has been on IV fluids since admission. The creatinine is now normal for the last 2 days (14) Rhabdomyolysis Assessment/Plan: Resolved - Current Meds Current Meds: Current Medications Generic Name Dose Route Start Last Admin Trade Name Freq PRN Reason Stop Dose Admin Albuterol/Ipratropium 3 ml 12/30/19 14:00 01/03/20 07:27 Duoneb INH 3 ml RTBID OWEN Administration Alcohol 1 amp 12/29/19 21:00 01/03/20 09:27 Nozin MERNA 1 amp BID OWEN Administration Carboxymethylcellulose 1 drops 12/30/19 02:53 01/03/20 08:23 Refresh 1% Ophth Drops EACHEYE 1 drops PRN PRN Administration Dry Eye Chlorhexidine Gluconate 15 ml 12/31/19 22:00 01/03/20 09:27 Peridex PO 15 ml BID OWEN Administration Glycopyrrolate 0.2 mg 12/30/19 23:49 01/01/20 05:53 Robinul SUBQ 0.2 mg Q6H PRN Administration PER PHYSICIAN ORDER Hydrocortisone 1 applic 12/27/19 21:00 01/03/20 09:28 Hydrocortisone TOP Not Given BID OWEN Metronidazole 500 mg in 100 mls @ 100 mls/hr 12/29/19 15:00 01/03/20 16:15 Flagyl 500 Mg/100 Ml IV Infused Q8H OWEN Infusion Sodium Chloride 500 mls @ 0 mls/hr 12/30/19 04:25 01/03/20 16:15 Normal Saline 0.9% IV 10 mls/hr Q24H PRN Infusion TKO RATE TKO Midazolam HCl 50 mg in 100 mls @ 8.32 mls/hr 01/01/20 14:00 01/03/20 16:00 Versed Drip IV 0.08 mg/kg/hr .Q12H2M OWEN 16.64 mls/hr Titration Protocol 0.04 MG/KG/HR Dextrose 1,000 mls @ 40 mls/hr 01/02/20 11:00 01/03/20 16:00 D5w IV 40 mls/hr .Q25H OWEN Infusion Cefepime HCl 2 gm/ Dextrose 100 mls @ 200 mls/hr 01/03/20 14:00 01/03/20 15:10 IV Infused Q8H OWEN Infusion Vancomycin HCl 2 gm/ Dextrose 500 mls @ 250 mls/hr 01/03/20 12:08 01/03/20 14:30 IV Infused Q24H OWEN Infusion Levalbuterol HCl 1.25 mg 12/30/19 13:41 12/31/19 12:39 Xopenex INH 1.25 mg Q4H PRN Administration Shortness of Air/Wheezing Lorazepam 2 mg 12/29/19 06:34 01/02/20 01:37 Ativan Inj (Vial) IVP 2 mg Q6H PRN Administration Agitation Metoprolol Tartrate 5 mg 01/01/20 21:00 01/03/20 13:16 Lopressor Inj IVP 5 mg Q8H OWEN Administration Morphine Sulfate 2 mg 01/01/20 16:00 01/03/20 12:32 Morphine (Carpuject) IVP 2 mg Q3HR PRN Administration Dyspnea Ondansetron HCl 4 mg 12/27/19 14:43 12/28/19 08:25 Zofran Inj IVP 4 mg Q6HR PRN Administration Nausea / Vomiting Pantoprazole Sodium 40 mg 12/30/19 10:00 01/03/20 09:28 Protonix IVP 40 mg BID OWEN Administration Sodium Chloride 10 ml 12/27/19 14:43 01/03/20 09:28 Normal Saline Flush 0.9% IVP 10 ml PRN PRN Administration NEEDED PER PROVIDER ORDERS Sodium Chloride 10 ml 12/27/19 17:00 01/03/20 09:28 Normal Saline Flush 0.9% IVP 10 ml 0100,0900,1700 OWEN Administration - Lab Result Fish Bone Diagrams: 01/03/20 04:40 01/03/20 17:10 - Additional Planning My Orders: My Active Orders 01/03/20 10:32 Miscellaenous Nursing Order [RC] ONCE 01/03/20 10:47 SCDs [RC] QSHIFT 01/03/20 12:08 Vancomycin Inj [Vancomycin] 2 gm Dextrose 5% [D5w] 500 ml IV Q24H 01/03/20 14:00 Cefepime 2 gm Dextrose 5% [D5w] 100 ml IV Q8H 01/03/20 15:34 BMP - BASIC METABOLIC PANEL [CHEM] Urgent 01/04/20 05:00 MAGNESIUM [CHEM] DAILYLAB PHOSPHORUS [CHEM] DAILYLAB Subjective - Subjective Patient Reports: Other (Unchanged, on ventilator, minimal sedation, remains in a cold) Objective Vital Signs: Vital Signs - 24 hr 01/02/20 01/02/20 01/02/20 17:00 18:00 18:07 Temperature 36.6 C Heart Rate 82 Heart Rate [ 81 83 Monitoring electrodes] Respiratory 19 24 Rate Blood Pressure Blood Pressure 166/112 H 163/80 H [Left Radial artery] Blood Pressure 153/86 H 152/84 H [Right Brachial artery] O2 Saturation 98 96 01/02/20 01/02/20 01/02/20 19:00 19:15 20:00 Temperature 37.1 C 36.8 C Heart Rate 76 Heart Rate [ 79 82 Monitoring electrodes] Respiratory 19 18 24 Rate Blood Pressure Blood Pressure 177/84 H 168/76 H [Left Radial artery] Blood Pressure 155/89 H 154/84 H [Right Brachial artery] O2 Saturation 97 98 01/02/20 01/02/20 01/02/20 20:26 21:00 21:05 Temperature Heart Rate 75 Heart Rate [ 7 L Monitoring electrodes] Respiratory 17 Rate Blood Pressure 155/72 H Blood Pressure 166/78 H [Left Radial artery] Blood Pressure 150/93 H [Right Brachial artery] O2 Saturation 99 01/02/20 01/02/20 01/02/20 22:00 23:00 23:30 Temperature 37.3 C Heart Rate 80 Heart Rate [ 74 81 Monitoring electrodes] Respiratory 18 19 Rate Blood Pressure Blood Pressure 172/78 H 181/87 H [Left Radial artery] Blood Pressure 164/79 H 172/81 H [Right Brachial artery] O2 Saturation 98 99 10/25/20 1025/20 10/20 00:00 01:00 01:19 Temperature Heart Rate 78 Heart Rate [ 75 75 Monitoring electrodes] Respiratory 19 19 Rate Blood Pressure Blood Pressure 172/80 H 172/80 H [Left Radial artery] Blood Pressure 164/93 H 164/93 H [Right Brachial artery] O2 Saturation 98 98 10/25/20 1025/20 1025/20 02:00 03:00 03:20 Temperature 37.1 C Heart Rate 74 Heart Rate [ 79 75 Monitoring electrodes] Respiratory 18 18 Rate Blood Pressure Blood Pressure 176/84 H 178/84 H [Left Radial artery] Blood Pressure 169/87 H 162/101 H [Right Brachial artery] O2 Saturation 98 99 01/02/20 10/20 10/ 04:00 04:14 05:00 Temperature 37.2 C Heart Rate Heart Rate [ 77 65 Monitoring electrodes] Respiratory 22 18 Rate Blood Pressure 171/92 H Blood Pressure 180/81 H 170/76 H [Left Radial artery] Blood Pressure 171/92 H 170/89 H [Right Brachial artery] O2 Saturation 98 99 01/02/20 10/20 10/20 05:05 06:00 07:00 Temperature 37.2 C Heart Rate 67 Heart Rate [ 70 71 Monitoring electrodes] Respiratory 18 21 Rate Blood Pressure Blood Pressure 181/80 H 188/82 H [Left Radial artery] Blood Pressure 164/92 H 174/80 H [Right Brachial artery] O2 Saturation 98 98 01/02/20 10/20 10/20 07:55 08:00 09:00 Temperature 37.0 C Heart Rate 78 Heart Rate [ 75 73 Monitoring electrodes] Respiratory 21 27 H 18 Rate Blood Pressure Blood Pressure 145/100 H [Left Radial artery] Blood Pressure 131/91 H 136/90 H [Right Brachial artery] O2 Saturation 96 99 01/02/20 10/20 10/20 10:00 11:00 11:29 Temperature 37.1 C 36.9 C Heart Rate 76 Heart Rate [ 73 78 Monitoring electrodes] Respiratory 18 18 Rate Blood Pressure Blood Pressure 153/75 H 165/83 H [Left Radial artery] Blood Pressure 143/79 H 158/84 H [Right Brachial artery] O2 Saturation 99 100 1025/20 1025/20 10/25/20 12:00 13:00 13:16 Temperature 36.4 C L Heart Rate Heart Rate [ 78 80 Monitoring electrodes] Respiratory 24 17 Rate Blood Pressure 178/88 H Blood Pressure 182/84 H 177/91 H [Left Radial artery] Blood Pressure 140/92 H 156/79 H [Right Brachial artery] O2 Saturation 100 98 01/03/20 01/03/20 01/03/20 13:30 14:00 15:00 Temperature 36.4 C L Heart Rate 78 Heart Rate [ 72 76 Monitoring electrodes] Respiratory 18 17 Rate Blood Pressure Blood Pressure 178/92 H 182/87 H [Left Radial artery] Blood Pressure 163/90 H 158/77 H [Right Brachial artery] O2 Saturation 98 98 01/03/20 01/03/20 15:48 16:00 Temperature 36.4 C L Heart Rate 76 Heart Rate [ 78 Monitoring electrodes] Respiratory 19 Rate Blood Pressure Blood Pressure 172/86 H [Left Radial artery] Blood Pressure 156/84 H [Right Brachial artery] O2 Saturation 95 Oxygen O2 Source Mechanical ventilator I&O (Last 24 Hrs): Intake and Output Totals x24h 01/01/20 01/02/20 01/03/20 23:59 23:59 23:59 Intake Total 3751.112 3824.533 2684.027 Output Total 2305 2193 1240 Balance 0784.004 4277.533 1444.027 General: Other (Comatose) HEENT: Mucous membr. moist/pink, Other (ET tube in place and NG tube in place) Neck: No JVD Neuro: Other (Positive corneal reflex, only grimaces to pain, positive Babinski) Cardiovascular: No murmurs Respiratory: No respiratory distress (Sedated for/coma, intubated and on vent), Breath sounds nml Abdomen: Other (Mildly distended, decreased bowel sounds) Extremities: No edema - Results Results: Laboratory Results WBC 11.2 x10^3/uL (4.8-10.8) H 01/03/20 04:40 RBC 2.66 10^6/uL (4.70-6.10) L 01/03/20 04:40 Hgb 9.3 g/dL (14.0-18.0) L 01/03/20 04:40 Hct 29.1 % (42.0-52.0) L 01/03/20 04:40 MCV 109.4 fL (80.0-94.0) H 01/03/20 04:40 MCH 35.0 pg (27.0-31.0) H 01/03/20 04:40 MCHC 32.0 g/dL (32.0-36.0) 01/03/20 04:40 RDW 15.2 % (12.0-15.0) H 01/03/20 04:40 Plt Count 121 10^3/uL (130-450) L 01/03/20 04:40 MPV 10.3 fL (7.4-11.4) 01/03/20 04:40 Neut # (Auto) 8.1 10^3/uL (1.5-6.6) H 01/03/20 04:40 Lymph # (Auto) 1.1 10^3/uL (1.5-3.5) L 01/03/20 04:40 [place] # (Auto) 1.2 10^3/uL (0.0-1.0) H 01/03/20 04:40 Eos # (Auto) 0.6 10^3/uL (0.0-0.7) 01/03/20 04:40 Baso # (Auto) 0.0 10^3/uL (0.0-0.1) 01/03/20 04:40 Absolute Nucleated RBC 0.00 x10^3/uL 01/03/20 04:40 Total Counted 100 01/02/20 04:25 Band Neuts % (Manual) 0 % (0-10) 01/02/20 04:25 Abnorm Lymph % (Manual) 0 % 01/02/20 04:25 Metamyelocytes % 1 % (-0) H 12/29/19 13:45 Myelocytes % 1 % (-0) H 01/02/20 04:25 Nucleated RBC % 0.0 /100WBC 01/03/20 04:40 Neutrophils # (Manual) 12.1 10^3/uL (1.5-6.6) H 01/02/20 04:25 Lymphocytes # (Manual) 0.3 10^3/uL (1.5-3.5) L 01/02/20 04:25 Monocytes # (Manual) 1.2 10^3/uL (0.0-1.0) H 01/02/20 04:25 Eosinophils # (Manual) 0.0 10^3/uL (0-0.7) 01/02/20 04:25 Basophils # (Manual) 0.0 10^3/uL (0-0.1) 01/02/20 04:25 Differential Comment MANUAL DIFFERENTIAL 01/02/20 04:25 Manual Slide Review Indicated 01/01/20 04:30 WBC Morphology NORMAL APPEARANCE (NORMAL) 01/02/20 04:25 Platelet Estimate DECREASED (<130,000) (NORMAL) 01/02/20 04:25 Platelet Morphology NORMAL APPEARANCE (NORMAL) 01/02/20 04:25 RBC Morph Micro Appear NORMAL APPEARANCE (NORMAL) 01/02/20 04:25 PT 16.6 secs (9.9-12.6) H 12/29/19 13:45 INR 1.5 (0.8-1.2) H 12/29/19 13:45 Bld Gas Analysis Time 0556 01/02/20 05:38 Sample Site A-LINE 01/02/20 05:38 ABG pH 7.43 (7.35-7.45) 01/02/20 05:38 ABG pCO2 30 mmHg (34-45) L 01/02/20 05:38 ABG pO2 96 mmHg (80-100) 01/02/20 05:38 ABG HCO3 19.6 mmol/L (22.0-26.0) L 01/02/20 05:38 ABG Total CO2 20.6 MMOL/L (21.0-29.0) L 01/02/20 05:38 ABG O2 Saturation 97 % (94-98) 01/02/20 05:38 ABG Base Excess -3.9 mmol/L (-2.0-3.0) L 01/02/20 05:38 Andrew Test NOT APPLICABLE 01/02/20 05:38 VBG pH 6.953 (7.31-7.41) L 12/29/19 13:45 VBG pCO2 65.6 mmHg (41-51) H 12/29/19 13:45 VBG pO2 50.5 mmHg (25-47) H 12/29/19 13:45 VBG HCO3 14.2 mmol/L (23-28) L 12/29/19 13:45 VBG Total CO2 16.2 mmol/L (24-29) L 12/29/19 13:45 VBG O2 Saturation 75.7 % (60-80) 12/29/19 13:45 VBG Base Excess -18.2 mmol/L (-2 - +2) L 12/29/19 13:45 Respiration Rate 18 b/min 01/02/20 05:38 Room Air YES 12/27/19 15:25 O2 Delivery Device VENTILATOR 01/02/20 05:38 Vent Mode SIMV 01/02/20 05:38 FiO2 45.00 01/02/20 05:38 Tidal Volume 500 mL 01/02/20 05:38 PEEP 5 cmH2O 01/02/20 05:38 Pressure Support Vent 10 cmH2O 01/02/20 05:38 Sodium 151 mmol/L (135-145) H 01/03/20 04:40 Potassium 3.4 mmol/L (3.5-5.0) L 01/03/20 04:40 Chloride 121 mmol/L (101-111) H* 01/03/20 04:40 Carbon Dioxide 22 mmol/L (21-32) 01/03/20 04:40 Anion Gap 8.0 (6-13) 01/03/20 04:40 BUN 33 mg/dL (6-20) H 01/03/20 04:40 Creatinine 1.0 mg/dL (0.6-1.2) 01/03/20 04:40 Estimated GFR (MDRD) 74 (>89) L 01/03/20 04:40 Glucose 176 mg/dL (70-100) H 01/03/20 04:40 POC Whole Bld Glucose 121 mg/dL (70 - 100) H 01/03/20 11:18 Lactic Acid 1.4 mmol/L (0.5-2.2) 01/01/20 17:50 Calcium 7.6 mg/dL (8.5-10.3) L 01/03/20 04:40 Phosphorus 2.2 mg/dL (2.5-4.6) L 01/03/20 04:40 Magnesium 1.6 mg/dL (1.7-2.8) L 01/03/20 04:40 Total Bilirubin 0.8 mg/dL (0.2-1.0) 01/03/20 04:40 AST 67 IU/L (10-42) H 01/03/20 04:40 ALT 43 IU/L (10-60) 01/03/20 04:40 Alkaline Phosphatase 81 IU/L (42-121) 01/03/20 04:40 Total Creatine Kinase 73 IU/L (22-269) 01/02/20 04:25 Troponin I High Sens 458.4 ng/L (2.3-19.7) H* 12/30/19 04:30 B-Natriuretic Peptide 123 pg/mL (5-100) H 01/02/20 04:25 Total Protein 5.0 g/dL (6.7-8.2) L 01/03/20 04:40 Albumin 1.8 g/dL (3.2-5.5) L 01/03/20 04:40 Globulin 3.2 g/dL (2.1-4.2) 01/03/20 04:40 Albumin/Globulin Ratio 0.6 (1.0-2.2) L 01/03/20 04:40 Folate 5.28 ng/mL (5.90 - >24.8) L 12/28/19 04:50 Urine Color STRAW 12/28/19 18:25 Urine Clarity HAZY (CLEAR) 12/28/19 18:25 Urine pH 5.0 PH (5.0-7.5) 12/28/19 18:25 Ur Specific [place] >=1.030 (1.002-1.030) H 12/28/19 18:25 Urine Protein 30 mg/dL (NEGATIVE) H 12/28/19 18:25 Urine Glucose (UA) NEGATIVE mg/dL (NEGATIVE) 12/28/19 18:25 Urine Ketones TRACE mg/dL (NEGATIVE) 12/28/19 18:25 Urine Occult Blood LARGE (NEGATIVE) H 12/28/19 18:25 Urine Nitrite NEGATIVE (NEGATIVE) 12/28/19 18:25 Urine Bilirubin NEGATIVE (NEGATIVE) 12/28/19 18:25 Urine Urobilinogen 0.2 (NORMAL) E.U./dL (NORMAL) 12/28/19 18:25 Ur Leukocyte Esterase SMALL (NEGATIVE) H 12/28/19 18:25 Urine RBC 11-25 /HPF (0-5) H 12/28/19 18:25 Urine WBC 11-25 /HPF (0-3) H 12/28/19 18:25 Ur Squamous Epith Cells FEW Squamous (<= Few) 12/28/19 18:25 Amorphous Sediment Marked /LPF 12/28/19 18:25 Urine Bacteria Moderate /HPF (None Seen) H 12/28/19 18:25 Urine Casts 11-25 Fine Granular /LPF 12/28/19 18:25 Ur Microscopic Review INDICATED 12/28/19 18:25 Urine Culture Comments INDICATED 12/28/19 18:25 Nasal Screen MRSA (PCR) POSITIVE (NEGATIVE) A* 12/29/19 14:05 Last Dose Date UNK 01/03/20 11:11 Last Dose Time UNK 01/03/20 11:11 Vancomycin Trough 17.8 ug/mL (10.0-20.0) 01/03/20 11:11 Urine Opiates Screen POSITIVE (NEGATIVE) H 12/27/19 17:33 Ur Oxycodone Screen NEGATIVE (NEGATIVE) 12/27/19 17:33 Urine Methadone Screen NEGATIVE (NEGATIVE) 12/27/19 17:33 Ur Propoxyphene Screen NEGATIVE (NEGATIVE) 12/27/19 17:33 Ur Barbiturates Screen NEGATIVE (NEGATIVE) 12/27/19 17:33 Ur Tricyclics Screen NEGATIVE (NEGATIVE) 12/27/19 17:33 Ur Phencyclidine Scrn NEGATIVE (NEGATIVE) 12/27/19 17:33 Ur Amphetamine Screen POSITIVE (NEGATIVE) H 12/27/19 17:33 U Methamphetamines Scrn POSITIVE (NEGATIVE) H 12/27/19 17:33 U Benzodiazepines Scrn NEGATIVE (NEGATIVE) 12/27/19 17:33 Urine Cocaine Screen NEGATIVE (NEGATIVE) 12/27/19 17:33 U Cannabinoids Screen NEGATIVE (NEGATIVE) 12/27/19 17:33 GUS Screen NEGATIVE (NEGATIVE) 12/28/19 12:55 Coronavirus (PCR) NEGATIVE 12/29/19 21:10 Hepatitis A IgM Ab NON-REACTIVE (NON-REACTIVE) 12/28/19 12:55 Hep Bs Antigen NON-REACTIVE (NON-REACTIVE) 12/28/19 12:55 Hep B Core IgM Ab NON-REACTIVE (NON-REACTIVE) 12/28/19 12:55 Hepatitis C Antibody REACTIVE (NON-REACTIVE) A 12/28/19 12:55 Hep C Ab Signal/Cutoff 27.00 (<1.00) H 12/28/19 12:55 Blood Type O POSITIVE 12/30/19 07:27 Blood Type Recheck O POSITIVE 12/30/19 04:30 Antibody Screen NEGATIVE 12/30/19 07:27 Crossmatch IS Only See Detail 12/30/19 07:27
[2020-01-03 17:32] LABS: CALCIUM 7.4 mg/dL (8.5-10.3); CREATININE 0.8 mg/dL (0.6-1.2)
--- NOTE | 2020-01-03 18:48 | Discharge Plan ---
Discharge Plan Problem Reviewed?: Yes Disposition: 02 Transfer Acute Care Hosp Condition: Critical No Smoking: If you smoke, Please STOP! Call for help.
--- NOTE | 2020-01-03 18:50 | DISCHARGE SUMMARY ---
Discharge Summary Admit Date: 12/27/19 Discharge Date: 01/04/20 Discharging Provider: Dr Roxanne Romo Primary Care Provider: MICHAEL Gustafson Code Status: Do Not Attempt Resuscitation Condition at Discharge: Critical Discharge Disposition: 02 Transfer Acute Care Hosp Discharge Facility Name: [facility] History of Present Illness: From the admission H&P of Dr. Cleopatra Hebert: Unfortunate 69-year-old white male who has chronic back and neck pain is on chronic opiate therapy. He is on a pain management contract with his primary care provider. He has been gradually tapering himself off medication for several months now. He had been as high as up was 80 mg of short acting opiate several times a day. He is on a pain contract. He is also an alcohol abuser and uses meth and marijuana. He has probably been increasing his alcohol use, he states, because of pain. In his transitioning phase, he has been put on long-acting opiates. He ran out of his morphine for his neck and back pain about a week ago. He has been going through opiate withdrawal with nausea, vomiting, unsteadiness, tremors. He has generalized abdominal pain. He is incontinent of diarrhea. He denies fever, chills. No blood in his urine. He denies chest pain, shortness of breath. And he came to the emergency room. He is temperature is 36.9. He is tachycardic at 110-116. Blood pressure is in the 130s over 90s. Respirations are 17. 94% on room air. Because he was felt to be going through withdrawal, he was given Ativan, Zofran, Toradol, and a liter of lactated Ringer's. Evaluation with labs show him to have a creatinine of 2.6. His baseline creatinine is 0.7-0.9. BUN is actually normal at 15. Total bili is 2.9, AST 116, ALT 46. Lipase 850. White cell count is 23.6 thousand with hemoglobin 11.9. At the time of this presentation to me for admission, the patient still has not had a CT of the abdomen or chest x-ray. I am asking Dr. Theodore to please do CT the abdomen and chest x-ray to make sure were not missing an infectious association with his pancreatitis in view of the fact that he is white cell count is 23.6 thousand. He may have demargination but nevertheless want to make sure. Dr. Theodore is asking that the patient be admitted to the inpatient status for management of pancreatitis and opiate withdrawal. After admission, the patient was being examined by the intake nurse. He is indignant. Cannot figure out why he was transferred from the emergency room to a [facility] bed. Said that he had not been notified that he was being admitted. All he wanted to do was stand up and walk around and no one was letting him do that. He is refusing admission. He has signed [facility] paperwork to that effect. However, this patient is standing up in the room, swaying. While he is alert, speaking in clear sentences, no respiratory distress he is unable to stand straight. He is swaying back and forth. Having difficulty trying to get dressed on his own. Nursing staff are standing nearby in case he falls. I have explained to him that he is being admitted for pancreatitis and opiate withdrawal. He said he is not sick enough to stay here and refuses to stay. I have warned him that sometimes opiate withdrawal and pancreatitis can lead to worsening electrolyte disorders, dehydration, pneumonia, even . He states he is still leaving. He left. Got as far as the parking lot bushes when he collapsed on the bushes. Was brought back into the emergency room. This time he is sleepy. Not nearly as lively and agitated as he was in the room. He is willing to be admitted for his pancreatitis and opiate withdrawal now. - HOSPITAL COURSE Hospital Course: (1) Toxic metabolic encephalopathy After he returned from leaving [facility], toxic metabolic encephalopathy was his main presentation. Multiple causes were suspected: Pancreatitis, Opiate withdrawal, Methamphetamine toxicity, Uremia from VIDHYA, and metabolic acidosis from p ancreatitis/methamphetamines/cirrhosis/renal failure. He was started on IV fluids, clear liquid diet, iv Ativan as needed for agitation. (2) Hypoxia After he returned from leaving [facility], he also had severe hypoxia needing a nonrebreather mask then a facemask. Chest x-ray was negative for infiltrate or CHF. We also thought of a pulmonary embolus. Because of the GFR/creatinine, we could not do a CTA chest, so ordered a VQ scan. However nuclear medicine said the patient had to be cooperative for the ventilation portion and this patient was not able to be prompted. He was already on therapeutic Lovenox, renally adjusted, for elevated troponins. (3) Rhabdomyolysis Admission total CK was 6150, consistent with rhabdomyolysis, probably from fal ling given this amount of confusion and poor gait, plus he had the witnessed fall. He was on iv fluids the entire admission and CK improved daily>> 6017>> 2956>> 972>> 556>> and 73 on 01/02/20. (4) Type 2 AZ EKG did not show any acute ST elevation. His troponin was elevated at admission at 214, aicha to 466 the next day, then declined to 331. An Echo was done that showed no LV wall motion abnormalities, LVEF 60-65%, but diastolic dysfunction was present. He was on Lovenox, beta-blockers, aspirin and statin. (5) Alcohol abuse It was confirmed later (by a brother who visited from [place]) that he would drink alcohol heavily intermittently. He was treated with iv banana bag and iv Ativan prn agitation/CIWA. (6) Pancreatitis, acute We assumed the patient had alcoholic pancreatitis. While he did have gallstones on US of the abdomen, they were not obstructive. He did not have right upper quadrant pain on exam. (7) Opiate withdrawal He was on long-acting oral morphine, as well as short acting medicines for breakthrough pain. The story he gave in the emergency room was that of inc reasing nausea, vomiting, abdominal pain, which worsened when he went through opiate withdrawal. We could not start methadone because he was not tolerating much by mouth. We initially ordered Dilaudid as needed. The brother also reported that the patient is a methamphetamine abuser. (8) Cardiac arrest Two days after admission, he was somnolent after receiving IV Ativan and then his nurse found him to be apneic and a CODE BLUE was called. His first rhythm was asystole versus fine vfib and he was resuscitated with epinephrine and DC cardioversion. During the CODE BLUE, he had emesis of bloody GI contents. He was intubated by Anesthesia, an NG tube was placed and he was moved to the ICU. Repeat troponins increased once again and peaked at 484 before decreasing. Another Echo was done that showed preserved LVEF, still at 60%. His beta- nader was changed to IV form, the aspirin, Lovenox and statin (per ng) were put on hold due to hematemesis (see below). Of note, after seeing that he remains in coma (see below), the family has now made him a DNR, if there should be another cardiac arrest. (9) Hematemesis NG tube to low suction was started and had bloody aspirate for about 2 days. He was put on empiric Protonix 40 mg IV twice daily. His hemoglobin was followed. He has not yet undergone EGD to evaluate the source of hematemesis. (10) GI blood loss anemia His admission hemoglobin was 9.2, 11.6 on the next day then dropped to 8.8 and 7.9 after the hematemesis. He was transferred 1 unit PRBCs. After that his hemoglobin has been stable throughout admission at 9.0 - 9.3. (11) Hypotension Following the cardiac arrest, his blood pressure was 60-90 systolic. In the ICU, he was on IV fluids including his banana bag and needed iv Levophed for pressor support. Levophed was weaned to off by the next day. His blood pressure then remained stable the rest of the admission in the 120s to 170s systolic. (12) Aspiration pneumonia The chest x-ray done after cardiac arrest and intubation showed new bilateral fluffy infiltrates. Because of the witnessed hematemesis, this was felt to be aspiration pneumonia. He was put on empiric IV antibiotics of Zosyn and Vanco. (13) Metabolic acidosis His initial admission labs showed a bicarb of 19, due to a combination of renal failure, cirrhosis, methamphetamine abuse, hypoperfusion. This corrected to 21. After the cardiac arrest, his Lactic acid was 6.2, bicarb dropped to 17, and blood gas showed a pH of 6.9. He required 1 day of IV bicarb in D5W IV drip and adjustment of his ventilator settings. The following day his pH was 7.4 and serum bicarb was normal. (14) Elevated LFTs Admission his bilirubin was 1.6, AST 314, ALT 92. The values fluctuated and worsened after the cardiac arrest, presumably from shock liver. Following that there was improvement with AST of 327>> 167>> 117>> >> 60's. ALT 144>> 94>> 79>> 55>> 45. Bilirubin 1.8>> 1.2>> 1.5>> 1.1>> 0.8. (15) Coma He has been on iv Versed only for sedation while on the ventilator. When this has been turned off, neurologic status did not improve: He has a corneal reflex present, grimaces to pain but does not withdraw, has no spontaneous motion of his extremities, has positive Babinski. 72 hours after cardiac arrest, a CT of the head was done and this did not show evidence of any anoxic brain damage. The family was updated and continue to want everything done to have him survive. [facility] was contacted regarding transfer to higher level of care and Neurology consultation is requested regarding management of continued coma after arrest. This was approved and he was accepted by the [facility] at [facility] and will be transferred there in serious but hemodynamically stable condition. Of note, after seeing that he remains in coma, the family has now made him a DNR if there should be another cardiac arrest. (16) Mechanical assisted ventilation He has been on the ventilator since the cardiac arrest, for 5 days. Chest x-ray has shown mild CHF worsening, which responded to Lasix 20 mg IV for 2 days. His FiO2 is at 40 to 45%, SIMV 18, TV 500, PEEP 5, pressure support at 10. (17) FUO This man has had intermittent fevers since the 2nd day of admission of 38.4C, 37.8, 39.1. Antibiotics were changed when he was in metabolic acidosis and felt to possibly be septic: to iv Cefepime, Vanco and Metronidazole. With each fever spike, his blood cultures were drawn and they have remained negative to date. The chest x-ray has showed no difference in bilateral fluffy infiltrates, his urinalysis is negative, there is no skin source. He has not yet undergone sinus CT, chest CT or abdomen CT. Transfer to a larger facility for Infectious Disease consultation was also requested. (18) VIDHYA (acute kidney injury) On admission his creatinine was 2.6. His creatinine is usually 0.7-0.9. On his return the second time creatinine went to 2.8. No hyperkalemia. Carbon dioxide was 19-20. Phosphorus high at 6.5. Magnesium 2.2. He was initially oliguric. He has been on IV fluids throughout the entire hospitalization. After the cardiac arrest, the creatinine increased to 3.5 then slowly improved to 2.7>> 2.2>> 1.4>> 1.2>> 1.0>> 0.8. (19) Hypokalemia Low K levels of 3.1- 3.4 resolved with supplementation. (20) Hypernatremia In his last 2 days of hospitalization, the serum sodium has increased from 135- 139 up to 147-151. All is saline in peripheral IVs was changed to D5W. His NG feeds were stopped and free water was continued only. (21) MRSA carrier He has been on alcohol nasal swab treatment twice daily. - ALLERGIES Allergies/Adverse Reactions: Allergies Allergy/AdvReac Type Severity Reaction Status Date / Time zolpidem [From Ambien] AdvReac Hallucinati Verified 12/27/19 09:41 ons - MEDICATIONS Home Medications: Ambulatory Orders Medication Instructions Recorded Confirmed Hydrocodone/Acetaminophen 1 each PO BID 12/27/19 12/28/19 [Hydrocodon-Acetaminophn 10-325] Morphine Sulfate [Morphine Sulfate 10 mg PO DAILY 12/27/19 12/28/19 ER] Gabapentin [Neurontin] 300 mg PO BID 12/28/19 12/28/19 - PHYSICAL EXAM AT DISCHARGE General Appearance: positive: Other Eyes Bilateral: positive: No lid inflammation ENT: positive: No signs of dehydration Neck: positive: Nml inspection, No JVD Respiratory: positive: No respiratory distress (On the ventilator), Breath sounds nml Abdomen: positive: Other (Mildly distended, possible fluid wave, possible hep atomegaly, diminished bowel sounds) Skin: positive: Warm, Dry, Pallor Extremities: positive: No pedal edema Neurologic/Psychiatric: positive: Other (Sedated on Versed but when this is turned off he has positive corneal reflex, only grimaces to pain, positive Babinski) Babinski Reflex: Right: Up, Left: Up - LABS Result Diagrams: 01/03/20 04:40 01/03/20 17:10 - DIAGNOSTIC IMAGING Diagnostic Imaging Results: Final report reviewed - TIME SPENT Time Spent in Discharge (Minutes): 65
[2020-01-04] MEDS: MIDAZOLAM DRIP 50 MG/100 ML BAG IV SCH (00:20)
[2020-01-04 06:02] VITALS: BP 166/79
== END 2020-01-04 02:20 | disposition short-term general hospital (02) | DRG 896 ==
LOC: ED 14:23 → MS2 14:43 → ICU 12-29 13:35
PROVIDERS: ADMIT Specialist; ATTEND Internal Medicine
PROC: 5A1955Z Respiratory Ventilation, Greater than 96 Consecutive Hours (ICD-10-PCS; principal; 2019-12-29)
PROC: 5A2204Z Restoration of Cardiac Rhythm, Single (ICD-10-PCS; 2019-12-29)
PROC: 03HY32Z Insertion of Monitoring Device into Upper Artery, Percutaneous Approach (ICD-10-PCS; 2019-12-29)
PROC: 4A133B1 Monitoring of Arterial Pressure, Peripheral, Percutaneous Approach (ICD-10-PCS; 2019-12-29)
PROC: 4A133J1 Monitoring of Arterial Pulse, Peripheral, Percutaneous Approach (ICD-10-PCS; 2019-12-29)
PROC: 30233N1 Transfusion of Nonautologous Red Blood Cells into Peripheral Vein, Percutaneous Approach (ICD-10-PCS; 2019-12-30)
PROC: 3E0336Z Introduction of Nutritional Substance into Peripheral Vein, Percutaneous Approach (ICD-10-PCS; 2020-01-01)
DX: F10.131 Alcohol abuse with withdrawal delirium (principal); F11.13 Opioid abuse with withdrawal; E86.0 Dehydration; K86.0 Alcohol-induced chronic pancreatitis; K74.60 Unspecified cirrhosis of liver; I10 Essential (primary) hypertension; J44.9 Chronic obstructive pulmonary disease, unspecified; E11.9 Type 2 diabetes mellitus without complications; F17.200 Nicotine dependence, unspecified, uncomplicated; G92 Toxic encephalopathy; I21.A1 Myocardial infarction type 2; K85.20 Alcohol induced acute pancreatitis without necrosis or infection; I46.9 Cardiac arrest, cause unspecified; J69.0 Pneumonitis due to inhalation of food and vomit; K72.01 Acute and subacute hepatic failure with coma; A41.9 Sepsis, unspecified organism; R65.21 Severe sepsis with septic shock; N17.9 Acute kidney failure, unspecified; M62.82 Rhabdomyolysis; K92.0 Hematemesis; E87.2 Acidosis; E87.0 Hyperosmolality and hypernatremia; T43.621A Poisoning by amphetamines, accidental (unintentional), initial encounter; T40.2X6A Underdosing of other opioids, initial encounter; Z91.128 Patient's intentional underdosing of medication regimen for other reason; I11.0 Hypertensive heart disease with heart failure; I50.9 Heart failure, unspecified; F10.10 Alcohol abuse, uncomplicated; F15.10 Other stimulant abuse, uncomplicated; I95.9 Hypotension, unspecified; R50.9 Fever, unspecified; I25.10 Atherosclerotic heart disease of native coronary artery without angina pectoris; Z79.899 Other long term (current) drug therapy; E87.6 Hypokalemia; D50.0 Iron deficiency anemia secondary to blood loss (chronic); E83.39 Other disorders of phosphorus metabolism; N30.20 Other chronic cystitis without hematuria; G89.29 Other chronic pain; M54.9 Dorsalgia, unspecified; M54.2 Cervicalgia; K80.80 Other cholelithiasis without obstruction; R21 Rash and other nonspecific skin eruption; Z66 Do not resuscitate; Z20.828 Contact with and (suspected) exposure to other viral communicable diseases; Z22.322 Carrier or suspected carrier of Methicillin resistant Staphylococcus aureus; Z78.1 Physical restraint status; Z72.89 Other problems related to lifestyle; Z59.0 Homelessness; Z86.19 Personal history of other infectious and parasitic diseases
CPT/HCPCS: 36415; 36600; 70450; 71045; 74176; 76770; 80048; 80053; 80074; 80202; 81001; 82550; 82746; 82803; 83605; 83690; 83735; 83880; 84100; 84132; 84484; 85014; 85018; 85025; 85610; 86038; 86850; 86900; 86901; 86920; 87040; 87077; 87086; 87150; 93005; 93306; 93308; 94002; 94003; 94640; 96361; 96374; 96375; 99284; 99285; A6250; A9270; J0131; J1170; J1650; J2060; J3370; J3411; J7120; P9016; U0004; 80306; 80320; 81003; 94770

== ENCOUNTER 2020-04-20 08:33 | Outpatient (CLI) | payer MEDICARE | END 2020-04-20 08:34 | disposition critical access hospital (66) | LOC: EMS 08:33 | PROVIDERS: ATTEND Emergency Medicine | DX: R10.12 Left upper quadrant pain (principal) | CPT/HCPCS: A0425; A0427 ==

== ENCOUNTER 2020-04-20 09:09 | Emergency (ER) | payer MEDICARE ==
[2020-04-20] MEDS ORDERED: SODIUM CHLORIDE 0.9% 1,000 ML IV STA (09:14)
[2020-04-20] MEDS ORDERED: KETOROLAC 15 MG/ML VIAL IVP STA (09:15)
[2020-04-20] MEDS ORDERED: HYDROmorphone 1 MG/ML CARPUJECT IVP STA ×3 (09:15→18:13)
--- NOTE | 2020-04-20 09:18 | ED Physician Documentation ---
History of Present Illness - Stated complaint Stated Complaint: ABD PX - History obtained from History obtained from: Patient - Additonal information Additional information: Patient comes emergency department chief complaint of left upper quadrant abdominal pain that is been going on for the last couple of hours. He states it is a sharp pain right up under his ribs. It is worse with deep breaths. He denies any nausea or vomiting. No black stools recently. He has a distant history of peptic ulcer disease. He denies any injuries. Patient has a history of cirrhosis of the liver, but actually states that his abdomen seems less distended than usual. He denies any pain anywhere else in his abdomen. No chest pain or shortness of breath. No fevers or chills. No other complaints at this time. Review of Systems Ten Systems: 10 systems reviewed and negative Constitutional: reports: Reviewed and negative Eyes: reports: Reviewed and negative Ears: reports: Reviewed and negative Nose: reports: Reviewed and negative Throat: reports: Reviewed and negative Cardiac: reports: Reviewed and negative. denies: Chest pain / pressure Respiratory: reports: Reviewed and negative. denies: Dyspnea GI: reports: Abdominal Pain. denies: Nausea, Vomiting, Bloody / black stool : reports: Reviewed and negative Skin: reports: Reviewed and negative Musculoskeletal: reports: Reviewed and negative Neurologic: reports: Reviewed and negative Psychiatric: reports: Reviewed and negative Endocrine: reports: Reviewed and negative Immunocompromised: reports: Reviewed and negative PD PAST MEDICAL HISTORY - Past Medical History Cardiovascular: Hypertension Respiratory: COPD Neuro: Headaches Endocrine/Autoimmune: Type 2 diabetes GI: Hepatitis, Cirrhosis, Other : Chronic bladder infection HEENT: None Psych: None Musculoskeletal: None - Past Surgical History Past Surgical History: Yes - Present Medications Home Medications: Ambulatory Orders Medication Instructions Recorded Confirmed Hydrocodone/Acetaminophen 1 each PO BID 12/27/19 04/20/20 [Hydrocodon-Acetaminophn 10-325] Atorvastatin Calcium 1 tab DAILY 04/20/20 04/20/20 Lisinopril [Zestril] 3 tab DAILY 04/20/20 04/20/20 Metoprolol Succinate [Toprol Xl] 1 tab DAILY 04/20/20 04/20/20 - Allergies Allergies/Adverse Reactions: Allergies Allergy/AdvReac Type Severity Reaction Status Date / Time zolpidem [From Ambien] AdvReac Hallucinati Verified 04/20/20 09:18 ons - Social History Does the pt smoke?: Yes Smoking Status: Unknown if ever smoked Does the pt drink ETOH?: Yes Does the pt have substance abuse?: Yes - Immunizations Immunizations are current?: Yes PD ED PE NORMAL - Vitals Vital signs reviewed: Yes - General General: Alert and oriented X 3, Well developed/nourished, Other (Patient is disheveled. He is groaning and clutching his left upper abdomen.) - HEENT HEENT: Atraumatic, PERRL, EOMI, Moist mucous membranes - Neck Neck: Supple, no meningeal sign - Cardiac Cardiac: RRR, No murmur, Strong equal pulses - Respiratory Respiratory: No respiratory distress, Clear bilaterally - Abdomen Abdomen: Soft, Non distended, Other (Moderate diffuse left abdominal tenderness, no rebound or guarding) - Back Back: No CVA TTP - Derm Derm: Normal color, Warm and dry, No rash - Extremities Extremities: No deformity, No edema, No calf tenderness / cord - Neuro Neuro: Alert and oriented X 3, Other (Grossly intact.) - Psych Psych: Normal mood, Normal affect Results - Vitals Vitals: Oxygen O2 Source Room air - Labs Labs: Laboratory Tests 04/20/20 04/20/20 04/20/20 09:26 09:26 09:26 WBC 18.2 H RBC 5.15 Hgb 15.4 Hct 46.2 MCV 89.7 MCH 29.9 MCHC 33.3 RDW 14.0 Plt Count 194 MPV 9.8 Neut # (Auto) 15.7 H Lymph # (Auto) 1.1 L Dare # (Auto) 1.2 H Eos # (Auto) 0.1 Baso # (Auto) 0.0 Absolute Nucleated RBC 0.00 Nucleated RBC % 0.0 PT INR Sodium 140 Potassium 3.4 L Chloride 98 L Carbon Dioxide 26 Anion Gap 16.0 H BUN 13 Creatinine 1.1 Estimated GFR (MDRD) 66 L Glucose 237 H Lactic Acid Calcium 9.2 Total Bilirubin 2.6 H AST 99 H ALT 40 Alkaline Phosphatase 137 H Troponin I High Sens 11.1 C-Reactive Protein Total Protein 7.5 Albumin 3.9 Globulin 3.6 Albumin/Globulin Ratio 1.1 Lipase 3010 H Nasal Adenovirus (PCR) Nasal B. parapertussis DNA (PCR) Nasal Coronavir 229E PCR Nasal Coronavir HKU1 PCR Nasal Coronavir NL63 PCR Nasal Coronavir OC43 PCR Nasal Enterovir/Rhinovir PCR Nasal Influenza B PCR Nasal Influenza A PCR Nasal Parainfluen 1 PCR Nasal Parainfluen 2 PCR Nasal Parainfluen 3 PCR Nasal Parainfluen 4 PCR Nasal RSV (PCR) Nasal B.pertussis DNA PCR Nasal C.pneumoniae (PCR) Mayito Human Metapneumo PCR Nasal M.pneumoniae (PCR) Nasal SARS-CoV-2 (PCR) 04/20/20 04/20/20 04/20/20 09:26 09:26 13:51 WBC 11.9 H RBC 5.26 Hgb 15.7 Hct 47.3 MCV 89.9 MCH 29.8 MCHC 33.2 RDW 14.1 Plt Count 169 MPV 9.6 Neut # (Auto) 10.7 H Lymph # (Auto) 0.6 L Dare # (Auto) 0.6 Eos # (Auto) 0.0 Baso # (Auto) 0.0 Absolute Nucleated RBC 0.00 Nucleated RBC % 0.0 PT 13.0 H INR 1.2 Sodium Potassium Chloride Carbon Dioxide Anion Gap BUN Creatinine Estimated GFR (MDRD) Glucose Lactic Acid Calcium Total Bilirubin AST ALT Alkaline Phosphatase Troponin I High Sens C-Reactive Protein < 1.0 Total Protein Albumin Globulin Albumin/Globulin Ratio Lipase Nasal Adenovirus (PCR) Nasal B. parapertussis DNA (PCR) Nasal Coronavir 229E PCR Nasal Coronavir HKU1 PCR Nasal Coronavir NL63 PCR Nasal Coronavir OC43 PCR Nasal Enterovir/Rhinovir PCR Nasal Influenza B PCR Nasal Influenza A PCR Nasal Parainfluen 1 PCR Nasal Parainfluen 2 PCR Nasal Parainfluen 3 PCR Nasal Parainfluen 4 PCR Nasal RSV (PCR) Nasal B.pertussis DNA PCR Nasal C.pneumoniae (PCR) Mayito Human Metapneumo PCR Nasal M.pneumoniae (PCR) Nasal SARS-CoV-2 (PCR) 04/20/20 04/20/20 04/20/20 13:51 15:31 15:50 WBC RBC Hgb Hct MCV MCH MCHC RDW Plt Count MPV Neut # (Auto) Lymph # (Auto) Dare # (Auto) Eos # (Auto) Baso # (Auto) Absolute Nucleated RBC Nucleated RBC % PT INR Sodium 141 Potassium 4.6 Chloride 97 L Carbon Dioxide 28 Anion Gap 16.0 H BUN 13 Creatinine 0.9 Estimated GFR (MDRD) 84 L Glucose 182 H Lactic Acid 2.2 Calcium 9.0 Total Bilirubin 1.6 H AST 73 H ALT 41 Alkaline Phosphatase 133 H Troponin I High Sens C-Reactive Protein Total Protein 7.2 Albumin 3.8 Globulin 3.4 Albumin/Globulin Ratio 1.1 Lipase Nasal Adenovirus (PCR) NOT DETECTED Nasal B. parapertussis DNA (PCR) NOT DETECTED Nasal Coronavir 229E PCR NOT DETECTED Nasal Coronavir HKU1 PCR NOT DETECTED Nasal Coronavir NL63 PCR NOT DETECTED Nasal Coronavir OC43 PCR NOT DETECTED Nasal Enterovir/Rhinovir PCR NOT DETECTED Nasal Influenza B PCR NOT DETECTED Nasal Influenza A PCR NOT DETECTED Nasal Parainfluen 1 PCR NOT DETECTED Nasal Parainfluen 2 PCR NOT DETECTED Nasal Parainfluen 3 PCR NOT DETECTED Nasal Parainfluen 4 PCR NOT DETECTED Nasal RSV (PCR) NOT DETECTED Nasal B.pertussis DNA PCR NOT DETECTED Nasal C.pneumoniae (PCR) NOT DETECTED Mayito Human Metapneumo PCR NOT DETECTED Nasal M.pneumoniae (PCR) NOT DETECTED Nasal SARS-CoV-2 (PCR) NOT DETECTED - Rads (name of study) CT abd/pelvis Radiology: Final report received, Discussed with rads (pancreatitis, CBD dilatation from the head of the pancreas and superiorly. Abrupt caliber decrease inferiorly. Cholelithiasis without cholecystitis.), EMP read indepedently, See rad report PD MEDICAL DECISION MAKING - ED course Complexity details: reviewed results, re-evaluated patient, considered differential, d/w patient ED course: Patient was worked up with labs EKG, and ultimately, CT scan of the abdomen and pelvis. He was given IV fluid, Toradol, and Dilaudid for his pain. Labs showed an elevated lipase, and CT showed pancreatitis with CBD obstruction proximally. I discussed the case with Drs. Campbell and Debi, who felt the pt could not stay here, due to the potential need for ERCP if MRCP does not show enough. Pt also was with [facility], so [facility] liaison physician arranged transfer to [place], with Dr. Jones accepting. Departure - Departure Disposition: 02 Transfer Acute Care Hosp Clinical Impression: Pancreatitis due to biliary obstruction Qualifiers: Chronicity: acute Acute pancreatitis complication: no infection or necrosis Qualified Code(s): K85.10 - Biliary acute pancreatitis without necrosis or infection Condition: Serious Discharge Date/Time: 04/20/20 18:20
[2020-04-20 09:32] LABS: BASOPHILS % (AUTO) 0.2 %; EOSINOPHILS # (AUTO) 0.1 10^3/uL (0.0-0.7); EOSINOPHILS % (AUTO) 0.4 %; HCT - HEMATOCRIT 46.2 % (42.0-52.0); HGB - HEMOGLOBIN 15.4 g/dL (14.0-18.0); LYMPHOCYTES # (AUTO) 1.1 10^3/uL (1.5-3.5); MEAN CORPUSCULAR HEMOGLOBIN 29.9 pg (27.0-31.0); MEAN CORPUSCULAR HGB CONC 33.3 g/dL (32.0-36.0); MEAN CORPUSCULAR VOLUME 89.7 fL (80.0-94.0); MEAN PLATELET VOLUME 9.8 fL (7.4-11.4); MONOCYTES # (AUTO) 1.2 10^3/uL (0.0-1.0); MONOCYTES % (AUTO) 6.7 %; NEUTROPHILS # (AUTO) 15.7 10^3/uL (1.5-6.6); NEUTROPHILS % (AUTO) 85.9 %; PLT - PLATELET COUNT 194 10^3/uL (130-450); RED BLOOD COUNT 5.15 10^6/uL (4.70-6.10); WHITE BLOOD COUNT 18.2 x10^3/uL (4.8-10.8)
[2020-04-20 10:09] LABS: BILIRUBIN,TOTAL 2.6 mg/dL (0.2-1.0); CALCIUM 9.2 mg/dL (8.5-10.3); CREATININE 1.1 mg/dL (0.6-1.2); POTASSIUM 3.4 mmol/L (3.5-5.0)
[2020-04-20 10:10] LABS: ALBUMIN 3.9 g/dL (3.2-5.5); ALBUMIN/GLOBULIN RATIO 1.1 (1.0-2.2); TOTAL PROTEIN 7.5 g/dL (6.7-8.2)
[2020-04-20] MEDS ORDERED: IOVERSOL 320 100 ML VIAL IVP ONE ×2 (10:42→16:33)
[2020-04-20] MEDS ORDERED: HYDROmorphone 2 MG/ML VIAL IVP STA (10:58)
--- NOTE | 2020-04-20 11:38 | CT Report ---
PROCEDURE: Abdomen/Pelvis W INDICATIONS: Left-sided abdominal pain, leukocytosis CONTRAST: IV CONTRAST: Optiray 320 ml: 100 PO CONTRAST: *NO PO CONTRAST TECHNIQUE: After the administration of intravenous contrast, 5 mm thick sections acquired from the diaphragms to the symphysis. 5 mm thick coronal and sagittal reformats were acquired. For radiation dose reducti on, the following was used: automated exposure control, adjustment of mA and/or kV according to rebecca ent size. COMPARISON: 07/04/2019 and 12/27/2019 CT FINDINGS: Image quality: Excellent. ABDOMEN: Lung bases: Lung bases are clear. Heart size is normal. Solid organs: Small hyperdense calculi in the gallbladder. No gallbladder wall thickening or adjacent inflammatory changes. Fluid and fat stranding surrounding the pancreas. No focal pancreatic mass. No rmal caliber pancreatic duct. Mild dilatation of the common bile duct measuring up to 13 mm with abru pt decrease in caliber at the level of the pancreatic head. Cirrhosis. Normal size and appearance of the spleen. The adrenal glands and kidneys unremarkable. Peritoneum and bowel: Bowel loops demonstrate normal wall thickness and caliber. No free fluid or a ir. Nodes and vessels: No retroperitoneal or mesenteric adenopathy by size criteria. Aorta and inferior vena cava are normal in size. Miscellaneous: No ventral hernias. PELVIS: Genitourinary: Bladder wall thickness is normal. Miscellaneous: No inguinal hernias or adenopathy. Bones: No suspicious bony lesions. No vertebral body compression fractures. IMPRESSION: Acute interstitial edematous pancreatitis with findings of cirrhosis, suggesting ethanol as a cause. Dilated common bile duct with abrupt decrease in caliber at the level of the pancreatic head. This is a new finding when compared with 07/04/2019 CT, raising concern for choledocholithiasis or potentiall y an intraductal mass as the etiology for the pancreatitis. This is considered less likely given the background cirrhosis and presumed ethanol abuse, as well as the lack of pancreatic ductal dilatation or intrahepatic biliary ductal dilatation. Nonetheless choledocholithiasis or neoplasm obstructing th e common bile duct cannot be strictly excluded. MRCP would be helpful for further evaluation if this is of clinical concern. Cholelithiasis without findings of cholecystitis. Reviewed by: David Yeboah MD on 04/20/2020 10:36 AM [facility] Approved by: David Yeboah MD on 04/20/2020 10:36 AM [facility] Station ID: [id number]
[2020-04-20 12:23] LABS: INR 1.2 (0.8-1.2)
[2020-04-20] MEDS ORDERED: HYDROmorphone 0.5 MG/0.5 ML SYRINGE IVP PRN (13:04)
[2020-04-20] MEDS ORDERED: oxyCODONE 5 MG TABLET PO PRN (13:04)
[2020-04-20] MEDS ORDERED: SODIUM CHLORIDE FLUSH 0.9% 10 ML SYRINGE IVP PRN (13:04)
[2020-04-20] MEDS ORDERED: ACETAMINOPHEN 325 MG TABLET PO PRN (13:04)
[2020-04-20] MEDS ORDERED: ONDANSETRON 4 MG/2 ML VIAL IVP PRN (13:04)
[2020-04-20] MEDS ORDERED: LORazepam 2 MG/ML VIAL IVP PRN (13:13)
[2020-04-20] MEDS ORDERED: SODIUM CHLORIDE 0.9% 1,000 ML IV SCH (14:00)
[2020-04-20] MEDS ORDERED: POTASSIUM CHLOR 10 MEQ/100 ML 10 MEQ/100 ML BAG IV SCH (14:00)
[2020-04-20 14:12] LABS: BASOPHILS % (AUTO) 0.2 %; EOSINOPHILS % (AUTO) 0.1 %; HCT - HEMATOCRIT 47.3 % (42.0-52.0); HGB - HEMOGLOBIN 15.7 g/dL (14.0-18.0); LYMPHOCYTES # (AUTO) 0.6 10^3/uL (1.5-3.5); LYMPHOCYTES % (AUTO) 5.2 %; MEAN CORPUSCULAR HEMOGLOBIN 29.8 pg (27.0-31.0); MEAN CORPUSCULAR HGB CONC 33.2 g/dL (32.0-36.0); MEAN CORPUSCULAR VOLUME 89.9 fL (80.0-94.0); MEAN PLATELET VOLUME 9.6 fL (7.4-11.4); MONOCYTES # (AUTO) 0.6 10^3/uL (0.0-1.0); MONOCYTES % (AUTO) 4.9 %; NEUTROPHILS # (AUTO) 10.7 10^3/uL (1.5-6.6); NEUTROPHILS % (AUTO) 89.2 %; PLT - PLATELET COUNT 169 10^3/uL (130-450); RED BLOOD COUNT 5.26 10^6/uL (4.70-6.10); RED CELL DISTRIBUTION WIDTH 14.1 % (12.0-15.0); WHITE BLOOD COUNT 11.9 x10^3/uL (4.8-10.8)
[2020-04-20 14:25] LABS: ALBUMIN 3.8 g/dL (3.2-5.5); ALBUMIN/GLOBULIN RATIO 1.1 (1.0-2.2); BILIRUBIN,TOTAL 1.6 mg/dL (0.2-1.0); CREATININE 0.9 mg/dL (0.6-1.2); POTASSIUM 4.6 mmol/L (3.5-5.0); TOTAL PROTEIN 7.2 g/dL (6.7-8.2)
[2020-04-20] MEDS ORDERED: SODIUM CHLORIDE FLUSH 0.9% 10 ML SYRINGE IVP SCH (17:00)
[2020-04-20 18:12] VITALS: BP 147/94
[2020-04-20 18:39] LABS: B. PARAPERTUSSIS- RESP PCR PAN NOT DETECTED; B. PERTUSSIS- RESP PCR PANEL NOT DETECTED; C. PNEUMONIAE- RESP PCR PANEL NOT DETECTED; CORONAVIRUS 229E-RESP PCR NOT DETECTED; CORONAVIRUS HKU1-RESP PCR NOT DETECTED; CORONAVIRUS NL63-RESP PCR NOT DETECTED; CORONAVIRUS OC43-RESP PCR NOT DETECTED; HUMAN METAPNEUMOVIRUS NOT DETECTED; INFLUENZA A- RESP PCR PANEL NOT DETECTED; INFLUENZA B - RESP PCR PANEL NOT DETECTED; M. PNEUMONIAE- RESP PCR PANEL NOT DETECTED; PARAINFLUENZA VIRUS 1 NOT DETECTED; PARAINFLUENZA VIRUS 2 NOT DETECTED; PARAINFLUENZA VIRUS 3 NOT DETECTED; PARAINFLUENZA VIRUS 4 NOT DETECTED; RHINOVIRUS/ENTEROVIRUS NOT DETECTED; RSV- RESP PCR PANEL NOT DETECTED; SARS-CoV-2 -RESP PCR PANEL NOT DETECTED
[2020-04-20] MEDS ORDERED: HEPARIN 5,000 UNIT/ML VIAL SUBQ SCH (21:00)
[2020-04-21] MEDS ORDERED: PANTOPRAZOLE 40 MG VIAL IVP SCH (07:00)
[2020-04-21] MEDS ORDERED: THIAMINE 100 MG TABLET PO SCH (09:00)
[2020-04-21] MEDS ORDERED: PRENATAL VITAMIN TABLET PO SCH (09:00)
== END 2020-04-20 18:20 | disposition short-term general hospital (02) ==
LOC: EDUNIT# → ED 09:09
DX: K85.10 Biliary acute pancreatitis without necrosis or infection (principal); K83.1 Obstruction of bile duct; K80.20 Calculus of gallbladder without cholecystitis without obstruction; K74.60 Unspecified cirrhosis of liver; Z87.11 Personal history of peptic ulcer disease; R00.1 Bradycardia, unspecified; Z20.822 Contact with and (suspected) exposure to COVID-19; I10 Essential (primary) hypertension; E11.9 Type 2 diabetes mellitus without complications
CPT/HCPCS: 36415; 74177; 80053; 83605; 83690; 84484; 85025; 85610; 86140; 87631; 93005; 96361; 96374; 96375; 96376; 99285; J1170; Q9967; 0202U

== ENCOUNTER 2020-07-11 12:52 | Outpatient (CLI) | payer MEDICARE ==
[2020-07-11 13:25] LABS: ALBUMIN 3.5 g/dL (3.2-5.5); BILIRUBIN,DIRECT 1.1 mg/dL (0.1-0.5); BILIRUBIN,TOTAL 2.3 mg/dL (0.2-1.0); TOTAL PROTEIN 7.1 g/dL (6.7-8.2)
== END 2020-07-11 12:53 | disposition home or self-care (01) ==
LOC: LAB 12:52
PROVIDERS: ATTEND Internal Medicine Gastroenterology
DX: K80.21 Calculus of gallbladder without cholecystitis with obstruction (principal); K74.60 Unspecified cirrhosis of liver
CPT/HCPCS: 36415; 80076

== ENCOUNTER 2020-07-25 14:41 | Outpatient (CLI) | payer MEDICARE ==
--- NOTE | 2020-07-25 16:25 | XRAY Report ---
PROCEDURE: Lumbar Spine Complete INDICATIONS: LOW BACK SPRAIN TECHNIQUE: 6 views of the lumbar spine were acquired. COMPARISON: Lumbar spine x-ray 11/19/2019 FINDINGS: Bones: 5 [id number] vertebrae are present. There is trace retrolisthesis of L1 on L2, L2 on L3 , L3 on L4, L4-L5 and L5 on S1. Moderate to severe foraminal narrowing is present at L5-S1. Overall c hanges are relatively stable compared to prior exam. No vertebral body compression fractures. No sandra picious bony lesions. Soft tissues: Overlying bowel gas pattern is normal. No suspicious soft tissue calcifications. IMPRESSION: Changes most notable at L5-S1, unchanged. Reviewed by: Tania Felder MD on 07/25/2020 4:23 PM PDT Approved by: Tania Felder MD on 07/25/2020 4:23 PM PDT Station ID: [id number]
== END 2020-07-25 14:42 | disposition home or self-care (01) ==
LOC: DI.S 14:41
PROVIDERS: ATTEND Nurse Practitioner Family
DX: M43.16 Spondylolisthesis, lumbar region (principal); M43.17 Spondylolisthesis, lumbosacral region; M48.07 Spinal stenosis, lumbosacral region

== ENCOUNTER 2020-10-21 10:48 | Outpatient (CLI) | payer MEDICARE ==
--- NOTE | 2020-10-21 15:04 | Ultrasound Report ---
PROCEDURE: Carotid Doppler Complete INDICATIONS: DIZZINESS TECHNIQUE: Color and pulse Doppler interrogation was performed of both carotid systems, with image documentation and velocity measurements. COMPARISON: None. FINDINGS: Right side: Brachial blood pressure: 139/66 mm Hg. Common carotid artery peak systolic velocity: 77 cm/sec. Internal carotid artery peak systolic velocity: 93 cm/sec. Internal carotid artery end diastolic velocity: 38 cm/sec. External carotid artery peak systolic velocity: 105 cm/sec. ICA/CCA peak systolic ratio: 1.5 . Trammell scale imaging description: Moderate plaque at the bifurcation. Percent internal carotid artery stenosis: Wasn't 50% . Vertebral artery: Flow direction is antegrade. Left side: Brachial blood pressure: 128/65 mm Hg. Common carotid artery peak systolic velocity: 104 cm/sec. Internal carotid artery peak systolic velocity: 108 cm/sec. Internal carotid artery end diastolic velocity: 39 cm/sec. External carotid artery peak systolic velocity: 96 cm/sec. ICA/CCA peak systolic ratio: 1.0 . Trammell scale imaging description: Moderate plaque at the bifurcation. Percent internal carotid artery stenosis: Less than 50% . Vertebral artery: Flow direction is antegrade. IMPRESSION: Less than 50% stenosis of the internal carotid arteries bilaterally. The estimate of stenosis included in the report of the imaging study was calculated using the NASCET method Reviewed by: Tania Felder MD on 10/21/2020 3:03 PM PDT Approved by: Tania Felder MD on 10/21/2020 3:03 PM PDT Station ID: [id number]
== END 2020-10-21 10:49 | disposition home or self-care (01) ==
LOC: DI 10:48
PROVIDERS: ATTEND Nurse Practitioner Family
DX: R42 Dizziness and giddiness (principal)
CPT/HCPCS: 93880

== ENCOUNTER 2020-12-29 08:00 | Outpatient (CLI) | payer MEDICARE ==
[2020-12-29 15:24] LABS: BASOPHILS % (AUTO) 0.3 %; EOSINOPHILS # (AUTO) 0.3 10^3/uL (0.0-0.7); EOSINOPHILS % (AUTO) 2.7 %; HCT - HEMATOCRIT 39.1 % (42.0-52.0); HGB - HEMOGLOBIN 12.6 g/dL (14.0-18.0); LYMPHOCYTES # (AUTO) 1.6 10^3/uL (1.5-3.5); LYMPHOCYTES % (AUTO) 16.8 %; MEAN CORPUSCULAR HEMOGLOBIN 29.6 pg (27.0-31.0); MEAN CORPUSCULAR HGB CONC 32.2 g/dL (32.0-36.0); MEAN PLATELET VOLUME 11.1 fL (7.4-11.4); MONOCYTES % (AUTO) 10.4 %; NEUTROPHILS # (AUTO) 6.6 10^3/uL (1.5-6.6); NEUTROPHILS % (AUTO) 69.4 %; PLT - PLATELET COUNT 205 10^3/uL (130-450); RED BLOOD COUNT 4.25 10^6/uL (4.70-6.10); RED CELL DISTRIBUTION WIDTH 13.5 % (12.0-15.0); WHITE BLOOD COUNT 9.4 x10^3/uL (4.8-10.8)
[2020-12-29 15:49] LABS: ALBUMIN 4.2 g/dL (3.2-5.5); ALBUMIN/GLOBULIN RATIO 1.2 (1.0-2.2); BILIRUBIN,TOTAL 0.9 mg/dL (0.2-1.0); CALCIUM 9.4 mg/dL (8.5-10.3); CREATININE 1.1 mg/dL (0.6-1.2); POTASSIUM 4.9 mmol/L (3.5-5.0); TOTAL PROTEIN 7.7 g/dL (6.7-8.2)
[2020-12-29 16:11] LABS: INR 1.1 (0.8-1.2); PT - PROTHROMBIN TIME 11.7 secs (9.9-12.6)
== END 2020-12-29 23:59 | disposition home or self-care (01) ==
LOC: LAB.S 08:00
PROVIDERS: ATTEND Emergency Medicine
DX: K74.60 Unspecified cirrhosis of liver (principal)
CPT/HCPCS: 36415; 80053; 82150; 83690; 85025; 85610

== ENCOUNTER 2020-12-30 16:30 | Outpatient (CLI) | payer MEDICARE ==
[2020-12-30 16:57] LABS: BASOPHILS % (AUTO) 0.3 %; EOSINOPHILS # (AUTO) 0.3 10^3/uL (0.0-0.7); EOSINOPHILS % (AUTO) 4.4 %; HCT - HEMATOCRIT 36.2 % (42.0-52.0); HGB - HEMOGLOBIN 11.5 g/dL (14.0-18.0); LYMPHOCYTES # (AUTO) 1.7 10^3/uL (1.5-3.5); MEAN CORPUSCULAR HEMOGLOBIN 29.5 pg (27.0-31.0); MEAN CORPUSCULAR HGB CONC 31.8 g/dL (32.0-36.0); MEAN CORPUSCULAR VOLUME 92.8 fL (80.0-94.0); MEAN PLATELET VOLUME 10.3 fL (7.4-11.4); MONOCYTES # (AUTO) 0.7 10^3/uL (0.0-1.0); MONOCYTES % (AUTO) 10.6 %; NEUTROPHILS # (AUTO) 3.6 10^3/uL (1.5-6.6); NEUTROPHILS % (AUTO) 57.2 %; PLT - PLATELET COUNT 164 10^3/uL (130-450); RED CELL DISTRIBUTION WIDTH 13.6 % (12.0-15.0); WHITE BLOOD COUNT 6.3 x10^3/uL (4.8-10.8)
[2020-12-30 16:59] LABS: PT - PROTHROMBIN TIME 11.2 secs (9.9-12.6)
[2020-12-30 17:05] LABS: ALBUMIN 3.7 g/dL (3.2-5.5); BILIRUBIN,DIRECT 0.1 mg/dL (0.1-0.5); BILIRUBIN,TOTAL 0.4 mg/dL (0.2-1.0); CALCIUM 9.2 mg/dL (8.5-10.3); CREATININE 1.3 mg/dL (0.6-1.2); POTASSIUM 4.8 mmol/L (3.5-5.0); TOTAL PROTEIN 7.4 g/dL (6.7-8.2)
== END 2020-12-30 16:31 | disposition home or self-care (01) ==
LOC: LAB 16:30
PROVIDERS: ATTEND Internal Medicine
DX: K85.10 Biliary acute pancreatitis without necrosis or infection (principal); K83.1 Obstruction of bile duct
CPT/HCPCS: 36415; 80048; 80076; 85025; 85610

== ENCOUNTER 2021-01-06 15:16 | Outpatient (CLI) | payer MEDICARE ==
--- NOTE | 2021-01-07 10:37 | Ultrasound Report ---
PROCEDURE: Abdomen Limited INDICATIONS: PSUEDOCYST OF PANCREAS TECHNIQUE: Real-time focused scanning was performed of the abdomen, with image documentation. COMPARISON: CT dated 04/20/2019 oh FINDINGS: The liver measures 13.6 cm in length. There is a diffuse coarsened echotexture. No focal abnormality. Portal vein is mildly enlarged measuring 1.4 cm. Flow remains patent. Gallbladder wall is within normal limits without pericholecystic fluid or sonographic Atwood's sign. Multiple gallstones are noted. Additional sludge is identified. No significant intrahepatic ductal dilation. The common bile duct is enlarged measuring 9 mm. Along t he distal aspect of the common bile duct is a region of echogenicity measuring up to 9 mm concerning for intraductal stone. The proximal pancreas is grossly within normal limits. There is mild dilation of the pancreatic duct within the body and tail measuring up to 5 mm. The right kidney is normal in size measuring 10.2 cm. The cortex is normal in size measuring 1.3 cm. Normal echogenicity without hydronephrosis, stone, or suspicious solid masses. No significant ascites. IMPRESSION: Cholelithiasis with findings concerning for choledocholithiasis with a 9 mm region of echogenicity wi thin the distal common bile duct causing enlargement of the common bile duct. Pancreatic ductal dilation within the distal body and tail. Recommend follow-up after obstruction fro m stone is relieved. To exclude obstructing mass Cirrhotic liver with mildly enlarged portal vein suggestive of portal hypertension. Reviewed by: Christiano Dorantes DO on 01/07/2021 9:36 AM MARY Approved by: Christiano Dorantes DO on 01/07/2021 9:36 AM MARY Station ID: [id number]
== END 2021-01-06 15:17 | disposition home or self-care (01) ==
LOC: DI 15:16
PROVIDERS: ATTEND Internal Medicine
DX: K86.3 Pseudocyst of pancreas (principal); K85.10 Biliary acute pancreatitis without necrosis or infection; K80.70 Calculus of gallbladder and bile duct without cholecystitis without obstruction; K74.60 Unspecified cirrhosis of liver

== ENCOUNTER 2021-01-31 15:56 | Outpatient (CLI) | payer MEDICARE ==
[2021-01-31 16:27] LABS: ALBUMIN 3.9 g/dL (3.2-5.5); BILIRUBIN,DIRECT 0.2 mg/dL (0.1-0.5); BILIRUBIN,TOTAL 0.7 mg/dL (0.2-1.0); TOTAL PROTEIN 6.9 g/dL (6.7-8.2)
== END 2021-01-31 15:57 | disposition home or self-care (01) ==
LOC: LAB 15:56
PROVIDERS: ATTEND Internal Medicine
DX: K80.20 Calculus of gallbladder without cholecystitis without obstruction (principal); K74.60 Unspecified cirrhosis of liver
CPT/HCPCS: 36415; 80076

== ENCOUNTER 2021-02-09 11:01 | Outpatient (CLI) | payer MEDICARE ==
[2021-02-09 11:41] LABS: ALBUMIN 3.7 g/dL (3.2-5.5); BILIRUBIN,DIRECT 0.1 mg/dL (0.1-0.5); BILIRUBIN,TOTAL 0.5 mg/dL (0.2-1.0); TOTAL PROTEIN 6.9 g/dL (6.7-8.2)
== END 2021-02-09 11:02 | disposition home or self-care (01) ==
LOC: LAB 11:01
PROVIDERS: ATTEND Internal Medicine
DX: K74.60 Unspecified cirrhosis of liver (principal)
CPT/HCPCS: 36415; 80076; 82977

== ENCOUNTER 2021-03-14 10:30 | Outpatient (CLI) | payer MEDICARE ==
[2021-03-14 10:53] LABS: BASOPHILS % (AUTO) 0.4 %; EOSINOPHILS # (AUTO) 0.2 10^3/uL (0.0-0.7); EOSINOPHILS % (AUTO) 4.4 %; HCT - HEMATOCRIT 38.9 % (42.0-52.0); HGB - HEMOGLOBIN 12.9 g/dL (14.0-18.0); LYMPHOCYTES # (AUTO) 1.5 10^3/uL (1.5-3.5); LYMPHOCYTES % (AUTO) 30.5 %; MEAN CORPUSCULAR HEMOGLOBIN 29.9 pg (27.0-31.0); MEAN CORPUSCULAR HGB CONC 33.2 g/dL (32.0-36.0); MEAN PLATELET VOLUME 10.1 fL (7.4-11.4); MONOCYTES # (AUTO) 0.5 10^3/uL (0.0-1.0); MONOCYTES % (AUTO) 11.2 %; NEUTROPHILS # (AUTO) 2.6 10^3/uL (1.5-6.6); NEUTROPHILS % (AUTO) 53.3 %; PLT - PLATELET COUNT 149 10^3/uL (130-450); RED BLOOD COUNT 4.32 10^6/uL (4.70-6.10); RED CELL DISTRIBUTION WIDTH 13.2 % (12.0-15.0); WHITE BLOOD COUNT 4.8 x10^3/uL (4.8-10.8)
[2021-03-14 10:58] LABS: INR 1.2 (0.8-1.2); PT - PROTHROMBIN TIME 12.9 secs (9.9-12.6)
[2021-03-14 11:07] LABS: ALBUMIN 3.8 g/dL (3.2-5.5); ALBUMIN/GLOBULIN RATIO 1.1 (1.0-2.2); BILIRUBIN,TOTAL 0.6 mg/dL (0.2-1.0); CALCIUM 9.2 mg/dL (8.5-10.3); CREATININE 1.2 mg/dL (0.6-1.2); POTASSIUM 4.2 mmol/L (3.5-5.0); TOTAL PROTEIN 7.2 g/dL (6.7-8.2)
== END 2021-03-14 10:31 | disposition home or self-care (01) ==
LOC: LAB 10:30
PROVIDERS: ATTEND Internal Medicine
DX: K74.60 Unspecified cirrhosis of liver (principal)
CPT/HCPCS: 36415; 80053; 85025; 85610

== ENCOUNTER 2021-04-08 18:41 | Outpatient (CLI) | payer MEDICARE | END 2021-04-08 18:42 | disposition critical access hospital (66) | LOC: EMS 18:41 | DX: R10.12 Left upper quadrant pain (principal); R10.11 Right upper quadrant pain; R11.2 Nausea with vomiting, unspecified; R55 Syncope and collapse | CPT/HCPCS: A0425; A0427 ==

== ENCOUNTER 2021-04-08 19:15 | Emergency (ER) | payer MEDICARE ==
--- NOTE | 2021-04-08 19:30 | ED Physician Documentation ---
History of Present Illness - Stated complaint Stated Complaint: SYNCOPE - Chief complaint Chief Complaint: General - History obtained from History obtained from: Patient - Additonal information Additional information: 70-year-old gentleman with history of alcoholism and pancreatic issues. He has had biliary obstructions in the past and several stents but no stents right now. He was in his usual state of health albeit had been working hard today on a car, at 530 developed epigastric pain and had pain for about 25 minutes before blacking out with premonition. He was incontinent of urine. There is no associated chest pain or abdominal pain. Feels back to normal now. No abdominal pain currently. Review of Systems Ten Systems: 10 systems reviewed and negative Constitutional: denies: Fever, Chills Eyes: reports: Reviewed and negative Ears: reports: Reviewed and negative Nose: reports: Reviewed and negative Throat: reports: Reviewed and negative Cardiac: reports: Reviewed and negative PD PAST MEDICAL HISTORY - Past Medical History Cardiovascular: Hypertension Respiratory: COPD Neuro: Headaches Endocrine/Autoimmune: Type 2 diabetes GI: Hepatitis, Cirrhosis, Other : Chronic bladder infection HEENT: None Psych: None Musculoskeletal: None - Past Surgical History Past Surgical History: Yes - Present Medications Home Medications: Ambulatory Orders Medication Instructions Recorded Confirmed Hydrocodone/Acetaminophen 1 each PO BID 12/27/19 04/20/20 [Hydrocodon-Acetaminophn 10-325] Atorvastatin Calcium 1 tab DAILY 04/20/20 04/20/20 Lisinopril [Zestril] 3 tab DAILY 04/20/20 04/20/20 Metoprolol Succinate [Toprol Xl] 1 tab DAILY 04/20/20 04/20/20 - Allergies Allergies/Adverse Reactions: Allergies Allergy/AdvReac Type Severity Reaction Status Date / Time zolpidem [From Ambien] AdvReac Hallucinati Verified 04/20/20 09:18 ons - Social History Does the pt smoke?: Yes Smoking Status: Unknown if ever smoked Does the pt drink ETOH?: Yes Does the pt have substance abuse?: Yes Substance Use and Type: Other (States he has not been drinking, smoking, or using methamphetamine this year. He is pretty much quit everything.) - Immunizations Immunizations are current?: Yes PD ED PE NORMAL - Vitals Vital signs reviewed: Yes - General General: Alert and oriented X 3, No acute distress - HEENT HEENT: PERRL, EOMI - Neck Neck: Supple, no meningeal sign, No bony TTP - Cardiac Cardiac: RRR, No murmur - Respiratory Respiratory: No respiratory distress, Clear bilaterally - Abdomen Abdomen: Normal bowel sounds, Soft, Non tender - Back Back: No CVA TTP, No spinal TTP - Derm Derm: Normal color, Warm and dry - Extremities Extremities: No edema, No calf tenderness / cord - Neuro Neuro: Alert and oriented X 3, Normal speech Results - Vitals Vitals: Vital Signs - 24 hr 04/08/21 04/08/21 19:22 19:25 Temperature 36.8 C 36.8 C Heart Rate 56 L 56 L Respiratory 18 18 Rate Blood Pressure 119/86 H 119/86 H O2 Saturation 100 100 Oxygen O2 Source Room air - EKG (time done) 1937 Rate: Rate (enter#) (55) Rhythm: NSR [place]: Normal Intervals: Normal [place]. No: Prolonged QT, Wide QRS Ischemia: Q waves (V1-3). No: ST elevation c/w ischemia, ST depression Computer interpretation: Agree with computer - Labs Labs: Laboratory Tests 04/08/21 04/08/21 04/08/21 19:36 19:36 19:36 WBC 7.0 RBC 4.05 L Hgb 12.1 L Hct 35.8 L MCV 88.4 MCH 29.9 MCHC 33.8 RDW 12.9 Plt Count 153 MPV 10.0 Neut # (Auto) 5.5 Lymph # (Auto) 0.7 L [place] # (Auto) 0.6 Eos # (Auto) 0.2 Baso # (Auto) 0.0 Absolute Nucleated RBC 0.00 Nucleated RBC % 0.0 PT 14.0 H INR 1.3 H Sodium 138 Potassium 3.7 Chloride 104 Carbon Dioxide 24 Anion Gap 10.0 BUN 21 H Creatinine 1.4 H Estimated GFR (MDRD) 50 L Glucose 133 H Calcium 8.6 Magnesium 1.8 Total Bilirubin 1.8 H AST 71 H ALT 31 Alkaline Phosphatase 89 Troponin I High Sens Total Protein 6.4 L Albumin 3.5 Globulin 2.9 Albumin/Globulin Ratio 1.2 Lipase 34 Ethyl Alcohol < 5.0 04/08/21 19:36 WBC RBC Hgb Hct MCV MCH MCHC RDW Plt Count MPV Neut # (Auto) Lymph # (Auto) [place] # (Auto) Eos # (Auto) Baso # (Auto) Absolute Nucleated RBC Nucleated RBC % PT INR Sodium Potassium Chloride Carbon Dioxide Anion Gap BUN Creatinine Estimated GFR (MDRD) Glucose Calcium Magnesium Total Bilirubin AST ALT Alkaline Phosphatase Troponin I High Sens 17.0 Total Protein Albumin Globulin Albumin/Globulin Ratio Lipase Ethyl Alcohol - Rads (name of study) CT A/P Radiology: EMP read contemporaneously PD MEDICAL DECISION MAKING - ED course ED course: 70-year-old gentleman with known cirrhosis and gallstones had an episode of epigastric pain after working hard all day without drinking too much water and then had a syncopal episode with significant premonition. [place] syncope risk score of 0, low risk, 1.9% risk of 30-day serious adverse events. Does not sound like he is developed recurrent obstruction at this point based on imaging and labs. Departure - Departure Disposition: 01 Home, Self Care Clinical Impression: Cirrhosis Qualifiers: Hepatic cirrhosis type: alcoholic cirrhosis Ascites presence: without ascites Qualified Code(s): K70.30 - Alcoholic cirrhosis of liver without ascites Syncope Qualifiers: Syncope type: vasovagal syncope Qualified Code(s): R55 - Syncope and collapse Abdominal pain Qualifiers: Abdominal location: epigastric Qualified Code(s): R10.13 - Epigastric pain Condition: Good Record reviewed to determine appropriate education?: Yes Instructions: Cirrhosis Liver Dc, ED Syncope Vasovagal Comments: As discussed, no clear reason for you to pay passing out tonight but I suspect that it is a combination of dehydration from working all day and then having painful episode. There is no evidence of biliary obstruction right now thankfully. 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 Return for new or worsening symptoms. Drink plenty of fluids.
[2021-04-08 19:41] LABS: BASOPHILS % (AUTO) 0.3 %; EOSINOPHILS # (AUTO) 0.2 10^3/uL (0.0-0.7); EOSINOPHILS % (AUTO) 2.2 %; HCT - HEMATOCRIT 35.8 % (42.0-52.0); HGB - HEMOGLOBIN 12.1 g/dL (14.0-18.0); LYMPHOCYTES # (AUTO) 0.7 10^3/uL (1.5-3.5); LYMPHOCYTES % (AUTO) 10.5 %; MEAN CORPUSCULAR HEMOGLOBIN 29.9 pg (27.0-31.0); MEAN CORPUSCULAR HGB CONC 33.8 g/dL (32.0-36.0); MEAN CORPUSCULAR VOLUME 88.4 fL (80.0-94.0); MONOCYTES # (AUTO) 0.6 10^3/uL (0.0-1.0); MONOCYTES % (AUTO) 8.2 %; NEUTROPHILS # (AUTO) 5.5 10^3/uL (1.5-6.6); NEUTROPHILS % (AUTO) 78.4 %; PLT - PLATELET COUNT 153 10^3/uL (130-450); RED BLOOD COUNT 4.05 10^6/uL (4.70-6.10); RED CELL DISTRIBUTION WIDTH 12.9 % (12.0-15.0)
[2021-04-08] MEDS ORDERED: iohexoL-300 100 ML VIAL ONE (19:43)
[2021-04-08 19:57] LABS: INR 1.3 (0.8-1.2)
[2021-04-08 20:12] LABS: ALBUMIN 3.5 g/dL (3.2-5.5); ALBUMIN/GLOBULIN RATIO 1.2 (1.0-2.2); ALKALINE PHOSPHATASE 89 IU/L (42-121); ALT ALANINE AMINOTRANSFERASE 31 IU/L (10-60); AST ASPARTATE AMINOTRANSFERASE 71 IU/L (10-42); BILIRUBIN,TOTAL 1.8 mg/dL (0.2-1.0); BUN - BLOOD UREA NITROGEN 21 mg/dL (6-20); CALCIUM 8.6 mg/dL (8.5-10.3); CARBON DIOXIDE - CO2 24 mmol/L (21-32); CHLORIDE 104 mmol/L (101-111); CREATININE 1.4 mg/dL (0.6-1.2); ETOH - ETHANOL < 5.0 mg/dL; GFR - MDRD 50 (>89); GLUCOSE 133 mg/dL (70-100); LIPASE 34 U/L (22-51); MAGNESIUM 1.8 mg/dL (1.7-2.8); POTASSIUM 3.7 mmol/L (3.5-5.0); SODIUM 138 mmol/L (135-145); TOTAL PROTEIN 6.4 g/dL (6.7-8.2)
[2021-04-08] MEDS ORDERED: SODIUM CHLORIDE 0.9% 1,000 ML IV STA (20:16)
[2021-04-08] MEDS ORDERED: iohexoL-300 100 ML VIAL IVP ONE (20:40)
--- NOTE | 2021-04-08 21:28 | CT Report ---
PROCEDURE: Abdomen/Pelvis W INDICATIONS: IV only, syncope, abd pain CONTRAST: IV CONTRAST: Isovue 300 ml: 100 PO CONTRAST: *NO PO CONTRAST TECHNIQUE: After the administration of nonionic contrast, 5 mm thick sections acquired from the diaphragms to th e symphysis. 5 mm thick coronal and sagittal reformats were acquired. For radiation dose reduction, the following was used: automated exposure control, adjustment of mA and/or kV according to patient size. COMPARISON: Similar prior CT 04/20/2020 reviewed. FINDINGS: Image quality: Excellent. ABDOMEN: Lung bases: Lung bases are clear. Heart size is normal. Solid organs: Liver and spleen are again seen to be asymmetric in size and enhancement. The spleen remains normal in size, the liver is small and nodular in its margination and heterogeneous in its en hancement, consistent with underlying long-standing cirrhosis. There is evidence of portal hypertensi on as indicated by mild interval enlargement of the periumbilical vein and body wall midline anterior collateral venous flow. This has mildly worsened from 04/20/2020. Gallbladder contains several depend ent layering gallstones without evidence of acute cholecystitis Biliary system is non dilated. Panc reas enhances normally and previously present acute pancreatitis has resolved. No adrenal nodules. Kidneys demonstrate normal size and enhancement, without hydronephrosis. Peritoneum and bowel: Bowel loops demonstrate normal wall thickness and caliber. No free fluid or a ir. Nodes and vessels: No retroperitoneal or mesenteric adenopathy by size criteria. Aorta and inferior vena cava are normal in size. Miscellaneous: No ventral hernias. PELVIS: Genitourinary: Bladder wall thickness is normal. There is a previously present right posterolateral bladder diverticulum, small in size. Miscellaneous: No inguinal hernias or adenopathy. Bones: No suspicious bony lesions. No vertebral body compression fractures. IMPRESSION: Cirrhosis with portal hypertension, which has mildly worsened from the comparison CT sca nning from April of last year. Heterogeneity of the liver parenchyma is present, and follow-up by selective MR contrast enhanced hepatic protocol MR scanning may be warranted for early detection of h epatocellular carcinoma. Stable appearing bladder diverticulum right posterior lateral bladder wall. Several mobile gallstones are present within the gallbladder lumen, none of which appear obstructed. Prior acute pancreatitis has resolved, a definite source of new acute onset abdominal/pelvic pain is not seen. Reviewed by: Fady Aguilar MD on 04/08/2021 9:27 PM PST Approved by: Fady Aguilar MD on 04/08/2021 9:27 PM PST Station ID: [id number]
[2021-04-08 21:45] VITALS: BP 148/75
== END 2021-04-08 22:03 | disposition home or self-care (01) ==
LOC: EDUNIT# → ED 19:15
DX: K70.30 Alcoholic cirrhosis of liver without ascites (principal); E11.9 Type 2 diabetes mellitus without complications
CPT/HCPCS: 36415; 74177; 80053; 83690; 83735; 84484; 85025; 85610; 93005; 96360; 99283; 99284; G0480; Q9967; 80320

== ENCOUNTER 2021-04-14 19:03 | Outpatient (CLI) | payer MEDICARE ==
[2021-04-14 19:27] LABS: BASOPHILS % (AUTO) 0.3 %; EOSINOPHILS # (AUTO) 0.3 10^3/uL (0.0-0.7); EOSINOPHILS % (AUTO) 3.9 %; HCT - HEMATOCRIT 39.2 % (42.0-52.0); LYMPHOCYTES # (AUTO) 1.6 10^3/uL (1.5-3.5); LYMPHOCYTES % (AUTO) 22.3 %; MEAN CORPUSCULAR HEMOGLOBIN 29.5 pg (27.0-31.0); MEAN CORPUSCULAR HGB CONC 33.2 g/dL (32.0-36.0); MEAN CORPUSCULAR VOLUME 88.9 fL (80.0-94.0); MEAN PLATELET VOLUME 10.7 fL (7.4-11.4); MONOCYTES # (AUTO) 0.7 10^3/uL (0.0-1.0); MONOCYTES % (AUTO) 9.4 %; NEUTROPHILS # (AUTO) 4.5 10^3/uL (1.5-6.6); NEUTROPHILS % (AUTO) 63.8 %; PLT - PLATELET COUNT 176 10^3/uL (130-450); RED BLOOD COUNT 4.41 10^6/uL (4.70-6.10); RED CELL DISTRIBUTION WIDTH 13.2 % (12.0-15.0); WHITE BLOOD COUNT 7.1 x10^3/uL (4.8-10.8)
[2021-04-14 20:29] LABS: ALBUMIN 3.6 g/dL (3.2-5.5); BILIRUBIN,DIRECT 0.4 mg/dL (0.1-0.5); BILIRUBIN,TOTAL 1.3 mg/dL (0.2-1.0); CALCIUM 9.1 mg/dL (8.5-10.3); CREATININE 1.1 mg/dL (0.6-1.2); POTASSIUM 4.4 mmol/L (3.5-5.0); TOTAL PROTEIN 6.8 g/dL (6.7-8.2)
== END 2021-04-14 19:04 | disposition home or self-care (01) ==
LOC: LAB 19:03
PROVIDERS: ATTEND Internal Medicine
DX: C22.0 Liver cell carcinoma (principal)
CPT/HCPCS: 36415; 80048; 80076; 81599; 82105; 82378; 83690; 85025; 86301

== ENCOUNTER 2021-06-23 10:05 | Outpatient (CLI) | payer MEDICARE ==
[2021-06-23 10:28] LABS: BASOPHILS % (AUTO) 0.2 %; EOSINOPHILS # (AUTO) 0.2 10^3/uL (0.0-0.7); EOSINOPHILS % (AUTO) 3.9 %; HCT - HEMATOCRIT 38.1 % (42.0-52.0); HGB - HEMOGLOBIN 12.5 g/dL (14.0-18.0); LYMPHOCYTES # (AUTO) 1.5 10^3/uL (1.5-3.5); MEAN CORPUSCULAR HEMOGLOBIN 29.7 pg (27.0-31.0); MEAN CORPUSCULAR HGB CONC 32.8 g/dL (32.0-36.0); MEAN CORPUSCULAR VOLUME 90.5 fL (80.0-94.0); MEAN PLATELET VOLUME 10.3 fL (7.4-11.4); MONOCYTES # (AUTO) 0.6 10^3/uL (0.0-1.0); MONOCYTES % (AUTO) 11.1 %; NEUTROPHILS # (AUTO) 3.1 10^3/uL (1.5-6.6); NEUTROPHILS % (AUTO) 57.4 %; PLT - PLATELET COUNT 138 10^3/uL (130-450); RED BLOOD COUNT 4.21 10^6/uL (4.70-6.10); RED CELL DISTRIBUTION WIDTH 14.4 % (12.0-15.0); WHITE BLOOD COUNT 5.4 x10^3/uL (4.8-10.8)
[2021-06-23 10:42] LABS: ALBUMIN 3.9 g/dL (3.2-5.5); BILIRUBIN,DIRECT 0.1 mg/dL (0.1-0.5); BILIRUBIN,TOTAL 0.8 mg/dL (0.2-1.0); TOTAL PROTEIN 7.1 g/dL (6.7-8.2)
== END 2021-06-23 10:06 | disposition home or self-care (01) ==
LOC: LAB 10:05
PROVIDERS: ATTEND Internal Medicine
DX: K74.60 Unspecified cirrhosis of liver (principal); R11.2 Nausea with vomiting, unspecified
CPT/HCPCS: 36415; 80076; 85025

== ENCOUNTER 2021-07-07 07:00 | Outpatient (CLI) | payer MEDICARE ==
--- NOTE | 2021-07-07 10:41 | Ultrasound Report ---
PROCEDURE: Abdomen Limited INDICATIONS: HCC, ELEVATED LIVER ENZYMES TECHNIQUE: Real-time focused scanning was performed of the abdomen, with image documentation. COMPARISON: CT abdomen and pelvis with contrast 04/08/2021. Ultrasound abdomen limited, 01/06/2021. FINDINGS: Liver measures 13 cm in length. Liver demonstrates nodular contour and coarse echotexture consistent with cirrhosis. Portal vein is patent with hepatopedal flow. There is a small fluid collection in the call bladder fossa measuring 2.8 x 2.4 x 2.1 cm. The gallbladder is surgically absent (cholecystectomy on 05/19/2021). Common bile duct measures 4.4 mm . Pancreas is normal in echotexture. There is pancreatic dilation measuring 5.1 mm in diameter. Right kidney is normal in size measuring 10.3 cm in length. IMPRESSION: 1. Cholecystectomy. There is a 2.8 x 2.4 x 2.1 cm fluid collection in the gallbladder fossa. Differen tial diagnoses include postoperative seroma versus abscess. 2. Liver demonstrates nodular contour and coarse echotexture consistent with cirrhosis. No discrete h epatic masses are identified. 3. Normal caliber of common bile duct. 4. Pancreatic duct dilation. Recommend pancreatic CT for follow-up evaluation. Reviewed by: Fred Simon MD on 07/07/2021 10:40 AM PDT Approved by: Fred Simon MD on 07/07/2021 10:40 AM PDT Station ID: [id number]
== END 2021-07-07 07:01 | disposition home or self-care (01) ==
LOC: DI 07:00
PROVIDERS: ATTEND Internal Medicine
DX: R94.5 Abnormal results of liver function studies (principal); R93.5 Abnormal findings on diagnostic imaging of other abdominal regions, including retroperitoneum; R93.2 Abnormal findings on diagnostic imaging of liver and biliary tract; K86.89 Other specified diseases of pancreas; Z90.49 Acquired absence of other specified parts of digestive tract

== ENCOUNTER 2021-12-07 08:00 | Outpatient (CLI) | payer MEDICARE | END 2021-12-07 23:59 | disposition home or self-care (01) | LOC: LAB.S 08:00 | PROVIDERS: ATTEND Physician Assistant | DX: L03.019 Cellulitis of unspecified finger (principal) | CPT/HCPCS: 87070; 87077; 87181; 87205 ==

== ENCOUNTER 2021-12-19 13:07 | Outpatient (CLI) | payer MEDICARE ==
--- NOTE | 2021-12-19 17:18 | XRAY Report ---
PROCEDURE: Foot 3 View RT INDICATIONS: PAIN OF TOE OF RIGHT FOOT TECHNIQUE: 3 views of the foot were acquired. COMPARISON: None FINDINGS: Bones: No fractures or dislocations. Mild degenerative changes including asymmetric joint space loss and slight spurring laterally at the first MTP joint. No suspicious bony lesions. Soft tissues: No tibiotalar joint effusion. Achilles tendon appears normal. IMPRESSION: 1. Minimal degenerative change at the first MTP joint. Otherwise intact right foot. Reviewed by: Marline Waddell MD on 12/19/2021 5:17 PM PDT Approved by: Marline Waddell MD on 12/19/2021 5:17 PM PDT Station ID: [id number]
== END 2021-12-19 13:08 | disposition home or self-care (01) ==
LOC: DI.S 13:07
PROVIDERS: ATTEND Nurse Practitioner Family
DX: M19.071 Primary osteoarthritis, right ankle and foot (principal)

== ENCOUNTER 2022-01-25 11:42 | Outpatient (CLI) | payer MEDICARE ==
--- NOTE | 2022-01-25 20:37 | XRAY Report ---
PROCEDURE: Hand 3 View RT INDICATIONS: PAIN IN RIGHT HAND TECHNIQUE: Three views of the hand(s) acquired. COMPARISON: No pertinent prior study. FINDINGS: Bones: No fractures or dislocations. No suspicious bony lesions. Soft tissues: No suspicious soft tissue calcifications. IMPRESSION: No acute finding. Reviewed by: David Yeboah MD on 01/25/2022 8:36 PM PST Approved by: David Yeboah MD on 01/25/2022 8:36 PM PST Station ID: [id number]
== END 2022-01-25 11:43 | disposition home or self-care (01) ==
LOC: DI.S 11:42
PROVIDERS: ATTEND Nurse Practitioner Family
DX: M79.641 Pain in right hand (principal)

== ENCOUNTER 2022-04-20 08:00 | Outpatient (CLI) | payer MEDICARE | END 2022-04-20 23:59 | disposition home or self-care (01) | LOC: LAB.S 08:00 | PROVIDERS: ATTEND Physician Assistant | DX: R55 Syncope and collapse (principal); R42 Dizziness and giddiness | CPT/HCPCS: 82962 ==

== ENCOUNTER 2022-06-07 08:00 | Outpatient (CLI) | payer MEDICARE ==
--- NOTE | 2022-06-07 14:29 | XRAY Report ---
PROCEDURE: Hip BILAT INDICATIONS: BILAT HIP PAIN TECHNIQUE: 3 views of the hip were acquired. COMPARISON: CT abdomen pelvis 04/08/2021, MRI pelvis 12/24/2018 FINDINGS: Bones: No fractures or dislocations. No suspicious bony lesions. The visualized pelvic ring appear s intact. Moderate right and uvwy-gj-[id number] left degenerative joint space narrowing is present at the hips. Small paratracheal or osteophytes are present without erosions. Soft tissues: No suspicious soft tissue calcifications or masses. IMPRESSION: Arthritic changes bilaterally most severe on the right. Reviewed by: Tania Felder MD on 06/07/2022 2:28 PM PDT Approved by: Tania Felder MD on 06/07/2022 2:28 PM PDT Station ID: [id number]
== END 2022-06-07 23:59 | disposition home or self-care (01) ==
LOC: DI.WOS 08:00
PROVIDERS: ATTEND Physician Assistant Surgical
DX: M16.0 Bilateral primary osteoarthritis of hip (principal)

== ENCOUNTER 2022-07-30 15:48 | Emergency (ER) | payer MEDICARE ==
[2022-07-30 16:06] VITALS: BP 112/75
--- OUTSIDE RECORDS SUMMARY | 2022-07-30 16:14 | EXTERNAL MEDICAL SUMMARY RPT | Continuity of Care Document ---
Author Name Unknown Address [address] [place] [address] Phone Organization [facility] Address [address] [place] [address] Phone Care Team Providers Care Buckle Wire Inserter Name Role Phone Unavailable Unavailable Unavailable Judi Gipson, Shikha Unavailable Unavailable Wilmar Judd Md Unavailable Unavailable [place] Patient Registrar, Alma Unavailable Unavailable Topher Pedraza Chelsie Unavailable Unavaila ble [facility] Patient Registrar, Alma Unavailable Unavailable Medications date description facility 2022-06-06 00:00 b[facility]renorphine [facility]cl [facility] 2022-06-07 00:00 buprenorphine hcl [facility] 2022-06-08 00:00 buprenorphine hcl [facility] 2022-06-20 00:00 buprenorphine hcl [facility] 2022-06-20 00:00 buprenorphine hcl [facility] 2022-06-21 00:00 buprenorphine hcl [facility] 2022-06-27 00:00 buprenorphine hcl [facility] 2022-06-28 00:00 buprenorphine hcl [facility] 2022-07-05 00:00 buprenorphine hcl [facility] 2022-07-05 00:00 buprenorphine hcl [facility] 2022-07-06 00:00 buprenorphine hcl [facility] 2022-06-06 00:00 SILVER SULFADIAZINE [facility] 2022-06-07 00:00 SILVER SULFADIAZINE [facility] 2022-06-08 00:00 SILVER SULFADIAZINE [facility] 2022-06-20 00:00 SILVER SULFADIAZINE [facility] 2022-06-20 00:00 SILVER SULFADIAZINE [facility] 2022-06-21 00:00 SILVER SULFADIAZINE [facility] 2022-06-27 00:00 SILVER SULFADIAZINE [facility] 2022-06-28 00:00 SILVER SULFADIAZINE [facility] 2022-07-05 00:00 SILVER SULFADIAZINE [facility] 2022-07-05 00:00 SILVER SULFADIAZINE [facility] 2022-07-06 00:00 SILVER SULFADIAZINE [facility] 2022-06-06 00:00 SILVER SULFADIAZINE [facility] 2022-06-07 00:00 SILVER SULFADIAZINE [facility] 2022-06-08 00:00 SILVER SULFADIAZINE [facility] 2022-06-20 00:00 SILVER SULFADIAZINE [facility] 2022-06-20 00:00 SILVER SULFADIAZINE [facility] 2022-06-21 00:00 SILVER SULFADIAZINE [facility] 2022-06-27 00:00 SILVER SULFADIAZINE [facility] 2022-06-28 00:00 SILVER SULFADIAZINE [facility] 2022-07-05 00:00 SILVER SULFADIAZINE [facility] 2022-07-05 00:00 SILVER SULFADIAZINE [facility] 2022-07-06 00:00 SILVER SULFADIAZINE [facility] 2022-06-06 00:00 buprenorphine hcl [facility] 2022-06-07 00:00 buprenorphine hcl [facility] 2022-06-08 00:00 buprenorphine hcl [facility] 2022-06-20 00:00 buprenorphine hcl [facility] 2022-06-20 00:00 buprenorphine hcl [facility] 2022-06-21 00:00 buprenorphine hcl [facility] 2022-06-27 00:00 buprenorphine hcl [facility] 2022-06-28 00:00 buprenorphine hcl [facility] 2022-07-05 00:00 buprenorphine hcl [facility] 2022-07-05 00:00 buprenorphine hcl [facility] 2022-07-06 00:00 buprenorphine hcl [facility] 2022-06-06 00:00 FLUTICASONE PROPIONATE [facility] 2022-06-07 00:00 FLUTICASONE PROPIONATE [facility] 2022-06-08 00:00 FLUTICASONE PROPIONATE [facility] 2022-06-20 00:00 FLUTICASONE PROPIONATE [facility] 2022-06-20 00:00 FLUTICASONE PROPIONATE [facility] 2022-06-21 00:00 FLUTICASONE PROPIONATE [facility] 2022-06-27 00:00 FLUTICASONE PROPIONATE [facility] 2022-06-28 00:00 FLUTICASONE PROPIONATE [facility] 2022-07-05 00:00 FLUTICASONE PROPIONATE [facility] 2022-07-05 00:00 FLUTICASONE PROPIONATE [facility] 2022-07-06 00:00 FLUTICASONE PROPIONATE [facility] 2022-06-06 00:00 pregabalin [facility] 2022-06-07 00:00 pregabalin [facility] 2022-06-08 00:00 pregabalin [facility] 2022-06-20 00:00 pregabalin [facility] 2022-06-20 00:00 pregabalin [facility] 2022-06-21 00:00 pregabalin [facility] 2022-06-27 00:00 pregabalin [facility] 2022-06-28 00:00 pregabalin [facility] 2022-07-05 00:00 pregabalin [facility] 2022-07-05 00:00 pregabalin [facility] 2022-07-06 00:00 pregabalin [facility] 2022-06-06 00:00 FLUTICASONE PROPIONATE [facility] 2022-06-07 00:00 FLUTICASONE PROPIONATE [facility] 2022-06-08 00:00 FLUTICASONE PROPIONATE [facility] 2022-06-20 00:00 FLUTICASONE PROPIONATE [facility] 2022-06-20 00:00 FLUTICASONE PROPIONATE [facility] 2022-06-21 00:00 FLUTICASONE PROPIONATE [facility] 2022-06-27 00:00 FLUTICASONE PROPIONATE [facility] 2022-06-28 00:00 FLUTICASONE PROPIONATE [facility] 2022-07-05 00:00 FLUTICASONE PROPIONATE [facility] 2022-07-05 00:00 FLUTICASONE PROPIONATE [facility] 2022-07-06 00:00 FLUTICASONE PROPIONATE [facility] 2022-06-06 00:00 SILVER SULFADIAZINE [facility] 2022-06-07 00:00 SILVER SULFADIAZINE [facility] 2022-06-08 00:00 SILVER SULFADIAZINE [facility] 2022-06-20 00:00 SILVER SULFADIAZINE [facility] 2022-06-20 00:00 SILVER SULFADIAZINE [facility] 2022-06-21 00:00 SILVER SULFADIAZINE [facility] 2022-06-27 00:00 SILVER SULFADIAZINE [facility] 2022-06-28 00:00 SILVER SULFADIAZINE [facility] 2022-07-05 00:00 SILVER SULFADIAZINE [facility] 2022-07-05 00:00 SILVER SULFADIAZINE [facility] 2022-07-06 00:00 SILVER SULFADIAZINE [facility] 2022-06-06 00:00 buprenorphine hcl [facility] 2022-06-07 00:00 buprenorphine hcl [facility] 2022-06-08 00:00 buprenorphine hcl [facility] 2022-06-20 00:00 buprenorphine hcl [facility] 2022-06-20 00:00 buprenorphine hcl [facility] 2022-06-21 00:00 buprenorphine hcl [facility] 2022-06-27 00:00 buprenorphine hcl [facility] 2022-06-28 00:00 buprenorphine hcl [facility] 2022-07-05 00:00 buprenorphine hcl [facility] 2022-07-05 00:00 buprenorphine hcl [facility] 2022-07-06 00:00 buprenorphine hcl [facility] 2022-06-06 00:00 pregabalin [facility] 2022-06-07 00:00 pregabalin [facility] 2022-06-08 00:00 pregabalin [facility] 2022-06-20 00:00 pregabalin [facility] 2022-06-20 00:00 pregabalin [facility] 2022-06-21 00:00 pregabalin [facility] 2022-06-27 00:00 pregabalin [facility] 2022-06-28 00:00 pregabalin [facility] 2022-07-05 00:00 pregabalin [facility] 2022-07-05 00:00 pregabalin [facility] 2022-07-06 00:00 pregabalin [facility] 2022-06-06 00:00 pregabalin [facility] 2022-06-07 00:00 pregabalin [facility] 2022-06-08 00:00 pregabalin [facility] 2022-06-20 00:00 pregabalin [facility] 2022-06-20 00:00 pregabalin [facility] 2022-06-21 00:00 pregabalin [facility] 2022-06-27 00:00 pregabalin [facility] 2022-06-28 00:00 pregabalin [facility] 2022-07-05 00:00 pregabalin [facility] 2022-07-05 00:00 pregabalin [facility] 2022-07-06 00:00 pregabalin [facility] 2022-06-06 00:00 FLUTICASONE PROPIONATE [facility] 2022-06-07 00:00 FLUTICASONE PROPIONATE [facility] 2022-06-08 00:00 FLUTICASONE PROPIONATE [facility] 2022-06-20 00:00 FLUTICASONE PROPIONATE [facility] 2022-06-20 00:00 FLUTICASONE PROPIONATE [facility] 2022-06-21 00:00 FLUTICASONE PROPIONATE [facility] 2022-06-27 00:00 FLUTICASONE PROPIONATE [facility] 2022-06-28 00:00 FLUTICASONE PROPIONATE [facility] 2022-07-05 00:00 FLUTICASONE PROPIONATE [facility] 2022-07-05 00:00 FLUTICASONE PROPIONATE [facility] 2022-07-06 00:00 FLUTICASONE PROPIONATE [facility] 2022-06-06 00:00 buprenorphine hcl [facility] 2022-06-07 00:00 buprenorphine hcl [facility] 2022-06-08 00:00 buprenorphine hcl [facility] 2022-06-20 00:00 buprenorphine hcl [facility] 2022-06-20 00:00 buprenorphine hcl [facility] 2022-06-21 00:00 buprenorphine hcl [facility] 2022-06-27 00:00 buprenorphine hcl [facility] 2022-06-28 00:00 buprenorphine hcl [facility] 2022-07-05 00:00 buprenorphine hcl [facility] 2022-07-05 00:00 buprenorphine hcl [facility] 2022-07-06 00:00 buprenorphine hcl [facility] 2022-06-06 00:00 SILVER SULFADIAZINE [facility] 2022-06-07 00:00 SILVER SULFADIAZINE [facility] 2022-06-08 00:00 SILVER SULFADIAZINE [facility] 2022-06-20 00:00 SILVER SULFADIAZINE [facility] 2022-06-20 00:00 SILVER SULFADIAZINE [facility] 2022-06-21 00:00 SILVER SULFADIAZINE [facility] 2022-06-27 00:00 SILVER SULFADIAZINE [facility] 2022-06-28 00:00 SILVER SULFADIAZINE [facility] 2022-07-05 00:00 SILVER SULFADIAZINE [facility] 2022-07-05 00:00 SILVER SULFADIAZINE [facility] 2022-07-06 00:00 SILVER SULFADIAZINE [facility] 2022-06-06 00:00 pregabalin [facility] 2022-06-07 00:00 pregabalin [facility] 2022-06-08 00:00 pregabalin [facility] 2022-06-20 00:00 pregabalin [facility] 2022-06-20 00:00 pregabalin [facility] 2022-06-21 00:00 pregabalin [facility] 2022-06-27 00:00 pregabalin [facility] 2022-06-28 00:00 pregabalin [facility] 2022-07-05 00:00 pregabalin [facility] 2022-07-05 00:00 pregabalin [facility] 2022-07-06 00:00 pregabalin [facility] Problems date description facility 2022-06-06 00:00 Acute hepatitis C wi thout mention of hepatic coma [facility] 2022-06-06 00:00 Peptic ulcer [facility] 2022-06-06 00:00 Anxiety disorder [facility] 2022-06-06 00:00 Drug abuse [facility] 2022-06-06 00:00 Anxiety state, unspecified [facility] 2022-06-06 00:00 Other and unspecifie d alcohol dependence, unspecified drinking behavior [facility] 2022-06-06 00:00 Tobacco use disorder [facility] 2022-06-06 00:00 Other, mixed, or uns pecified drug abuse, unspecified use Walk-In [facility] 2022-06-06 00:00 Sinusitis [facility] 2022-06-06 00:00 Unspecified sinusitis (chronic) [facility] 2022-06-06 00:00 Hip pain [facility] 2022-06-06 00:00 Hip pain [facility] 2022-06-06 00:00 Hip pain [facility] 2022-06-06 00:00 Hip pain [facility] 2022-06-06 00:00 Hip pain [facility] 2022-06-06 00:00 Viral hepatitis C [facility] 2022-06-06 00:00 Peptic ulcer of unsp ecified site, unspecified as acute or chronic, without mention of hemorrhage or perforation, without mention of obstruction [facility] 2022-06-06 00:00 Heart disease [facility] 2022-06-06 00:00 Pain in joint involv ing pelvic region and thigh [facility] 2022-06-06 00:00 Pain in joint involv ing pelvic region and thigh [facility] 2022-06-06 00:00 Pain in joint involv ing pelvic region and thigh [facility] 2022-06-06 00:00 Pain in joint involv ing pelvic region and thigh [facility] 2022-06-06 00:00 Pain in joint involv ing pelvic region and thigh [facility] 2022-06-06 00:00 Alcoholism [facility] 2022-06-06 00:00 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 [facility] 2022-06-06 00:00 Other malaise and fatigue [facility] 2022-06-06 00:00 Fatigue [facility] 2022-06-06 00:00 Obstruction of pelviureteric ju nction [facility] 2022-06-06 00:00 Unspecified viral he patitis C without hepatic coma [facility] 2022-06-06 00:00 Alcohol dependence, uncomplicat ed [facility] 2022-06-06 00:00 Nicotine dependence, cigarettes, uncomplicated [facility] 2022-06-06 00:00 Other psychoactive s ubstance abuse, uncomplicated [facility] 2022-06-06 00:00 Anxiety disorder, unspecified [facility] 2022-06-06 00:00 Chronic pain syndrome [facility] 2022-06-06 00:00 Heart disease, unspecified [facility] 2022-06-06 00:00 Chronic sinusitis, unspecified [facility] 2022-06-06 00:00 Peptic ulcer, site u nspecified, unspecified as acute or chronic, without hemorrhage or perforation [facility] 2022-06-06 00:00 Pain in right hip [facility] 2022-06-06 00:00 Pain in right hip [facility] 2022-06-06 00:00 Pain in right hip [facility] 2022-06-06 00:00 Pain in right hip [facility] 2022-06-06 00:00 Pain in right hip [facility] 2022-06-06 00:00 Pain in left hip [facility] 2022-06-06 00:00 Pain in left hip [facility] 2022-06-06 00:00 Pain in left hip [facility] 2022-06-06 00:00 Pain in left hip [facility] 2022-06-06 00:00 Pain in left hip [facility] 2022-06-06 00:00 Other fatigue [facility] 2022-06-07 00:00 Acute hepatitis C wi thout mention of hepatic coma Walk-In [facility] 2022-06-07 00:00 Peptic ulcer Walk-In [facility] 2022-06-07 00:00 Anxiety disorder Walk-In [facility] 2022-06-07 00:00 Osteoarthritis of hip [facility] 2022-06-07 00:00 Osteoarthritis of hip [facility] 2022-06-07 00:00 Osteoarthritis of hip [facility] 2022-06-07 00:00 Osteoarthritis of hip [facility] 2022-06-07 00:00 Osteoarthritis of hip [facility] 2022-06-07 00:00 Drug abuse Walk-In [facility] 2022-06-07 00:00 Anxiety state, unspecified Walk -In [facility] 2022-06-07 00:00 Other and unspecifie d alcohol dependence, unspecified drinking behavior Walk-In [facility] 2022-06-07 00:00 Tobacco use disorder [facility] 2022-06-07 00:00 Other, mixed, or uns pecified drug abuse, unspecified use Walk-In [facility] 2022-06-07 00:[address] Sinusitis [facility]-In [facility] 2022-06-07 00:00 Unspecified sinusitis (chronic) [facility]-In [facility] 2022-06-07 00:00 Viral hepatitis C [facility] 2022-06-07 00:00 Peptic ulcer of unsp ecified site, unspecified as acute or chronic, without mention of hemorrhage or perforation, without mention of obstruction [facility]-In [facility] 2022-06-07 00:00 Heart disease Walk-In 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 [facility] 2022-06-07 00:00 Other malaise and fatigue [facility] 2022-06-07 00:00 Fatigue [facility] 2022-06-07 00:00 Obstruction of pelviureteric ju nction [facility] 2022-06-07 00:00 Unspecified viral he patitis C without hepatic coma [facility] 2022-06-07 00:00 Alcohol dependence, uncomplicat ed [facility] 2022-06-07 00:00 Nicotine dependence, cigarettes, uncomplicated [facility] 2022-06-07 00:00 Other psychoactive s ubstance abuse, uncomplicated [facility] 2022-06-07 00:00 Anxiety disorder, unspecified [facility] 2022-06-07 00:00 Chronic pain syndrome [facility] [place] 2022-06-07 00:00 Heart disease, unspecified [facility] 2022-06-07 00:00 Chronic sinusitis, unspecified [facility] 2022-06-07 00:00 Peptic ulcer, site u nspecified, unspecified as acute or chronic, without hemorrhage or perforation [facility] 2022-06-07 00:00 Bilateral primary os teoarthritis of hip [facility] 2022-06-07 00:00 Bilateral primary os teoarthritis of hip [facility] 2022-06-07 00:00 Bilateral primary os teoarthritis of hip [facility] 2022-06-07 00:00 Bilateral primary os teoarthritis of hip [facility] 2022-06-07 00:00 Bilateral primary os teoarthritis of hip [facility]-In [facility] [place] 2022-06-07 00:00 Other fatigue Walk-In [facility] [place] 2022-06-08 00:00 Acute hepatitis C wi thout mention of hepatic coma [facility]-In [facility] [place] 2022-06-08 00:00 Peptic ulcer Walk-In [facility] [place] 2022-06-08 00:00 Anxiety disorder Walk-In [facility] [place] 2022-06-08 00:00 Drug abuse Walk-In [facility] [place] 2022-06-08 00:00 Anxiety state, unspecified Walk -In [facility] [place] 2022-06-08 00:00 Other and unspecifie d alcohol dependence, unspecified drinking behavior [facility]-In [facility] [place] 2022-06-08 00:00 Tobacco use disorder [facility] [place] 2022-06-08 00:00 Other, mixed, or uns pecified drug abuse, unspecified use Walk-In [facility] [place] 2022-06-08 00:[address] Sinusitis [facility]-In [facility] [place] 2022-06-08 00:00 Unspecified sinusitis (chronic) [facility]-In [facility] [place] 2022-06-08 00:00 Viral hepatitis C [facility] [place] 2022-06-08 00:00 Peptic ulcer of unsp ecified site, unspecified as acute or chronic, without mention of hemorrhage or perforation, without mention of obstruction [facility]-In [facility] [place] 2022-06-08 00:00 Heart disease Walk-In [facility] [place] 2022-06-08 00:00 Alcoholism [facility]-In 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 [place] 2022-06-08 00:00 Other malaise and fatigue Walk- In [facility] [place] 2022-06-08 00:[address] Fatigue [facility] [place] 2022-06-08 00:00 Obstruction of pelviureteric ju nction [facility] 2022-06-08 00:00 Unspecified viral he patitis C without hepatic coma [facility] 2022-06-08 00:00 Alcohol dependence, uncomplicat ed [facility] 2022-06-08 00:00 Nicotine dependence, cigarettes, uncomplicated [facility] 2022-06-08 00:00 Other psychoactive s ubstance abuse, uncomplicated [facility] 2022-06-08 00:00 Anxiety disorder, unspecified [facility] [place] 2022-06-08 00:00 Chronic pain syndrome [facility] [place] 2022-06-08 00:00 Heart disease, unspecified [facility] [place] 2022-06-08 00:00 Chronic sinusitis, unspecified [facility] [place] 2022-06-08 00:00 Peptic ulcer, site u nspecified, unspecified as acute or chronic, without hemorrhage or perforation [facility] 2022-06-08 00:00 Other fatigue [facility] [place] 2022-06-20 00:00 Acute hepatitis C wi thout mention of hepatic coma [facility] 2022-06-20 00:00 Acute hepatitis C wi thout mention of hepatic coma [facility] 2022-06-20 00:00 Foreign body in left cornea [facility] [place] 2022-06-20 00:00 Foreign body in left cornea [facility] 2022-06-20 00:00 Peptic ulcer [facility] 2022-06-20 00:00 Peptic ulcer [facility] 2022-06-20 00:00 Anxiety disorder [facility] 2022-06-20 00:00 Anxiety disorder [facility] 2022-06-20 00:00 Drug abuse [facility] [place] 2022-06-20 00:00 Drug abuse [facility] [place] 2022-06-20 00:00 Anxiety state, unspecified Walk -[facility] [place] 2022-06-20 00:00 Anxiety state, unspecified Walk -[facility] [place] 2022-06-20 00:00 Other and unspecifie d alcohol dependence, unspecified drinking behavior [facility] [place] 2022-06-20 00:00 Other and unspecifie d alcohol dependence, unspecified drinking behavior [facility] [place] 2022-06-20 00:00 Tobacco use disorder [facility] [place] 2022-06-20 00:00 Tobacco use disorder [facility] [place] 2022-06-20 00:00 Other, mixed, or uns pecified drug abuse, unspecified use [facility]-In [facility] [place] 2022-06-20 00:00 Other, mixed, or uns pecified drug abuse, unspecified use [facility] [place] 2022-06-20 00:[address] [facility] [place] 2022-06-20 00:[address] [facility] [place] 2022-06-20 00:00 Unspecified sinusitis (chronic) [facility] [place] 2022-06-20 00:00 Unspecified sinusitis (chronic) [facility] [place] 2022-06-20 00:00 Viral hepatitis C [facility] [place] 2022-06-20 00:00 Viral hepatitis C [facility] [place] 2022-06-20 00:00 Peptic ulcer of unsp ecified site, unspecified as acute or chronic, without mention of hemorrhage or perforation, without mention of obstruction [facility] [place] 2022-06-20 00:00 Peptic ulcer of unsp ecified site, unspecified as acute or chronic, without mention of hemorrhage or perforation, without mention of obstruction [facility] [place] 2022-06-20 00:00 Heart disease [facility] [place] 2022-06-20 00:00 Heart disease [facility] [place] 2022-06-20 00:00 Alcoholism [facility] [place] 2022-06-20 00:00 Alcoholism [facility] [place] 2022-06-20 00:00 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 [facility] [place] 2022-06-20 00:00 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 [facility] [place] 2022-06-20 00:00 Other malaise and fatigue [facility] [place] 2022-06-20 00:00 Other malaise and fatigue [facility] [place] 2022-06-20 00:00 Fatigue [facility] [place] 2022-06-20 00:00 Fatigue [facility] [place] 2022-06-20 00:00 Corneal foreign body [facility] [place] 2022-06-20 00:00 Corneal foreign body [facility] [place] 2022-06-20 00:00 Obstruction of pelviureteric ju nction [facility] [place] 2022-06-20 00:00 Obstruction of pelviureteric ju nction [facility] [place] 2022-06-20 00:00 Unspecified viral he patitis C without hepatic coma [facility] [place] 2022-06-20 00:00 Unspecified viral he patitis C without hepatic coma [facility] 2022-06-20 00:00 Alcohol dependence, uncomplicat ed [facility] 2022-06-20 00:00 Alcohol dependence, uncomplicat ed [facility] 2022-06-20 00:00 Nicotine dependence, cigarettes, uncomplicated [facility] 2022-06-20 00:00 Nicotine dependence, cigarettes, uncomplicated [facility] 2022-06-20 00:00 Other psychoactive s ubstance abuse, uncomplicated [facility] 2022-06-20 00:00 Other psychoactive s ubstance abuse, uncomplicated [facility] 2022-06-20 00:00 Anxiety disorder, unspecified [facility] [place] 2022-06-20 00:00 Anxiety disorder, unspecified [facility] [place] 2022-06-20 00:00 Chronic pain syndrome [facility] [place] 2022-06-20 00:00 Chronic pain syndrome [facility] [place] 2022-06-20 00:00 Heart disease, unspecified [facility] 2022-06-20 00:00 Heart disease, unspecified [facility] 2022-06-20 00:00 Chronic sinusitis, unspecified [facility] [place] 2022-06-20 00:00 Chronic sinusitis, unspecified [facility] [place] 2022-06-20 00:00 Peptic ulcer, site u nspecified, unspecified as acute or chronic, without hemorrhage or perforation [facility] 2022-06-20 00:00 Peptic ulcer, site u nspecified, unspecified as acute or chronic, without hemorrhage or perforation [facility] 2022-06-20 00:00 Other fatigue [facility] 2022-06-20 00:00 Other fatigue [facility] 2022-06-20 00:00 Foreign body in corn ea, left eye, initial encounter [facility] 2022-06-20 00:00 Foreign body in corn ea, left eye, initial encounter [facility] 2022-06-21 00:00 Acute hepatitis C wi thout mention of hepatic coma [facility] [place] 2022-06-21 00:00 Peptic ulcer [facility]-In [facility] [place] 2022-06-21 00:00 Anxiety disorder Walk-In [facility] [place] 2022-06-21 00:00 Drug abuse Walk-In [facility] [place] 2022-06-21 00:00 Anxiety state, unspecified Walk -In [facility] [place] 2022-06-21 00:00 Other and unspecifie d alcohol dependence, unspecified drinking behavior [facility] [place] 2022-06-21 00:00 Tobacco use disorder [facility] [place] 2022-06-21 00:00 Other, mixed, or uns pecified drug abuse, unspecified use [facility]-In [facility] [place] 2022-06-21 00:[address] [facility]In [facility] [place] 2022-06-21 00:00 Unspecified sinusitis (chronic) [facility] [place] 2022-06-21 00:00 Viral hepatitis C [facility] [place] 2022-06-21 00:00 Peptic ulcer of unsp ecified site, unspecified as acute or chronic, without mention of hemorrhage or perforation, without mention of obstruction [facility] [place] 2022-06-21 00:00 Heart disease Walk-In [facility] [place] 2022-06-21 00:[address]ism [facility]In 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 [place] 2022-06-21 00:00 Other malaise and fatigue Walk- In [facility] [place] 2022-06-21 00:[address] [facility] [place] 2022-06-21 00:00 Obstruction of pelviureteric ju nction [facility] [place] 2022-06-21 00:00 Unspecified viral he patitis C without hepatic coma [facility] [place] 2022-06-21 00:00 Alcohol dependence, uncomplicat ed [facility] [place] 2022-06-21 00:00 Nicotine dependence, cigarettes, uncomplicated [facility] [place] 2022-06-21 00:00 Other psychoactive s ubstance abuse, uncomplicated [facility] [place] 2022-06-21 00:00 Anxiety disorder, unspecified W alk-In [facility] [place] 2022-06-21 00:00 Chronic pain syndrome [facility] [place] 2022-06-21 00:00 Heart disease, unspecified Walk -In [facility] [place] 2022-06-21 00:00 Chronic sinusitis, unspecified [facility] [place] 2022-06-21 00:00 Peptic ulcer, site u nspecified, unspecified as acute or chronic, without hemorrhage or perforation [facility] [place] 2022-06-21 00:00 Other fatigue [facility] [place] 2022-06-27 00:00 Acute hepatitis C wi thout mention of hepatic coma [facility] [place] 2022-06-27 00:00 Simple laceration of scalp Walk -[facility] [place] 2022-06-27 00:00 Simple laceration of scalp Walk -[facility] [place] 2022-06-27 00:00 Peptic ulcer [facility]-In [facility] [place] 2022-06-27 00:00 Anxiety disorder [facility]-In [facility] [place] 2022-06-27 00:00 Drug abuse [facility]In [facility] [place] 2022-06-27 00:00 Anxiety state, unspecified Walk -[facility] [place] 2022-06-27 00:00 Other and unspecifie d alcohol dependence, unspecified drinking behavior [facility] [place] 2022-06-27 00:00 Tobacco use disorder [facility] [place] 2022-06-27 00:00 Other, mixed, or uns pecified drug abuse, unspecified use [facility] [place] 2022-06-27 00:00 Sinusitis [facility] [place] 2022-06-27 00:00 Unspecified sinusitis (chronic) [facility] [place] 2022-06-27 00:00 Viral hepatitis C [facility] [place] 2022-06-27 00:00 Peptic ulcer of unsp ecified site, unspecified as acute or chronic, without mention of hemorrhage or perforation, without mention of obstruction [facility] [place] 2022-06-27 00:00 Heart disease [facility] [place] 2022-06-27 00:00 Alcoholism [facility] [place] 2022-06-27 00:00 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 [place] 2022-06-27 00:00 Unspecified viral he patitis C without hepatic coma [facility] [place] 2022-06-27 00:00 Alcohol dependence, uncomplicat ed [facility] [place] 2022-06-27 00:00 Nicotine dependence, cigarettes, uncomplicated [facility] [place] 2022-06-27 00:00 Other psychoactive s ubstance abuse, uncomplicated [facility] [place] 2022-06-27 00:00 Anxiety disorder, unspecified [facility] [place] 2022-06-27 00:00 Chronic pain syndrome [facility] [place] 2022-06-27 00:00 Heart disease, unspecified Walk -In [facility] [place] 2022-06-27 00:00 Chronic sinusitis, unspecified [facility] [place] 2022-06-27 00:00 Peptic ulcer, site u nspecified, unspecified as acute or chronic, without hemorrhage or perforation [facility] [place] 2022-06-27 00:00 Other fatigue [facility] [place] 2022-06-27 00:00 Laceration without f oreign body of scalp, initial encounter [facility] [place] 2022-06-27 00:00 Laceration without f oreign body of scalp, initial encounter [facility] [place] 2022-06-28 00:00 Acute hepatitis C wi thout mention of hepatic coma [facility] [place] 2022-06-28 00:00 Peptic ulcer [facility] [place] 2022-06-28 00:00 Anxiety disorder [facility]-In [facility] [place] 2022-06-28 00:00 Drug abuse [facility] [place] 2022-06-28 00:00 Anxiety state, unspecified Walk -In [facility] [place] 2022-06-28 00:00 Other and unspecifie d alcohol dependence, unspecified drinking behavior [facility] [place] 2022-06-28 00:00 Tobacco use disorder [facility] [place] 2022-06-28 00:00 Other, mixed, or uns pecified drug abuse, unspecified use [facility]-In [facility] [place] 2022-06-28 00:[address] [facility] [place] 2022-06-28 00:00 Unspecified sinusitis (chronic) 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 [facility] 2022-06-28 00:00 Other malaise and fatigue [facility] 2022-06-28 00:00 Fatigue [facility] 2022-06-28 00:00 Obstruction of pelviureteric ju nction [facility] [place] 2022-06-28 00:00 Unspecified viral he patitis C without hepatic coma [facility] [place] 2022-06-28 00:00 Alcohol dependence, uncomplicat ed [facility] [place] 2022-06-28 00:00 Nicotine dependence, cigarettes, uncomplicated [facility] [place] 2022-06-28 00:00 Other psychoactive s ubstance abuse, uncomplicated [facility] [place] 2022-06-28 00:00 Anxiety disorder, unspecified [facility] [place] 2022-06-28 00:00 Chronic pain syndrome [facility] [place] 2022-06-28 00:00 Heart disease, unspecified [facility] 2022-06-28 00:00 Chronic sinusitis, unspecified [facility] [place] 2022-06-28 00:00 Peptic ulcer, site u nspecified, unspecified as acute or chronic, without hemorrhage or perforation [facility] 2022-06-28 00:00 Other fatigue [facility] [place] 2022-07-05 00:00 Acute hepatitis C wi thout mention of hepatic coma [facility] [place] 2022-07-05 00:00 Acute hepatitis C wi thout mention of hepatic coma [facility] [place] 2022-07-05 00:00 Peptic ulcer [facility] [place] 2022-07-05 00:00 Peptic ulcer [facility] [place] 2022-07-05 00:[address] Anxiety disorder [facility]-In [facility] [place] 2022-07-05 00:00 Anxiety disorder [facility] [place] 2022-07-05 00:00 Drug abuse [facility] [place] 2022-07-05 00:00 Drug abuse [facility] [place] 2022-07-05 00:00 Anxiety state, unspecified [facility] [place] 2022-07-05 00:00 Anxiety state, unspecified Walk -[facility] [place] 2022-07-05 00:00 Other and unspecifie d alcohol dependence, unspecified drinking behavior [facility] [place] 2022-07-05 00:00 Other and unspecifie d alcohol dependence, unspecified drinking behavior [facility] [place] 2022-07-05 00:00 Tobacco use disorder [facility] 2022-07-05 00:00 Tobacco use disorder [facility] 2022-07-05 00:00 Other, mixed, or uns pecified drug abuse, unspecified use Walk-In [facility] 2022-07-05 00:00 Other, mixed, or uns pecified drug abuse, unspecified use [facility]-In [facility] 2022-07-05 00:00 Removal of yazmin [facility] 2022-07-05 00:[address] [facility]In [facility] 2022-07-05 00:[address] [facility] 2022-07-05 00:00 Unspecified sinusitis (chronic) [facility] 2022-07-05 00:00 Unspecified sinusitis (chronic) [facility] 2022-07-05 00:00 Viral hepatitis C [facility] 2022-07-05 00:00 Viral hepatitis C [facility] 2022-07-05 00:00 Peptic ulcer of unsp ecified site, unspecified as acute or chronic, without mention of hemorrhage or perforation, without mention of obstruction [facility] 2022-07-05 00:00 Peptic ulcer of unsp ecified site, unspecified as acute or chronic, without mention of hemorrhage or perforation, without mention of obstruction [facility] [place] 2022-07-05 00:00 Heart disease [facility] 2022-07-05 00:00 Heart disease [facility] 2022-07-05 00:00 Alcoholism [facility] 2022-07-05 00:00 Alcoholism [facility] 2022-07-05 00:00 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 [facility] 2022-07-05 00:00 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 [facility] 2022-07-05 00:00 Other malaise and fatigue [facility] [place] 2022-07-05 00:00 Other malaise and fatigue [facility] 2022-07-05 00:00 Fatigue [facility] 2022-07-05 00:00 Fatigue [facility] 2022-07-05 00:00 Obstruction of pelviureteric ju nction [facility] 2022-07-05 00:00 Obstruction of pelviureteric ju nction [facility] 2022-07-05 00:00 Unspecified viral he patitis C without hepatic coma [facility] [place] 2022-07-05 00:00 Unspecified viral he patitis C without hepatic coma [facility] 2022-07-05 00:00 Alcohol dependence, uncomplicat ed [facility] 2022-07-05 00:00 Alcohol dependence, uncomplicat ed [facility] 2022-07-05 00:00 Nicotine dependence, cigarettes, uncomplicated [facility] 2022-07-05 00:00 Nicotine dependence, cigarettes, uncomplicated [facility] 2022-07-05 00:00 Other psychoactive s ubstance abuse, uncomplicated [facility] [place] 2022-07-05 00:00 Other psychoactive s ubstance abuse, uncomplicated [facility] 2022-07-05 00:00 Anxiety disorder, unspecified [facility] [place] 2022-07-05 00:00 Anxiety disorder, unspecified [facility] 2022-07-05 00:00 Chronic pain syndrome [facility] [place] 2022-07-05 00:00 Chronic pain syndrome [facility] [place] 2022-07-05 00:00 Heart disease, unspecified [facility] [place] 2022-07-05 00:00 Heart disease, unspecified [facility] 2022-07-05 00:00 Chronic sinusitis, unspecified [facility] [place] 2022-07-05 00:00 Chronic sinusitis, unspecified [facility] [place] 2022-07-05 00:00 Peptic ulcer, site u nspecified, unspecified as acute or chronic, without hemorrhage or perforation [facility] [place] 2022-07-05 00:00 Peptic ulcer, site u nspecified, unspecified as acute or chronic, without hemorrhage or perforation [facility] 2022-07-05 00:00 Other fatigue [facility] 2022-07-05 00:00 Other fatigue [facility] 2022-07-05 00:00 Encounter for removal of suture s Walk-In [facility] [place] 2022-07-06 00:00 Acute hepatitis C wi thout mention of hepatic coma [facility] [place] 2022-07-06 00:00 Peptic ulcer [facility]In [facility] [place] 2022-07-06 00:00 Anxiety disorder [facility]-In [facility] [place] 2022-07-06 00:00 Drug abuse [facility]In [facility] [place] 2022-07-06 00:00 Anxiety state, unspecified Walk -In [facility] [place] 2022-07-06 00:00 Other and unspecifie d alcohol dependence, unspecified drinking behavior [facility]-In [facility] 2022-07-06 00:00 Tobacco use disorder [facility] 2022-07-06 00:00 Other, mixed, or uns pecified drug abuse, unspecified use [facility]-In [facility] 2022-07-06 00:[address] [facility]In [facility] 2022-07-06 00:00 Unspecified sinusitis (chronic) [facility] 2022-07-06 00:00 Viral hepatitis C [facility] 2022-07-06 00:00 Peptic ulcer of unsp ecified site, unspecified as acute or chronic, without mention of hemorrhage or perforation, without mention of obstruction [facility] 2022-07-06 00:00 Heart disease [facility] 2022-07-06 00:[address]ism 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 [place] 2022-07-06 00:00 Other malaise and fatigue [facility]- In [facility] [place] 2022-07-06 00:00 Fatigue [facility] 2022-07-06 00:00 Obstruction of pelviureteric ju nction [facility] [place] 2022-07-06 00:00 Unspecified viral he patitis C without hepatic coma [facility] 2022-07-06 00:00 Alcohol dependence, uncomplicat ed [facility] 2022-07-06 00:00 Nicotine dependence, cigarettes, uncomplicated [facility] 2022-07-06 00:00 Other psychoactive s ubstance abuse, uncomplicated [facility] 2022-07-06 00:00 Anxiety disorder, unspecified [facility] 2022-07-06 00:00 Chronic pain syndrome [facility] [place] 2022-07-06 00:00 Heart disease, unspecified [facility] 2022-07-06 00:00 Chronic sinusitis, unspecified [facility] 2022-07-06 00:00 Peptic ulcer, site u nspecified, unspecified as acute or chronic, without hemorrhage or perforation [facility] 2022-07-06 00:00 Other fatigue [facility] Procedures date description facility 2022-06-20 00:00 Visit Code Hold [facility] 2022-06-20 00:00 Visit Code Hold [facility] 2022-06-27 00:00 Visit Code Hold [facility] 2022-06-27 00:00 Visit Code Hold [facility] 2022-07-05 00:00 Visit Code Hold [facility] Social History date description facility 2022-06-20 00:00 Current every day smoker [facility] [place] 2022-06-20 00:00 Current every day smoker [facility] 2022-06-27 00:00 Current every day smoker [facility] [place] 2022-06-27 00:00 Current every day smoker [facility] 2022-07-05 00:00 Current every day smoker [facility] Vital Signs date measurement value units 2022-06-20 00:00 BMI 21.82 kg/m2 2022-06-20 00:00 BP_diastolic 91 mmHg 2022-06-20 00:00 BP_systolic 188 mmHg 2022-06-20 00:00 heart_rate 71 /min 2022-06-20 00:00 height_metric 172.72 cm 2022-06-20 00:00 height_standard 68 in 2022-06-20 00:00 respiration_rate 16 /min 2022-06-20 00:00 temperature_metric 36.5 C 2022-06-20 00:00 temperature_standard 97.7 F 2022-06-20 00:00 weight_metric 64.86 kg 2022-06-20 00:00 weight_standard 143 lb 2022-06-27 00:00 BMI 21.82 kg/m2 2022-06-27 00:00 BP_diastolic 75 mmHg 2022-06-27 00:00 BP_systolic 122 mmHg 2022-06-27 00:00 heart_rate 68 /min 2022-06-27 00:00 height_metric 172.72 cm 2022-06-27 00:00 height_standard 68 in 2022-06-27 00:00 respiration_rate 16 /min 2022-06-27 00:00 temperature_metric 36.17 C 2022-06-27 00:00 temperature_standard 97.1 F 2022-06-27 00:00 weight_metric 64.86 kg 2022-06-27 00:00 weight_standard 143 lb 2022-07-05 00:00 BMI 24.11 kg/m2 2022-07-05 00:00 BP_diastolic 51 mmHg 2022-07-05 00:00 BP_systolic 110 mmHg 2022-07-05 00:00 heart_rate 68 /min 2022-07-05 00:00 height_metric 172.72 cm 2022-07-05 00:00 height_standard 68 in 2022-07-05 00:00 respiration_rate 16 /min 2022-07-05 00:00 temperature_metric 36.44 C 2022-07-05 00:00 temperature_standard 97.6 F 2022-07-05 00:00 weight_metric 71.67 kg 2022-07-05 00:00 weight_standard 158 lb
--- NOTE | 2022-07-30 16:50 | XRAY Report ---
PROCEDURE: Ankle 3 View LT INDICATIONS: ankle inj TECHNIQUE: 3 views of the ankle were acquired. COMPARISON: None. FINDINGS: Bones: No fractures or dislocations. Ankle mortise is normally aligned. No suspicious bony lesions . Soft tissues: No tibiotalar joint effusion. Achilles tendon appears normal. Medial and lateral sof t tissue swelling. IMPRESSION: No acute bony abnormality. If there remains a high clinical concern for fracture, including inability to bear weight, consider cross-sectional imaging to exclude an occult fracture. Reviewed by: Sukhjinder West MD on 07/30/2022 4:49 PM PDT Approved by: Sukhjinder West MD on 07/30/2022 4:49 PM PDT Station ID: [id number]
--- NOTE | 2022-07-30 17:07 | ED Physician Documentation ---
PD HPI LOWER EXT INJURY - Stated complaint Stated Complaint: L ANKLE PX - Chief complaint Chief Complaint: Ext Problem - History obtained from History obtained from: Patient - Additional information Additional information: He was seen by my partner 10 days ago for a foot injury. X-rays were negative at the time. He was given an Aircast, but he says it wore out quickly because he was walking on his leg a lot. No new injury. He would like more pain medications. Of note, according to the SUPPORT ANALYST he was getting monthly prescriptions for buprenorphine. He states that it was just filled. PD PAST MEDICAL HISTORY - Past Medical History Cardiovascular: Hypertension Respiratory: COPD Neuro: Headaches Endocrine/Autoimmune: Type 2 diabetes GI: Hepatitis, Cirrhosis, Other : Chronic bladder infection HEENT: None Psych: None Musculoskeletal: None - Past Surgical History Past Surgical History: Yes - Present Medications Home Medications: Ambulatory Orders Medication Instructions Recorded Confirmed Hydrocodone/Acetaminophen 1 each PO BID 12/27/19 04/20/20 [Hydrocodon-Acetaminophn 10-325] Atorvastatin Calcium 1 tab DAILY 04/20/20 04/20/20 Lisinopril [Zestril] 3 tab DAILY 04/20/20 04/20/20 Metoprolol Succinate [Toprol Xl] 1 tab DAILY 04/20/20 04/20/20 Nitrofurantoin [Macrobid] 100 mg PO BID #10 cap 07/21/22 oxyCODONE [Roxicodone] 5 mg PO Q6H PRN #10 tablet 07/21/22 Meloxicam [Mobic] 7.5 mg PO BID 7 Days #14 tablet 07/30/22 - Allergies Allergies/Adverse Reactions: Allergies Allergy/AdvReac Type Severity Reaction Status Date / Time zolpidem [From Ambien] AdvReac Hallucinati Verified 07/30/22 16:04 ons - Social History Does the pt smoke?: Yes Smoking Status: Unknown if ever smoked Does the pt drink ETOH?: Yes Does the pt have substance abuse?: Yes - Immunizations Immunizations are current?: Yes - POLST Patient has POLST: No PD ED PE NORMAL - Vitals Vital signs reviewed: Yes - General General: Alert and oriented X 3, No acute distress - Extremities Extremities: Other (Tenderness and swelling to both malleoli of the left ankle without deformity. No proximal fibular tenderness.) - Neuro Neuro: Alert and oriented X 3, Normal speech Results - Vitals Vitals: Vital Signs - 24 hr 07/30/22 16:00 Temperature 36.7 C Heart Rate 70 Respiratory 16 Rate Blood Pressure 112/75 O2 Saturation 96 Oxygen O2 Source Room air - Rads (name of study) Three-view x-ray left ankle is negative Relevant Findings:: Final report received, EMP independent interpretation of test PD Medical Decision Making - ED course ED course: Discussed with him that if he really wore out his Aircast and just a few days he needs to rest it more. Review of the chart shows some concerns for alcohol and drug abuse. Previous positive meth screens and alcohol screens. He is also currently on buprenorphine. Subsequently he did actually decline the boot. He made it clear to me that he did not plan on resting the ankle as I was counseling him to do. Departure - Departure Disposition: 01 Home, Self Care Clinical Impression: Left ankle sprain Qualifiers: Encounter type: initial encounter Involved ligament of ankle: deltoid ligament Qualified Code(s): S93.422A - Sprain of deltoid ligament of left ankle, initial encounter Condition: Stable Record reviewed to determine appropriate education?: Yes Instructions: ED Sprain Ankle Prescriptions: Meloxicam [Mobic] 7.5 mg PO BID 7 Days #14 tablet Comments: I sent your prescription electronically to the [facility] in [place]. Follow-up with your primary care physician, next available appointment. Return for new or worsening symptoms.
== END 2022-07-30 17:27 | disposition home or self-care (01) ==
LOC: ED 15:48
DX: S93.422A Sprain of deltoid ligament of left ankle, initial encounter (principal); X58.XXXA Exposure to other specified factors, initial encounter; I10 Essential (primary) hypertension; J44.9 Chronic obstructive pulmonary disease, unspecified; E11.9 Type 2 diabetes mellitus without complications; Z79.899 Other long term (current) drug therapy
CPT/HCPCS: 99283; 99284

== ENCOUNTER 2022-09-05 08:00 | Outpatient (CLI) | payer MEDICARE ==
[2022-09-05 14:37] LABS: BILIRUBIN,URINE NEGATIVE (NEGATIVE); GLUCOSE, URINE (UA) NEGATIVE (NEGATIVE); KETONES,URINE (UA) NEGATIVE (NEGATIVE); LEUKOCYTE ESTERASE, URINE LARGE (NEGATIVE); NITRITE,URINE NEGATIVE (NEGATIVE); OCCULT BLOOD,URINE TRACE-INTA (NEGATIVE); PH,URINE 6.5 PH (5.0-7.5); PROTEIN,URINE NEGATIVE (NEGATIVE); UROBILINOGEN,URINE 0.2 (NORMAL) E.U./dL (NORMAL)
[2022-09-05 14:38] LABS: CLARITY,URINE SL. CLOUDY (CLEAR)
[2022-09-05 14:52] LABS: WBC,URINE >25 /HPF (0-3)
[2022-09-05 14:53] LABS: BACTERIA,URINE Many /HPF (None Seen); RBC,URINE 0-5 /HPF (0-5); SQUAMOUS EPITHELIAL CELL,UR FEW Squamous (<= Few)
== END 2022-09-05 23:59 | disposition home or self-care (01) ==
LOC: LAB.S 08:00
PROVIDERS: ATTEND Emergency Medicine
DX: R30.0 Dysuria (principal)
CPT/HCPCS: 81001; 87077; 87086; 87181

== ENCOUNTER 2022-09-12 10:24 | Outpatient (CLI) | payer MEDICARE ==
[~2022-09-12 10:24] MED LIST: BUPIVACAINE 0.5% PF 10 ML VIAL ONE; LIDOCAINE-MPF 1% 5 ML VIAL ONE; TRIAMCINOLONE 40 MG/ML VIAL ONE; iohexoL-240 10 ML VIAL IVP ONE
[2022-09-12] MEDS ORDERED: iohexoL-240 10 ML VIAL IVP ONE (11:31)
[2022-09-12] MEDS ORDERED: TRIAMCINOLONE 40 MG/ML VIAL IM ONE (11:31)
[2022-09-12] MEDS ORDERED: LIDOCAINE-MPF 1% 5 ML VIAL TD ONE (11:33)
[2022-09-12] MEDS ORDERED: BUPIVACAINE 0.5% PF 10 ML VIAL IM ONE (11:33)
--- NOTE | 2022-09-12 11:46 | XRAY Report ---
PROCEDURE: Inj/Aspiration Major Joint INDICATIONS: HIP OSTEOARTHRITIS CONTRAST: 2 mm Omnipaque 200 FLUORO DOSAGE: 50.68 FLUORO TIME: 0.1 TECHNIQUE: The indications, alternatives, benefits, risks, and complications of the procedure were explained to the patient. Written informed consent was obtained and placed in the chart. The patient was placed in an appropriate position on the fluoroscopy table, and a site was chosen for percutaneous access un radha fluoroscopic guidance. Local anesthetic was administered using a 1% lidocaine solution. A hypod ermic or spinal needle was then used to access the symptomatic joint. Intra-articular location of th e needle tip was confirmed by injecting a small amount of contrast, followed by steroid administratio n. The needle was then withdrawn, and a bandage applied to the puncture site. FINDINGS: Joint injected: Left hip Medications injected: 5 mL of 40 mg/mL Kenalog and 0.5% Ropivacaine mixture. Complications: None. Preprocedural pain: 4. Postprocedural pain: 0. IMPRESSION: Successful fluoroscopically guided administration of steroid and anaesthetic solution into the left h ip joint. Reviewed by: Mika Pettit on 09/12/2022 11:45 AM PDT Approved by: Mika Pettit on 09/12/2022 11:45 AM PDT Station ID: [id number]
== END 2022-09-12 10:25 | disposition home or self-care (01) ==
LOC: DI 10:24
PROVIDERS: ATTEND Physician Assistant Surgical
DX: M16.0 Bilateral primary osteoarthritis of hip (principal)
CPT/HCPCS: 20610; 77002; Q9966

== ENCOUNTER 2022-10-21 15:58 | Outpatient (CLI) | payer MEDICARE | END 2022-10-21 15:59 | disposition critical access hospital (66) | LOC: EMS 15:58 | DX: R55 Syncope and collapse (principal) | CPT/HCPCS: A0425; A0427 ==

== ENCOUNTER 2022-10-21 16:28 | Emergency (ER) | payer MEDICARE ==
[2022-10-21] MEDS ORDERED: SODIUM CHLORIDE 0.9% 1,000 ML IV STA (16:44)
--- NOTE | 2022-10-21 16:47 | ED Physician Documentation ---
History of Present Illness - Stated complaint Stated Complaint: NEAR SYNCOPE - Chief complaint Chief Complaint: Neuro - History obtained from History obtained from: Patient, EMS - History of Present Illness Timing: Today - Additonal information Additional information: Prince Walsh who goes by "BagThat" is a 72-year-old male with history of COPD chronic neck and back pain type 2 diabetes hepatitis C with cirrhosis and chronic bladder infection who presents to the emergency department today after a syncopal episode. He did not injure himself today. He has had similar syncopal episodes previously resulting in injury. 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 Today he presents to the emergency department with a history of lightheadedness and dizziness resulting in a collapse. He continues to have symptoms of bladder irritation with urgency and dysuria. He has had a recent treatment of bladder infection. Review of Systems Constitutional: denies: Fever Eyes: denies: Photophobia Ears: denies: Ear pain Nose: denies: Rhinorrhea / runny nose, Congestion Throat: denies: Sore throat Cardiac: denies: Chest pain / pressure, Palpitations Respiratory: denies: Dyspnea, Cough GI: denies: Abdominal Pain, Nausea, Vomiting, Constipation, Diarrhea : reports: Dysuria, Frequency Skin: denies: Rash, Lesions Musculoskeletal: denies: Neck pain, Back pain, Extremity pain Neurologic: reports: Near syncope, Syncope. denies: Generalized weakness, Focal weakness, Numbness PD PAST MEDICAL HISTORY - Past Medical History Cardiovascular: Hypertension Respiratory: COPD Neuro: Headaches Endocrine/Autoimmune: Type 2 diabetes GI: Hepatitis, Cirrhosis, Other : Chronic bladder infection HEENT: None Psych: None Musculoskeletal: None - Past Surgical History Past Surgical History: Yes - Present Medications Home Medications: Ambulatory Orders Medication Instructions Recorded Confirmed Atorvastatin Calcium 20 mg ORAL DAILY 04/20/20 10/21/22 Lisinopril [Zestril] 5 mg ORAL DAILY 04/20/20 10/21/22 DULoxetine [Cymbalta] 60 mg PO DAILY 10/21/22 10/21/22 Omeprazole Magnesium 20 mg PO DAILY 10/21/22 10/21/22 Pregabalin [Lyrica] 75 mg PO BID 10/21/22 10/21/22 buprenorphine HCL [Buprenorphine 2 mg SL DAILY 10/21/22 10/21/22 HCl] - Allergies Allergies/Adverse Reactions: Allergies Allergy/AdvReac Type Severity Reaction Status Date / Time metoprolol AdvReac Hallucinati Verified 10/21/22 16:55 ons zolpidem [From Ambien] AdvReac Hallucinati Verified 10/21/22 16:32 ons - Social History Does the pt smoke?: Yes Smoking Status: Unknown if ever smoked Does the pt drink ETOH?: Yes Does the pt have substance abuse?: Yes - Immunizations Immunizations are current?: Yes - POLST Patient has POLST: No PD ED PE NORMAL - Vitals Vital signs reviewed: Yes (hypotensive ) - General General: Alert and oriented X 3, No acute distress, Well developed/nourished, Other (Bearded 72y/o male looks weather worn with deep goodman and a thick covering of dirt. ) - HEENT HEENT: Atraumatic, PERRL, EOMI, Other (dry mucous membranes ) - Neck Neck: Supple, no meningeal sign, No bony TTP - Cardiac Cardiac: RRR, No murmur - Respiratory Respiratory: No respiratory distress, Clear bilaterally - Abdomen Abdomen: Soft, Non tender - Back Back: No CVA TTP, No spinal TTP - Derm Derm: Normal color, Warm and dry, No rash - Extremities Extremities: No deformity, No edema, Other (hands with a thick layer of dirt) - Neuro Neuro: Alert and oriented X 3, hand cooper helper 2-12 intact, No motor deficit, No sensory deficit, Normal speech Eye Opening: Spontaneous Motor: Obeys Commands Verbal: Oriented GCS Score: 15 - Psych Psych: Normal mood, Normal affect Results - Vitals Vitals: Vital Signs - 24 hr 10/21/22 10/21/22 10/21/22 16:32 16:44 17:09 Temperature 37.3 C Heart Rate 68 86 60 Respiratory 18 18 16 Rate Blood Pressure 80/50 L 86/46 L 103/75 O2 Saturation 98 100 97 10/21/22 10/21/22 17:47 18:05 Temperature 37.2 C Heart Rate 84 83 Respiratory 18 16 Rate Blood Pressure 104/62 117/66 O2 Saturation 95 98 Oxygen O2 Source Room air - EKG (time done) 1633 EKG releavant findings:: EKG personally interpreted by author of this note. Relevant findings are: Rate: Rate (enter#) (67) Rhythm: NSR, Other (pac's) [place]: Normal Ischemia: Q waves (anterior ) Computer interpretation: Agree with computer - Labs Labs: Laboratory Tests 10/21/22 10/21/22 10/21/22 17:07 17:07 17:07 WBC 7.8 RBC 3.51 L Hgb 10.0 L Hct 31.7 L MCV 90.3 MCH 28.5 MCHC 31.5 L RDW 15.3 H Plt Count 159 MPV 10.1 Neut # (Auto) 4.6 Lymph # (Auto) 2.1 [place] # (Auto) 0.8 Eos # (Auto) 0.2 Baso # (Auto) 0.0 Absolute Nucleated RBC 0.00 Nucleated RBC % 0.0 Sodium 136 Potassium 3.4 L Chloride 107 Carbon Dioxide 25 Anion Gap 4.0 L BUN 29 H Creatinine 1.8 H Estimated GFR (MDRD) 37 L Glucose 92 Lactic Acid Calcium 7.9 L Total Bilirubin 0.5 AST 49 H ALT 18 Alkaline Phosphatase 63 Troponin I High Sens 18.0 Total Protein 5.6 L Albumin 3.3 Globulin 2.3 Albumin/Globulin Ratio 1.4 Lipase 14 10/21/22 17:14 WBC RBC Hgb Hct MCV MCH MCHC RDW Plt Count MPV Neut # (Auto) Lymph # (Auto) [place] # (Auto) Eos # (Auto) Baso # (Auto) Absolute Nucleated RBC Nucleated RBC % Sodium Potassium Chloride Carbon Dioxide Anion Gap BUN Creatinine Estimated GFR (MDRD) Glucose Lactic Acid 1.0 Calcium Total Bilirubin AST ALT Alkaline Phosphatase Troponin I High Sens Total Protein Albumin Globulin Albumin/Globulin Ratio Lipase Procedures - IVC sono (time) 1640 Bedside IVC sono: IVC measures (cm) (1.21), Dehydration (after 700ml in still has 1 liter deficit.) PD Medical Decision Making - ED course Complexity details: reviewed old records, reviewed results, re-evaluated patient, considered differential, d/w patient Reviewed Lab Results: We reviewed a complete blood count showing a normal white blood cell count with a depressed hemoglobin and hematocrit that are close to the patient's baseline. Platelets are normal at 159,000. His chemistries show elevated BUN and creatinine at 29 and 1.8 these are both improved from his most recent visit in July of this year. Lactate is normal at 1. AST is mildly elevated at 49 the rest are of the liver functions normal. My interpretation of these laboratory results indicate a level of dehydration likely representing the reason the patient presented to the emergency department today. He has had dehydration previously a number of times giving the picture of acute kidney injury. ED course: Prince Walsh presented to the emergency department today with a near syncopal episode and we evaluated the patient found to be significantly dehydrated including hypotension. He was administered intravenous fluid prior to arrival to the emergency department and was admitted and administered further fluid here in the emergency department both orally and intravenously. He feels much improved at the time of disposition. Despite the patient's symptoms urinalysis shows a concentrated urine without evidence of infection. The patient has been successfully treated for dehydration feels improved and is discharged. The appearance of the patient leads to the conclusion that his dehydration is the result of exposure. Departure - Departure Disposition: 01 Home, Self Care Clinical Impression: Dehydration Condition: Stable Instructions: ED Dehydration Follow-Up: Cathryn Atwood MD [Provider Admit Priv/Credential] - Comments: Prince today it looks like the feeling of lightheadedness and dizziness you experienced earlier was due to significant dehydration. The recommendation is to drink 2 quarts of water daily. We did not find evidence of infection in your urine today. Forms: PCP List
--- OUTSIDE RECORDS SUMMARY | 2022-10-21 16:47 | EXTERNAL MEDICAL SUMMARY RPT | Continuity of Care Document ---
Author Name Unknown Address [address] [place] [address] Phone Organization [facility] Address [address] [place] [address] Phone Care Team Providers Care Ear Muff Assembler Name Role Phone Unavailable Unavailable Unavailable Judi Gipson, Shikha Unavailable Unavailable Dutch Her, Wilmar Unavailable Unavailable [place] [employer], [place] Unavailable Unavailable Jus Gipson, Torrey Unavailable Unavailable Johnathan [employer] Super[employer], [place] Unavailable Unavailable [place] [employer], [place] Unavailable Unavailable Melba Patient Registrar Iii, Meenakshi Unavailab le [facility] Registrar, Benita Unavailable Unavailable Medications date description facility 2022-09-05 00:00 buprenorphine [facility]cl [facility] [place] 2022-09-05 00:00 buprenorphine hcl [facility] [place] 2022-09-05 00:00 buprenorphine hcl [facility] [place] 2022-09-06 00:00 buprenorphine hcl [facility] [place] 2022-09-06 00:00 buprenorphine hcl [facility] [place] 2022-09-07 00:00 buprenorphine hcl [facility] [place] 2022-09-13 00:00 buprenorphine hcl [facility] [place] 2022-10-18 00:00 buprenorphine hcl [facility] [place] 2022-10-19 00:00 buprenorphine hcl [facility] [place] 2022-09-05 00:00 ciprofloxacin hcl [facility] [place] 2022-09-05 00:00 ciprofloxacin hcl [facility] [place] 2022-09-05 00:00 ciprofloxacin hcl [facility] [place] 2022-09-05 00:00 ciprofloxacin hcl [facility] [place] 2022-09-05 00:00 ciprofloxacin hcl [facility] [place] 2022-09-05 00:00 ciprofloxacin hcl [facility] [place] 2022-09-05 00:00 ciprofloxacin hcl [facility] [place] 2022-09-05 00:00 ciprofloxacin hcl [facility] [place] 2022-09-05 00:00 SILVER SULFADIAZINE [facility] [place] 2022-09-05 00:00 SILVER SULFADIAZINE [facility] [place] 2022-09-05 00:00 SILVER SULFADIAZINE [facility] [place] 2022-09-06 00:00 SILVER SULFADIAZINE [facility] [place] 2022-09-06 00:00 SILVER SULFADIAZINE [facility] [place] 2022-09-07 00:00 SILVER SULFADIAZINE [facility] [place] 2022-09-13 00:00 SILVER SULFADIAZINE [facility] [place] 2022-10-18 00:00 SILVER SULFADIAZINE [facility] [place] 2022-10-19 00:00 SILVER SULFADIAZINE [facility] [place] 2022-09-05 00:00 ciprofloxacin hcl [facility] [place] 2022-09-05 00:00 ciprofloxacin hcl [facility] [place] 2022-09-05 00:00 ciprofloxacin hcl [facility] [place] 2022-09-05 00:00 ciprofloxacin hcl [facility] [place] 2022-09-05 00:00 ciprofloxacin hcl [facility] [place] 2022-09-05 00:00 ciprofloxacin hcl [facility] [place] 2022-09-05 00:00 ciprofloxacin hcl [facility] [place] 2022-09-05 00:00 ciprofloxacin hcl [facility] [place] 2022-09-05 00:00 SILVER SULFADIAZINE [facility] [place] 2022-09-05 00:00 SILVER SULFADIAZINE [facility] [place] 2022-09-05 00:00 SILVER SULFADIAZINE [facility] [place] 2022-09-06 00:00 SILVER SULFADIAZINE [facility] [place] 2022-09-06 00:00 SILVER SULFADIAZINE [facility] [place] 2022-09-07 00:00 SILVER SULFADIAZINE [facility] [place] 2022-09-13 00:00 SILVER SULFADIAZINE [facility] [place] 2022-10-18 00:00 SILVER SULFADIAZINE [facility] [place] 2022-10-19 00:00 SILVER SULFADIAZINE [facility] [place] 2022-09-05 00:00 buprenorphine hcl [facility] [place] 2022-09-05 00:00 buprenorphine hcl [facility] [place] 2022-09-05 00:00 buprenorphine hcl [facility] [place] 2022-09-06 00:00 buprenorphine hcl [facility] [place] 2022-09-06 00:00 buprenorphine hcl [facility] [place] 2022-09-07 00:00 buprenorphine hcl [facility] [place] 2022-09-13 00:00 buprenorphine hcl [facility] [place] 2022-10-18 00:00 buprenorphine hcl [facility] [place] 2022-10-19 00:00 buprenorphine hcl [facility] [place] 2022-09-05 00:00 FLUTICASONE PROPIONATE [facility] [place] 2022-09-05 00:00 FLUTICASONE PROPIONATE [facility] [place] 2022-09-05 00:00 FLUTICASONE PROPIONATE [facility] [place] 2022-09-06 00:00 FLUTICASONE PROPIONATE [facility] [place] 2022-09-06 00:00 FLUTICASONE PROPIONATE [facility] [place] 2022-09-07 00:00 FLUTICASONE PROPIONATE [facility] [place] 2022-09-13 00:00 FLUTICASONE PROPIONATE [facility] [place] 2022-10-18 00:00 FLUTICASONE PROPIONATE [facility] [place] 2022-10-19 00:00 FLUTICASONE PROPIONATE [facility] [place] 2022-09-05 00:00 ciprofloxacin hcl [facility] [place] 2022-09-05 00:00 ciprofloxacin hcl [facility] [place] 2022-09-05 00:00 ciprofloxacin hcl [facility] [place] 2022-09-05 00:00 ciprofloxacin hcl [facility] [place] 2022-09-05 00:00 ciprofloxacin hcl [facility] [place] 2022-09-05 00:00 ciprofloxacin hcl [facility] [place] 2022-09-05 00:00 ciprofloxacin hcl [facility] [place] 2022-09-05 00:00 ciprofloxacin hcl [facility] [place] 2022-09-05 00:00 pregabalin [facility] [place] 2022-09-05 00:00 pregabalin [facility] [place] 2022-09-05 00:00 pregabalin [facility] [place] 2022-09-06 00:00 pregabalin [facility] [place] 2022-09-06 00:00 pregabalin [facility] [place] 2022-09-07 00:00 pregabalin [facility] [place] 2022-09-13 00:00 pregabalin [facility] [place] 2022-10-18 00:00 pregabalin [facility] [place] 2022-10-19 00:00 pregabalin [facility] [place] 2022-09-05 00:00 ciprofloxacin hcl [facility] [place] 2022-09-05 00:00 ciprofloxacin hcl [facility] [place] 2022-09-05 00:00 ciprofloxacin hcl [facility] [place] 2022-09-05 00:00 ciprofloxacin hcl [facility] [place] 2022-09-05 00:00 ciprofloxacin hcl [facility] [place] 2022-09-05 00:00 ciprofloxacin hcl [facility] [place] 2022-09-05 00:00 ciprofloxacin hcl [facility] [place] 2022-09-05 00:00 ciprofloxacin hcl [facility] [place] 2022-09-05 00:00 FLUTICASONE PROPIONATE [facility] [place] 2022-09-05 00:00 FLUTICASONE PROPIONATE [facility] [place] 2022-09-05 00:00 FLUTICASONE PROPIONATE [facility] [place] 2022-09-06 00:00 FLUTICASONE PROPIONATE [facility] [place] 2022-09-06 00:00 FLUTICASONE PROPIONATE [facility] [place] 2022-09-07 00:00 FLUTICASONE PROPIONATE [facility] [place] 2022-09-13 00:00 FLUTICASONE PROPIONATE [facility] [place] 2022-10-18 00:00 FLUTICASONE PROPIONATE [facility] [place] 2022-10-19 00:00 FLUTICASONE PROPIONATE [facility] [place] 2022-09-05 00:00 SILVER SULFADIAZINE [facility] [place] 2022-09-05 00:00 SILVER SULFADIAZINE [facility] [place] 2022-09-05 00:00 SILVER SULFADIAZINE [facility] [place] 2022-09-06 00:00 SILVER SULFADIAZINE [facility] [place] 2022-09-06 00:00 SILVER SULFADIAZINE [facility] [place] 2022-09-07 00:00 SILVER SULFADIAZINE [facility] [place] 2022-09-13 00:00 SILVER SULFADIAZINE [facility] [place] 2022-10-18 00:00 SILVER SULFADIAZINE [facility] [place] 2022-10-19 00:00 SILVER SULFADIAZINE [facility] [place] 2022-09-05 00:00 buprenorphine hcl [facility] [place] 2022-09-05 00:00 buprenorphine hcl [facility] [place] 2022-09-05 00:00 buprenorphine hcl [facility] [place] 2022-09-06 00:00 buprenorphine hcl [facility] [place] 2022-09-06 00:00 buprenorphine hcl [facility] [place] 2022-09-07 00:00 buprenorphine hcl [facility] [place] 2022-09-13 00:00 buprenorphine hcl [facility] [place] 2022-10-18 00:00 buprenorphine hcl [facility] [place] 2022-10-19 00:00 buprenorphine hcl [facility] [place] 2022-09-05 00:00 pregabalin [facility] [place] 2022-09-05 00:00 pregabalin [facility] [place] 2022-09-05 00:00 pregabalin [facility] [place] 2022-09-06 00:00 pregabalin [facility] [place] 2022-09-06 00:00 pregabalin [facility] [place] 2022-09-07 00:00 pregabalin [facility] [place] 2022-09-13 00:00 pregabalin [facility] [place] 2022-10-18 00:00 pregabalin [facility] [place] 2022-10-19 00:00 pregabalin [facility] [place] 2022-09-05 00:00 pregabalin [facility] [place] 2022-09-05 00:00 pregabalin [facility] [place] 2022-09-05 00:00 pregabalin [facility] [place] 2022-09-06 00:00 pregabalin [facility] [place] 2022-09-06 00:00 pregabalin [facility] [place] 2022-09-07 00:00 pregabalin [facility] [place] 2022-09-13 00:00 pregabalin [facility] [place] 2022-10-18 00:00 pregabalin [facility] [place] 2022-10-19 00:00 pregabalin [facility] [place] 2022-09-05 00:00 FLUTICASONE PROPIONATE [facility] [place] 2022-09-05 00:00 FLUTICASONE PROPIONATE [facility] [place] 2022-09-05 00:00 FLUTICASONE PROPIONATE [facility] [place] 2022-09-06 00:00 FLUTICASONE PROPIONATE [facility] [place] 2022-09-06 00:00 FLUTICASONE PROPIONATE [facility] [place] 2022-09-07 00:00 FLUTICASONE PROPIONATE [facility] [place] 2022-09-13 00:00 FLUTICASONE PROPIONATE [facility] [place] 2022-10-18 00:00 FLUTICASONE PROPIONATE [facility] [place] 2022-10-19 00:00 FLUTICASONE PROPIONATE [facility] [place] 2022-09-05 00:00 buprenorphine hcl [facility] [place] 2022-09-05 00:00 buprenorphine hcl [facility] [place] 2022-09-05 00:00 buprenorphine hcl [facility] [place] 2022-09-06 00:00 buprenorphine hcl [facility] [place] 2022-09-06 00:00 buprenorphine hcl [facility] [place] 2022-09-07 00:00 buprenorphine hcl [facility] [place] 2022-09-13 00:00 buprenorphine hcl [facility] [place] 2022-10-18 00:00 buprenorphine hcl [facility] [place] 2022-10-19 00:00 buprenorphine hcl [facility] [place] 2022-09-05 00:00 SILVER SULFADIAZINE [facility] [place] 2022-09-05 00:00 SILVER SULFADIAZINE [facility] [place] 2022-09-05 00:00 SILVER SULFADIAZINE [facility] [place] 2022-09-06 00:00 SILVER SULFADIAZINE [facility] [place] 2022-09-06 00:00 SILVER SULFADIAZINE [facility] [place] 2022-09-07 00:00 SILVER SULFADIAZINE [facility] [place] 2022-09-13 00:00 SILVER SULFADIAZINE [facility] [place] 2022-10-18 00:00 SILVER SULFADIAZINE [facility] [place] 2022-10-19 00:00 SILVER SULFADIAZINE [facility] [place] 2022-09-05 00:00 pregabalin [facility] [place] 2022-09-05 00:00 pregabalin [facility] [place] 2022-09-05 00:00 pregabalin [facility] [place] 2022-09-06 00:00 pregabalin [facility] [place] 2022-09-06 00:00 pregabalin [facility] [place] 2022-09-07 00:00 pregabalin [facility] [place] 2022-09-13 00:00 pregabalin [facility] [place] 2022-10-18 00:00 pregabalin [facility] [place] 2022-10-19 00:00 pregabalin [facility] [place] Problems date description facility 2022-09-05 00:00 Acute hepatitis C wi thout mention of hepatic coma [facility] [place] 2022-09-05 00:00 Acute hepatitis C wi thout mention of hepatic coma [facility] [place] 2022-09-05 00:00 Acute hepatitis C wi thout mention of hepatic coma [facility] [place] 2022-09-05 00:00 Peptic ulcer [facility] [place] 2022-09-05 00:00 Peptic ulcer [facility] [place] 2022-09-05 00:00 Peptic ulcer [facility] [place] 2022-09-05 00:00 Anxiety disorder [facility] [place] 2022-09-05 00:00 Anxiety disorder [facility] [place] 2022-09-05 00:00 Anxiety disorder [facility] [place] 2022-09-05 00:00 Drug abuse [facility] [place] 2022-09-05 00:00 Drug abuse [facility] [place] 2022-09-05 00:00 Drug abuse [facility] [place] 2022-09-05 00:00 Anxiety state, unspecified [facility] [place] 2022-09-05 00:00 Anxiety state, unspecified [facility] [place] 2022-09-05 00:00 Anxiety state, unspecified [facility] [place] 2022-09-05 00:00 Other and unspecifie d alcohol dependence, unspecified drinking behavior [facility] [place] 2022-09-05 00:00 Other and unspecifie d alcohol dependence, unspecified drinking behavior [facility] [place] 2022-09-05 00:00 Other and unspecifie d alcohol dependence, unspecified drinking behavior [facility] [place] 2022-09-05 00:00 Tobacco use disorder Walk-In [facility] [place] 2022-09-05 00:00 Tobacco use disorder [facility]-In [facility] [place] 2022-09-05 00:00 Tobacco use disorder Walk-In [facility] [place] 2022-09-05 00:00 Other, mixed, or uns pecified drug abuse, unspecified use [facility] [place] 2022-09-05 00:00 Other, mixed, or uns pecified drug abuse, unspecified use [facility] [place] 2022-09-05 00:00 Other, mixed, or uns pecified drug abuse, unspecified use [facility] [place] 2022-09-05 00:00 Sinusitis [facility] [place] 2022-09-05 00:00 Sinusitis [facility] [place] 2022-09-05 00:00 Sinusitis [facility] [place] 2022-09-05 00:00 Unspecified sinusitis (chronic) [facility] [place] 2022-09-05 00:00 Unspecified sinusitis (chronic) [facility] [place] 2022-09-05 00:00 Unspecified sinusitis (chronic) [facility] [place] 2022-09-05 00:00 Viral hepatitis C [facility] [place] 2022-09-05 00:00 Viral hepatitis C [facility] [place] 2022-09-05 00:00 Viral hepatitis C [facility] [place] 2022-09-05 00:00 Peptic ulcer of unsp ecified site, unspecified as acute or chronic, without mention of hemorrhage or perforation, without mention of obstruction [facility] [place] 2022-09-05 00:00 Peptic ulcer of unsp ecified site, unspecified as acute or chronic, without mention of hemorrhage or perforation, without mention of obstruction [facility] [place] 2022-09-05 00:00 Peptic ulcer of unsp ecified site, unspecified as acute or chronic, without mention of hemorrhage or perforation, without mention of obstruction [facility] [place] 2022-09-05 00:00 Heart disease [facility] [place] 2022-09-05 00:00 Heart disease [facility] [place] 2022-09-05 00:00 Heart disease [facility] [place] 2022-09-05 00:00 Urinary tract infectious diseas e [facility] [place] 2022-09-05 00:00 Urinary tract infectious diseas e [facility] [place] 2022-09-05 00:00 Urinary tract infectious diseas e [facility] [place] 2022-09-05 00:00 Urinary tract infectious diseas e [facility] [place] 2022-09-05 00:00 Urinary tract infectious diseas e [facility] [place] 2022-09-05 00:00 Urinary tract infectious diseas e [facility] [place] 2022-09-05 00:00 Urinary tract infectious diseas e [facility] [place] 2022-09-05 00:00 Urinary tract infectious diseas e [facility] [place] 2022-09-05 00:00 Alcoholism [facility] [place] 2022-09-05 00:00 Alcoholism [facility] [place] 2022-09-05 00:00 Alcoholism [facility] [place] 2022-09-05 00:00 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 [facility] [place] 2022-09-05 00:00 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 [facility] [place] 2022-09-05 00:00 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 [facility] [place] 2022-09-05 00:00 Other malaise and fatigue [facility] [place] 2022-09-05 00:00 Other malaise and fatigue [facility] [place] 2022-09-05 00:00 Other malaise and fatigue [facility] [place] 2022-09-05 00:00 Fatigue [facility] [place] 2022-09-05 00:00 Fatigue [facility] [place] 2022-09-05 00:00 Fatigue [facility] [place] 2022-09-05 00:00 Obstruction of pelviureteric ju nction [facility] [place] 2022-09-05 00:00 Obstruction of pelviureteric ju nction [facility] [place] 2022-09-05 00:00 Obstruction of pelviureteric ju nction [facility] [place] 2022-09-05 00:00 Unspecified viral he patitis C without hepatic coma [facility] [place] 2022-09-05 00:00 Unspecified viral he patitis C without hepatic coma [facility] [place] 2022-09-05 00:00 Unspecified viral he patitis C without hepatic coma [facility] [place] 2022-09-05 00:00 Alcohol dependence, uncomplicat ed [facility] [place] 2022-09-05 00:00 Alcohol dependence, uncomplicat ed [facility] [place] 2022-09-05 00:00 Alcohol dependence, uncomplicat ed [facility] [place] 2022-09-05 00:00 Nicotine dependence, cigarettes, uncomplicated [facility] [place] 2022-09-05 00:00 Nicotine dependence, cigarettes, uncomplicated [facility] [place] 2022-09-05 00:00 Nicotine dependence, cigarettes, uncomplicated [facility] [facility] [place] 2022-09-05 00:00 Other psychoactive s ubstance abuse, uncomplicated [facility] [place] 2022-09-05 00:00 Other psychoactive s ubstance abuse, uncomplicated [facility] [place] 2022-09-05 00:00 Other psychoactive s ubstance abuse, uncomplicated [facility] [place] 2022-09-05 00:00 Anxiety disorder, unspecified [facility] [place] 2022-09-05 00:00 Anxiety disorder, unspecified [facility] [place] 2022-09-05 00:00 Anxiety disorder, unspecified [facility] [place] 2022-09-05 00:00 Chronic pain syndrome [facility] [place] 2022-09-05 00:00 Chronic pain syndrome [facility] [place] 2022-09-05 00:00 Chronic pain syndrome [facility] [place] 2022-09-05 00:00 Heart disease, unspecified [facility] [place] 2022-09-05 00:00 Heart disease, unspecified [facility] [place] 2022-09-05 00:00 Heart disease, unspecified [facility] [place] 2022-09-05 00:00 Chronic sinusitis, unspecified [facility] [place] 2022-09-05 00:00 Chronic sinusitis, unspecified [facility] [place] 2022-09-05 00:00 Chronic sinusitis, unspecified [facility] [place] 2022-09-05 00:00 Peptic ulcer, site u nspecified, unspecified as acute or chronic, without hemorrhage or perforation [facility] [place] 2022-09-05 00:00 Peptic ulcer, site u nspecified, unspecified as acute or chronic, without hemorrhage or perforation [facility] [place] 2022-09-05 00:00 Peptic ulcer, site u nspecified, unspecified as acute or chronic, without hemorrhage or perforation [facility] [place] 2022-09-05 00:00 Urinary tract infect ion, site not specified [facility] [place] 2022-09-05 00:00 Urinary tract infect ion, site not specified [facility] [place] 2022-09-05 00:00 Urinary tract infect ion, site not specified [facility] [place] 2022-09-05 00:00 Urinary tract infect ion, site not specified [facility] [place] 2022-09-05 00:00 Urinary tract infect ion, site not specified [facility] [place] 2022-09-05 00:00 Urinary tract infect ion, site not specified [facility] [place] 2022-09-05 00:00 Urinary tract infect ion, site not specified [facility] [place] 2022-09-05 00:00 Urinary tract infect ion, site not specified [facility] [place] 2022-09-05 00:00 Dysuria [facility] [place] 2022-09-05 00:00 Dysuria [facility] [place] 2022-09-05 00:00 Dysuria [facility] [place] 2022-09-05 00:00 Dysuria [facility] [place] 2022-09-05 00:00 Dysuria [facility] [place] 2022-09-05 00:00 Dysuria [facility] [place] 2022-09-05 00:00 Dysuria [facility] [place] 2022-09-05 00:00 Dysuria [facility] [place] 2022-09-05 00:00 Other fatigue [facility] [place] 2022-09-05 00:00 Other fatigue [facility] [place] 2022-09-05 00:00 Other fatigue [facility] [place] 2022-09-06 00:00 Acute hepatitis C wi thout mention of hepatic coma [facility] [place] 2022-09-06 00:00 Acute hepatitis C wi thout mention of hepatic coma [facility] [place] 2022-09-06 00:00 Peptic ulcer [facility] [place] 2022-09-06 00:00 Peptic ulcer [facility] [place] 2022-09-06 00:00 Anxiety disorder [facility] [place] 2022-09-06 00:00 Anxiety disorder [facility] [place] 2022-09-06 00:00 Drug abuse [facility] [place] 2022-09-06 00:00 Drug abuse [facility] [place] 2022-09-06 00:00 Anxiety state, unspecified [facility] [place] 2022-09-06 00:00 Anxiety state, unspecified [facility] [place] 2022-09-06 00:00 Other and unspecifie d alcohol dependence, unspecified drinking behavior [facility] [place] 2022-09-06 00:00 Other and unspecifie d alcohol dependence, unspecified drinking behavior [facility] [place] 2022-09-06 00:00 Tobacco use disorder [facility] [place] 2022-09-06 00:00 Tobacco use disorder [facility]-In [facility] [place] 2022-09-06 00:00 Other, mixed, or uns pecified drug abuse, unspecified use [facility] [place] 2022-09-06 00:00 Other, mixed, or uns pecified drug abuse, unspecified use [facility] [place] 2022-09-06 00:00 Sinusitis [facility] [place] 2022-09-06 00:00 Sinusitis [facility] [place] 2022-09-06 00:00 Unspecified sinusitis (chronic) [facility] [place] 2022-09-06 00:00 Unspecified sinusitis (chronic) [facility] [place] 2022-09-06 00:00 Viral hepatitis C [facility] [place] 2022-09-06 00:00 Viral hepatitis C [facility] [place] 2022-09-06 00:00 Peptic ulcer of unsp ecified site, unspecified as acute or chronic, without mention of hemorrhage or perforation, without mention of obstruction [facility] [place] 2022-09-06 00:00 Peptic ulcer of unsp ecified site, unspecified as acute or chronic, without mention of hemorrhage or perforation, without mention of obstruction [facility] [place] 2022-09-06 00:00 Heart disease [facility] [place] 2022-09-06 00:00 Heart disease [facility] [place] 2022-09-06 00:00 Alcoholism [facility] [place] 2022-09-06 00:00 Alcoholism [facility] [place] 2022-09-06 00:00 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 [facility] [place] 2022-09-06 00:00 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 [facility] [place] 2022-09-06 00:00 Other malaise and fatigue [facility] [place] 2022-09-06 00:00 Other malaise and fatigue [facility] [place] 2022-09-06 00:00 Fatigue [facility] [place] 2022-09-06 00:00 Fatigue [facility] [place] 2022-09-06 00:00 Obstruction of pelviureteric ju nction [facility] [place] 2022-09-06 00:00 Obstruction of pelviureteric ju nction [facility] [place] 2022-09-06 00:00 Unspecified viral he patitis C without hepatic coma [facility] [place] 2022-09-06 00:00 Unspecified viral he patitis C without hepatic coma [facility] [place] 2022-09-06 00:00 Alcohol dependence, uncomplicat ed [facility] [place] 2022-09-06 00:00 Alcohol dependence, uncomplicat ed [facility] [place] 2022-09-06 00:00 Nicotine dependence, cigarettes, uncomplicated [facility] [place] 2022-09-06 00:00 Nicotine dependence, cigarettes, uncomplicated [facility] [place] 2022-09-06 00:00 Other psychoactive s ubstance abuse, uncomplicated [facility] [place] 2022-09-06 00:00 Other psychoactive s ubstance abuse, uncomplicated [facility] [place] 2022-09-06 00:00 Anxiety disorder, unspecified [facility] [place] 2022-09-06 00:00 Anxiety disorder, unspecified [facility] [place] 2022-09-06 00:00 Chronic pain syndrome [facility] [place] 2022-09-06 00:00 Chronic pain syndrome [facility] [place] 2022-09-06 00:00 Heart disease, unspecified [facility] [place] 2022-09-06 00:00 Heart disease, unspecified [facility] [place] 2022-09-06 00:00 Chronic sinusitis, unspecified [facility] [place] 2022-09-06 00:00 Chronic sinusitis, unspecified [facility] [place] 2022-09-06 00:00 Peptic ulcer, site u nspecified, unspecified as acute or chronic, without hemorrhage or perforation [facility] [place] 2022-09-06 00:00 Peptic ulcer, site u nspecified, unspecified as acute or chronic, without hemorrhage or perforation [facility] [place] 2022-09-06 00:00 Other fatigue [facility] [place] 2022-09-06 00:00 Other fatigue [facility] [place] 2022-09-07 00:00 Acute hepatitis C wi thout mention of hepatic coma [facility] [place] 2022-09-07 00:00 Peptic ulcer [facility] [place] 2022-09-07 00:00 Anxiety disorder [facility] [place] 2022-09-07 00:00 Drug abuse [facility] [place] 2022-09-07 00:00 Anxiety state, unspecified [facility] [place] 2022-09-07 00:00 Other and unspecifie d alcohol dependence, unspecified drinking behavior [facility] [place] 2022-09-07 00:00 Tobacco use disorder [facility] [place] 2022-09-07 00:00 Other, mixed, or uns pecified drug abuse, unspecified use [facility] [place] 2022-09-07 00:00 Sinusitis [facility] [place] 2022-09-07 00:00 Unspecified sinusitis (chronic) [facility] [place] 2022-09-07 00:00 Viral hepatitis C [facility] [place] 2022-09-07 00:00 Peptic ulcer of unsp ecified site, unspecified as acute or chronic, without mention of hemorrhage or perforation, without mention of obstruction [facility] [place] 2022-09-07 00:00 Heart disease [facility] [place] 2022-09-07 00:00 Alcoholism [facility] [place] 2022-09-07 00:00 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 [facility] [place] 2022-09-07 00:00 Other malaise and fatigue [facility] [place] 2022-09-07 00:00 Fatigue [facility] [place] 2022-09-07 00:00 Obstruction of pelviureteric ju nction [facility] [place] 2022-09-07 00:00 Unspecified viral he patitis C without hepatic coma [facility] [place] 2022-09-07 00:00 Alcohol dependence, uncomplicat ed [facility] [place] 2022-09-07 00:00 Nicotine dependence, cigarettes, uncomplicated [facility] [place] 2022-09-07 00:00 Other psychoactive s ubstance abuse, uncomplicated [facility] [place] 2022-09-07 00:00 Anxiety disorder, unspecified [facility] [place] 2022-09-07 00:00 [facility] [place] 2022-09-07 00:00 Heart disease, unspecified [facility] [place] 2022-09-07 00:00 Chronic sinusitis, unspecified [facility] [place] 2022-09-07 00:00 Peptic ulcer, site u nspecified, unspecified as acute or chronic, without hemorrhage or perforation [facility] [place] 2022-09-07 00:00 Other fatigue [facility] [place] 2022-09-13 00:00 Acute hepatitis C wi thout mention of hepatic coma [facility] [place] 2022-09-13 00:00 Peptic ulcer [facility] [place] 2022-09-13 00:00 Anxiety disorder [facility] [place] 2022-09-13 00:00 Drug abuse [facility] [place] 2022-09-13 00:00 Anxiety state, unspecified [facility] [place] 2022-09-13 00:00 Other and unspecifie d alcohol dependence, unspecified drinking behavior [facility] [place] 2022-09-13 00:00 Tobacco use disorder [facility] [place] 2022-09-13 00:00 Other, mixed, or uns pecified drug abuse, unspecified use [facility] [place] 2022-09-13 00:00 Sinusitis [facility] [place] 2022-09-13 00:00 Unspecified sinusitis (chronic) [facility] [place] 2022-09-13 00:00 Viral hepatitis C [facility] [place] 2022-09-13 00:00 Peptic ulcer of unsp ecified site, unspecified as acute or chronic, without mention of hemorrhage or perforation, without mention of obstruction [facility] [place] 2022-09-13 00:00 Heart disease [facility] [place] 2022-09-13 00:00 Alcoholism [facility] [place] 2022-09-13 00:00 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 [facility] [place] 2022-09-13 00:00 Other malaise and fatigue [facility] [place] 2022-09-13 00:00 Fatigue [facility] [place] 2022-09-13 00:00 Obstruction of pelviureteric ju nction [facility] [place] 2022-09-13 00:00 Unspecified viral he patitis C without hepatic coma [facility] [place] 2022-09-13 00:00 Alcohol dependence, uncomplicat ed [facility] [place] 2022-09-13 00:00 Nicotine dependence, cigarettes, uncomplicated [facility] [place] 2022-09-13 00:00 Other psychoactive s ubstance abuse, uncomplicated [facility] [place] 2022-09-13 00:00 Anxiety disorder, unspecified [facility] [place] 2022-09-13 00:00 Chronic pain syndrome [facility] [place] 2022-09-13 00:00 Heart disease, unspecified [facility] [place] 2022-09-13 00:00 Chronic sinusitis, unspecified [facility] [place] 2022-09-13 00:00 Peptic ulcer, site u nspecified, unspecified as acute or chronic, without hemorrhage or perforation [facility] [place] 2022-09-13 00:00 Other fatigue [facility] [place] 2022-10-18 00:00 Acute hepatitis C wi thout mention of hepatic coma [facility] [place] 2022-10-18 00:00 Peptic ulcer [facility] [place] 2022-10-18 00:00 Anxiety disorder [facility] [place] 2022-10-18 00:00 Osteoarthritis of hip [facility] [place] 2022-10-18 00:00 Osteoarthritis of hip [facility] [place] 2022-10-18 00:00 Drug abuse [facility] [place] 2022-10-18 00:00 Anxiety state, unspecified [facility] [place] 2022-10-18 00:00 Other and unspecifie d alcohol dependence, unspecified drinking behavior [facility] [place] 2022-10-18 00:00 Tobacco use disorder [facility] [place] 2022-10-18 00:00 Other, mixed, or uns pecified drug abuse, unspecified use [facility] [place] 2022-10-18 00:00 Sinusitis [facility] [place] 2022-10-18 00:00 Unspecified sinusitis (chronic) [facility] [place] 2022-10-18 00:00 Viral hepatitis C [facility] [place] 2022-10-18 00:00 Peptic ulcer of unsp ecified site, unspecified as acute or chronic, without mention of hemorrhage or perforation, without mention of obstruction [facility] [place] 2022-10-18 00:00 Heart disease [facility] [place] 2022-10-18 00:00 Osteoarthrosis, unsp ecified whether generalized or localized, involving pelvic region and thigh [facility] [place] 2022-10-18 00:00 Osteoarthrosis, unsp ecified whether generalized or localized, involving pelvic region and thigh [facility] [place] 2022-10-18 00:00 Alcoholism [facility] [place] 2022-10-18 00:00 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 [facility] [place] 2022-10-18 00:00 Other malaise and fatigue [facility] [place] 2022-10-18 00:00 Fatigue [facility] [place] 2022-10-18 00:00 Obstruction of pelviureteric ju nction [facility] [place] 2022-10-18 00:00 Unspecified viral he patitis C without hepatic coma [facility] [place] 2022-10-18 00:00 Alcohol dependence, uncomplicat ed [facility] [place] 2022-10-18 00:00 Nicotine dependence, cigarettes, uncomplicated [facility] [place] 2022-10-18 00:00 Other psychoactive s ubstance abuse, uncomplicated [facility] [place] 2022-10-18 00:00 Anxiety disorder, unspecified [facility] [place] 2022-10-18 00:00 Chronic pain syndrome [facility] [place] 2022-10-18 00:00 Heart disease, unspecified [facility] [place] 2022-10-18 00:00 Chronic sinusitis, unspecified [facility] [place] 2022-10-18 00:00 Peptic ulcer, site u nspecified, unspecified as acute or chronic, without hemorrhage or perforation [facility] [place] 2022-10-18 00:00 Unilateral primary o steoarthritis, left hip [facility] [place] 2022-10-18 00:00 Unilateral primary o steoarthritis, left hip [facility] [place] 2022-10-18 00:00 Other fatigue [facility] [place] 2022-10-19 00:00 Acute hepatitis C wi thout mention of hepatic coma [facility] [place] 2022-10-19 00:00 Peptic ulcer [facility] [place] 2022-10-19 00:00 Anxiety disorder [facility] [place] 2022-10-19 00:00 Drug abuse [facility] [place] 2022-10-19 00:00 Anxiety state, unspecified [facility] [place] 2022-10-19 00:00 Other and unspecifie d alcohol dependence, unspecified drinking behavior [facility] [place] 2022-10-19 00:00 Tobacco use disorder [facility] [place] 2022-10-19 00:00 Other, mixed, or uns pecified drug abuse, unspecified use [facility] [place] 2022-10-19 00:00 Sinusitis [facility] [place] 2022-10-19 00:00 Unspecified sinusitis (chronic) [facility] [place] 2022-10-19 00:00 Viral hepatitis C [facility] [place] 2022-10-19 00:00 Peptic ulcer of unsp ecified site, unspecified as acute or chronic, without mention of hemorrhage or perforation, without mention of obstruction [facility] [place] 2022-10-19 00:00 Heart disease [facility] [place] 2022-10-19 00:00 Alcoholism [facility] [place] 2022-10-19 00:00 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 [facility] [place] 2022-10-19 00:00 Other malaise and fatigue [facility] [place] 2022-10-19 00:00 Fatigue [facility] [place] 2022-10-19 00:00 Obstruction of pelviureteric ju nction [facility] [place] 2022-10-19 00:00 Unspecified viral he patitis C without hepatic coma [facility] [place] 2022-10-19 00:00 Alcohol dependence, uncomplicat ed [facility] [place] 2022-10-19 00:00 Nicotine dependence, cigarettes, uncomplicated [facility] [place] 2022-10-19 00:00 Other psychoactive s ubstance abuse, uncomplicated [facility] [place] 2022-10-19 00:00 Anxiety disorder, unspecified [facility] [place] 2022-10-19 00:00 Chronic pain syndrome [facility] [place] 2022-10-19 00:00 Heart disease, unspecified [facility] [place] 2022-10-19 00:00 Chronic sinusitis, unspecified [facility] [place] 2022-10-19 00:00 Peptic ulcer, site u nspecified, unspecified as acute or chronic, without hemorrhage or perforation [facility] [place] 2022-10-19 00:00 Other fatigue [facility] [place] Procedures date description facility 2022-09-05 00:00 Visit Code Hold [facility] [place] 2022-09-05 00:00 Visit Code Hold [facility] [place] 2022-09-05 00:00 Visit Code Hold [facility] [place] 2022-09-05 00:00 Visit Code Hold [facility] [place] 2022-09-05 00:00 Visit Code Hold [facility] [place] 2022-09-05 00:00 Visit Code Hold [facility] [place] 2022-09-05 00:00 Visit Code Hold [facility] [place] 2022-09-05 00:00 Visit Code Hold [facility] [place] 2022-09-05 00:00 Urinalysis with Micr oscopic Exam, Culture in Indicated [facility] [place] 2022-09-05 00:00 Urinalysis with Micr oscopic Exam, Culture in Indicated [facility] [place] 2022-09-05 00:00 Urinalysis with Micr oscopic Exam, Culture in Indicated [facility] [place] 2022-09-05 00:00 Urinalysis with Micr oscopic Exam, Culture in Indicated [facility] [place] 2022-09-05 00:00 Urinalysis with Micr oscopic Exam, Culture in Indicated [facility] [place] 2022-09-05 00:00 Urinalysis with Micr oscopic Exam, Culture in Indicated [facility] [place] Results/Labs test date facility value unit notes Social History date description facility 2022-09-05 00:00 Current every day smoker [facility] [place] 2022-09-05 00:00 Current every day smoker [facility] [place] 2022-09-05 00:00 Current every day smoker [facility] [place] 2022-09-05 00:00 Current every day smoker [facility] [place] 2022-09-05 00:00 Current every day smoker [facility] [place] 2022-09-05 00:00 Current every day smoker [facility] [place] 2022-09-05 00:00 Current every day smoker [facility] [place] 2022-09-05 00:00 Current every day smoker [facility] [place] Vital Signs date measurement value units 2022-09-05 00:00 BMI 20.91 kg/m2 2022-09-05 00:00 BP_diastolic 97 mmHg 2022-09-05 00:00 BP_systolic 203 mmHg 2022-09-05 00:00 heart_rate 70 /min 2022-09-05 00:00 height_metric 172.72 cm 2022-09-05 00:00 height_standard 68 in 2022-09-05 00:00 respiration_rate 16 /min 2022-09-05 00:00 temperature_metric 36.67 C 2022-09-05 00:00 temperature_standard 98 F 2022-09-05 00:00 weight_metric 62.14 kg 2022-09-05 00:00 weight_standard 137 lb
[2022-10-21 17:23] LABS: BASOPHILS % (AUTO) 0.4 %; EOSINOPHILS # (AUTO) 0.2 10^3/uL (0.0-0.7); HCT - HEMATOCRIT 31.7 % (42.0-52.0); LYMPHOCYTES # (AUTO) 2.1 10^3/uL (1.5-3.5); LYMPHOCYTES % (AUTO) 26.8 %; MEAN CORPUSCULAR HEMOGLOBIN 28.5 pg (27.0-31.0); MEAN CORPUSCULAR HGB CONC 31.5 g/dL (32.0-36.0); MEAN CORPUSCULAR VOLUME 90.3 fL (80.0-94.0); MEAN PLATELET VOLUME 10.1 fL (7.4-11.4); MONOCYTES # (AUTO) 0.8 10^3/uL (0.0-1.0); MONOCYTES % (AUTO) 10.2 %; NEUTROPHILS # (AUTO) 4.6 10^3/uL (1.5-6.6); NEUTROPHILS % (AUTO) 59.2 %; PLT - PLATELET COUNT 159 10^3/uL (130-450); RED BLOOD COUNT 3.51 10^6/uL (4.70-6.10); RED CELL DISTRIBUTION WIDTH 15.3 % (12.0-15.0); WHITE BLOOD COUNT 7.8 x10^3/uL (4.8-10.8)
[2022-10-21 17:54] LABS: ALBUMIN 3.3 g/dL (3.2-5.5); ALBUMIN/GLOBULIN RATIO 1.4 (1.0-2.2); BILIRUBIN,TOTAL 0.5 mg/dL (0.2-1.0); CALCIUM 7.9 mg/dL (8.5-10.3); CREATININE 1.8 mg/dL (0.6-1.3); POTASSIUM 3.4 mmol/L (3.5-4.5); TOTAL PROTEIN 5.6 g/dL (6.4-8.9)
[2022-10-21 18:10] VITALS: BP 117/66; O2SAT 98
[2022-10-21 18:16] LABS: MUDS CUTOFF CONCENTRATIONS CUTOFF CONC BELOW:
[2022-10-21 18:19] LABS: BILIRUBIN,URINE NEGATIVE (NEGATIVE); GLUCOSE, URINE (UA) NEGATIVE (NEGATIVE); KETONES,URINE (UA) NEGATIVE (NEGATIVE); LEUKOCYTE ESTERASE, URINE NEGATIVE (NEGATIVE); NITRITE,URINE NEGATIVE (NEGATIVE); OCCULT BLOOD,URINE NEGATIVE (NEGATIVE); PROTEIN,URINE TRACE mg/dL (NEGATIVE); UROBILINOGEN,URINE 0.2 (NORMAL) E.U./dL (NORMAL)
[2022-10-21 18:20] LABS: CLARITY,URINE CLEAR (CLEAR)
[2022-10-21 18:29] LABS: AMPHETAMINE SCREEN,URINE NEGATIVE (NEGATIVE); BARBITURATE SCREEN,UR NEGATIVE (NEGATIVE); BENZODIAZEPINES SCREEN, URINE NEGATIVE (NEGATIVE); COCAINE SCREEN URINE NEGATIVE (NEGATIVE); METHADONE SCREEN, URINE NEGATIVE (NEGATIVE); METHAMPHETAMINES SCREEN, URINE NEGATIVE (NEGATIVE); OPIATE SCREEN, URINE NEGATIVE (NEGATIVE); OXYCODONE SCREEN, URINE NEGATIVE (NEGATIVE); PROPOXYPHENE SCREEN, URINE NEGATIVE (NEGATIVE); THC CANNABINOID SCREEN, URINE POSITIVE (NEGATIVE); TRICYCLIC ANTIDEPRESSANT,URINE NEGATIVE (NEGATIVE)
== END 2022-10-21 18:34 | disposition home or self-care (01) ==
LOC: EDUNIT# → ED 16:28
DX: E86.0 Dehydration (principal)
CPT/HCPCS: 36415; 80053; 80306; 81001; 81003; 83605; 83690; 84484; 85025; 87040; 87086; 93005; 96360; 99283

== ENCOUNTER 2022-10-30 11:20 | Outpatient (CLI) | payer MEDICARE ==
[2022-10-30 15:08] LABS: BASOPHILS % (AUTO) 0.4 %; EOSINOPHILS # (AUTO) 0.2 10^3/uL (0.0-0.7); EOSINOPHILS % (AUTO) 2.4 %; HCT - HEMATOCRIT 37.6 % (42.0-52.0); HGB - HEMOGLOBIN 11.8 g/dL (14.0-18.0); LYMPHOCYTES # (AUTO) 1.3 10^3/uL (1.5-3.5); LYMPHOCYTES % (AUTO) 13.2 %; MEAN CORPUSCULAR HEMOGLOBIN 28.6 pg (27.0-31.0); MEAN CORPUSCULAR HGB CONC 31.4 g/dL (32.0-36.0); MEAN CORPUSCULAR VOLUME 91.3 fL (80.0-94.0); MEAN PLATELET VOLUME 11.3 fL (7.4-11.4); MONOCYTES # (AUTO) 0.6 10^3/uL (0.0-1.0); MONOCYTES % (AUTO) 6.5 %; NEUTROPHILS # (AUTO) 7.3 10^3/uL (1.5-6.6); NEUTROPHILS % (AUTO) 77.2 %; PLT - PLATELET COUNT 148 10^3/uL (130-450); RED BLOOD COUNT 4.12 10^6/uL (4.70-6.10); RED CELL DISTRIBUTION WIDTH 15.5 % (12.0-15.0); WHITE BLOOD COUNT 9.5 x10^3/uL (4.8-10.8)
[2022-10-30 15:27] LABS: ALBUMIN 3.8 g/dL (3.2-5.5); BILIRUBIN,DIRECT < 0.10 mg/dL (0.03-0.18)
[2022-10-30 15:42] LABS: ALBUMIN/GLOBULIN RATIO 1.4 (1.0-2.2); ALKALINE PHOSPHATASE 72 IU/L (42-121); ALT ALANINE AMINOTRANSFERASE 15 IU/L (10-60); AST ASPARTATE AMINOTRANSFERASE 24 IU/L (10-42); BILIRUBIN,TOTAL 0.3 mg/dL (0.2-1.0); BUN - BLOOD UREA NITROGEN 17 mg/dL (6-20); CALCIUM 9.2 mg/dL (8.5-10.3); CARBON DIOXIDE - CO2 35 mmol/L (21-32); CHLORIDE 101 mmol/L (101-111); GFR - MDRD 73 (>89); GLUCOSE 102 mg/dL (74-104); POTASSIUM 5.4 mmol/L (3.5-4.5); SODIUM 136 mmol/L (135-145); TOTAL PROTEIN 6.5 g/dL (6.4-8.9)
== END 2022-10-30 11:21 | disposition home or self-care (01) ==
LOC: LAB.S 11:20
PROVIDERS: ATTEND Internal Medicine
DX: K74.60 Unspecified cirrhosis of liver (principal)
CPT/HCPCS: 36415; 80053; 80076; 82248; 85025

== ENCOUNTER 2022-12-10 08:00 | Outpatient (CLI) | payer MEDICARE ==
--- NOTE | 2022-12-10 12:30 | XRAY Report ---
PROCEDURE: Ankle 3 View LT INDICATIONS: LEFT ANKLE PAIN TECHNIQUE: 3 views of the ankle were acquired. COMPARISON: Left ankle radiographs 07/30/2022, 07/20/2022. FINDINGS: Bones: Callus formation at the distal left fibula. Fracture line is less conspicuous. Ankle mortise is normally aligned. No suspicious bony lesions. Soft tissues: No tibiotalar joint effusion. Achilles tendon appears normal. IMPRESSION: Ongoing healing at the distal fibula fracture. Reviewed by: Teddy Guallpa MD on 12/10/2022 12:29 PM PDT Approved by: Teddy Guallpa MD on 12/10/2022 12:29 PM PDT Station ID: [id number]
--- NOTE | 2022-12-10 13:07 | XRAY Report ---
PROCEDURE: Foot 3 View LT INDICATIONS: LEFT FOOT PAIN TECHNIQUE: 3 views of the foot were acquired. COMPARISON: None. FINDINGS: Bones: No fractures or dislocations. No degenerative changes. No suspicious bony lesions. Soft tissues: No suspicious soft tissue calcifications or masses. IMPRESSION: No acute bony abnormality of the foot. Reviewed by: Bennie Queen on 12/10/2022 1:06 PM PDT Approved by: Bennie Queen on 12/10/2022 1:06 PM PDT Station ID: [id number]
== END 2022-12-10 23:59 | disposition home or self-care (01) ==
LOC: DI.WOS 08:00
PROVIDERS: ATTEND Physician Assistant Surgical
DX: S82.832D Other fracture of upper and lower end of left fibula, subsequent encounter for closed fracture with routine healing (principal)

== ENCOUNTER 2022-12-13 16:50 | Emergency (ER) | payer MEDICARE ==
[2022-12-13] MEDS ORDERED: SODIUM CHLORIDE 0.9% 1,000 ML IV STA ×2 (17:24)
--- NOTE | 2022-12-13 17:27 | ED Physician Documentation ---
History of Present Illness - Stated complaint Stated Complaint: HEAD INJ/DIZZY - Chief complaint Chief Complaint: Trauma Hd/Nk - History obtained from History obtained from: Patient, Family - History of Present Illness Timing: Today Pain level max: 5 Pain level now: 3 - Additonal information Additional information: Patient is a 72-year-old male who was at home today when he tripped fell and hit the top of his head on a table. Also hit the back of the left hand. No loss of consciousness. No vomiting. No numbness or tingling. States has mild upper neck pain. Also has mild very low back pain in the pelvis. Ambulatory after the event. Also complains of sinus pressure for the past several days with ye llow mucus. No fevers. No chills. No cough. Patient does not take any blood thinners. No seizure activity. No altered mental status. Review of Systems Constitutional: denies: Fever, Chills Ears: denies: Ear pain Nose: reports: Congestion, Sinus pressure / pain (Frontal sinus pressure) Throat: denies: Sore throat Respiratory: denies: Dyspnea, Cough GI: denies: Abdominal Pain, Nausea, Vomiting, Diarrhea : denies: Incontinent Skin: denies: Rash Neurologic: denies: Focal weakness, Numbness, Confused, Headache, LOC PD PAST MEDICAL HISTORY - Past Medical History Past Medical History: Yes Cardiovascular: Hypertension Respiratory: COPD Neuro: Headaches Endocrine/Autoimmune: Type 2 diabetes GI: Hepatitis, Cirrhosis, Other : Chronic bladder infection HEENT: None Psych: None Musculoskeletal: None Derm: None - Past Surgical History Past Surgical History: Yes - Present Medications Home Medications: Ambulatory Orders Medication Instructions Recorded Confirmed Atorvastatin Calcium 20 mg ORAL DAILY 04/20/20 12/13/22 Lisinopril [Zestril] 5 mg ORAL DAILY 04/20/20 12/13/22 DULoxetine [Cymbalta] 60 mg PO DAILY 10/21/22 12/13/22 Omeprazole Magnesium 20 mg PO DAILY 10/21/22 12/13/22 Pregabalin [Lyrica] 75 mg PO BID 10/21/22 12/13/22 buprenorphine HCL [Buprenorphine 2 mg SL DAILY 10/21/22 12/13/22 HCl] Amox/Clav 875/125 [Augmentin] 1 tab PO Q12H #20 tablet 12/13/22 - Allergies Allergies/Adverse Reactions: Allergies Allergy/AdvReac Type Severity Reaction Status Date / Time metoprolol AdvReac Hallucinati Verified 12/13/22 17:02 ons zolpidem [From Ambien] AdvReac Hallucinati Verified 12/13/22 17:02 ons - Social History Does the pt smoke?: Yes Smoking Status: Current every day smoker Does the pt drink ETOH?: Yes Does the pt have substance abuse?: Yes - Immunizations Immunizations are current?: Yes - POLST Patient has POLST: No PD ED PE NORMAL - Vitals Vital signs reviewed: Yes - General General: Alert and oriented X 3, No acute distress, Well developed/nourished - HEENT HEENT: PERRL, Moist mucous membranes, Other (Small abrasion to the top of the head no scalp hematomas or palpable skull fractures) - Neck Neck: Supple, no meningeal sign, Other (Mild upper C-spine tenderness to palpation. No step-off or deformity.) - Cardiac Cardiac: RRR, Strong equal pulses - Respiratory Respiratory: No respiratory distress, Clear bilaterally - Abdomen Abdomen: Soft, Non tender, Non distended - Back Back: Other (No tenderness to palpation over the thoracic spine or upper lumbar spine. There is mild tenderness around L4-L5. No step-off or deformity.) - Derm Derm: Warm and dry - Extremities Extremities: Other (Left hand - Mild tenderness over the dorsum of the left fourth digit with a small abrasion. No deformity. No swelling. Neurovascular intact.) - Neuro Neuro: Alert and oriented X 3 - Psych Psych: Normal mood, Normal affect Results - Vitals Vitals: Vital Signs - 24 hr 12/13/22 12/13/22 12/13/22 16:55 19:02 20:20 Temperature 36.7 C Heart Rate 57 L 71 89 Respiratory 18 15 18 Rate Blood Pressure 116/51 L 200/93 H 166/80 H O2 Saturation 97 97 99 Oxygen O2 Source Room air - Labs Labs: Laboratory Tests 12/13/22 12/13/22 12/13/22 17:30 17:30 17:30 WBC 9.2 RBC 4.01 L Hgb 11.6 L Hct 36.3 L MCV 90.5 MCH 28.9 MCHC 32.0 RDW 13.7 Plt Count 314 MPV 9.3 Neut # (Auto) 7.1 H Lymph # (Auto) 1.1 L [place] # (Auto) 0.7 Eos # (Auto) 0.2 Baso # (Auto) 0.0 Absolute Nucleated RBC 0.00 Nucleated RBC % 0.0 PT 12.1 INR 1.1 APTT 29.9 Sodium 133 L Potassium 5.1 H Chloride 96 L Carbon Dioxide 31 Anion Gap 6.0 BUN 22 H Creatinine 1.3 Estimated GFR (MDRD) 54 L Glucose 84 Calcium 9.3 Phosphorus 4.0 Magnesium 1.9 Total Bilirubin 0.4 AST 22 ALT 14 Alkaline Phosphatase 89 Total Protein 7.1 Albumin 3.9 Globulin 3.2 Albumin/Globulin Ratio 1.2 Lipase 15 Ethyl Alcohol < 10.0 - Rads (name of study) Head CT Relevant Findings:: Final report received, See rad report Cervical spine CT Relevant Findings:: Final report received, See rad report Lumbar spine CT Relevant Findings:: Final report received, See rad report Left hand x-ray Relevant Findings:: Final report received, See rad report PD Medical Decision Making - ED course Complexity details: reviewed results, re-evaluated patient, considered differential, d/w patient, d/w family ED course: No acute findings on head CT, cervical spine CT, lumbar spine CT for x-ray of the left hand. Does appear to have sinusitis on CT and has symptoms consistent with this, therefore we will treat with antibiotics. Has an old T11 compression fracture has no pain or tenderness at the site today. Neurovascular intact. Ambulating without difficulty. Mild hyperkalemia. Was given a liter of IV fluids, this should decrease and he can have this rechecked with his primary care provider. Does appear dehydrated clinically. We will increase his fluid intake at home. Patient is well-appearing, nontoxic. Afebrile. Ambulating with a steady gait. Patient counseled regarding signs and symptoms for which I believe and urgent re-evaluation would be necessary. Patient with good understanding of and agreement to plan and is comfortable going home at this time This document was made in part using voice recognition software. While efforts are made to proofread this document, sound alike and grammatical errors may occur. Departure - Departure Disposition: 01 Home, Self Care Clinical Impression: Dehydration, Fall Sinusitis Qualifiers: Sinusitis location: frontal Chronicity: acute Recurrence: non-recurrent Qualified Code(s): J01.10 - Acute frontal sinusitis, unspecified Closed head injury Qualifiers: Encounter type: initial encounter Qualified Code(s): S09.90XA - Unspecified injury of head, initial encounter Scalp abrasion Qualifiers: Encounter type: initial encounter Qualified Code(s): S00.01XA - Abrasion of scalp, initial encounter Hand abrasion Qualifiers: Encounter type: initial encounter Laterality: left Qualified Code(s): S60.512A - Abrasion of left hand, initial encounter Condition: Stable Instructions: ED Head Injury Closed, ED Sinusitis Abx Tx Follow-Up: Cathryn Atwood MD [Primary Care Provider] - Within 1 week Prescriptions: Amox/Clav 875/125 [Augmentin] 1 tab PO Q12H #20 tablet Comments: Your prescription was sent to [facility] in [place]. Your head CT, cervical spine CT and lumbar spine CT did not show any acute abnormalities. You do have old compression fractures. You also appear to have sinusitis and this is consistent with the forehead pressure that you are feeling, therefore we will place you on antibiotics. We will have you follow-up with your doctor for further care. Please return if you worsen. Make sure you are drinking plenty of water at home. Forms: PCP List Discharge Date/Time: 12/13/22 20:21
[2022-12-13 17:38] LABS: BASOPHILS % (AUTO) 0.3 %; EOSINOPHILS # (AUTO) 0.2 10^3/uL (0.0-0.7); HCT - HEMATOCRIT 36.3 % (42.0-52.0); HGB - HEMOGLOBIN 11.6 g/dL (14.0-18.0); LYMPHOCYTES # (AUTO) 1.1 10^3/uL (1.5-3.5); LYMPHOCYTES % (AUTO) 12.2 %; MEAN CORPUSCULAR HEMOGLOBIN 28.9 pg (27.0-31.0); MEAN CORPUSCULAR VOLUME 90.5 fL (80.0-94.0); MEAN PLATELET VOLUME 9.3 fL (7.4-11.4); MONOCYTES # (AUTO) 0.7 10^3/uL (0.0-1.0); MONOCYTES % (AUTO) 7.4 %; NEUTROPHILS # (AUTO) 7.1 10^3/uL (1.5-6.6); NEUTROPHILS % (AUTO) 76.9 %; PLT - PLATELET COUNT 314 10^3/uL (130-450); RED BLOOD COUNT 4.01 10^6/uL (4.70-6.10); RED CELL DISTRIBUTION WIDTH 13.7 % (12.0-15.0); WHITE BLOOD COUNT 9.2 x10^3/uL (4.8-10.8)
[2022-12-13 17:47] LABS: PARTIAL THROMBOPLASTIN TIME 29.9 secs (24.9-33.3)
[2022-12-13 17:51] LABS: INR 1.1 (0.8-1.2); PT - PROTHROMBIN TIME 12.1 secs (9.9-12.6)
--- NOTE | 2022-12-13 17:52 | XRAY Report ---
PROCEDURE: Hand 3 View LT INDICATIONS: fall, hand pain TECHNIQUE: 3 views of the hand(s) acquired. COMPARISON: None. FINDINGS: Bones: No fractures or dislocations. No suspicious bony lesions. Mild osteoarthritic changes at the first carpometacarpal joint, first metacarpal phalangeal joint and multiple interphalangeal joints. Soft tissues: No suspicious soft tissue calcifications or masses. IMPRESSION: No acute bony abnormality. Reviewed by: Fred Simon MD on 12/13/2022 5:50 PM PDT Approved by: Fred Simon MD on 12/13/2022 5:50 PM PDT Station ID: [id number]
[2022-12-13 18:00] LABS: ALBUMIN 3.9 g/dL (3.2-5.5); ALBUMIN/GLOBULIN RATIO 1.2 (1.0-2.2); ALKALINE PHOSPHATASE 89 IU/L (42-121); ALT ALANINE AMINOTRANSFERASE 14 IU/L (10-60); AST ASPARTATE AMINOTRANSFERASE 22 IU/L (10-42); BILIRUBIN,TOTAL 0.4 mg/dL (0.2-1.0); BUN - BLOOD UREA NITROGEN 22 mg/dL (6-20); CALCIUM 9.3 mg/dL (8.5-10.3); CARBON DIOXIDE - CO2 31 mmol/L (21-32); CHLORIDE 96 mmol/L (101-111); CREATININE 1.3 mg/dL (0.6-1.3); ETOH - ETHANOL < 10.0 mg/dL; GFR - MDRD 54 (>89); GLUCOSE 84 mg/dL (74-104); LIPASE 15 U/L (11-82); MAGNESIUM 1.9 mg/dL (1.7-2.3); POTASSIUM 5.1 mmol/L (3.5-4.5); SODIUM 133 mmol/L (135-145); TOTAL PROTEIN 7.1 g/dL (6.4-8.9)
--- NOTE | 2022-12-13 19:14 | CT Report ---
PROCEDURE: HEAD WO INDICATIONS: fall, head injury TECHNIQUE: Noncontrast 4.5 mm thick angled axial sections acquired from the foramen magnum to the vertex. For r adiation dose reduction, the following was used: automated exposure control, adjustment of mA and/or kV according to patient size. COMPARISON: CT head, 12/29/2019. FINDINGS: Image quality: Excellent. CSF spaces: Basal cisterns are patent. No extra-axial fluid collections. Ventricles are normal in size and shape. Brain: No midline shift. No intracranial masses or hemorrhage. Trammell-white matter interface is norm al. Skull and face: Calvarium and visualized facial bones are intact, without suspicious lesions. Sinuses: There is ethmoidal and maxillary sinus mucosal thickening bilaterally. The mastoids are tomasa r. IMPRESSION: 1. No acute intracranial pathology. 2. Bilateral paranasal sinusitis. Reviewed by: Fred Simon MD on 12/13/2022 7:12 PM PDT Approved by: Fred Simon MD on 12/13/2022 7:12 PM PDT Station ID: [id number]
--- NOTE | 2022-12-13 19:16 | CT Report ---
PROCEDURE: CERVICAL SPINE WO INDICATIONS: fall, neck injury TECHNIQUE: Noncontrast 3 mm thick sections acquired from the skull base to the T4 level. Sagittal and coronal r eformats were then constructed. For radiation dose reduction, the following was used: automated exp osure control, adjustment of mA and/or kV according to patient size. COMPARISON: None. FINDINGS: Image quality: Excellent. Bones: No fractures or dislocations. Grade 1 anterolisthesis of C4 on C5. Moderate degenerative dis c disease at C5-C6. Bilateral facet arthropathy scattered in cervical spine, severe and moderate at C 2-C3, C3-C4 on C4-C5. Visualized superior ribs are intact. Soft tissues: Prevertebral soft tissues are normal in thickness. No paravertebral hematomas. No ap ical pneumothoraces. IMPRESSION: 1. No cervical spine fractures. 2. Degenerative changes as described. Reviewed by: Fred Simon MD on 12/13/2022 7:15 PM PDT Approved by: Fred Simon MD on 12/13/2022 7:15 PM PDT Station ID: [id number]
--- NOTE | 2022-12-13 19:35 | CT Report ---
PROCEDURE: LUMBAR SPINE WO INDICATIONS: fall, back injury TECHNIQUE: Noncontrast 3 mm thick sections acquired from the T12 level to the sacrum. Sagittal and coronal refo rmats were constructed. For radiation dose reduction, the following was used: automated exposure co ntrol, adjustment of mA and/or kV according to patient size. COMPARISON: X-ray lumbar spine, 11/19/2019. CT of abdomen and pelvis, 04/08/2021. FINDINGS: Image quality: Excellent. Bones: There is normal bony alignment. There is moderate compression fracture of T11. A moderate com pression fracture in T11 was seen on 04/08/2021, also severely of the fracture appears slightly increa sed. No suspicious lytic or blastic bony lesions. Central spinal caliber is of normal overall calib er. No pars defects. [id number]-[id number] degenerative disc disease at head L3-L4, L5 L5 and L5-S1. Soft tissues: Question cardiomegaly. Small hiatal hernia. Moderate to severe aortic atherosclerosis. Bladder wall appears mildly thickened. There is a bladder diverticulum on the right side, partially visualized. No retroperitoneal masses or hematomas. Visualized aorta is normal in caliber. IMPRESSION: 1. No acute lumbar spine fractures. 2. Moderate compression fracture of T11. A compression fracture was present previously on 04/08/2021. Severe degenerative fracture appears slightly increased. No retropulsion of fracture fragment. Cannot rule out acute fracture superimposed on chronic fracture. If there is focal pain and tenderness, MRI can be obtained for further evaluation. Reviewed by: Fred Simon MD on 12/13/2022 7:34 PM PDT Approved by: Fred Simon MD on 12/13/2022 7:34 PM PDT Station ID: [id number]
[2022-12-13] MEDS ORDERED: AMOX/CLAV 875 MG/125 MG TABLET PO STA (20:04)
[2022-12-13 20:26] VITALS: BP 166/80; O2SAT 99
== END 2022-12-13 20:21 | disposition home or self-care (01) ==
LOC: ED 16:50
DX: E87.5 Hyperkalemia (principal); E86.0 Dehydration; J01.10 Acute frontal sinusitis, unspecified; S09.90XA Unspecified injury of head, initial encounter; S00.01XA Abrasion of scalp, initial encounter; S60.512A Abrasion of left hand, initial encounter; W01.190A Fall on same level from slipping, tripping and stumbling with subsequent striking against furniture, initial encounter; Y92.009 Unspecified place in unspecified non-institutional (private) residence as the place of occurrence of the external cause; F17.200 Nicotine dependence, unspecified, uncomplicated
CPT/HCPCS: 36415; 70450; 72125; 72131; 73130; 80053; 83690; 83735; 84100; 85025; 85610; 85730; 96360; 99284; A9270; G0480; 80320

== ENCOUNTER 2022-12-28 10:34 | Outpatient (CLI) | payer MEDICARE ==
--- NOTE | 2022-12-28 13:38 | Ultrasound Report ---
PROCEDURE: Abdomen Limited INDICATIONS: HEP C TECHNIQUE: Real-time focused scanning was performed of the abdomen, with image documentation. COMPARISONS: Ultrasound 07/07/2021. FINDINGS: Liver: Coarsened echotexture liver with a nodular surface, consistent with cirrhosis. There is a new mass within the superior and lateral right hepatic lobe measuring 3.3 x 3.8 x 3.0 cm. Gallbladder: Absent. Previously collection within the gallbladder fossa has resolved. Biliary ducts: Intrahepatic bile ducts are non-dilated. Extrahepatic bile duct caliber measures 8 m m. Normal is 6-7 mm or less in diameter, or 10 mm or less post-cholecystectomy. Pancreas: Dilated main pancreatic duct measuring up to 5 mm. The pancreas is otherwise normal in maria isabel earance. Right kidney: Normal in size and echotexture. Right kidney measures 10.2 cm long. No hydronephrosis or nephrolithiasis. No solid masses. No complex renal cystic lesions which require follow-up. Aorta: Not well seen secondary overlying bowel gas IVC: Intrahepatic inferior vena cava is patent. Miscellaneous: No free abdominal fluid. IMPRESSION: 1.Findings consistent with hepatic cirrhosis. There is a new mass within the right hepatic lobe measu ring 3.8 cm. Findings are concerning for hepatocellular carcinoma, recommend liver protocol MRI or CT for further evaluation. 2.Dilation of main pancreatic duct is again seen measuring up to 5 mm. This can be further evaluated with CT or MRI. 3.Previously seen fluid collection within the gallbladder fossa has resolved. Reviewed by: Mukesh Gilman MD on 12/28/2022 1:36 PM PDT Approved by: Mukesh Gilman MD on 12/28/2022 1:36 PM PDT Station ID: [id number]
== END 2022-12-28 10:35 | disposition home or self-care (01) ==
LOC: DI 10:34
PROVIDERS: ATTEND Internal Medicine
DX: R16.0 Hepatomegaly, not elsewhere classified (principal); K86.89 Other specified diseases of pancreas; Z85.05 Personal history of malignant neoplasm of liver; K74.60 Unspecified cirrhosis of liver; B19.20 Unspecified viral hepatitis C without hepatic coma

== ENCOUNTER 2023-01-21 07:04 | Outpatient (CLI) | payer MEDICARE ==
[2023-01-21 15:06] LABS: ABSOLUTE RETICS # AUTO 0.044 10^6/uL (0.020-0.110); BASOPHILS % (AUTO) 0.4 %; EOSINOPHILS # (AUTO) 0.2 10^3/uL (0.0-0.7); EOSINOPHILS % (AUTO) 4.3 %; HCT - HEMATOCRIT 35.5 % (42.0-52.0); HGB - HEMOGLOBIN 10.9 g/dL (14.0-18.0); LYMPHOCYTES # (AUTO) 1.4 10^3/uL (1.5-3.5); LYMPHOCYTES % (AUTO) 30.2 %; MEAN CORPUSCULAR HEMOGLOBIN 28.2 pg (27.0-31.0); MEAN CORPUSCULAR HGB CONC 30.7 g/dL (32.0-36.0); MEAN PLATELET VOLUME 10.4 fL (7.4-11.4); MONOCYTES # (AUTO) 0.5 10^3/uL (0.0-1.0); MONOCYTES % (AUTO) 11.3 %; NEUTROPHILS # (AUTO) 2.5 10^3/uL (1.5-6.6); NEUTROPHILS % (AUTO) 53.8 %; PLT - PLATELET COUNT 207 10^3/uL (130-450); RED BLOOD COUNT 3.86 10^6/uL (4.70-6.10); RED CELL DISTRIBUTION WIDTH 14.2 % (12.0-15.0); RETICULOCYTE COUNT % (AUTO) 1.13 % (0.5-2.3); WHITE BLOOD COUNT 4.7 x10^3/uL (4.8-10.8)
[2023-01-21 15:44] LABS: % IRON SATURATION 4 % (20-50); ALBUMIN 3.7 g/dL (3.2-5.5); ALKALINE PHOSPHATASE 80 IU/L (42-121); ALT ALANINE AMINOTRANSFERASE 9 IU/L (10-60); AST ASPARTATE AMINOTRANSFERASE 20 IU/L (10-42); BILIRUBIN,DIRECT < 0.10 mg/dL (0.03-0.18); BILIRUBIN,TOTAL 0.3 mg/dL (0.2-1.0); IRON 17 ug/dL (50-212); TOTAL IRON BINDING CAPACITY 400 ug/dL (250-450); TOTAL PROTEIN 6.4 g/dL (6.4-8.9); TRANSFERRIN 286 mg/dL (203-362)
[2023-01-21 16:14] LABS: THYROID STIMULATING HORMONE 1.87 uIU/mL (0.34-5.60)
[2023-01-21 21:40] LABS: ESTIMATED AVERAGE GLUCOSE 108 mg/dL (70-100); HEMOGLOBIN A1c% 5.4 % (4.27-6.07)
[2023-01-24 10:09] LABS: HCV RNA QUANTITATION HCV Not Detected IU/mL (.)
== END 2023-01-21 07:05 | disposition home or self-care (01) ==
LOC: LAB.S 07:04
PROVIDERS: ATTEND Internal Medicine
DX: B19.20 Unspecified viral hepatitis C without hepatic coma (principal); Z85.05 Personal history of malignant neoplasm of liver; Z13.1 Encounter for screening for diabetes mellitus; H05.20 Unspecified exophthalmos
CPT/HCPCS: 36415; 80076; 82105; 83036; 83540; 84443; 84466; 85025; 85045; 87522

== ENCOUNTER 2023-03-16 08:44 | Outpatient (CLI) | payer MEDICARE ==
[2023-03-16] MEDS ORDERED: iohexoL-300 100 ML VIAL IVP ONE (11:17)
--- NOTE | 2023-03-18 12:34 | CT Report ---
PROCEDURE: Abdomen W/WO INDICATIONS: HEPATIC CANCER CONTRAST: Omni 300 100ml TECHNIQUE: 4 phase scanning was performed. After the administration of intravenous contrast, 5 mm thick section s acquired from the diaphragm to the symphysis. 5 mm coronal and sagittal reformats were acquired. For radiation dose reduction, the following was used: automated exposure control, adjustment of mA a nd/or kV according to patient size. COMPARISON: Ultrasound 12/28/2022, CT abdomen 04/08/2021 FINDINGS: Image quality: Suboptimal arterial phase. Liver: Cirrhotic liver morphology with dense fibrotic bands throughout the right hepatic lobe and mar ked left lobe hypertrophy. There is a fairly well-defined subcapsular lesion in segment 7 laterally measuring 3.6 cm. There is n o enhancement postcontrast administration and appearance is suggestive of treated lesion. Inferior, a nd immediately adjacent to this within the right hepatic lobe is indistinct area of heterogeneous, mu ltifocal hypodensity without arterial phase enhancement measuring roughly 3.8 cm in transverse diamet er. There are no new arterially enhancing lesions identified. OTHER: Lung bases and heart: Coronary artery and aortic valvular calcification. Clear lung bases. Gallbladder and biliary tree: Surgically absent. Appropriate biliary tree caliber postcholecystectomy . Spleen: No splenomegaly. Pancreas: Moderate smooth pancreatic ductal dilatation to the level of the pancreatic neck without a visible obstructing mass at the pancreatic neck. Adrenals: No adrenal nodule. Kidneys and ureters: No hydronephrosis. No renal cystic lesion which requires follow up. No solid mas s. Bowel and peritoneum: Stomach and visible loops of small bowel are normal. There is an increased hans tity of solid stool in the visible loops of colon. Lymph nodes: No bulky retroperitoneal adenopathy. Borderline lymph nodes are present in the jonathan hep atis. Vessels: Recanalized umbilical vein and several subcutaneous varicosities. Normal aortic caliber and moderate calcification. Patent portal vein and splenic vein. Bones: There is a new mild superior endplate compression fracture of L4. Chronic T11 wedge compressio n fracture is seen. Other: No significant ventral hernia. IMPRESSION: 1. 3.6 cm segment 7 liver lesion [id number]. 2. Heterogeneous, multifocal hypodense region immediately inferior to the treated lesion may be relat ed to treatment or new neoplasm. Liver protocol MRI is recommended given suboptimal arterial phase on CT scan. 3. Chronic dilated pancreatic duct without visible obstructing lesion or calcification. Attention on MRI is recommended. 4. New L4 compression fracture. Reviewed by: Marline Waddell MD on 03/18/2023 12:33 PM PST Approved by: Marline Waddell MD on 03/18/2023 12:33 PM [facility] Station ID: [id number]
== END 2023-03-16 08:45 | disposition home or self-care (01) ==
LOC: LAB 08:44
PROVIDERS: ATTEND Internal Medicine
DX: C22.0 Liver cell carcinoma (principal); K86.89 Other specified diseases of pancreas; M48.56XA Collapsed vertebra, not elsewhere classified, lumbar region, initial encounter for fracture
CPT/HCPCS: 36415; 74170; 82565; Q9967

== ENCOUNTER 2023-04-09 12:30 | Outpatient (CLI) | payer MEDICARE | END 2023-04-09 23:59 | disposition home or self-care (01) | LOC: LAB.S 12:30 | PROVIDERS: ATTEND Physician Assistant Medical | DX: N39.0 Urinary tract infection, site not specified (principal) | CPT/HCPCS: 87077; 87086; 87181 ==

== ENCOUNTER 2023-04-24 08:00 | Outpatient (CLI) | payer MEDICARE ==
[2023-04-24 14:46] LABS: BILIRUBIN,URINE NEGATIVE (NEGATIVE); GLUCOSE, URINE (UA) NEGATIVE (NEGATIVE); KETONES,URINE (UA) NEGATIVE (NEGATIVE); LEUKOCYTE ESTERASE, URINE NEGATIVE (NEGATIVE); NITRITE,URINE NEGATIVE (NEGATIVE); OCCULT BLOOD,URINE SMALL (NEGATIVE); PH,URINE 5.5 PH (5.0-7.5); PROTEIN,URINE NEGATIVE (NEGATIVE); UROBILINOGEN,URINE 0.2 (NORMAL) E.U./dL (NORMAL)
[2023-04-24 14:47] LABS: CLARITY,URINE CLEAR (CLEAR)
[2023-04-24 15:00] LABS: BACTERIA,URINE None Seen /HPF (None Seen); RBC,URINE 0-5 /HPF (0-5); SQUAMOUS EPITHELIAL CELL,UR RARE Squamous (<= Few); WBC,URINE 0-3 /HPF (0-3)
== END 2023-04-24 23:59 | disposition home or self-care (01) ==
LOC: LAB.S 08:00
PROVIDERS: ATTEND Internal Medicine
DX: R30.0 Dysuria (principal); R31.9 Hematuria, unspecified
CPT/HCPCS: 81001; 81003; 87086

== ENCOUNTER 2023-05-02 08:00 | Outpatient (CLI) | payer MEDICARE ==
[2023-05-02 19:48] LABS: BILIRUBIN,URINE NEGATIVE (NEGATIVE); GLUCOSE, URINE (UA) NEGATIVE (NEGATIVE); KETONES,URINE (UA) NEGATIVE (NEGATIVE); LEUKOCYTE ESTERASE, URINE NEGATIVE (NEGATIVE); NITRITE,URINE NEGATIVE (NEGATIVE); OCCULT BLOOD,URINE SMALL (NEGATIVE); PROTEIN,URINE NEGATIVE (NEGATIVE); UROBILINOGEN,URINE 0.2 (NORMAL) E.U./dL (NORMAL)
[2023-05-02 19:50] LABS: CLARITY,URINE CLEAR (CLEAR)
[2023-05-02 19:56] LABS: BACTERIA,URINE Rare /HPF (None Seen); RBC,URINE 0-5 /HPF (0-5); SQUAMOUS EPITHELIAL CELL,UR NONE SEEN (<= Few); WBC,URINE 0-3 /HPF (0-3)
== END 2023-05-02 23:59 | disposition home or self-care (01) ==
LOC: LAB.S 08:00
PROVIDERS: ATTEND Internal Medicine
DX: R30.0 Dysuria (principal); R31.9 Hematuria, unspecified
CPT/HCPCS: 81001; 87086

== ENCOUNTER 2023-06-06 08:00 | Outpatient (CLI) | payer MEDICARE | END 2023-06-06 23:59 | disposition home or self-care (01) | LOC: LAB 08:00 | PROVIDERS: ATTEND Urology | DX: R30.0 Dysuria (principal) | CPT/HCPCS: 87086 ==

== ENCOUNTER 2023-06-28 11:43 | Outpatient (CLI) | payer MEDICARE ==
--- NOTE | 2023-06-28 20:40 | XRAY Report ---
PROCEDURE: Shoulder 2+V LT INDICATIONS: FROZEN LEFT SHOULDER TECHNIQUE: 3 views of the shoulder were acquired. COMPARISON: Chest x-ray, 07/20/2022. FINDINGS: Bones: No fractures or dislocations. No suspicious bony lesions. Mild acromioclavicular and glenoh umeral joint degeneration. Visualized ribs appear intact. Soft tissues: No suspicious soft tissue calcifications. The visualized lungs are within normal limi ts. IMPRESSION: 1. No acute bony abnormality. 2. Mild degenerative joint disease. Reviewed by: Fred Simon MD on 06/28/2023 8:38 PM PDT Approved by: Fred Simon MD on 06/28/2023 8:38 PM PDT Station ID: [id number]
== END 2023-06-28 11:44 | disposition home or self-care (01) ==
LOC: DI.S 11:43
PROVIDERS: ATTEND Internal Medicine
DX: M75.02 Adhesive capsulitis of left shoulder (principal); M19.012 Primary osteoarthritis, left shoulder

== ENCOUNTER 2023-07-25 13:37 | Outpatient (CLI) | payer MEDICARE ==
--- NOTE | 2023-07-26 01:26 | XRAY Report ---
PROCEDURE: Shoulder 1V LT INDICATIONS: LEFT FROZEN SHOULDER TECHNIQUE: A single axillary view COMPARISON: 06/28/2023 FINDINGS: Normal bone mineralization present. No evidence of displaced fracture. No dislocation. IMPRESSION: Single axillary view left shoulder shows no dislocation Reviewed by: Margarito Penn MD on 07/26/2023 12:25 AM [facility] Approved by: Margarito Penn MD on 07/26/2023 12:25 AM [facility] Station ID: [id number]
== END 2023-07-25 13:38 | disposition home or self-care (01) ==
LOC: DI 13:37
PROVIDERS: ATTEND Physician Assistant Surgical
DX: M75.02 Adhesive capsulitis of left shoulder (principal)

== ENCOUNTER 2023-10-15 08:41 | Outpatient (CLI) | payer MEDICARE ==
--- NOTE | 2023-10-15 13:48 | MRI Report ---
PROCEDURE: Shoulder LT WO INDICATIONS: FROZEN LEFT SHOULDER TECHNIQUE: Noncontrast oblique coronal T2 fast spin echo with fat saturation, oblique sagittal T1 spin echo and T2 fast spin echo with fat saturation, axial T1 spin echo and T2 fast spin echo with fat saturation t hrough the shoulder. COMPARISON: Shoulder radiograph dated 07/25/2023 and 06/28/2023. FINDINGS: Image quality: Excellent. Rotator cuff: Low-grade articular and bursal surface partial-thickness tear involving distal supraspi natus at its insertion on humeral head is seen extending to musculotendinous junction. Distal infrasp inatus tendinosis. There is low-grade intrasubstance partial thickness involving distal subscapularis . No full-thickness rotator cuff tendon rupture. Mild to moderate supraspinatus muscle atrophy is see n on sagittal images. Bones and bursae: There is no marrow edema. No acute fracture or dislocation. Moderate acromioclavicu lar joint osteoarthritic changes are seen with joint space narrowing and downward osteophyte formatio n depressing on musculotendinous junction of supraspinatus. Mild glenohumeral joint osteophytic martinez es are seen. Small amount of joint effusion and subacromial subdeltoid bursal fluid, no loose bodies. Capsule and soft tissues: There is fraying of superior anterior labrum with T2 hyperintense signal hernandez ggestive of glenoid labral tear. Thickened inferior glenohumeral ligament is noted which can be seen associated with adhesive capsulitis. The long head of the biceps tendon appears thickened. The rotat or interval appears normal, without fibrosis. The coracohumeral ligament is normal in thickness. IMPRESSION: 1. Low-grade articular and bursal surface partial-thickness tear involving distal supraspinatus exten ding to musculotendinous junction. Distal infraspinatus tendinosis. Low-grade intrasubstance partial thickness tear involving subscapularis. No full-thickness rotator cuff tendon rupture. Mild to modera te supraspinatus muscle atrophy. 2. Moderate acromioclavicular joint osteoarthritis and mild glenohumeral joint osteoarthritis. No fra cture or dislocation. Small joint effusion and subacromial subdeltoid bursal fluid, no loose bodies. 3. Suggestion of superior anterior left glenoid labral tear. 4. Thickened inferior glenohumeral ligament which can be seen associated with adhesive capsulitis. 5. Tendinosis involving proximal long head of biceps. Reviewed by: Sam Monterroso MD on 10/15/2023 1:47 PM PDT Approved by: Sam Monterroso MD on 10/15/2023 1:47 PM PDT Station ID: [id number]
== END 2023-10-15 08:42 | disposition home or self-care (01) ==
LOC: DI 08:41
PROVIDERS: ATTEND Internal Medicine
DX: M75.02 Adhesive capsulitis of left shoulder (principal); M75.112 Incomplete rotator cuff tear or rupture of left shoulder, not specified as traumatic; M62.512 Muscle wasting and atrophy, not elsewhere classified, left shoulder; M19.012 Primary osteoarthritis, left shoulder; M25.412 Effusion, left shoulder

== ENCOUNTER 2023-10-27 14:20 | Outpatient (CLI) | payer MEDICARE | END 2023-10-27 23:59 | disposition EMS.NT | LOC: EMS 14:20 | DX: H92.02 Otalgia, left ear (principal); T75.89XA Other specified effects of external causes, initial encounter ==

== ENCOUNTER 2023-11-20 07:00 | Outpatient (CLI) | payer MEDICARE ==
--- NOTE | 2023-11-20 12:26 | XRAY Report ---
PROCEDURE: Thoracic Spine 3V INDICATIONS: THORACIC SPINE SPRAIN TECHNIQUE: AP and lateral views of the thoracic spine were acquired. COMPARISON: CT chest with contrast 05/01/2023 FINDINGS: Interval development of T9 superior end plate compression fracture with up to 40% height loss, which is new when compared to the 05/01/2023 CT chest with contrast examination. Chronic T11 superior end pl ate compression fracture with up to 30% height loss. Diffuse osseous demineralization. Otherwise, the vertebral body heights are preserved. The visualized chest and upper abdomen are within normal limit s. IMPRESSION: Age-indeterminate T9 superior endplate compression fracture, new when compared to 05/01/2023. Reviewed by: Grady Gautam MD on 11/20/2023 12:25 PM PDT Approved by: Grady Gatuam MD on 11/20/2023 12:25 PM PDT Station ID: [id number]
--- NOTE | 2023-11-20 12:48 | XRAY Report ---
PROCEDURE: Lumbar Spine 2-3V INDICATIONS: LUMBAR SPINE STRAIN TECHNIQUE: 3 views of the lumbar spine were acquired. COMPARISON: CT abdomen with and without contrast 03/16/2023 FINDINGS: Chronic T11 and L4 superior endplate compression fractures. Otherwise, 5 nonrib-bearing lumbar verteb elayne are present. The remaining vertebral body heights are preserved. Diffuse osseous demineralization . Multilevel facet arthropathy, most conspicuous at L3-L4, L4-L5, and L5-S1. Mild intervertebral disc height loss at L3-L4. Hypertrophy of the spinous processes. Aortic vascular calcifications. Mild nayely ateral sacroiliac joint osteoarthritis. IMPRESSION: Chronic T11 and L4 superior plate compression fractures. Otherwise, no acute radiographic abnormality of the lumbar spine. Reviewed by: Grady Gautam MD on 11/20/2023 12:47 PM PDT Approved by: Grady Gautam MD on 11/20/2023 12:47 PM PDT Station ID: [id number]
== END 2023-11-20 23:59 | disposition home or self-care (01) ==
LOC: DI.S 07:00
PROVIDERS: ATTEND Physician Assistant Medical
DX: S23.3XXA Sprain of ligaments of thoracic spine, initial encounter (principal); S33.5XXA Sprain of ligaments of lumbar spine, initial encounter; M48.54XA Collapsed vertebra, not elsewhere classified, thoracic region, initial encounter for fracture; M48.56XA Collapsed vertebra, not elsewhere classified, lumbar region, initial encounter for fracture

== ENCOUNTER 2023-11-22 12:17 | Outpatient (CLI) | payer MEDICARE ==
[2023-11-22 12:39] LABS: BASOPHILS % (AUTO) 0.2 %; EOSINOPHILS # (AUTO) 0.1 10^3/uL (0.0-0.7); EOSINOPHILS % (AUTO) 0.6 %; HCT - HEMATOCRIT 38.3 % (42.0-52.0); LYMPHOCYTES # (AUTO) 0.8 10^3/uL (1.5-3.5); MEAN CORPUSCULAR HGB CONC 31.3 g/dL (32.0-36.0); MEAN CORPUSCULAR VOLUME 86.1 fL (80.0-94.0); MEAN PLATELET VOLUME 9.7 fL (7.4-11.4); MONOCYTES # (AUTO) 0.7 10^3/uL (0.0-1.0); MONOCYTES % (AUTO) 7.6 %; NEUTROPHILS # (AUTO) 7.8 10^3/uL (1.5-6.6); NEUTROPHILS % (AUTO) 83.3 %; PLT - PLATELET COUNT 152 10^3/uL (130-450); RED BLOOD COUNT 4.45 10^6/uL (4.70-6.10); RED CELL DISTRIBUTION WIDTH 16.1 % (12.0-15.0); WHITE BLOOD COUNT 9.4 x10^3/uL (4.8-10.8)
[2023-11-22 12:56] LABS: ALBUMIN 3.9 g/dL (3.2-5.5); ALBUMIN/GLOBULIN RATIO 1.2 (1.0-2.2); CALCIUM 9.4 mg/dL (8.5-10.3); CREATININE 0.8 mg/dL (0.6-1.3); POTASSIUM 4.3 mmol/L (3.5-4.5); TOTAL PROTEIN 7.1 g/dL (6.4-8.9)
== END 2023-11-22 12:18 | disposition home or self-care (01) ==
LOC: LAB 12:17
PROVIDERS: ATTEND Physician Assistant Medical
DX: F10.10 Alcohol abuse, uncomplicated (principal); R10.9 Unspecified abdominal pain; R31.9 Hematuria, unspecified
CPT/HCPCS: 36415; 80053; 85025; 87086

== ENCOUNTER 2023-11-22 12:29 | Outpatient (CLI) | payer MEDICARE ==
--- NOTE | 2023-11-22 14:35 | CT Report ---
PROCEDURE: Abdomen/Pelvis WO INDICATIONS: FLANK PAIN TECHNIQUE: A CT scan of the abdomen and pelvis was performed without the use of intravenous contrast. Images we re recorded and evaluated at appropriate window settings. Reformats: coronal and sagittal. For radiat ion dose reduction, the following was used: automated exposure control, adjustment of mA and/or kV ac cording to patient size. COMPARISON: 09/04/2023, 04/08/2021 FINDINGS: Image quality: Diagnostic Lower chest: Scattered scarring and atelectasis. Annular calcifications and valvular calcifications. Coronary calcifications are also present Liver: Not well assessed without IV contrast. Follow-up liver MRI is suggested for previously noted f indings. Cirrhotic contour. Gallbladder and biliary system: Absent, no pathologic dilation Pancreas: Dilated duct again seen, not well assessed on this study Spleen: Nonenlarged Adrenals: No discrete nodule Kidneys: No hydronephrosis. Left extrarenal pelvis. This is similar to prior. No obstructing calcifie d stone. Vessels and lymph nodes: No abdominal aortic aneurysm. No pathologic lymph nodes by size criteria. There are portal venous collaterals. Bowel and peritoneum: No evidence of small bowel obstruction. No pathologic ascites. There are colonic diverticula. Body wall: Tiny fat-containing periumbilical hernia Pelvis: Thick-walled urinary bladder. Right posterior lateral diverticulum again seen. Bones: Degenerative changes. Possible old right pubic fracture. T11 compression deformity again seen. Age-indeterminate height loss also seen at T9. IMPRESSION: No obstructing calcified stone identified. No hydronephrosis. Left extrarenal pelvis again seen. No calcified bladder stone. Thick-walled urinary bladder is nonspecific, correlate urinalysis. A righ t posterolateral diverticulum also again seen. Solid organs are not well evaluated IV contrast. Consider liver MRI follow-up for previous MRI findin gs. T9 and T11 vertebral body height loss, age indeterminate, however the T11 finding was seen in 04/08/19 22. Other findings above. Reviewed by: Enrique Jalloh MD on 11/22/2023 2:33 PM PDT Approved by: Enrique Jalloh MD on 11/22/2023 2:33 PM PDT Station ID: [id number]
--- NOTE | 2023-11-22 14:49 | CT Report ---
PROCEDURE: Thoracic Spine WO INDICATIONS: COMPRESSION FX THORACIC SPINE TECHNIQUE: Noncontrast 3 mm thick sections acquired through the region of interest in the thoracic spine. Sagit nicole and coronal reformats were then constructed. For radiation dose reduction, the following was used : automated exposure control, adjustment of mA and/or kV according to patient size. COMPARISON: Thoracic and lumbar spine x-rays 11/20/2023, CT abdomen and pelvis without contrast 2023, CT chest with contrast 05/01/2023 FINDINGS: Image quality: Excellent. Bones: Identified T9 and T11 superior endplate compression fractures. The T9 superior endplate compre ssion fracture is new when compared to 05/01/2023 with approximately 70% height loss centrally () . No significant retropulsion of fracture fragments. The T11 compression fracture is chronic. Otherwi se, the vertebral body heights are preserved. Diffuse osseous demineralization. Joints: Endplate sclerosis and degeneration at C5-C6. Otherwise, joint spaces are preserved. No signi ficant facet arthropathy. Spinal canal: No severe bony central canal or foraminal stenosis Muscles: Mild diffuse paraspinal mus almaz atrophy. Vessels: Mild aortic vascular calcifications. No thoracic aortic aneurysm. Severe coronary artery and aortic valve calcifications. Other soft tissues: Visualized lung parenchyma within normal limits. IMPRESSION: 1.New T9 superior plate compression fracture without to 70% height loss. 2.Chronic T11 superior end plate compression fracture. Reviewed by: Grady Gautam MD on 11/22/2023 2:48 PM PDT Approved by: Grady Gautam MD on 11/22/2023 2:48 PM PDT Station ID: [id number]
== END 2023-11-22 12:30 | disposition home or self-care (01) ==
LOC: DI 12:29
PROVIDERS: ATTEND Physician Assistant Medical
DX: M48.54XA Collapsed vertebra, not elsewhere classified, thoracic region, initial encounter for fracture (principal); R10.9 Unspecified abdominal pain; R31.9 Hematuria, unspecified; M47.812 Spondylosis without myelopathy or radiculopathy, cervical region; F10.10 Alcohol abuse, uncomplicated
CPT/HCPCS: 36415; 80053; 85025; 87086

== ENCOUNTER 2023-11-30 09:29 | Outpatient (CLI) | payer MEDICARE ==
--- NOTE | 2023-12-02 12:19 | MRI Report ---
PROCEDURE: Thoracic Spine WO INDICATIONS: COMPRESSION FX TECHNIQUE: Noncontrast sagittal T1 spine echo and T2 fast spin echo, sagittal STIR, axial T1 and T2 fast spin ec ho through the thoracic spine. COMPARISON: CT thoracic spine on 11/22/2023. FINDINGS: Image quality: Excellent. Localizer image: Nodular liver contour, likely representing cirrhosis. Mild anterolisthesis of T1 on T2, T2 and T3 and T3 on T4. Moderate anterior compression fracture of T 9 with marked marrow edema, acute. There is moderate anterior compression fracture of T11 without mar row edema, chronic. Mild retropulsion of posterior T9 and T11 vertebral body. No suspicious marrow re placing lesion. Multilevel disc bulge and disc desiccation. Cord signal: Unremarkable Central canal stenosis: Mild at T6-7, T8-9, and T10-T11. Right neuroforaminal stenosis: Moderate at T9-10. Mild at T11-T12. Left neuroforaminal stenosis: None. Other soft tissue findings: Visualized thoracic aorta is unremarkable. IMPRESSION: 1.Moderate anterior compression fracture of T9, acute. 2.Chronic moderate anterior compression fracture of T11. 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 4.Moderate right neuroforaminal stenosis at T9-T10. Reviewed by: Shahana Alvarado MD on 12/02/2023 12:18 PM PDT Approved by: Shahana Alvarado MD on 12/02/2023 12:18 PM PDT Station ID: [id number]
== END 2023-11-30 09:30 | disposition home or self-care (01) ==
LOC: DI 09:29
PROVIDERS: ATTEND Physician Assistant Medical
DX: M80.08XA Age-related osteoporosis with current pathological fracture, vertebra(e), initial encounter for fracture (principal); M80.88XA Other osteoporosis with current pathological fracture, vertebra(e), initial encounter for fracture; M99.52 Intervertebral disc stenosis of neural canal of thoracic region; M48.04 Spinal stenosis, thoracic region